=== PATIENT | male | born 1945 | race Caucasian/White ===

== ENCOUNTER 2019-11-06 00:32 | Day surgery (SDC) | payer MEDICARE, OTHER, SELFPAY ==
[2019-10-31 11:26] VITALS: BMI 27.8
[2019-11-06 06:39] VITALS: BP 146/71; PULSE 70; RESP 20; TEMP 36.4; O2SAT 100; BMI 27.5
[2019-11-06 07:09] LABS: Glucose Point of Care 134 (65-105)
[2019-11-06] MEDS: LACTATED RINGERS 1,000 ML 150 ML IV CONT (07:11)
--- NOTE | 2019-11-06 07:19 | WPDANESEPPF ---
Anes - Initial Pre Proc Eval Procedure: Operation Date: 11/06/19 08:00 Proposed Procedures p Colonoscopy - Garret Mathias MD Date/Time: 11/06/19 07:19 Surgeon: Garret Mathias MD Pre Op Diagnosis: rectal bleeding, hx colon polyp Patient Data Age: 74 Gender: M Height: 6 ft Weight: 92 kg Last Vital Signs Temp 36.4 C L 11/06/19 06:39 Pulse 70 11/06/19 06:39 Resp 20 11/06/19 06:39 BP 146/71 H 11/06/19 06:39 Pulse Ox 100 11/06/19 06:39 Allergies Allergy/AdvReac Type Severity Reaction Status Date / Time tetanus toxoid, adsorbed Allergy Mild Rash Verified 11/06/19 06:32 Tetanus Vaccines and Toxoid Allergy Unknown Hives Verified 11/06/19 06:32 Home Medications Medication Instructions Recorded Confirmed Type methimazole 5 mg tablet 2.5 mg PO BID #180 tablet 08/10/19 10/31/19 Rx febuxostat 40 mg tablet 40 mg PO DAILY #90 tablet 08/29/19 10/31/19 Rx finasteride 5 mg tablet 5 mg PO DAILY #90 tablet 08/29/19 10/31/19 Rx triamterene 75 1 tablet PO DAILY #90 tablet 08/29/19 10/31/19 Rx mg-hydrochlorothiazide 50 mg tablet amlodipine 10 mg tablet 10 mg PO DAILY #90 tablet 10/24/19 11/06/19 Rx atorvastatin 20 mg tablet 20 mg PO DAILY #90 tablet 10/24/19 10/31/19 Rx ascorbic acid (vitamin C) 500 mg PO DAILY 10/31/19 10/31/19 History cholecalciferol (vitamin D3) 50 mcg PO DAILY 10/31/19 10/31/19 History [Vitamin D3] evening primrose oil 1,000 mg PO TID 10/31/19 10/31/19 History hydrocortisone acetate [Anucort-HC] 25 mg [place] TID PRN 10/31/19 10/31/19 History icosapent ethyl [Vascepa] 2 g PO BID 10/31/19 10/31/19 History magnesium oxide 500 mg PO BID 10/31/19 10/31/19 History sonrjvkp-bhm-VR-lycopen-lutein 1 tablet PO DAILY 10/31/19 10/31/19 History [Centrum Silver Men] pentoxifylline 400 mg PO TID 10/31/19 10/31/19 History sitagliptin [Januvia] 50 mg PO DAILY 10/31/19 10/31/19 History vitamin E 400 unit PO BID 10/31/19 10/31/19 History Laboratory Tests 11/06/19 07:05 POC Capillary Glucose 134 mg/dl H mg/dl (65-105) Patient hx anesthesia problems: none Family hx anesthesia problems: none PMFSH Past Medical History Medical History (Updated 11/06/19 @ 07:19 by Wale Gates MD) Colon cancer Diabetes HTN (hypertension) Hyperlipidemia Prostate cancer Social History Social History Second hand tobacco smoke exposure: No Alcohol intake: never Gender identity (if verbalized by the patient): Male Anes - Eval Final PreProcedure Day of Procedure 11/06/19 07:19 Patient weight: overweight Heart: regular rate and rhythm Lungs: clear to auscultation Airway: Mallampati scale class II Neurological: alert and oriented Last oral intake: >/= 8 hours ASA classification: III Emergent: no Anesthetic plan: proceed Anesthesia type and monitoring: general GIVS and standard monitoring Informed Consent: The patient's anesthetic plan and its attendant risks and benefits were discussed with the patient/family/POA. Questions were solicited and answers provided to the satisfaction of the patient/family/POA.
--- NOTE | 2019-11-06 07:32 | WPDGICN ---
Assessment and Plan Assessment and plan (1) Rectal bleeding: Code(s): K62.5 - Hemorrhage of anus and rectum Status: Acute Assessment and Plan: Plan is to for colonoscopy to assess more thoroughly bleeding may be secondary to recent radiation therapy. Does have a history of colon polyps. He has a history of large colon polyp requiring resection in the past. (2) History of colon polyps: Code(s): Z86.010 - Personal history of colonic polyps Status: Acute Additional Plan Plan is for colonoscopy to evaluate bleeding to assess for recurrent colon polyps and status of radiation damage to the colon. GI Consult Note Consult date/time: 11/06/19 07:32 HPI: Syd Underwood is a 74 year old male Seen in evaluation at the request of Dr.Oscar Bustamante. Patient is referred for rectal bleeding. He has a history of prostate cancer status post radiation therapy in 2019. Patient is notice bright red blood per rectum since May of 2019. This occurs intermittently. Often with wiping. Often outside the stool. He denies any associated pain. He states his bowel movements are regular and formed. Patient does have a past history of a surgically resected colon polyp by 10 years ago apparently was very large. Follow-up colonoscopy 2016 also revealed adenomatous colon polyps. Patient has tried hydrocortisone suppositories with no significant results. He takes Metamucil on occasion. Review of Systems Review of Systems: All systems reviewed & are unremarkable except as noted in HPI and below PMFSH Past Medical History Medical History Colon cancer Diabetes HTN (hypertension) Hyperlipidemia Prostate cancer Social History Social History Second hand tobacco smoke exposure: No Alcohol intake: never Gender identity (if verbalized by the patient): Male Meds Home Medications and Allergies Home Medications Medication Instructions Recorded Confirmed Type methimazole 5 mg tablet 2.5 mg PO BID #180 tablet 08/10/19 10/31/19 Rx febuxostat 40 mg tablet 40 mg PO DAILY #90 tablet 08/29/19 10/31/19 Rx finasteride 5 mg tablet 5 mg PO DAILY #90 tablet 08/29/19 10/31/19 Rx triamterene 75 1 tablet PO DAILY #90 tablet 08/29/19 10/31/19 Rx mg-hydrochlorothiazide 50 mg tablet amlodipine 10 mg tablet 10 mg PO DAILY #90 tablet 10/24/19 11/06/19 Rx atorvastatin 20 mg tablet 20 mg PO DAILY #90 tablet 10/24/19 10/31/19 Rx ascorbic acid (vitamin C) 500 mg PO DAILY 10/31/19 10/31/19 History cholecalciferol (vitamin D3) 50 mcg PO DAILY 10/31/19 10/31/19 History [Vitamin D3] evening primrose oil 1,000 mg PO TID 10/31/19 10/31/19 History hydrocortisone acetate [Anucort-HC] 25 mg [place] TID PRN 10/31/19 10/31/19 History icosapent ethyl [Vascepa] 2 g PO BID 10/31/19 10/31/19 History magnesium oxide 500 mg PO BID 10/31/19 10/31/19 History pucyunzf-plx-JA-lycopen-lutein 1 tablet PO DAILY 10/31/19 10/31/19 History [Centrum Silver Men] pentoxifylline 400 mg PO TID 10/31/19 10/31/19 History sitagliptin [Januvia] 50 mg PO DAILY 10/31/19 10/31/19 History vitamin E 400 unit PO BID 10/31/19 10/31/19 History Allergies Allergy/AdvReac Type Severity Reaction Status Date / Time tetanus toxoid, adsorbed Allergy Mild Rash Verified 11/06/19 06:32 Tetanus Vaccines and Toxoid Allergy Unknown Hives Verified 11/06/19 06:32 Vital Signs Vital Signs - 24 hr 11/06/19 06:39 Temperature 36.4 C L Pulse Rate 70 Respiratory Rate 20 Blood Pressure 146/71 H Pulse Oximetry 100 Exam Narrative: Exam Narrative: Physical exam reveals Vital Signs to be stable. HEENT exam unremarkable. Lungs are clear to auscultation and percussion. Heart is without murmur or extra sounds. Abdominal exam bowel sounds are present soft nontender with no organomegaly. Digital external rectal exam normal.
[2019-11-06 08:33] VITALS: BP 115/66; PULSE 63; RESP 19; O2SAT 97
[2019-11-06 08:40] VITALS: BP 108/66; PULSE 66; RESP 18; O2SAT 98
[2019-11-06 08:45] LABS: Glucose Point of Care 114 (65-105)
[2019-11-06 08:50] VITALS: BP 127/73; PULSE 65; RESP 27; O2SAT 98
== END 2019-11-06 09:02 | disposition home or self-care (01) ==
PROVIDERS: PCP Internal Medicine; Visit Provider Internal Medicine Gastroenterology
PROC: 0DJD8ZZ Inspection of Lower Intestinal Tract, Via Natural or Artificial Opening Endoscopic (ICD-10-PCS; CPT 45378; principal; 2019-11-06 08:00)
DX: K63.5 Polyp of colon (principal); K57.30 Diverticulosis of large intestine without perforation or abscess without bleeding; K62.89 Other specified diseases of anus and rectum; K64.8 Other hemorrhoids; Z85.038 Personal history of other malignant neoplasm of large intestine; Z85.46 Personal history of malignant neoplasm of prostate; I10 Essential (primary) hypertension; E78.5 Hyperlipidemia, unspecified; E11.9 Type 2 diabetes mellitus without complications; Z79.84 Long term (current) use of oral hypoglycemic drugs
CPT/HCPCS: 45385; 88305; J2704; J7120

== ENCOUNTER 2021-11-02 01:07 | Day surgery (SDC) | payer MEDICARE, OTHER, SELFPAY ==
[2021-10-16 15:13] VITALS: BMI 25.0
[2021-11-02 08:50] VITALS: BP 117/57; PULSE 61; RESP 20; TEMP 36.3; O2SAT 100; BMI 25.9
[2021-11-02] MEDS: LACTATED RINGERS 1,000 ML 150 ML IV CONT (08:56)
--- NOTE | 2021-11-02 09:02 | WPDANESEPPF ---
Anes - Initial Pre Proc Eval Procedure: Operation Date: 11/02/21 09:30 Proposed Procedures p Esophagogastroduodenoscopy - Garret Mathias MD Date/Time: 11/02/21 09:02 Surgeon: Garret Mathias MD Pre Op Diagnosis: celiac disease Patient Data Age: 76 Gender: M Height: 1.83 m Weight: 86.6 kg Last Vital Signs Temp 36.3 C L 11/02/21 08:50 Pulse 61 11/02/21 08:50 Resp 20 11/02/21 08:50 BP 117/57 L 11/02/21 08:50 Pulse Ox 100 11/02/21 08:50 Allergies Allergy/AdvReac Type Severity Reaction Status Date / Time tetanus toxoid, adsorbed Allergy Mild Rash Verified 11/02/21 08:49 Tetanus Vaccines and Toxoid Allergy Unknown Hives Verified 11/02/21 08:49 Home Medications Medication Instructions Recorded Confirmed Type uuupbtgi-wsd-EB-lycopen-lutein 1 tablet PO DAILY 10/31/19 10/16/21 History [Centrum Silver Men] vitamin B complex 1 cap PO DAILY 90 Days #90 cap 02/21/20 10/13/21 Rx amlodipine 10 mg tablet 10 mg PO DAILY #90 tablet 07/21/21 10/16/21 Rx finasteride 5 mg tablet 5 mg PO DAILY 90 Days #90 tablet 07/29/21 10/16/21 Rx methimazole 5 mg tablet 2.5 mg PO BID #180 tablet 07/29/21 10/16/21 Rx omega 5-qio-xhp-fish oil 60 mg-90 2 cap PO BID cap 07/29/21 10/16/21 History mg-500 mg capsule triamterene 75 See Rx Instructions .ROUTE 08/18/21 10/13/21 Rx mg-hydrochlorothiazide 50 mg tablet .COMPLEX #90 tablet allopurinol 100 mg tablet 100 mg PO DAILY #90 tablet 08/25/21 10/16/21 Rx cholecalciferol (vitamin D3) 125 100 mcg PO BID 09/01/21 10/16/21 History mcg (5,000 unit) capsule rosuvastatin 10 mg tablet See Rx Instructions .ROUTE 10/20/21 Rx .COMPLEX #90 tablet sitagliptin 100 mg tablet See Rx Instructions .ROUTE 10/27/21 Rx .COMPLEX #45 tablet Patient hx anesthesia problems: none Family hx anesthesia problems: none Results Review: All pre-operative results and documents have been reviewed as part of the pre-operative evaluation. 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 Prostate cancer Surgical History Surgical History History of colon surgery 2004 Resection for polyps Family History Family History Father Heart disease Mother Diabetes mellitus Hypertension Son Hypertension Social History Social History Smoking status: Former smoker Second hand tobacco smoke exposure: No Smoking end date: 07/18/89 Additional smoking assessment comments: quit 15-20 years ago Alcohol intake: current Drinks per week: 2 Alcohol use details: vodka and cranberry Substance use: never Substance use type: does not use Living arrangements: with family Gender identity (if verbalized by the patient): Male Spiritual care concerns: No Agree to blood products: Yes Anes - Eval Final PreProcedure Day of Procedure 11/02/21 09:02 Patient weight: overweight Heart: regular rate and rhythm Lungs: clear to auscultation Airway: Mallampati scale class II Neurological: alert and oriented Last oral intake: >/= 8 hours ASA classification: III Emergent: no Anesthetic plan: proceed Anesthesia type and monitoring: general GIVS and standard monitoring Results Review: All pre-operative results and documents have been reviewed as part of the pre-operative evaluation. Informed Consent: The patient's anesthetic plan and its attendant risks and benefits were discussed with the patient/family/POA. Questions were solicited and answers provided to the satisfaction of the patient/family/POA.
[2021-11-02 09:16] LABS: Glucose Point of Care 106 mg/dl (65-105)
--- NOTE | 2021-11-02 09:30 | WPDHPUPDATE1 ---
History and Physical Update Update Date/Time: 11/02/21 09:30 History and Physical has been reviewed, including an updated exam of the patient. There are NO changes in the patient's condition. Risks, benefits, and alternatives have been discussed and questions answered. Patient agrees to proceed with procedure.
[2021-11-02 09:52] VITALS: BP 112/52; PULSE 56; RESP 24; O2SAT 96
[2021-11-02 10:02] VITALS: BP 117/85; PULSE 55; RESP 17; O2SAT 100
== END 2021-11-02 10:17 | disposition home or self-care (01) ==
PROVIDERS: PCP Family Medicine; Visit Provider Internal Medicine Gastroenterology
PROC: 0DJ08ZZ Inspection of Upper Intestinal Tract, Via Natural or Artificial Opening Endoscopic (ICD-10-PCS; CPT 43235; principal; 2021-11-02 09:30)
DX: K29.80 Duodenitis without bleeding (principal); K90.0 Celiac disease; R19.7 Diarrhea, unspecified; E78.5 Hyperlipidemia, unspecified; I12.9 Hypertensive chronic kidney disease with stage 1 through stage 4 chronic kidney disease, or unspecified chronic kidney disease; E11.22 Type 2 diabetes mellitus with diabetic chronic kidney disease; N18.30 Chronic kidney disease, stage 3 unspecified; Z85.46 Personal history of malignant neoplasm of prostate; Z79.84 Long term (current) use of oral hypoglycemic drugs; Z90.49 Acquired absence of other specified parts of digestive tract; Z87.891 Personal history of nicotine dependence
CPT/HCPCS: 43239; 82948; 88305; J2704; J7120

== ENCOUNTER 2023-04-13 09:54 | Outpatient (CLI) | payer MEDICARE, SELFPAY ==
[2023-04-13 10:42] LABS: Hematocrit 44.4 % (42.0-52.0); Hemoglobin 15.4 g/dL (14.0-18.0); Mean Corpuscular HGB Conc 34.7 g/dl (32-36); Mean Corpuscular Hemoglobin 31.6 pg (26-34); Mean Platelet Volume 10.9 fl (7.4-10.4); Platelet Count Result 230 k/mm3 (150-375); Red Blood Count 4.88 M/mm3 (4.6-6.20); Red Cell Distribution Width 12.6 % (11.5-14.5); White Blood Count 5.3 K/mm3 (4.5-10.0)
[2023-04-13 10:55] LABS: Alanine Aminotransferase 69 U/L (6-50); Albumin Level 4.5 g/dL (3.5-5.1); Alkaline Phosphatase 62 U/L (38-126); Anion Gap 8 mmol/L (8-16); Aspartate Amino Transferase 60 U/L (17-59); Bilirubin,Total 0.7 mg/dL (0.2-1.3); Blood Urea Nitrogen 24 mg/dL (9-20); Calcium 9.1 mg/dL (8.4-10.2); Carbon Dioxide 27 mmol/L (22-30); Chloride 103 mmol/L (98-107); Estimated Glomerular Filt Rate > 60; Glucose 225 mg/dL (65-110); Potassium 3.7 mmol/L (3.4-5.0); Sodium 138 mmol/L (137-145)
[2023-04-13 11:19] LABS: Iron 109 ug/dL (49-181)
[2023-04-13 11:28] LABS: Percent Iron Saturation 30 % (20-50)
[2023-04-13 12:27] LABS: Folic Acid > 20.0 ng/mL (2.76->20)
[2023-04-13 13:33] LABS: Vitamin D 25 Hydroxy 62.2 ng/mL
[2023-04-16 10:31] LABS: Vitamin D 1,25 (OH)2 Total 27 pg/mL (18-72); Vitamin D2 1,25 (OH)2 <8 pg/mL; Vitamin D3 1,25 (OH)2 27 pg/mL
[2023-04-16 15:44] LABS: Alpha-Tocopherol 12.1 mg/L (5.7-19.9); Beta-Gamma Tocopherol <1.0 mg/L (<=4.3); Vitamin A 86 mcg/dL (38-98)
[2023-04-18 13:02] LABS: Vitamin B6 34.5 ng/mL (2.1-21.7)
[2023-04-19 09:44] LABS: Tissue Transglutaminase IgA Ab 19.3 U/mL (<15.0)
== END 2023-04-13 09:55 | disposition home or self-care (01) ==
LOC: ANHLAB 09:59
PROVIDERS: PCP Family Medicine; Visit Provider Nurse Practitioner Family
DX: E55.9 Vitamin D deficiency, unspecified (principal); K90.0 Celiac disease
CPT/HCPCS: 36415; 80053; 82306; 82607; 82652; 82728; 82746; 83540; 83550; 84207; 84446; 84590; 85027; 86364

== ENCOUNTER 2023-08-16 10:19 | Outpatient (CLI) | payer MEDICARE, SELFPAY | END 2023-08-16 10:20 | disposition home or self-care (01) | PROVIDERS: PCP Family Medicine; Visit Provider Nurse Practitioner Family | DX: R74.01 Elevation of levels of liver transaminase levels (principal) | CPT/HCPCS: 36415 ==

== ENCOUNTER 2023-08-17 13:34 | Outpatient (CLI) | payer MEDICARE, SELFPAY ==
[2023-08-17 14:34] LABS: Alanine Aminotransferase 56 U/L (6-50); Albumin Level 4.6 g/dL (3.5-5.1); Alkaline Phosphatase 55 U/L (38-126); Aspartate Amino Transferase 46 U/L (17-59); Bilirubin,Total 0.7 mg/dL (0.2-1.3)
== END 2023-08-17 13:35 | disposition home or self-care (01) ==
PROVIDERS: PCP Family Medicine; Visit Provider Nurse Practitioner Family
DX: R74.01 Elevation of levels of liver transaminase levels (principal)
CPT/HCPCS: 36415; 80076

== ENCOUNTER 2023-10-13 13:38 | Outpatient (CLI) | payer MEDICARE, SELFPAY ==
--- NOTE | 2023-10-13 13:55 | ECHO_ITS ---
Patient Info Name: Syd Underwood Age: 78 years : 1945 Gender: Male Ht: 72 in Wt: 206 lbs BSA: 2.20 m2 HR: 87 bpm BP: 162 / 81 mmHg Technical Quality: Fair Exam Date: 10/13/2023 2:05 PM Exam Location: Echo Lab Patient Status: Outpatient Admit Date: 10/13/2023 Staff Ordering Physician: Shawna Hernandez Outbound Sales Specialist: Salome Springer RDCS Attending Provider: Shanwa Hernandez Referring Physician: David BERGERON; Exam Type: CA echo doppler color flow Study Info Indications R01.1 - Cardiac murmur, unspecified Complete two-dimensional, color flow and Doppler transthoracic echocardiogram is performed. Summary 1. Complete two-dimensional, color flow and Doppler transthoracic echocardiogram is performed. 2. Left ventricular chamber dimension is normal. 3. Left ventricular systolic function is normal, estimated at 65-70%. 4. There is mild concentric increased left ventricular wall thickness. 5. The left ventricular diastolic function is grade I diastolic dysfunction. 6. E/e' 17 is elevated. 7. There is moderate aortic valve sclerosis. 8. There is mild aortic valve stenosis with a peak velocity of 266 cm/s, mean gradient of 12 mmHg, and aortic valve area of 1.6 cm2. 9. The mitral valve has moderately calcified annulus. 10. There is trace tricuspid valve regurgitation. 11. No pulmonary hypertension, estimated pulmonary arterial systolic pressure is 20 mmHg. Left Ventricle E/e' 17 is elevated. Left ventricular chamber dimension is normal. Left ventricular systolic function is normal, estimated at 65-70%. There is mild concentric increased left ventricular wall thickness. The left ventricular diastolic function is grade I diastolic dysfunction. Right Ventricle Right ventricular systolic function is normal and with normal TAPSE 2.3 cm. Right ventricular chamber dimension is normal. Left Atria Left atrial chamber dimension is normal. Right Atria Right atrial chamber dimension is normal. Aortic Valve The aortic valve is trileaflet. There is moderate aortic valve sclerosis. There is mild aortic valve stenosis with a peak velocity of 266 cm/s, mean gradient of 12 mmHg, and aortic valve area of 1.6 cm2. There is no aortic valve regurgitation. Pulmonic Valve There is no pulmonic regurgitation. Mitral Valve The mitral valve has moderately calcified annulus. There is no mitral valve stenosis. There is no mitral valve regurgitation. Tricuspid Valve There is trace tricuspid valve regurgitation. No pulmonary hypertension, estimated pulmonary arterial systolic pressure is 20 mmHg. Pericardium/Pleural There is no pericardial effusion. Inferior Vena Cava Normal inferior vena cava with >50% collapse upon inspiration consistent with normal right atrial pressure, 5 mmHg. Aorta The aortic root size at the sinus of Valsalva is normal. Left Ventricular Outflow Tract Name Value Normal LVOT 2D LVOT Diameter 2.1 cm LVOT Doppler LVOT Peak Gradient 7 mmHg LVOT Mean Gradient 4 mmHg LVOT VTI 27 cm LVOT VTI/AV VTI Ratio 0.5 LVOT Stroke Volume 93 ml
== END 2023-10-13 13:39 | disposition home or self-care (01) ==
LOC: ANHCARD 13:39
PROVIDERS: PCP Family Medicine; Visit Provider Nurse Practitioner Family
DX: R01.1 Cardiac murmur, unspecified (principal); I08.0 Rheumatic disorders of both mitral and aortic valves
CPT/HCPCS: 93306

== ENCOUNTER 2024-01-07 08:05 | Emergency (ER) | payer MEDICARE, SELFPAY ==
--- NOTE | 2024-01-07 08:09 | ED.GENADULT ---
HPI - General Adult General Chief complaint: Nausea/Vomiting/Diarrhea Stated complaint: nausea and vomiting Time Seen by Provider: 01/07/24 08:09 78-year-old male patient presents to the [facility] with complaints of nausea and vomiting. Patient states it has been going on off and on for the past several weeks but thought it was due to his bronchitis and drainage to the back of the throat. Patient states that he has been noticing that he has been getting nauseated and vomiting after he eats. Patient states he had does have a little bit of pain across the upper abdomen during those times and then it goes away. Patient does have history of type 2 diabetes but states that sugars have been running normally. Patient denies any fevers, body aches or chills. Denies any diarrhea. Patient states he did a eat some fried fish yesterday at at a restaurant and after eating it he had to go outside to throw up. Patient states he had trouble sleeping last night as well. Patient states he does take omeprazole once daily. 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 Patient denies any chest pain or shortness of breath at this time. Source: patient Mode of arrival: ambulatory Limitations: no limitations Related Data Home Medications Medication Instructions Recorded Confirmed ynuqkoyf-qr-pctoj 300 mcg-K 60 1 tablet PO DAILY 10/31/19 01/07/24 mcg-lycop 600 mcg-lutein 300 mcg tablet (Centrum Silver Men) omega 1-bin-rih-fish oil 60 mg-90 2 cap PO BID 07/29/21 01/07/24 mg-500 mg capsule (Fish Oil) cholecalciferol (vitamin D3) 125 100 mcg PO BID 09/01/21 01/07/24 mcg (5,000 unit) capsule multivit with minerals-iron 18 tablet PO 01/07/24 mg-folic ac 400 mcg-vit K 25 mcg tablet (Adults Multivitamin) Allergies Allergy/AdvReac Type Severity Reaction Status Date / Time tetanus toxoid, adsorbed Allergy Mild Rash Verified 01/07/24 08:14 Tetanus Vaccines and Toxoid Allergy Unknown Hives Verified 01/07/24 08:14 Review of Systems Review of Systems: CONSTITUTIONAL: Denies fever, chills, or sweats. EYES: Denies visual changes, redness, or discharge. ENT: Denies rhinorrhea, congestion, sore throat, or otalgia. CARDIOVASCULAR: Denies chest pain, palpitations, or edema. RESPIRATORY: Denies cough or dyspnea. GASTROINTESTINAL: Positive intermittent abdominal pain, nausea, vomiting, denies diarrhea. GENITOURINARY: Denies dysuria or hematuria. SKIN: Denies rash or itching. MUSCULOSKELETAL: Denies back pain, joint pain, or myalgia. NEUROLOGIC: Denies headache, numbness, or weakness. PSYCHIATRIC: Denies anxiety or depression. [facility] Past Medical History Medical History Arthritis Diabetes History of colon polyps HTN (hypertension) Hyperlipidemia Neuropathy Surgical History Surgical History History of colon surgery 2004 Resection for polyps Family History Family History Father Heart disease Mother Diabetes mellitus Hypertension Son Hypertension Social History Social History Smoking status: Former smoker Second hand tobacco smoke exposure: No Smoking end date: 07/18/89 Additional smoking assessment comments: quit 15-20 years ago Alcohol intake: current Drinks per week: 2 Alcohol use details: vodka and cranberry Substance use: never Substance use type: does not use Living arrangements: with family Occupation/Education: retired Gender identity (if verbalized by the patient): Male Spiritual care concerns: No Agree to blood products: Yes Comments vital signs reviewed. Exam Narrative: GENERAL: Well-appearing, well-nourished, and in no acute distress. HEAD: Normocephalic, atraumatic. EYES: P
[2024-01-07 08:16] VITALS: BP 151/70; PULSE 99; RESP 18; TEMP 36.6; O2SAT 99
[2024-01-07 08:33] LABS: Glucose Point of Care 168 mg/dl (65-105)
== END 2024-01-07 08:40 | disposition home or self-care (01) ==
PROVIDERS: Emergency Provider Nurse Practitioner Family; PCP Nurse Practitioner Family
DX: K21.9 Gastro-esophageal reflux disease without esophagitis (principal); Z87.891 Personal history of nicotine dependence; M19.90 Unspecified osteoarthritis, unspecified site; I10 Essential (primary) hypertension; E78.5 Hyperlipidemia, unspecified; E11.40 Type 2 diabetes mellitus with diabetic neuropathy, unspecified
CPT/HCPCS: 82948; 99213; G0463

== ENCOUNTER 2024-01-11 08:35 | Outpatient (CLI) | payer MEDICARE, SELFPAY ==
--- NOTE | ~2024-01-11 | US_ITS ---
EXAMINATION: US abdomen limited DATE: 01/11/2024 08:59 INDICATION: Right upper quadrant abdominal pain. Nausea and vomiting. TECHNIQUE: Multiple grayscale and Doppler ultrasound images of the abdomen were obtained. COMPARISON: CT abdomen and pelvis 11/17/2017 FINDINGS: The visualized portions of the head and body of the pancreas are normal. The liver is maribel l without focal lesion. No liver surface nodularity. The gallbladder is contracted. No gallstones. Th e common duct is normal and measures 3 mm. IMPRESSION: 1. Normal right upper quadrant ultrasound. Reviewed, dictated and finalized at location A.
== END 2024-01-11 08:36 ==
LOC: MICIMG 08:36
PROVIDERS: PCP Nurse Practitioner Family; Visit Provider Nurse Practitioner Family
DX: R10.11 Right upper quadrant pain (principal)
CPT/HCPCS: 76705

== ENCOUNTER 2024-01-25 00:27 | Day surgery (SDC) | payer MEDICARE, SELFPAY ==
[2024-01-25 10:28] VITALS: BP 105/64; PULSE 74; RESP 17; TEMP 36.2; O2SAT 100; BMI 26.4
--- NOTE | 2024-01-25 10:32 | WPDANESEPPF ---
Anes - Initial Pre Proc Eval Procedure: Operation Date: 01/25/24 11:30 Proposed Procedures p Esophagogastroduodenoscopy - Saturnino Hernandez MD Date/Time: 01/25/24 10:32 Surgeon: Saturnino Hernandez MD Pre Op Diagnosis: GERD Patient Data Age: 78 Gender: M Height: 1.83 m Weight: 88.5 kg Last Vital Signs Temp 97.1 F L 01/25/24 10:28 Pulse 74 01/25/24 10:28 Resp 17 01/25/24 10:28 BP 105/64 01/25/24 10:28 Pulse Ox 100 01/25/24 10:28 O2 Del Method Room Air 01/25/24 10:28 Allergies Allergy/AdvReac Type Severity Reaction Status Date / Time tetanus toxoid, adsorbed Allergy Mild Rash Verified 01/25/24 10:26 Tetanus Vaccines and Toxoid Allergy Unknown Hives Verified 01/25/24 10:26 Home Medications Medication Instructions Recorded Confirmed Type vitamin B complex 1 cap PO DAILY 90 days #90 caps 02/21/20 01/25/24 Rx omega 7-ptt-ibo-fish oil 60 mg-90 1 cap PO BID 07/29/21 01/25/24 History mg-500 mg capsule (Fish Oil) cholecalciferol (vitamin D3) 125 100 mcg PO BID 09/01/21 01/25/24 History mcg (5,000 unit) capsule allopurinol 100 mg tablet See Rx Instructions .Route 11/15/23 01/25/24 Rx .COMPLEX #90 tabs amlodipine 10 mg tablet See Rx Instructions .Route 11/15/23 01/25/24 Rx .COMPLEX #90 tabs metformin 500 mg tablet,extended 500 mg PO BID #180 tabs 11/15/23 01/25/24 Rx release 24 hr triamterene 75 See Rx Instructions .Route 11/15/23 01/25/24 Rx mg-hydrochlorothiazide 50 mg tablet .COMPLEX #90 tabs blood sugar diagnostic (Accu-Chek #100 ea 12/19/23 01/25/24 Rx Guide test strips) blood-glucose meter #1 ea 12/19/23 01/25/24 Rx lancets (Accu-Chek Softclix #100 ea 06/03/24 07/10/24 Rx Lancets) losartan 25 mg tablet 25 mg PO DAILY #90 tabs 12/21/23 01/25/24 Rx multivit with minerals-iron 18 1 tablet PO DAILY 01/07/24 01/25/24 History mg-folic ac 400 mcg-vit K 25 mcg tablet (Adults Multivitamin) famotidine 20 mg tablet (Pepcid) 20 mg PO DAILY #90 tabs 01/09/24 01/25/24 Rx omeprazole 20 mg capsule,delayed 20 mg PO BID #180 caps 01/09/24 01/25/24 Rx release ondansetron 4 mg disintegrating 4 mg PO Q6H PRN nausea and 01/09/24 01/25/24 Rx tablet vomiting #30 tabs gabapentin 100 mg capsule See Rx Instructions .Route 01/20/24 01/25/24 Rx .COMPLEX #90 caps rosuvastatin 10 mg tablet See Rx Instructions .Route 01/23/24 01/25/24 Rx .COMPLEX #90 tabs Patient hx anesthesia problems: none Family hx anesthesia problems: none Results Review: All pre-operative results and documents have been reviewed as part of the pre-operative evaluation. [facility] Past Medical History Medical History Arthritis Diabetes History of colon polyps HTN (hypertension) Hyperlipidemia Neuropathy Surgical History Surgical History History of colon surgery 2004 Resection for polyps Family History Family History Father Heart disease Mother Diabetes mellitus Hypertension Son Hypertension Social History Social History Years smoked: 15 Smoking status: Former smoker Tobacco type: cigarettes Second hand tobacco smoke exposure: No Smoking end date: 07/18/89 Additional smoking assessment comments: quit 15-20 years ago Alcohol intake: current Drinks per week: 2 Alcohol use details: vodka and cranberry Substance use: never Substance use type: does not use Living arrangements: other Additional living arrangements comments: With sp Occupation/Education: retired Gender identity (if verbalized by the patient): Male Spiritual care concerns: No Agree to blood products: Yes Anes - Eval Final PreProcedure Day of Procedure 01/25/24 10:32 Patient weight: normal Heart: regular rate and rhythm
[2024-01-25 10:36] LABS: Glucose Point of Care 125 mg/dl (65-105)
[2024-01-25] MEDS: LACTATED RINGERS 1,000 ML 150 ML IV CONT (10:40)
--- NOTE | 2024-01-25 11:27 | PM.HPGS ---
History of Present Illness History of Present Illness Consent: Risks, benefits, and alternatives have been discussed and questions answered. Patient agrees to proceed with procedure. Chief complaint: GERD Narrative: Syd Underwood is a 78 year old male with 2 months of epigastric pain and nausea, ultrasound no major findings, never had egd, on ppi but still sytmptomatic Review of Systems Review of Systems: All systems reviewed & are unremarkable except as noted in HPI and below PMFSH Past Medical History Medical History (Updated 01/25/24 @ 11:28 by Saturnino Hernandez MD) Arthritis Diabetes Epigastric pain History of colon polyps HTN (hypertension) Hyperlipidemia Nausea Neuropathy Surgical History Surgical History History of colon surgery 2004 Resection for polyps Family History Family History Father Heart disease Mother Diabetes mellitus Hypertension Son Hypertension Social History Social History Years smoked: 15 Smoking status: Former smoker Tobacco type: cigarettes Second hand tobacco smoke exposure: No Smoking end date: 07/18/89 Additional smoking assessment comments: quit 15-20 years ago Alcohol intake: current Drinks per week: 2 Alcohol use details: vodka and cranberry Substance use: never Substance use type: does not use Living arrangements: other Additional living arrangements comments: With sp Occupation/Education: retired Gender identity (if verbalized by the patient): Male Spiritual care concerns: No Agree to blood products: Yes Meds Home Medications and Allergies Home Medications Medication Instructions Recorded Confirmed Type vitamin B complex 1 cap PO DAILY 90 days #90 caps 02/21/20 01/25/24 Rx omega 9-pce-qzr-fish oil 60 mg-90 1 cap PO BID 07/29/21 01/25/24 History mg-500 mg capsule (Fish Oil) cholecalciferol (vitamin D3) 125 100 mcg PO BID 09/01/21 01/25/24 History mcg (5,000 unit) capsule allopurinol 100 mg tablet See Rx Instructions .Route 11/15/23 01/25/24 Rx .COMPLEX #90 tabs amlodipine 10 mg tablet See Rx Instructions .Route 11/15/23 01/25/24 Rx .COMPLEX #90 tabs metformin 500 mg tablet,extended 500 mg PO BID #180 tabs 11/15/23 01/25/24 Rx release 24 hr triamterene 75 See Rx Instructions .Route 11/15/23 01/25/24 Rx mg-hydrochlorothiazide 50 mg tablet .COMPLEX #90 tabs blood sugar diagnostic (Accu-Chek #100 ea 12/19/23 01/25/24 Rx Guide test strips) blood-glucose meter #1 ea 12/19/23 01/25/24 Rx lancets (Accu-Chek Softclix #100 ea 12/19/23 01/25/24 Rx Lancets) losartan 25 mg tablet 25 mg PO DAILY #90 tabs 12/21/23 01/25/24 Rx multivit with minerals-iron 18 1 tablet PO DAILY 01/07/24 01/25/24 History mg-folic ac 400 mcg-vit K 25 mcg tablet (Adults Multivitamin) famotidine 20 mg tablet (Pepcid) 20 mg PO DAILY #90 tabs 01/09/24 01/25/24 Rx omeprazole 20 mg capsule,delayed 20 mg PO BID #180 caps 01/09/24 01/25/24 Rx release ondansetron 4 mg disintegrating 4 mg PO Q6H PRN nausea and 01/09/24 01/25/24 Rx tablet vomiting #30 tabs gabapentin 100 mg capsule See Rx Instructions .Route 01/20/24 01/25/24 Rx .COMPLEX #90 caps rosuvastatin 10 mg tablet See Rx Instructions .Route 01/23/24 01/25/24 Rx .COMPLEX #90 tabs Allergies Allergy/AdvReac Type Severity Reaction Status Date / Time tetanus toxoid, adsorbed Allergy Mild Rash Verified 01/25/24 10:26 Tetanus Vaccines and Toxoid Allergy Unknown Hives Verified 01/25/24 10:26 Vital Signs Vital Signs - 24 hr 01/25/24 10:28 Temperature 97.1 F L Pulse Rate 74 Respiratory Rate 17 Blood Pressure 105/64 Pulse Oximetry 100 Oxygen Delivery Room Air Exam Const: General: comfortable and no acute distress HENMT: Face/Nose/Sinus: Normal nares present Eyes
[2024-01-25 11:41] VITALS: BP 136/61; PULSE 81; RESP 19; O2SAT 94
[2024-01-25 11:51] VITALS: BP 126/63; PULSE 87; RESP 18; O2SAT 92
[2024-01-25 12:01] VITALS: BP 121/60; PULSE 84; RESP 18; O2SAT 92
[2024-01-25 12:33] VITALS: BP 116/57; PULSE 89; RESP 23; O2SAT 98
== END 2024-01-25 12:50 | disposition home or self-care (01) ==
PROVIDERS: PCP Nurse Practitioner Family; Visit Provider Internal Medicine Gastroenterology
PROC: 0DJ08ZZ Inspection of Upper Intestinal Tract, Via Natural or Artificial Opening Endoscopic (ICD-10-PCS; CPT 43235; principal; 2024-01-25 11:30)
DX: K21.00 Gastro-esophageal reflux disease with esophagitis, without bleeding (principal); K29.80 Duodenitis without bleeding; K29.50 Unspecified chronic gastritis without bleeding; E11.43 Type 2 diabetes mellitus with diabetic autonomic (poly)neuropathy; K31.84 Gastroparesis; I10 Essential (primary) hypertension; E78.5 Hyperlipidemia, unspecified; E11.40 Type 2 diabetes mellitus with diabetic neuropathy, unspecified; Z87.891 Personal history of nicotine dependence; Z79.84 Long term (current) use of oral hypoglycemic drugs
CPT/HCPCS: 43239; 82948; 88305; J2704; J7120

== ENCOUNTER 2024-02-07 07:19 | Outpatient (CLI) | payer MEDICARE, SELFPAY ==
--- NOTE | ~2024-02-07 | NM_ITS ---
EXAM: NM gastric emptying study DATE: 02/07/2024 12:44 CDT INDICATION: Nausea TECHNIQUE: A gastric emptying study was performed using the methodology of Delmis HIDALGO, et al. J Nucl Med 2007; 48:568-572. The patient was given a meal consisting of 2 scrambled eggs labeled with 1 mCi Tc-99m sulfur colloid, 2 slices of toast, two packages of jam, and approximately 120 mL of water. Si multaneous anterior and posterior 1-min images of the abdomen were obtained with the patient supine a t multiple time points over a total period of 4 hours. The geometric mean of anterior and posterior v iews was determined, and the percentage retention was calculated for each time point. COMPARISON: None. FINDINGS: Gastric retention of the radiotracer-labeled meal was 97%, 91%, and 78% at the 1-hour, 2-h our, and 4-hour time points, respectively. With this technique, apparent rapid gastric emptying is wise ggested by <30% gastric retention at 1 hour. Delayed gastric emptying is defined by gastric retention of >90% at 1 hour, >60% retention at 2 hours, or >10% retention at 4 hours. IMPRESSION: 1. Delayed gastric emptying. Reviewed, dictated and finalized at location B.
== END 2024-02-07 07:20 | disposition home or self-care (01) ==
PROVIDERS: PCP Nurse Practitioner Family; Visit Provider Internal Medicine Gastroenterology
DX: K30 Functional dyspepsia (principal)
CPT/HCPCS: 78264; A9541

== ENCOUNTER 2024-02-28 09:21 | Outpatient (RCR) | payer MEDICARE, SELFPAY ==
[2024-02-28 09:30] VITALS: BMI 25.7
[2024-02-28 09:32] VITALS: BMI 25.7
== END 2024-05-16 14:15 | disposition home or self-care (01) ==
LOC: ANHDMC 09:21
PROVIDERS: PCP Nurse Practitioner Family; Visit Provider Nurse Practitioner Family
DX: K31.84 Gastroparesis (principal); K90.0 Celiac disease; E11.9 Type 2 diabetes mellitus without complications; I10 Essential (primary) hypertension; E79.0 Hyperuricemia without signs of inflammatory arthritis and tophaceous disease; E78.2 Mixed hyperlipidemia; Z71.3 Dietary counseling and surveillance
CPT/HCPCS: 97802

== ENCOUNTER 2024-02-29 09:30 | Emergency (ER) | payer MEDICARE, SELFPAY ==
[2024-02-29] VITALS (7 sets, daily range): BP systolic 126–157; BP diastolic 69–82; PULSE 89–98; RESP 12–21; TEMP 36.1–36.6; O2SAT 95–100
--- NOTE | ~2024-02-29 | CT_ITS ---
EXAMINATION: CT abdomen pelvis w con DATE: 02/29/2024 12:21 INDICATION: Epigastric abdominal pain. Vomiting. TECHNIQUE: Computed tomography (CT) of the abdomen and pelvis was performed with 100 mL Omnipaque 350 intravenous contrast. Automated exposure control and iterative reconstruction technique were employe d. The dose-length product was 766.62 mGy-cm. COMPARISON: CT abdomen and pelvis 11/17/2017 FINDINGS: The visualized portions of the lung bases demonstrate mild atelectasis. A calcified right l amanda nodule is consistent with old granulomatous disease. There is a 5 mm nodule in right lower lobe, stable from 11/17/2017, likely benign. No pleural effusion. The heart size is normal. There are coronar y artery calcifications. There are calcifications of the aortic valve. No pericardial effusion. There is wall thickening of the esophagus. The liver, gallbladder, and spleen are normal. There is distent ion of the stomach and proximal duodenum. There is a 4.0 x 2.4 cm mass involving the pancreas and sec ond portion of the duodenum. There is a 2.9 x 2.5 cm peripancreatic node. There are numerous cysts in the pancreas measuring up to 2.2 cm, likely benign. The adrenal glands are normal. There is cortical thinning of the kidneys. There are cysts in the kidneys measuring up to 8 mm on the right. The prost ate is mildly enlarged. There are brachytherapy seeds in the prostate. There are bilateral inguinal h ernias containing fat. There is diffuse bladder wall thickening, likely secondary to chronic outlet o bstruction. There is diverticulosis of the colon without evidence of diverticulitis. There are change s of right hemicolectomy. There are no pathologically enlarged lymph nodes. There is no free intraper itoneal fluid. There is mild thoracolumbar spondylosis. There is a chronic compression fracture of T1 2. There is mild chronic anterior wedging of L1. IMPRESSION: 1. Mass involving the pancreas and second portion the duodenum with duodenal stricture and obstructio n, consistent with primary malignancy. 2. Enlarged peripancreatic lymph node, consistent with metastatic disease. 3. Wall thickening of the esophagus, likely esophagitis. Reviewed, dictated and finalized at location A. IMPRESSION: 1. Mass involving the pancreas and second portion the duodenum with duodenal st ricture and obstruction, consistent with primary malignancy. 2. Enlarged peripancreatic lymph node, consistent with metastatic disease. 3. Wall thickening of the esophagus, likely esophagitis.
--- NOTE | ~2024-02-29 | XR_ITS ---
EXAMINATION: XR abdomen gastric tube insert DATE: 02/29/2024 15:27 INDICATION: Assess nasogastric tube placement. TECHNIQUE: A supine view of the abdomen and lower chest was obtained for evaluation of feeding tube placement. COMPARISON: None. FINDINGS: Nasogastric tube tip in proximal side port in the body the stomach. There is gastric distention with elevation of left hemidiaphragm. Calcified right basilar nodule consistent with old granulomatous dis ease. Visualized mid to lower lungs are otherwise clear with no focal airspace opacities, pulmonary e tony, pleural effusion or pneumothorax. Heart size is normal. IMPRESSION: 1. Nasogastric tube in the stomach. Reviewed, dictated and finalized at location A.
--- NOTE | 2024-02-29 11:30 | ED.NAVMDI ---
HPI - Nausea/Vomiting/Diarrhea General Chief complaint: Nausea/Vomiting/Diarrhea Stated complaint: n/v Time Seen by Provider: 02/29/24 11:29 Source: patient and family Limitations: no limitations History of Present Illness HPI Narrative: 78 years old white male came with chief complain of nausea and frequent vomiting at least 8 times yesterday, today only dry heaving. With some epigastric discomfort. History of diabetes, gastroparesis, hypertension, hyperlipidemia, partial colon resection secondary to diverticulitis, appendectomy. Patient does not smoke or drink or use drugs. Related Data Home Medications Medication Instructions Recorded Confirmed omega 1-azr-afp-fish oil 60 mg-90 1 cap PO BID 07/29/21 02/14/24 mg-500 mg capsule (Fish Oil) cholecalciferol (vitamin D3) 50 50 mcg PO DAILY 02/16/24 mcg (2,000 unit) capsule Allergies Allergy/AdvReac Type Severity Reaction Status Date / Time tetanus toxoid, adsorbed Allergy Mild Rash Verified 02/14/24 14:34 Tetanus Vaccines and Toxoid Allergy Unknown Hives Verified 02/14/24 14:34 Review of Systems Review of Systems: All systems reviewed & are unremarkable except as noted in HPI and below PMFSH Past Medical History Medical History Arthritis Diabetes Epigastric pain History of colon polyps HTN (hypertension) Hyperlipidemia Nausea Neuropathy Surgical History Surgical History History of colon surgery 2004 Resection for polyps Family History Family History Father Heart disease Mother Diabetes mellitus Hypertension Son Hypertension Social History Social History Social History: Declined to complete social history questionnaire Years smoked: 15 Smoking status: Former smoker Tobacco type: cigarettes Second hand tobacco smoke exposure: No Smoking end date: 07/18/89 Additional smoking assessment comments: quit 15-20 years ago Alcohol intake: current Drinks per week: 2 Alcohol use details: vodka and cranberry Substance use: never Substance use type: does not use Living arrangements: other Additional living arrangements comments: With sp Occupation/Education: retired Gender identity (if verbalized by the patient): Male Spiritual care concerns: No Agree to blood products: Yes Exam Narrative: General appearance: Well-developed, well-nourished Skin: Normal color Head: Normocephalic, nontraumatic Eyes: Clear conjunctiva ENT: Oropharynx normal, ears normal, nose normal Neck: Supple, nontender Chest and respiratory: Airway patent, no respiratory distress, no accessory muscle use Heart: Regular rate/rhythm Abdomen: Soft, slight epigastric tenderness,, no organomegaly, quiet bowel sounds Vascular: Normal peripheral pulses, normal capillary refill. Musculoskeletal: Normal range of motion, nontender back Neurologic: Alert and oriented ?3, FLOWER CUTTER is normal as tested, no gross motor deficit Course Consultations Consultation #1: Dr GRAFF, HOSPITALIST AT [facility] WHO ACCEPTED PATIENT TRANSFER Date: 02/29/24 Time: 15:15 Vital Signs Vital signs: Vital Signs Temperature 36.1 C L 02/29/24 09:30 Pulse Rate 98 02/29/24 09:30 Respiratory Rate 20 02/29/24 09:30 Blood Pressure 126/69 02/29/24 09:30 Pulse Oximetry 100 02/29/24 09:30 Oxygen Delivery Room Air 02/29/24 09:30 Temperature 36.1 C L 02/29/24 09:30 Pulse Rate 89 02/29/24 15:02 Respiratory Rate 12 02/29/24 15:02 Blood Pressure 131/81
[2024-02-29 11:34] LABS: Basophils Percent Auto 0.3 % (0.2-1.2); Eosinophils Percent Auto 0.2 % (0-4.4); Hematocrit 44.7 % (42.0-52.0); Hemoglobin 15.4 g/dL (14.0-18.0); Immature Granulocyte Absolute 0.02 K/mm3 (0.00-0.031); Immature Granulocyte Percent A 0.2 % (0-0.5); Lymphocytes Absolute Auto 1.85 K/mm3 (0.9-3.2); Lymphocytes Percent Auto 20.9 % (18.3-44.2); Mean Corpuscular HGB Conc 34.5 g/dl (32-36); Mean Corpuscular Hemoglobin 31.8 pg (26-34); Mean Corpuscular Volume 92.2 fl (80-100); Mean Platelet Volume 10.3 fl (7.4-10.4); Monocytes Absolute Auto 0.6 K/mm3 (0.1-0.6); Monocytes Percent Auto 7.1 % (2.6-8.5); Neutrophils Absolute Auto 6.3 K/mm3 (1.3-6.7); Neutrophils Percent Auto 71.3 % (45.5-73.1); Platelet Count Result 347 k/mm3 (150-375); Red Blood Count 4.85 M/mm3 (4.6-6.20); Red Cell Distribution Width 12.9 % (11.5-14.5); White Blood Count 8.9 K/mm3 (4.5-10.0)
[2024-02-29 11:44] LABS: Add Urine Microscopic? YES; Appearance Urine Clear (Clear); Bacteria Urine None Seen /hpf; Bilirubin Urine 1+ (Negative); Blood Urine Negative (Negative); Color Urine Dark Yellow (Yellow); Glucose Urine UA Negative (Negative); Ketones Urine Trace mg/dL (Negative); Leukocyte Esterase Ur Negative LEU/UL (Negative); Nitrate Urine Negative (Negative); Non Pathogenic Casts 0-2; Protein Urine 1+ mg/dL (Negative); RBC Urine 0-2 /hpf (0-2); Specific Grav Ur 1.021 (1.001-1.035); Squamous Epithelial Cell Urine None Seen /hpf (Few); WBC Urine 0-5 /hpf (0-3); pH Urine 6.5 (5.0-9.0)
[2024-02-29 11:45] LABS: Alanine Aminotransferase 22 U/L (6-50); Albumin Level 4.9 g/dL (3.5-5.1); Alkaline Phosphatase 75 U/L (38-126); Anion Gap 12 mmol/L (4-12); Aspartate Amino Transferase 32 U/L (17-59); Bilirubin,Total 0.8 mg/dL (0.2-1.3); Blood Urea Nitrogen 32 mg/dL (9-20); Carbon Dioxide 33 mmol/L (22-30); Chloride 91 mmol/L (98-107); Estimated CRCL calculation 42 ml/min; Estimated Glomerular Filt Rate 49; Glucose 126 mg/dL (65-110); Lipase 446 U/L (23-300); Potassium 3.4 mmol/L (3.4-5.0); Sodium 136 mmol/L (137-145)
[2024-02-29] MEDS: ONDANSETRON INJ 4 MG/2 ML VIAL 8 MG IV PUSH (11:58)
[2024-02-29] MEDS: SODIUM CHLORIDE 0.9% IV 1,000 ML 999 ML IV CONT (12:01)
[2024-02-29] MEDS: LORazepam INJ (*CRX) 2 MG/ML VIAL 1 MG IV PUSH (13:31)
== END 2024-02-29 20:21 | disposition short-term general hospital (02) ==
PROVIDERS: Emergency Provider Emergency Medicine; PCP Nurse Practitioner Family
DX: K86.9 Disease of pancreas, unspecified (principal); K31.5 Obstruction of duodenum; M19.90 Unspecified osteoarthritis, unspecified site; E11.9 Type 2 diabetes mellitus without complications; I10 Essential (primary) hypertension; E78.5 Hyperlipidemia, unspecified
CPT/HCPCS: 36415; 74177; 80053; 81001; 83690; 85025; 96361; 96374; 96375; 99285; J2060; J2405; J7030; Q9967

== ENCOUNTER 2024-03-12 09:53 | Outpatient (CLI) | payer OTHER, SELFPAY ==
[2024-03-12 10:11] LABS: Hematocrit 39.3 % (42.0-52.0); Mean Corpuscular HGB Conc 33.1 g/dl (32-36); Mean Corpuscular Hemoglobin 30.4 pg (26-34); Mean Platelet Volume 9.4 fl (7.4-10.4); Platelet Count Result 488 k/mm3 (150-375); Red Blood Count 4.27 M/mm3 (4.6-6.20); Red Cell Distribution Width 13.3 % (11.5-14.5); White Blood Count 6.5 K/mm3 (4.5-10.0)
[2024-03-12 11:34] LABS: Iron 97 ug/dL (49-181)
[2024-03-12 11:43] LABS: Percent Iron Saturation 30 % (20-50)
[2024-03-12 12:07] LABS: Carcinoembryonic Antigen 3.3 ng/mL (0.0-3.0)
[2024-03-12 12:51] LABS: Folic Acid 18.7 ng/mL (2.76->20); Vitamin B12 > 1000.0 pg/mL (239-931)
[2024-03-14 06:59] LABS: CA 19-9 30 U/mL (<34)
== END 2024-03-12 09:54 | disposition home or self-care (01) ==
LOC: ANHLAB 09:54
PROVIDERS: PCP Nurse Practitioner Family; Visit Provider Internal Medicine Hematology & Oncology
DX: C25.7 Malignant neoplasm of other parts of pancreas (principal); C17.0 Malignant neoplasm of duodenum; D64.9 Anemia, unspecified
CPT/HCPCS: 36415; 82378; 82607; 82728; 82746; 83540; 83550; 85027; 86301

== ENCOUNTER 2024-03-20 10:31 | Outpatient (CLI) | payer MEDICARE, SELFPAY ==
--- NOTE | ~2024-03-20 | PE_ITS ---
EXAMINATION: PET skull to mid thigh DATE: 03/20/2024 12:25 INDICATION: Malignant neoplasm of pancreas. TECHNIQUE: Blood glucose level was 100 mg/dL. 10.885 mCi of 18-fluorodeoxyglucose (18-FDG) was admini stered i.v. Low dose computed tomography (CT) images were acquired from the base of the brain to the proximal thighs for attenuation correction and anatomic localization. Automated exposure control was employed. Dose-length product (DLP) was 1047 mGy-cm. Positron emission tomography (PET) images were a cquired in the same distribution. COMPARISON: CT abdomen and pelvis 02/29/2024 FINDINGS: Head/neck: There are no pathologically enlarged lymph nodes. There are nodules in the thyroid measuri ng up to 13 mm, likely not clinically significant. Chest: The lungs demonstrate mild atelectasis. There are centrilobular nodules in the upper lobes and superior segment left lower lobe, consistent with mild pneumonia. The largest nodule measures 6 mm. A calcified right lung nodule and calcified right hilar and mediastinal lymph nodes are consistent wi th old granulomatous disease. No pleural effusion. The heart size is normal. There are coronary arter y calcifications. No pericardial effusion. There is mild bilateral gynecomastia. Abdomen/pelvis/proximal thighs: There is mild intrahepatic biliary duct dilatation. The gallbladder i s distended. The spleen is normal. There are cystic lesions of the pancreas measuring up to 16 mm. Th ere is a mass involving the pancreas and the second portion of the duodenum with maximum SUV of 21.4. There is a contiguous enlarged peripancreatic node with increased activity. There is a stent in the proximal duodenum. The adrenal glands and kidneys are normal. There are bilateral inguinal hernias co ntaining fat. There are brachytherapy seeds in the prostate. The prostate is mildly enlarged. There i s diverticulosis of the colon without evidence of diverticulitis. The appendix is nonvisualized. Ther e is no ascites. There is calcified atherosclerosis of the aorta and many of the other arteries. Ther e is no osseous malignancy. IMPRESSION: 1. Mass involving the pancreas and second portion of the duodenum with increased activity, consistent with primary malignancy. 2. Contiguous peripancreatic lymph node with increased activity, consistent with metastatic disease. Reviewed, dictated and finalized at location A. IMPRESSION: 1. Mass involving the pancreas and second portion of the duodenum with increase d activity, consistent with primary malignancy. 2. Contiguous peripancreatic lymph node with increased activity, consistent wit h metastatic disease.
[2024-03-20 10:52] LABS: Glucose Point of Care 100 mg/dl (65-105)
== END 2024-03-20 10:32 | disposition home or self-care (01) ==
PROVIDERS: Visit Provider Internal Medicine Hematology & Oncology
DX: C25.7 Malignant neoplasm of other parts of pancreas (principal)
CPT/HCPCS: 78815; A9552

== ENCOUNTER 2024-03-22 14:12 | Outpatient (CLI) | payer MEDICARE, SELFPAY ==
[2024-03-22 15:22] LABS: INR 1.1; Prothrombin Time 14.6 Seconds (11.1-14.7)
[2024-03-22 15:23] LABS: Partial Thromboplastin Time 27.3 Seconds (22.3-36.8)
== END 2024-03-22 14:13 | disposition home or self-care (01) ==
PROVIDERS: PCP Nurse Practitioner Family; Visit Provider Surgery
DX: Z01.818 Encounter for other preprocedural examination (principal); N18.30 Chronic kidney disease, stage 3 unspecified
CPT/HCPCS: 36415; 85610; 85730

== ENCOUNTER 2024-03-26 00:24 | Day surgery (SDC) | payer MEDICARE, SELFPAY ==
[2024-03-21 13:20] VITALS: BMI 24.2
--- NOTE | 2024-03-21 13:21 | PC.NURSE ---
Addendum entered by Kelli Gutierrez RN 03/23/24 08:11: Pt states he takes amlodipine and gabapentin at night. Original Note: Report to the Outpatient Waiting Room, entrance under the green pavilion located off [facility], at time __06:00am___ on date _03/26/24 . Planned Procedure Time: 07:30am___.? Time changes happen often and if your time is changed the preop area will call you the afternoon before. - You and your visitor will be asked to self-screen and do not enter if you have any COVID symptoms. Please call surgeon if you need to reschedule. - A mask is optional within the hospital at this time. Patients may have clear liquids (water, carbonated beverages, clear teas, apple juice) until 3 hours prior to surgery with a maximum of 20 ounces. - No food from midnight until time of surgery and no smoking Take only the following medications with a SIP of water on the morning of surgery: __None DO NOT STOP ANY OF YOUR OTHER PRESCRIPTION MEDICATIONS PRIOR TO SURGERY EXCEPT THE FOLLOWING Medications to discontinue per physician ___Hold all vitamins, supplements, probiotics and herbs 3 days prior to surgery per Anesthesia. Date to take last dose____03/22/24 Please no make-up, nail slovenian, hairspray, perfume, deodorant, or body powder the day of surgery.? No jewelry (including any body piercings) or valuables the day of surgery, leave them at home.? Please take a shower or bath the night before, or the morning of, surgery with an antibacterial soap.? Wear comfortable, loose fitting clothing. - Jewelry must be removed prior to entering the operating room.? Rings and piercings that are not removed may be cut off. - The hospital will not accept responsibility for valuables.? - Please leave all valuables, including medications, at home the day of surgery. If you are going home after surgery, a licensed road train driver must drive you home.? - NO public transportation without another adult if you receive anesthesia. - We recommend that an adult stay with you for 24 hours following discharge. - We also recommend that you do not drive, make important decision, drink alcoholic beverages, or take any drugs that were not prescribed by your health care provider for at least 24 hours after your discharge time. Follow any additional instructions given to you from your surgeon. Telephone instructions given to __patient and asked if any additional questions and then verbalized understanding. Patient advised to call surgeon office or pre surgery nurse liaison [phone] if any additional questions.
--- NOTE | ~2024-03-26 | XR_ITS ---
EXAMINATION: XR chest port-a-cath/central DATE: 03/26/2024 08:53 INDICATION: Port placement. TECHNIQUE: A single frontal view of the chest was obtained. COMPARISON: Chest 2 views 01/27/2024, PET/CT 03/20/2024 FINDINGS: There is no pneumonia, pleural effusion, or pneumothorax. The heart size is normal. There i s a right subclavian port with tip in superior vena cava. IMPRESSION: 1. Right subclavian port with tip in superior vena cava. Reviewed, dictated and finalized at location A.
--- NOTE | ~2024-03-26 | XR_ITS ---
EXAMINATION: XR fl guide central line place DATE: 03/26/2024 08:53 INDICATION: Port placement. TECHNIQUE: A single intraoperative fluoroscopic view of the chest was obtained. I was not present. Fl uoroscopy exposure time was 1 minute 3 seconds. COMPARISON: Chest single view 03/26/2024 FINDINGS: There is a right subclavian port with tip in superior vena cava. IMPRESSION: 1. Port tip in superior vena cava. Reviewed, dictated and finalized at location A.
[2024-03-26] MEDS: LACTATED RINGERS 1,000 ML 30 ML IV CONT (06:20)
[2024-03-26 06:30] LABS: Glucose Point of Care 128 mg/dl (65-105)
[2024-03-26 06:35] VITALS: BP 105/76; PULSE 72; RESP 16; TEMP 36.2; O2SAT 100
--- NOTE | 2024-03-26 07:14 | WPDANESEPPF ---
Anes - Initial Pre Proc Eval Procedure: Operation Date: 03/26/24 07:30 Proposed Procedures p Insertion Leeann Cath - Duane Dang MD Date/Time: 03/26/24 07:14 Surgeon: Duane Dang MD Pre Op Diagnosis: metastasis adenocarcinoma Patient Data Age: 78 Gender: M Height: 1.83 m Weight: 79.8 kg Last Vital Signs Temp 36.2 C L 03/26/24 06:35 Pulse 72 03/26/24 06:35 Resp 16 03/26/24 06:35 BP 105/76 03/26/24 06:35 Pulse Ox 100 03/26/24 06:35 O2 Del Method Room Air 03/26/24 06:35 Allergies Allergy/AdvReac Type Severity Reaction Status Date / Time tetanus toxoid, adsorbed Allergy Mild Rash Verified 03/26/24 06:32 Tetanus Vaccines and Toxoid Allergy Unknown Hives Verified 03/26/24 06:32 Home Medications Medication Instructions Recorded Confirmed Type omega 7-aqv-rqa-fish oil 60 mg-90 1 cap PO BID 07/29/21 03/26/24 History mg-500 mg capsule (Fish Oil) allopurinol 100 mg tablet See Rx Instructions .Route 11/15/23 03/26/24 Rx .COMPLEX #90 tabs amlodipine 10 mg tablet See Rx Instructions .Route 11/15/23 03/26/24 Rx .COMPLEX #90 tabs triamterene 75 See Rx Instructions .Route 11/15/23 03/26/24 Rx mg-hydrochlorothiazide 50 mg tablet .COMPLEX #90 tabs blood sugar diagnostic (Accu-Chek #100 ea 12/19/23 03/26/24 Rx Guide test strips) blood-glucose meter #1 ea 12/19/23 03/26/24 Rx lancets (Accu-Chek Softclix #100 ea 12/19/23 03/26/24 Rx Lancets) losartan 25 mg tablet 25 mg PO DAILY #90 tabs 12/21/23 03/26/24 Rx rosuvastatin 10 mg tablet See Rx Instructions .Route 01/23/24 03/26/24 Rx .COMPLEX #90 tabs omeprazole 20 mg capsule,delayed 20 mg PO BID #180 caps 01/25/24 03/26/24 Rx release cholecalciferol (vitamin D3) 50 50 mcg PO DAILY 02/16/24 03/26/24 History mcg (2,000 unit) capsule gabapentin 100 mg capsule 100 mg PO DAILY 03/07/24 03/26/24 History metformin 500 mg tablet,extended 500 mg PO BID #180 tabs 03/15/24 03/26/24 Rx release 24 hr doxycycline hyclate 100 mg capsule 100 mg PO BID #20 caps 03/21/24 03/26/24 Rx Laboratory Tests 03/26/24 06:27 POC Capillary Glucose 128 H mg/dl (65-105) Patient hx anesthesia problems: none Family hx anesthesia problems: none Results Review: All pre-operative results and documents have been reviewed as part of the pre-operative evaluation. REPLACED BY [facility] Past Medical History Medical History Arthritis Diabetes Duodenal stricture Epigastric pain History of colon polyps HTN (hypertension) Hyperlipidemia Nausea Neuropathy Surgical History Surgical History History of colon surgery 2004 Resection for polyps Family History Family History Father Heart disease Mother Diabetes mellitus Hypertension Son Hypertension Social History Social History Social History: Declined to complete social history questionnaire 03/13/24 Smoking packs per day: 1 Smoking cigarettes per day: 20.0 Years smoked: 15 Smoking pack-years: 15.00 Smoking status: Former smoker Tobacco type: cigarettes Second hand tobacco smoke exposure: No Smoking end date: 07/18/89 Additional smoking assessment comments: quit 15-20 years ago Alcohol intake: current Drinks per week: 2 Alcohol use details: vodka and cranberry Substance use: never Substance use type: does not use Living arrangements: with family Additional living arrangements comments: Occupation/Education: retired Gender identity (if verbalized by the patient): Male Spiritual care concerns: No Agree to blood products: Yes Anes - Eval Final PreProcedure Day of Procedure 03/26/24 07:14 Patient weight: normal Heart: regular rate and rhythm Lungs: clear to auscultation Airway: Mallampati scale cla
--- NOTE | 2024-03-26 07:34 | PM.IMHP ---
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 He is start chemotherapy next week. He presents for port placement. Review of Systems Review of Systems: The remainder of the review of systems to include constitutional, HEENT, cardiovascular, respiratory, GI, , integumentary, musculoskeletal, endocrine, immunologic, hematologic, psychiatric, and neurologic are all negative except for which is mentioned above in the HPI. [facility] Past Medical History Medical History Arthritis Diabetes Duodenal stricture Epigastric pain History of colon polyps HTN (hypertension) Hyperlipidemia Nausea Neuropathy Surgical History Surgical History History of colon surgery 2004 Resection for polyps Family History Family History Father Heart disease Mother Diabetes mellitus Hypertension Son Hypertension Social History Social History Social History: Declined to complete social history questionnaire 03/13/24 Smoking packs per day: 1 Smoking cigarettes per day: 20.0 Years smoked: 15 Smoking pack-years: 15.00 Smoking status: Former smoker Tobacco type: cigarettes Second hand tobacco smoke exposure: No Smoking end date: 07/18/89 Additional smoking assessment comments: quit 15-20 years ago Alcohol intake: current Drinks per week: 2 Alcohol use details: vodka and cranberry Substance use: never Substance use type: does not use Living arrangements: with family Additional living arrangements comments: Occupation/Education: retired Gender identity (if verbalized by the patient): Male Spiritual care concerns: No Agree to blood products: Yes Meds Home Medications and Allergies Home Medications Medication Instructions Recorded Confirmed Type omega 3-udm-bsz-fish oil 60 mg-90 1 cap PO BID 07/29/21 03/26/24 History mg-500 mg capsule (Fish Oil) allopurinol 100 mg tablet See Rx Instructions .Route 11/15/23 03/26/24 Rx .COMPLEX #90 tabs amlodipine 10 mg tablet See Rx Instructions .Route 11/15/23 03/26/24 Rx .COMPLEX #90 tabs triamterene 75 See Rx Instructions .Route 11/15/23 03/26/24 Rx mg-hydrochlorothiazide 50 mg tablet .COMPLEX #90 tabs blood sugar diagnostic (Accu-Chek #100 ea 12/19/23 03/26/24 Rx Guide test strips) blood-glucose meter #1 ea 12/19/23 03/26/24 Rx lancets (Accu-Chek Softclix #100 ea 12/19/23 03/26/24 Rx Lancets) losartan 25 mg tablet 25 mg PO DAILY #90 tabs 12/21/23 03/26/24 Rx rosuvastatin 10 mg tablet See Rx Instructions .Route 01/23/24 03/26/24 Rx .COMPLEX #90 tabs omeprazole 20 mg capsule,delayed 20 mg PO BID #180 caps 01/25/24 03/26/24 Rx release cholecalciferol (vitamin D3) 50 50 mcg PO DAILY 02/16/24 03/26/24 History mcg (2,000 unit) capsule gabapentin 100 mg capsule 100 mg PO DAILY 03/07/24 03/26/24 History metformin 500 mg tablet,extended 500 mg PO BID #180 tabs 03/15/24 03/26/24 Rx release 24 hr doxycycline hyclate 100 mg capsule 100 mg PO BID #20 caps 03/21/24 03/26/24 Rx Allergies Allergy/AdvReac Type Severity Reaction Status Date / Time tetanus toxoid, adsorbed Allergy Mild Rash Verified 03/26/24 06:32 Tetanus Vaccines and Toxoid Allergy Unknown Hives Verified 03/26/24 06:32 Vital Signs Vital Signs - 24 hr 03/26/24 06:35 Temperature 36.2 C L Pulse Rate 72 Respiratory Rate 16 Blood Pressure 105/76 Pulse Oximetry 100 Oxygen Delivery Room Air Exam Const: General: comfortable and no acute distress HENMT: Ears: TM's normal bilaterally Face/Nose/Sinus: Normal nares present Mouth: Yes moist mucous membranes Eyes: General: appearance normal, both eyes a
--- NOTE | 2024-03-26 07:39 | WPDHPUPDATE1 ---
History and Physical Update Update Date/Time: 03/26/24 07:39 History and Physical has been reviewed, including an updated exam of the patient. There are NO changes in the patient's condition. Risks, benefits, and alternatives have been discussed and questions answered. Patient agrees to proceed with procedure.
[2024-03-26] MEDS: ceFAZolin 2 GM/D5W 50 ML 2 GM/50 ML BAG IVPB (07:42)
[2024-03-26] MEDS: LIDO 1%/EPINEPHRINE 1:100,000 50 ML VIAL 30 ML INFILTRATE (08:09)
[2024-03-26] MEDS: BUPivacaine HCL 0.5% 10 ML AMP 30 ML INFILTRATE (08:09)
[2024-03-26] MEDS: HEPARIN SODIUM 5,000 UNITS/ML VIAL 5000 UNITS IRRIGATION (08:10)
[2024-03-26] MEDS: HEPARIN SODIUM 1,000 UNITS/ML VIAL 1000 UNITS IV PUSH (08:12)
[2024-03-26 08:40] VITALS: BP 107/60; PULSE 83; RESP 16; O2SAT 94
--- NOTE | 2024-03-26 08:52 | W.PM.PROC2 ---
Procedure Note - Detailed Date of Procedure 03/26/24 Pre-op Diagnosis Pancreatic/duodenal adenocarcinoma Post-op Diagnosis Same Procedure Performed Placement of right subclavian vein single-lumen port a catheter with intraoperative fluoroscopy. Surgeon Duane Dang MD Anesthesia MAC Indications Patient is an 78-year-old gentleman who recently diagnosed with pancreatic/duodenal adenocarcinoma. He had a duodenal stent placed to prevent obstruction. He is to undergo chemotherapy treatments and presents now for placement of a alejandro catheter to start chemotherapy treatments. Findings None significant Description of Procedure After informed consent was obtained patient brought to the operating room was placed supine position and then IV sedation was administered by anesthesia. The bilateral upper anterior neck and chest was then prepped and draped usual sterile fashion. A time-out was then performed correctly identifying the patient as well as procedure to be performed. I verified the perioperative IV antibiotics were given. I started by trying to place the catheter in the right internal jugular vein. 1% lidocaine mixed with 0.5% Marcaine was in between the 2 heads of the right sternocleidomastoid muscle. I then used a long 18gauge needle I was able to percutaneously cannulate the right internal jugular vein. I attempted to pass a guidewire through the needle which would not pass properly and so after a couple attempts under fluoroscopic guidance to try to guide the guidewire in the proper position I abandoned this approach in went to the right subclavian vein. I then injected 1% lidocaine mixed with 0.5% Marcaine just medial to the medial 1/3 of the right clavicle. A transverse incision was then made this area with a scalpel the dissection was carried down through the subcu tissue with electrocautery. I then created a subcutaneous port pocket below the incision with electrocautery and blunt finger dissection. Then with the patient head-down Trendelenburg position I then used a long 18gauge spinal needle to cannulate the right subclavian vein on 1st pass I difficulty. I was able and passed a guidewire through the needle into the right subclavian vein and subsequently down into the superior vena cava. Intraoperative fluoroscopy was used to verify the proper placement of the tip of the guidewire. I then advanced a which sheath over the guidewire. The guidewire and dilator were removed leaving the sheath in place. 9.6 Norwegian catheter was then advanced through the sheath into the right subclavian vein subsequent down into the right atrium of the heart. The sheath was then torn away leaving the catheter in place. Utilizing intraoperative fluoroscopy I then pulled back on the catheter external to the chest wall until I could see the tip of the guidewire was in the distal superior vena cava. The catheter was then cut to the appropriate length at the skin level and then attached to the plastic low profile injectable port. The port was then secured in subcu port pocket on 3 sides utilizing 3-0 Prolene sutures. I then accessed the port through the incision and it aspirated blood easily and was then flushed with heparinized saline solution. I then irrigated out the port pocket sterile saline solution hemostasis was good. I then close incision utilizing interrupted 3-0 Vicryl sutures in the subcutaneous tissues. The skin edges were then approximated lies in a running subcuticular 4 Monocryl suture. The incision was then cleaned and then skin glue was applied. I then accessed the port percutaneously and again aspirated blood easily and was flushed with 5000units of IV heparin. The patient tolerated the procedure well no complications. All sponges, needles, and instrument counts were correct at the end procedure. EBL was _20__cc. The patient was awakened and taken to recovery in stable and satisfactory condition. Postprocedure chest x-ray was done the tip of th
[2024-03-26 08:56] LABS: Glucose Point of Care 132 mg/dl (65-105)
[2024-03-26 09:10] VITALS: BP 122/64; PULSE 80; RESP 16; O2SAT 99
[2024-03-26 09:40] VITALS: BP 120/60; PULSE 71; RESP 16
== END 2024-03-26 09:49 | disposition home or self-care (01) ==
PROVIDERS: PCP Nurse Practitioner Family; Visit Provider Surgery
PROC: (CPT 36561; principal; 2024-03-26 07:30)
DX: C17.0 Malignant neoplasm of duodenum (principal); C25.9 Malignant neoplasm of pancreas, unspecified; I10 Essential (primary) hypertension; E78.5 Hyperlipidemia, unspecified; E11.9 Type 2 diabetes mellitus without complications; G62.9 Polyneuropathy, unspecified; Z79.84 Long term (current) use of oral hypoglycemic drugs; Z98.890 Other specified postprocedural states; Z87.891 Personal history of nicotine dependence; Z86.010 Personal history of colon polyps; Z82.49 Family history of ischemic heart disease and other diseases of the circulatory system
CPT/HCPCS: 36561; 36415; 77001; 82948; 85610; 85730; J0690; J1644; J2704; J7030; J7120

== ENCOUNTER 2024-06-01 09:13 | Outpatient (CLI) | payer MEDICARE, SELFPAY ==
--- NOTE | ~2024-06-01 | CT_ITS ---
CLINICAL INDICATION: Malignant neoplasm of pancreas COMPARISON: CT of the abdomen and pelvis dated 02/29/2024 and dating back to 11/17/2017 Reference is mad e to a PET/CT dated 03/20/2024. TECHNIQUE: Multiple contiguous axial images of the abdomen and pelvis were performed following the ad ministration of with 100 mL Omnipaque-350 intravenous contrast The dose-length product (DLP) was 634.68 mGy-cm. Automated exposure control and iterative reconstruction technique were employed. FINDINGS/OBSERVATIONS: Visualized lower thorax: 7 mm nodule within the right lung base, unchanged dating back to 2018 for which no further follow-up is needed. Additional 7 mm nodule within the right middle lobe, also unchanged from 2018 for which no further fo llow-up is needed. Scattered calcified pulmonary nodules, consistent with prior granulomatous disease, for which no furt her follow-up is needed. The left hemithorax is clear. The heart is of normal size, without pericardial effusion. Small hiatal hernia is present. Liver: Interval development of significant intrahepatic biliary ductal dilatation. No discrete lesions are detected within the liver which otherwise enhances homogeneously. Redemonstration of a bare metal stent within the duodenum when compared with PET CT dated 03/20/2024. T he stent appears to be unchanged in position (by cross-sectional imaging standards). The stent is patent as the stomach is decompressed Interval growth of the peripancreatic nodule (presumed to be an enlarged lymph node) both anterior to the duodenal stent. The anteriormost mass measures 39 x 29 mm (axial image #55) compared to 32 x 29 mm on recent PET CT (axial image #158). Stability of the peripancreatic nodule posterior and medial to the duodenal stent measuring 23 x 30 m m (axial series image 48), largely unchanged. Redemonstration of multiple cystic foci within the pancreas, the largest measuring 24 mm in the pancr eatic head (axial series, image 37), increased from 17 mm on the PET/CT of 03/20/2024 (axial series, im age 139). The common bile duct is considerably dilated measuring 18.4 mm in caliber. The gallbladder is distended, with surrounding inflammatory change. No lytic or blastic lesions are identified within the lower thoracic and sacral spines. No acute frac tures are present IMPRESSION: Findings consistent with progression of disease. Decompression of the intrahepatic biliary ductal dilatation may be performed from a percutaneous appr oac, with dilatation and traversing of the interstices of the duodenal stent for internal drainage ( performed by interventional radiology), if the patient is clinically able. Reviewed, dictated and finalized at location A. GER PERSONAL IMPRESSION: Findings consistent with progression of disease. Decompression of the intrahepatic biliary ductal dilatation may be performed fr om a percutaneous approach, with dilatation and traversing of the interstices o f the duodenal stent for internal drainage (performed by interventional radiolo gy), if the patient is clinically able.
[2024-06-01 09:48] LABS: Estimated Glomerular Filt Rate 58
== END 2024-06-01 09:14 | disposition home or self-care (01) ==
DX: K86.89 Other specified diseases of pancreas (principal)
CPT/HCPCS: 74177; Q9967

== ENCOUNTER 2024-08-31 09:03 | Outpatient (CLI) | payer MEDICARE, SELFPAY ==
--- NOTE | ~2024-08-31 | CT_ITS ---
EXAMINATION: CT chest abdomen pelvis w con DATE: 08/31/2024 09:23 INDICATION: Metastatic adenocarcinoma. TECHNIQUE: Computed tomography (CT) of the chest, abdomen, and pelvis was performed with 100 mL Omnip aque 350 intravenous contrast. Automated exposure control and iterative reconstruction technique were employed. The dose-length product was 551.78 mGy-cm. COMPARISON: CT abdomen and pelvis 06/01/2024, 11/17/17, PET/CT 03/20/24 FINDINGS: CHEST CT: Calcified right lung nodules and calcified right hilar and mediastinal lymph nodes are consistent wit h old granulomatous disease. There are a few scattered nodules in the lungs measuring up to 5 mm, sta ble from 11/17/17, likely benign. There is a 6 mm nodule in left lower lobe, stable from 03/20/2024, prob ably benign. There is an 8 mm nodule at minor fissure, likely a lymph node, stable from 03/20/24, proba sadiq benign. No pleural effusion. There are nodules in the thyroid measuring up to 13 mm, likely not c linically significant. There is a right subclavian port with tip in superior vena cava. The heart siz e is normal. There are coronary artery calcifications. There are calcifications of the aortic valve. No pericardial effusion. There is bilateral gynecomastia. There is a chronic compression fracture of T12. There is mild thoracic spondylosis. ABDOMEN/PELVIS CT: There is a 13 mm mass in right hepatic lobe. There is a 9 mm mass in right hepatic lobe. There is mod erate intrahepatic biliary duct dilatation. There is an internal/external biliary stent in expected p osition. There is wall thickening of the second portion of the duodenum contiguous with enlarged bharathi pancreatic lymph nodes. There is a patent stent in the duodenum. The gallbladder is distended. The sp catarina is normal. The pancreatic duct is dilated. There are multiple cysts in the pancreas measuring up to 2.3 cm. The adrenal glands are normal. There is cortical thinning of the kidneys. There are cysts in the kidneys measuring up to 7 mm on the right. The prostate is mildly enlarged. There are brachyt herapy seeds in the prostate. There are bilateral inguinal hernias containing fat. There is diverticu losis of the colon without evidence of diverticulitis. There is a large volume of stool in the colon. There are changes of right hemicolectomy. There are no pathologically enlarged lymph nodes. There is no free intraperitoneal fluid. There is mild thoracic spondylosis. There is a compression fracture o f L4 with less than 1/5 loss of height, new from 06/01/24. IMPRESSION: 1. Wall thickening of the second portion of duodenum contiguous with enlarged peripancreatic lymph no sherita, improved from 06/01/2024, consistent with primary malignancy and charlie metastatic disease. 2. 13 mm and 9 mm liver masses, new from 06/01/2024, consistent with metastatic disease versus infect ion. 3. Acute versus subacute compression fracture of L4. Reviewed, dictated and finalized at location A. 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 Wall thickening of the second portion of duodenum contiguous with enlarged p eripancreatic lymph nodes, improved from 06/01/2024, consistent with primary ma lignancy and charlie metastatic disease. 2. 13 mm and 9 mm liver masses, new from 06/01/2024, consistent with metastatic disease versus infection. 3. Acute versus subacute compression fracture of L4.
--- OUTSIDE RECORDS SUMMARY | 2024-08-31 09:09 | XMS_ITS | Clinical Summary ---
Author Organization [facility] Address [address] [place] [address] Phone Care Team Providers Care Medical Record Consultant Name Role Phone Unavailable Primary Care Provider Unavailabl e Allergies No known active allergies Medications gabapentin (NEURONTIN) 100 mg capsule Take 1 Capsule (100 mg) by mouth daily at bedtime. 30 Capsule 4 Active magnesium oxide (MAG-OX) 400 mg (241.3 mg magnesium) tablet Take 1 Tablet (400 mg) by mouth daily. 20 Tablet 4 Active allopurinoL (ZYLOPRIM) 100 mg tablet Take 1 Tablet by mouth daily. 4 Active cholecalciferol, vitamin D3, 1,000 unit Take 1,000 Units by mouth daily. Active OneTouch Verio test strips Strip use 1 strip to check glucose once daily 4 Active finasteride (PROSCAR) 5 mg tablet Take 1 Tablet by mouth daily. 4 Active metFORMIN (GLUCOPHAGE XR) 500 mg Extended Release 24 hour tablet Take 500 mg by mouth 2 times daily. Active VITAMIN B COMPLEX ORAL Take 1 Tablet by mouth daily. Active lidocaine-prilocain e (EMLA) 2.5-2.5 % Cream Apply a quarter size amount to port site 30 minutes before access. 30 Gram 1 4 Active polyethylene glycol (MIRALAX) 17 gram Powder in Packet Take 1 Packet (17 Grams) by mouth daily. 30 Packet 4 Active oxyCODONE (ROXICODONE) 5 mg tabletIndications:M etastatic adenocarcinoma (CMS/HCC) Take 0.5 Tablets (2.5 mg) by mouth every 8 hours as needed for Pain. Max Daily Amount: 7.5 mg 10 Tablet 4 Active ondansetron (ZOFRAN ODT) 8 mg Tablet, Rapid Dissolve Take 1 Tablet (8 mg) by mouth every 8 hours as needed for Nausea/Emesi s. Dissolve tablet on top of tongue, then swallow with saliva. 20 Tablet 4 Active sodium chloride (BD PosiFlush Normal Saline 0.9) Syringe Flush twice daily with 10 mLs. 600 mL 3 08/10/2024 8:13 AM CLUB MANAGER 4 Active cjlxjv-gqnorvpq-adn lase DR (CRE) 12,000-38,000-60,00 0 unit capsuleIndications: Pancreatic mass Take 1 Capsule by mouth 3 times daily with meals. 100 Capsule 2 4 Active diphenoxylate-atrop ine 2.5 mg-0.025 mg tablet Take 1 Tablet by mouth 4 times daily as needed for Diarrhea/Loo se Stools. 120 Tablet 5 Active enzymes,digestive (ENZYME DIGEST ORAL) Take by mouth 3 times daily. Active potassium chloride (KLOR-CON M20) 20 mEq Extended Release tablet Take 1 tablet by mouth BID. 60 Tablet 1 5 Active Active Problems Problem Noted Date Diagnosed Date Protein-calorie malnutrition, severe 06/13/2024 Dilation of biliary tract 06/11/2024 Elevated liver enzymes 06/11/2024 Constipation 06/11/2024 Malignant obstructive jaundice 06/09/2024 Generalized muscle weakness 06/08/2024 Low back pain 06/08/2024 Hypotension 06/08/2024 Hyponatremia 06/08/2024 Metastatic adenocarcinoma 03/09/2024 Leukocytosis (leucocytosis) 03/03/2024 Gastroparesis 03/01/2024 Elevated serum creatinine 03/01/2024 Electrolyte abnormality 03/01/2024 Metabolic acidosis 03/01/2024 Benign hypertension 03/01/2024 Abdominal pain, acute, epigastric 03/01/2024 Duodenal obstruction 03/01/2024 Hypokalemia 03/01/2024 Hypomagnesemia 03/01/2024 Debility 03/01/2024 Hypertensive kidney disease with stage 3a chronic kidney disease 03/01/2024 Type 2 diabetes mellitus wit h hyperglycemia, without long-term current use of insulin 03/01/2024 Gastroesophageal reflux disease 03/01/2024 Diabetic polyneuropathy asso ciated with type 2 diabetes mellitus 03/01/2024 Gout 03/01/2024 Gastric outlet obstruction 03/01/2024 Pancreatic mass 02/29/2024 Weight loss, unintentional 02/29/2024 Nausea & vomiting 02/29/2024 Encounters Date Type Department Care Team Description 08/27/2024 Orders Only [facility] Oncology and Hematology [facility] [address] [place] [id number] Adeel Dick MD Metastatic adenocarcinoma (CMS/HCC) 08/22/2024 8:30 AM CLUB MANAGER Office Visit [facility] Oncology and Hematology [facility] [address] [place] [address] Adeel Dick MD Metastatic adenocarcinoma (CMS/HCC) (Primary Dx) 08/21/2024 External Device Data STL ABSTRACTION Provider, Abstract 08/14/2024 Orders Only [facility] Oncology and Hematology Derek [address] [place] [address] Adeel Dick MD 08/13/2024 Orders Only [facility] Oncology and Hematology - Derek [address] [place] [address] Aedel Dick MD Metastatic adenocarcinoma (CMS/HCC) 08/10/2024 Orders Only [facility] Oncology and Hematology - Derek [address] [place] [address] Adeel Dick MD 08/09/2024 External Device Data STL ABSTRACTION Provider, Abstract 08/08/2024 Telephone [facility] Oncology [facility] Hematology [facility] [address] [place] [address] Adeel Dick MD Lab Review 08/01/2024 9:00 AM CLUB MANAGER Office Visit [facility] Oncology and Hematology - Derek [address] [place] [address] Adeel Dick MD Metastatic adenocarcinoma (CMS/HCC) (Primary Dx) 07/31/2024 External Device Data STL ABSTRACTION Provider, Abstract 07/30/2024 Orders Only [facility] Oncology and Hematology - Derek [address] [place] [id number] Adeel Dick MD Metastatic adenocarcinoma (CMS/HCC) 07/25/2024 Orders Only [facility] Oncology and Hematology - [address] [place] [id number] Adeel Dick MD 07/25/2024 Refill [facility] Oncology and Hematology - [address] [place] [address] Adeel Dick MD 07/16/2024 Orders Only [facility] Oncology and Hematology - [address] [place] [id number] Adeel Dick MD Metastatic adenocarcinoma ([facility]/HCC) 07/13/2024 Orders Only [facility] Oncology and Hematology - [address] [place] [address] Adeel Dick MD 07/04/2024 Telephone [facility] [address] [place] [phone] Phoenix Elliott MD Has questions 07/02/2024 10:00 AM CLUB MANAGER Telephone Check Up [facility] [address] [place] [phone] Phoenix Elliott MD 07/02/2024 Orders Only [facility] [address] [place] [phone] Mariana Richardson RN Pancreatic mass (Primary Dx) 07/02/2024 Orders Only [facility] Oncology and Hematology [facility] [address] [place] [address] Adeel Dick MD Metastatic adenocarcinoma (CMS/HCC) 06/19/2024 9:30 AM CLUB MANAGER Office Visit [facility] Oncology and Hematology [facility] [address] [place] [address] Adeel Dick MD Metastatic adenocarcinoma ([facility]/HCC) (Primary Dx); Generalized muscle weakness 06/19/2024 Orders Only [facility] Oncology and Hematology [facility] [address] [place] [address] Adeel Dick MD 06/18/2024 Orders Only [facility] Oncology and Hematology [facility] [address] [place] [address] Adeel Dick MD Metastatic adenocarcinoma (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 Elliott's exchange/Dr. Carlton wilson); Known metistatic adenocarcinoma (Spoke w/Coco at Dr. Angel's exchange); Hyperbilirubinemia (Spoke w/Gay at Dr. Knight's exchange) 06/08/2024 12:15 PM CLUB MANAGER - 06/13/2024 1:35 PM CLUB MANAGER Hospital Encounter [facility] [address] [phone] Frank Colbert MD Amin, DO Promise Mayer Venkat, MD Mutungi, [place], MD Generalized muscle weakness Discharge Disposition: Home or Self Care 06/08/2024 Travel 06/08/2024 Telephone [facility] [address] [facility] [address] [place] [address] Phoenix Elliott MD Returning VM 06/05/2024 Telephone [facility] Oncology and Hematology [facility] [address] [place] [address] Adeel Dick MD Symptoms 06/04/2024 Telephone [facility] Oncology and Hematology [facility] [address] [place] [address] Adeel Dick MD Depression 06/04/2024 Orders Only [facility] Oncology and Hematology [facility] [address] [place] [address] Adeel Dick MD Metastatic adenocarcinoma (CMS/HCC) from Last 3 Months Family History Medical History Relation Name Comments Heart Disease Father Anemia Mother Dementia Mother Kidney Disease Sister Colon Cancer Neg Hx Esophageal Cancer Neg Hx Gastric Cancer Neg Hx Liver Cancer Neg Hx Pancreatic Cancer Neg Hx Relation Name Status Comments Brother Alive Father Mother Sister Alive Social History Tobacco Use Types Packs/Day Years Used Date Smoking Tobacco: Never Tobacco Cessation:Counseling Given: Not Answered Alcohol Use Standard Drinks/Week Comments Not Currently 0 (1 standard drink = 0.6 oz pur e alcohol) Feeling Safe Answer Date Recorded Are you in a relationship wi th someone who hurts you emotionally and/or physically? No 06/08/2024 Food Insecurity Answer Date Recorded Social/Environmental Concerns No concerns Transportation Needs Answer Date Record ed Social/Environmental Concerns No concerns Housing Stability Answer Date Recorded Social/Environmental Concerns No concerns Utility Needs Answer Date Recorded Social/Environmental Concerns No concerns Sex and Gender Information Value Date Recorded Sex Assigned at Not on file Legal Sex Male 1:28 PM CDT Gender Identity Not on file Sexual Orientation Not on file Last Filed Vital Signs Vital Sign Reading Time Taken Comments Blood Pressure 150/76 08/22/2024 8:35 AM CLUB MANAGER Pulse 68 08/22/2024 8:35 AM CLUB MANAGER Temperature 36.2 C (97.1 F) 08/22/2024 8:35 AM CLUB MANAGER Respiratory Rate 16 08/22/2024 8:35 AM CLUB MANAGER Oxygen Saturation 97% 08/22/2024 8:35 AM CLUB MANAGER Inhaled Oxygen Concentration - - Weight 74.4 kg (164 lb) 08/22/2024 8:35 AM CLUB MANAGER Height 182.9 cm (6') 06/08/2024 4:06 PM CLUB MANAGER Body Mass Index 22.24 06/08/2024 4:06 PM CLUB MANAGER Plan of Treatment Upcoming Encounters Date Type Department Care Team (Late st Contact Info) Description 09/04/2024 10:45 AM CLUB MANAGER Office Visit [facility] [address] [facility] [address] [place] [address] [place] [address] [facility] [address] [place] [address] 09/06/2024 8:45 AM CLUB MANAGER Office Visit [facility] Oncology and Hematology - Derek [address] [place] [address] [address] Adeel Dick MD [address] [facility] [address] [place] [address] Health Maintenance Due Date Last Done Comments DIABETES ANNUAL FOOT EXAM 1961 DIABETES ANNUAL RETINAL EXAM 1961 DIABETES MICROALBUMIN ANNUAL SCREEN 1961 LDL CHOLESTEROL ANNUAL 1961 DTAP/TDAP/TD VACCINES (1 - Tdap) 1962 PNEUMOCOCCAL VACCINE 65+ YEARS (1 of 2 - PCV) 05/18/19 62 ZOSTER VACCINE (1 of 2) 1962 RSV VACCINE (60+ or ) (1 - 1-dose 75+ series) 2018 INFLUENZA VACCINE (#1) 2024 [place]) Prev entative Visit/Annual Wellness Visit 07/18/2024 DIABETES HBA1C Q 6 MONTHS 08/31/2024 02/29/2024 Medical Devices Implanted Type Area Home Health Rn Device Identifier Shelf Expiration Date Model / Serial / Lot Stent Duodenal Wallflex [id number] - [id number] Implanted:Qty : 1 on 03/02/2024 by Elias Garces MD at [facility] Stent N/A: Duodenum [employer] [id number] 11/23/2024 [id number] / / [id number] Procedures Procedure Name Priority Date/Time Associated Diagnosis Comments CBC WITH AUTODIFFERENTIAL Routine 08/13/2024 12:50 PM CLUB MANAGER CBC WITH AUTODIFFERENTIAL Routine 08/08/2024 1:22 PM CLUB MANAGER COMPREHENSIVE METABOLIC PANEL Routine 08/08/2024 12:58 PM CLUB MANAGER BASIC METABOLIC PANEL Routine 08/08/2024 11:07 AM CLUB MANAGER COMPREHENSIVE METABOLIC PANEL Routine 07/25/2024 11:43 AM CLUB MANAGER CBC WITH DIFFERENTIAL Routine 07/16/2024 1:31 PM CLUB MANAGER COMPREHENSIVE METABOLIC PANEL Routine 07/10/2024 12:46 PM CLUB MANAGER BASIC METABOLIC PANEL Routine 07/10/2024 12:09 PM CLUB MANAGER CBC WITH DIFFERENTIAL Routine 07/10/2024 11:54 AM CLUB MANAGER TELEMETRY REPORT 06/21/2024 3:44 PM CLUB MANAGER TELEMETRY REPORT 06/21/2024 3:38 PM CLUB MANAGER TELEMETRY REPORT 06/21/2024 3:33 PM CLUB MANAGER TELEMETRY REPORT 06/21/2024 3:31 PM CLUB MANAGER TELEMETRY REPORT 06/21/2024 3:09 PM CLUB MANAGER COMPREHENSIVE METABOLIC PANEL Routine 06/19/2024 3:49 PM CLUB MANAGER BASIC METABOLIC PANEL Routine 06/19/2024 2:21 PM CLUB MANAGER CBC WITH DIFFERENTIAL Routine 06/19/2024 2:19 PM CLUB MANAGER DIFFERENTIAL, MANUAL Routine 06/13/2024 2:05 AM CLUB MANAGER CBC WITH DIFFERENTIAL Routine 06/13/2024 2:05 AM CLUB MANAGER COMPREHENSIVE METABOLIC PANEL Routine 06/13/2024 2:05 AM CLUB MANAGER OT EVAL AND TREAT Routine 06/12/2024 9:4 5 AM CLUB MANAGER DIFFERENTIAL, MANUAL Routine 06/12/2024 6:20 AM CLUB MANAGER CBC WITH DIFFERENTIAL Routine 06/12/2024 6:20 AM CLUB MANAGER COMPREHENSIVE METABOLIC PANEL Routine 06/12/2024 6:20 AM CLUB MANAGER IR TUBE PLACEMENT Routine 06/11/2024 2:3 8 PM CLUB MANAGER DIFFERENTIAL, MANUAL Routine 06/10/2024 3:09 AM CLUB MANAGER COMPREHENSIVE METABOLIC PANEL Routine 06/10/2024 3:09 AM CLUB MANAGER CBC WITH DIFFERENTIAL Routine 06/10/2024 3:09 AM CLUB MANAGER COMPREHENSIVE METABOLIC PANEL Routine 06/09/2024 11:45 AM CLUB MANAGER CBC WITH DIFFERENTIAL Routine 06/09/2024 6:56 AM CLUB MANAGER EXTRA TUBE (URINE CONTAINER) Routine 06/08/2024 10:30 PM CLUB MANAGER EXTRA TUBE Routine 06/08/2024 10:30 PM CLUB MANAGER ELECTROLYTES, RANDOM URINE Routine 06/08/2024 10:15 PM CLUB MANAGER OSMOLALITY, URINE Routine 06/08/2024 10: 15 PM CLUB MANAGER EXTRA TUBE (URINE ORTEGA) Stat 06/08/20 10:15 PM CLUB MANAGER URINALYSIS W/REFLEX MICROSCOPIC Stat 06/08/2024 10:[address] THORACIC LUMBAR WO CONTRAST Stat 06/08/2024 8:54 PM CLUB MANAGER RESPIRATORY PATHOGEN PCR PANEL Routine 06/08/2024 5:49 PM CLUB MANAGER BLOOD CULTURE Stat 06/08/2024 4:08 PM CLUB MANAGER BLOOD CULTURE Stat 06/08/2024 4:08 PM CLUB MANAGER XR CHEST PA OR AP 1 VW Stat 1:01 PM CLUB MANAGER OSMOLALITY Stat 06/08/2024 1:00 PM CLUB MANAGER MAGNESIUM LEVEL Stat 06/08/2024 1:00 PM CLUB MANAGER LACTIC ACID Stat 06/08/2024 1:00 PM CLUB MANAGER COMPREHENSIVE METABOLIC PANEL Stat 06/08/2024 1:00 PM CLUB MANAGER CBC WITH DIFFERENTIAL Stat 06/08/2024 1:[address] PRIOR STUDY Routine 06/08/2024 12:33 PM CLUB MANAGER EKG 12-LEAD Stat 06/08/2024 12:[address] PRIOR STUDY Routine 06/01/2024 9:40 AM CLUB MANAGER HEMOGLOBIN A1C Routine 02/29/2024 10:06 PM CDT from Last 3 Months or Most Recently Relevant to Health Maintenance Results * CBC WITH AUTODIFFERENTIAL (08/13/2024 12:50 PM CLUB MANAGER) Only the most recent of2 resultswithin the time period is included. Blood us Adeel Dick MD HEMATOLOGY ORDERABLES Final Res ult * COMPREHENSIVE METABOLIC PANEL (08/08/2024 12:58 PM CLUB MANAGER) Only the most recent of9 resultswithin the time period is included. Blood us Adeel Dick MD CHEMISTRY ORDERABLES Final Resu lt * BASIC METABOLIC PANEL (08/08/2024 11:07 AM CLUB MANAGER) Only the most recent of3 resultswithin the time period is included. Blood Adeel Dick MD CHEMISTRY ORDERABLES Final Resu lt * CBC WITH DIFFERENTIAL (07/16/2024 1:31 PM CLUB MANAGER) Only the most recent of8 resultswithin the time period is included. Blood Adeel Dick MD HEMATOLOGY ORDERABLES Final Res ult * TELEMETRY REPORT (06/21/2024 3:44 PM CLUB MANAGER) Only the most recent of5 resultswithin the time period is included. Provider Scanning ECG ORDERABLES Final Result * (ABNORMAL) MANUAL DIFFERENTIAL (06/13/2024 2:05 AM CLUB MANAGER) Only the most recent of3 resultswithin the time period is included. SEGMENTED NEUTROPHILS 82 % 06/13/2024 3:50 AM CLUB MANAGER [facility] SERVICES [facility] LYMPHOCYTES RELATIVE 8(L) 43 - 53 % 06/13/2024 3:50 AM CLUB MANAGER [facility] MONOCYTES RELATIVE 7 % 06/13/2024 3:50 AM CLUB MANAGER [facility]OR[facility] SERVICES [facility] EOSINOPHILS RELATIVE 1 % 06/13/2024 3:50 AM CLUB MANAGER [facility]ORAT[facility] SERVICES [facility] BASOPHILS RELATIVE 1 % 06/13/2024 3:50 AM CLUB MANAGER [facility] LABORATORY [facility] METAMYELOCYTES RELATIVE 1(H) <=0 % 06/13/2024 3:50 AM CLUB MANAGER [facility] NEUTROPHILS ABSOLUTE COUNT 9.18 >=0.50 K/uL 06/13/2024 3:50 AM CLUB MANAGER [facility]ORAT[facility] SERVICES [facility] LYMPHOCYTES ABSOLUTE 0.90 0.70 - 4.50 K/uL 06/13/2024 3:50 AM CLUB MANAGER [facility]ORAT[facility] SERVICES [facility] MONOCYTES ABSOLUTE 0.78 0.10 - 1.30 K/uL 06/13/2024 3:50 AM CLUB MANAGER [facility] LABORATORY SERVICES - [facility] EOSINOPHILS ABSOLUTE 0.11 K/uL 06/13/2024 3:50 AM CLUB MANAGER [facility]OR[facility] SERVICES - [facility] BASOPHILS ABSOLUTE 0.11 0.00 - 2.00 K/uL 06/13/2024 3:50 AM CLUB MANAGER [facility] TOTAL CELLS COUNTED IN DIFF 100 06/13/2024 3:50 AM [facility] PLATELET EST. Consistent w Count 06/13/2024 3:50 AM CLUB MANAGER [facility] ANISOCYTOSIS 1+ /hpf 06/13/2024 3:50 AM [facility] Blood Venipuncture / Unknown 06/13/2024 2:05 AM CLUB MANAGER 06/13/2024 2:30 AM CLUB MANAGER us Angelito Virgen MD HEMATOLOGY ORDERABLES COM Gita l Result [facility] CLIA# [id number] [place] [address] * IR TUBE PLACEMENT (06/11/2024 2:38 PM CLUB MANAGER) Anatomical Region Laterality Modality X-Ray Angiograph y 06/11/2024 1:44 PM CLUB MANAGER Impressions 06/12/2024 10:43 AM CLUB MANAGER IMPRESSION: Successful percutaneous cholangiogram and internal/external biliary drain placement. PLAN: The drain should be flushed with saline every 8 hours. The drain may be capped after 24 hours. DICTATION LOCATION: Location [address] [place] [address] Narrative 06/12/2024 10:43 AM CLUB MANAGER 1. PERCUTANEOUS CHOLANGIOGRAM 2. INTERNAL/EXTERNAL BILIARY DRAIN CLINICAL HISTORY: 79-year-old with malignant biliary obstruction and unable to obtain ERCP. Patient presents for percutaneous cholangiogram and interventional biliary drain. DATE: 06/11/2024 TECHNIQUE: After written and informed consent was obtained, the patient was placed supine on the fluoroscopic table. The patient's right flank was prepped and draped in the usual sterile fashion. Ultrasound was used to evaluate the liver. There is mild biliary ductal dilatation. Subcutaneous tissues were infiltrated with lidocaine. Then, a 21-gauge needle was advanced into a peripheral right hepatic duct. Percutaneous cholangiogram was then obtained. An 0.08 wire was advanced through the needle. The needle was exchanged for a 6 [facility]ian transitional catheter. Then, a 4 [facility]ian glide catheter and glidewire were used to cross the biliary obstruction. Eventually, the catheter and wire were used to select the duodenum. Contrast was injected confirming duodenal position. An Amplatz wire was advanced through the catheter. The 6 [facility]ian transitional catheter and 4 [facility] Lucian catheter were then removed. Then, over an Amplatz wire an 8 [facility]ian internal/external biliary drain was successfully deployed across the biliary obstruction. Final contrast injection demonstrates catheter in good position. The drain was then sutured to the skin in standard fashion and connected to a gravity bag. Sedation: 2 mg Versed and 100 mcg Fentanyl for 26 minutes of conscious sedation administered by Dr. Brooke with continuous vital sign monitoring done by registered nurse. REFERENCE AIR KERMA: 27 mGy CONTRAST: 10 mL Isovue-300 Procedure Note Saul Brooke MD - 06/12/2024 1. PERCUTANEOUS CHOLANGIOGRAM 2. INTERNAL/EXTERNAL BILIARY DRAIN CLINICAL HISTORY: 79-year-old with malignant biliary obstruction and unable to obtain ERCP. Patient presents for percutaneous cholangiogram and interventional biliary drain. DATE: 06/11/2024 TECHNIQUE: After written and informed consent was obtained, the patient was placed supine on the fluoroscopic table. The patient's right flank was prepped and draped in the usual sterile fashion. Ultrasound was used to evaluate the liver. There is mild biliary ductal dilatation. Subcutaneous tissues were infiltrated with lidocaine. Then, a 21-gauge needle was advanced into a peripheral right hepatic duct. Percutaneous cholangiogram was then obtained. An 0.08 wire was advanced through the needle. The needle was exchanged for a 6 [facility] Lucian transitional catheter. Then, a 4 [facility] Lucian glide catheter and glidewire were used to cross the biliary obstruction. Eventually, the catheter and wire were used to select the duodenum. Contrast was injected confirming duodenal position. An Amplatz wire was advanced through the catheter. The 6 [facility]ian transitional catheter and 4 [facility]ian catheter were then removed. Then, over an Amplatz wire an 8 [facility]ian internal/external biliary drain was successfully deployed across the biliary obstruction. Final contrast injection demonstrates catheter in good position. The drain was then sutured to the skin in standard fashion and connected to a gravity bag. Sedation: 2 mg Versed and 100 mcg Fentanyl for 26 minutes of conscious sedation administered by Dr. Brooke with continuous vital sign monitoring done by registered nurse. REFERENCE AIR KERMA: 27 mGy CONTRAST: 10 mL Isovue-300 IMPRESSION: Successful percutaneous cholangiogram and internal/external biliary drain placement. PLAN: The drain should be flushed with saline every 8 hours. The drain may be capped after 24 hours. DICTATION LOCATION: Location [address] [place] [address] Saul Brooke MD IR ORDERABLES Final R esult * EXTRA TUBE (URINE CONTAINER) (06/08/2024 10:30 PM CLUB MANAGER) Urine URINE SPECIMEN OBTAINED BY CLEAN CATCH PROCEDURE / Unknown Collection / Unknown 06/08/2024 10:30 PM CLUB MANAGER 06/08/2024 10:30 PM CLUB MANAGER Zoe Dunham DO URINE ORDERABLES Final Result Performing Organization Address [facility]/ZIP Co de Phone Number [facility] CLIA# [id number] [place] [address] * EXTRA TUBE (URINE ORTEGA) (06/08/2024 10:15 PM CLUB MANAGER) Urine URINE SPECIMEN OBTAINED BY CLEAN CATCH PROCEDURE / Unknown Collection / Unknown 06/08/2024 10:15 PM CLUB MANAGER 06/08/2024 10:29 PM CLUB MANAGER Protocol [facility] ALVAREZ URINE ORDERABLES Gita l Result Performing Organization Address [facility]/ZIP Co de Phone Number [facility] CLIA# [id number] [place] [address] * ELECTROLYTES, RANDOM URINE (06/08/2024 10:15 PM CLUB MANAGER) Pathologist [facility] SODIUM, URINE 59 mmol/L 06/09/2024 8:42 AM CLUB MANAGER [facility] LABORATORY [facility] POTASSIUM, URINE 21.8 mmol/L 06/09/2024 8:42 AM CLUB MANAGER [facility] CHLORIDE, URINE 35 mmol/L 06/09/2024 8:42 AM CLUB MANAGER [facility]OR[facility] Urine URINE SPECIMEN OBTAINED BY CLEAN CATCH PROCEDURE / Unknown Collection / Unknown 06/08/2024 10:15 PM CLUB MANAGER 06/08/2024 10:29 PM CLUB MANAGER Narrative [facility] [employer] [facility] - 06/09/2024 8:42 AM CLUB MANAGER Reference Range Not Established Angelito Virgen MD URINE ORDERABLES Final Result [facility]# [id number] [place] [address] * OSMOLALITY, URINE (06/08/2024 10:15 PM CLUB MANAGER) OSMOLALITY, URINE 540 50 - 1,200 mOsm/kg 06/09/2024 8:51 AM CLUB MANAGER [facility] Urine URINE SPECIMEN OBTAINED BY CLEAN CATCH PROCEDURE / Unknown Collection / Unknown 06/08/2024 10:15 PM CLUB MANAGER 06/08/2024 10:29 PM CLUB MANAGER [facility] - 06/09/2024 8:51 AM CLUB MANAGER Reference range: 50-1200 mOsm/kg H2O, depending on fluid intake. Angelito Virgen MD URINE ORDERABLES Final Result [facility]# [id number] [place] [address] * (ABNORMAL) URINALYSIS WITH REFLEX MICROSCOPIC (06/08/2024 10:15 PM CLUB MANAGER) COLOR UA Bee(A) Pale to Dark Yellow 06/08/2024 10:49 PM CLUB MANAGER [facility] [employer] [facility] CLARITY UA Clear Clear 06/08/2024 10:49 PM CLUB MANAGER [facility] [employer] [facility] SPECIFIC GRAVITY UA 1.016 1.003 - 1.035 06/08/2024 10:49 PM [facility] PH UA 5.0 5.0 - 8.0 06/08/2024 10:49 PM CLUB MANAGER [facility] LEUKOCYTE ESTERASE UA Negative Negative 06/08/2024 10:49 PM CLUB MANAGER [facility] NITRITE UA Negative Negative 06/08/2024 10:49 PM CLUB MANAGER [facility] PROTEIN UA Negative Negative 06/08/2024 10:49 PM [facility] GLUCOSE UA Negative Negative 06/08/2024 10:49 PM [facility] KETONES UA Negative Negative 06/08/2024 10:49 PM [facility] UROBILINOGEN UA 2.0(A) <2.0 mg/dL 10:49 PM CLUB MANAGER [facility] BILIRUBIN UA 2+(A) Negative 06/08/2024 10:49 PM [facility] BLOOD UA Negative Negative 06/08/2024 10:49 PM [facility] Comment:Ascorbic acid may ca use false negative results for blood. A microscopic review was reflexed to rule out this interference. WBC UA 3-5(A) 0 - 2 /hpf 06/08/2024 10:49 PM [facility] RBC UA 3-5(A) 0 - 2 /hpf 06/08/2024 10:49 PM CLUB MANAGER [facility] BACTERIA UA 1+(A) Negative /hpf 06/08/2024 10:49 PM [facility] EPITHELIAL CELLS, URINE 0-5 0 - 5 /hpf 06/08/2024 10:49 PM [facility] HYALINE CAST 0-2 None Seen, 0-2 /lpf 06/08/2024 10:49 PM [facility] Ascorbic Acid UA Positive(A) Negative 024 10:49 PM [facility] Urine URINE SPECIMEN OBTAINED BY CLEAN CATCH PROCEDURE / Unknown Collection / Unknown 06/08/2024 10:15 PM CLUB MANAGER 06/08/2024 10:29 PM CLUB MANAGER us Protocol [facility] MD URINE ORDERABLES Gita l Result [facility] CLIA# [id number] [place] [address] * CT THORACIC LUMBAR WO CONTRAST (06/08/2024 8:54 PM CLUB MANAGER) Anatomical Region Laterality Modality Spine Computed Tomogra phy 06/08/2024 8:54 PM CLUB MANAGER Impressions 06/08/2024 9:04 PM CLUB MANAGER IMPRESSION: 1. No acute abnormality of the thoracic or lumbar spine. 2. Incomplete evaluation of duodenal stent and low-density masses of the pancreatic head, previously evaluated on CT 06/01/2024. DICTATION LOCATION: Location 7 - [facility] 06/08/2024 9:04 PM CLUB MANAGER EXAMINATION: CT thoracic and lumbar spine without contrast. HISTORY: Metastatic disease. TECHNIQUE: CT of the thoracic and lumbar spine was performed without intravenous contrast according to standard protocol. The examination was performed with the adjustment of mA according to the patient size and/or the use of Iterative Reconstruction Technique. COMPARISON: 06/01/2024, 03/02/2024 FINDINGS: Thoracic spine: There is moderate degenerative disc disease of the lower cervical spine. There is mild anterolisthesis of C7 on T1. There are mild degenerative changes throughout the thoracic spine. Schmorl's node is present in the superior endplate of T12. There is no acute fracture. There is no suspicious osseous lesion. Intrafissural lymph node is present in the right lung. Nodule in the superior segment of the left lower lobe (series 2, image 83) measures approximately 7 mm, previously 6 mm. Slight differences in size are likely due to volume averaging. Lumbar spine: Alignment is normal. Chronic appearing wedging of L1 is noted. No acute fracture is identified. No suspicious osseous lesion is identified. Aortic atherosclerosis is present. Stent is present in the duodenum. Low-density masses of the head of pancreas are redemonstrated. us Zoe Dunham DO CT ORDERABLES Edited Result - Final * RESPIRATORY PATHOGEN PCR PANEL (06/08/2024 5:49 PM CLUB MANAGER) Respiratory Pathogen PCR Panel NOT DETECTED No respiratory pathogen nucleic acids detected. 06/08/2024 6:47 PM CLUB MANAGER [facility] LABORATORY SERVICES - [facility] COVID-19 PCR NOT DETECTED Not Detected 06/08/2024 6:47 PM CLUB MANAGER [facility] Upper Respiratory ENTIRE NASOPHARYNX / Unknown Collection / Unknown 06/08/2024 5:49 PM CLUB MANAGER 06/08/2024 5:55 PM CLUB MANAGER Narrative [facility] - 06/08/2024 6:47 PM CLUB MANAGER The Film Array Respiratory Panel (RP2.1) is a multiplex nucleic acid detection test for 22 targets. Viruses: Adenovirus Coronavirus HKU1, NL63, 229E, and OC43 COVID-19/Severe Acute Respiratory Syndrome Coronavirus 2 Influenza A with the following subtypes: H1, H1-2009, and H3 Influenza B Human Metapneumovirus Parainfluenza virus 1, 2, 3, and 4 Respiratory Syncytial virus (RSV) Rhinovirus/Enterovirus (cannot differentiate due to genetic similarities) Bacteria: Bordetella pertussis Bordetella parapertussis Chlamydophila pneumoniae Mycoplasma pneumoniae Zoe Dunham DO MICROBIOLOGY - GENERAL ORDERABL ES Final Result [facility] CLIA# [id number] [place] [address] * BLOOD CULTURE (06/08/2024 4:08 PM CLUB MANAGER) BLOOD CULTURE No growth 06/13/2024 9:46 PM CLUB MANAGER [facility] Blood (Peripheral) Venipuncture / Unknown 06/08/2024 4:08 PM CLUB MANAGER 06/08/2024 4:11 PM CLUB MANAGER Zoe Dunham DO MICROBIOLOGY - GENERAL ORDERABL ES Final Result [facility] CLIA# [id number] [address] [place] [address] * XR CHEST PA OR AP 1 VW (06/08/2024 1:01 PM CLUB MANAGER) Anatomical Region Laterality Modality Chest Computed Radiogr aphy 06/08/2024 1:02 PM CLUB MANAGER Impressions 06/08/2024 1:05 PM CLUB MANAGER FINDINGS/IMPRESSION: Right subclavian central venous catheter tip overlies the superior vena cava. There is no focal consolidation, pleural effusion, or pneumothorax. The cardiac silhouette is normal for portable technique. DICTATION LOCATION: Location [address] [place] [address] Narrative 06/08/2024 1:05 PM CLUB MANAGER EXAMINATION: XR CHEST PA OR AP 1 VW DATE: 06/08/2024 1:01 PM HISTORY: Cough; See Reason for Exam COMPARISON: 03/02/2024 Procedure Note Puma Magaña MD - 06/08/2024 EXAMINATION: XR CHEST PA OR AP 1 VW DATE: 06/08/2024 1:01 PM HISTORY: Cough; See Reason for Exam COMPARISON: 03/02/2024 FINDINGS/IMPRESSION: Right subclavian central venous catheter tip overlies the superior vena cava. There is no focal consolidation, pleural effusion, or pneumothorax. The cardiac silhouette is normal for portable technique. DICTATION LOCATION: Location [address] [place] [address] Frank Colbert MD DIAGNOSTIC IMAGING ORDE RABLES Final Result * LACTIC ACID (06/08/2024 1:00 PM CLUB MANAGER) LACTIC ACID 1.7 <=2.0 mmol/L 06/08/2024 1:57 PM CLUB MANAGER [facility] Blood BLOOD SPECIMEN / Unknown Venipuncture / Unknown 06/08/2024 1:00 PM CLUB MANAGER 06/08/2024 1:28 PM CLUB MANAGER Frank Colbert MD CHEMISTRY ORDERABLES Fi nal Result [facility] CLIA# [id number] [address] [place] [address] * OSMOLALITY (06/08/2024 1:00 PM CLUB MANAGER) OSMOLALITY 295 289 - 305 mOsm/kg 06/09/2024 9:03 AM CLUB MANAGER [facility] Blood Venipuncture / Unknown 06/08/2024 1:00 PM CLUB MANAGER 06/08/2024 1:08 PM CLUB MANAGER Result [facility] Angelito Virgen MD CHEMISTRY ORDERABLES Final Res ult Performing Organization Address City/[facility]/ZIP Co de Phone Number [facility] CLIA# [id number] [place] [address] * MAGNESIUM LEVEL (06/08/2024 1:00 PM CLUB MANAGER) MAGNESIUM 1.8 1.6 - 2.6 mg/dL 06/08/2024 1:57 PM CLUB MANAGER [facility] Blood Venipuncture / Unknown 06/08/2024 1:00 PM CLUB MANAGER 06/08/2024 1:08 PM CLUB MANAGER Frank Colbert MD CHEMISTRY ORDERABLES Fi nal Result Performing Organization Address City/[facility] Co de Phone Number [facility] CLIA# [id number] [place] [address] * CT PRIOR STUDY (06/08/2024 12:33 PM CLUB MANAGER) Only the most recent of2 resultswithin the time period is included. Narrative 06/08/2024 12:33 PM CLUB MANAGER This exam was auto finalized to allow images to be scanned to PACS. Frank Colbert MD CT ORDERABLES Final R esult * EKG 12-LEAD (06/08/2024 12:01 PM CLUB MANAGER) 06/08/2024 12:0 1 PM CLUB MANAGER Narrative INTERFACE SYSTEM - 06/08/2024 3:37 PM CLUB MANAGER [facility] [address] [place] [address] Test Date: 2024-06-08 Pat Name: SYD UNDERWOOD Department: 94 Room: Gender: Male Split Leather Department Supervisor: VILLA : 1945 Requested By: Order Number: [id number] Reading MD: Cristobal Jeffrey Measurements Intervals Alva Rate: 106 P: 68 MD: 122 QRS: 12 QRSD: 80 T: 53 QT: 332 QTc: 441 Interpretive Statements Sinus tachycardia Otherwise normal ECG Compared to ECG 02/29/2024 22:49:41 No significant changes Electronically Signed On 06-08-2024 15:37:16 CLUB MANAGER by Cristobal Jeffrey Procedure Note Cristobal Jeffrey MD - 06/08/2024 [facility] [place] [address] [place] [address] Test Date: 2024-06-08 Pat Name: SYD UNDERWOOD Department: Room: Gender: Male Split [employer]ather Department Supervisor: VILLA : 1945 Requested By: Order Number: [id number] Reading MD: Cristobal Jeffrey Measurements Intervals Alva Rate: 106 P: 68 MD: 122 QRS: 12 QRSD: 80 T: 53 QT: 332 QTc: 441 Interpretive Statements Sinus tachycardia Otherwise normal ECG Compared to ECG 02/29/2024 22:49:41 No significant changes Electronically Signed On 06-08-2024 15:37:16 CLUB MANAGER by Cristobal Jeffrey Frank Colbert MD ECG ORDERABLES Final R esult INTERFACE SYSTEM Refer to clinic/hospital department * (ABNORMAL) HEMOGLOBIN A1C (02/29/2024 10:06 PM CDT) HEMOGLOBIN A1C 6.5(H) <=5.6 % 02/29/2024 10:37 PM CDT [facility] [employer] [facility] EST. AVG GLUCOSE, A1C 140 mg/dL 02/29/2024 10:37 PM CDT [facility] Blood Venipuncture / Unknown 02/29/2024 10:06 PM CDT 02/29/2024 10:13 PM CDT Narrative [facility] - 02/29/2024 10:37 PM CDT HGB A1C INTERPRETATION NORMAL: <5.7% PRE-DIABETES: 5.7 - 6.4% DIABETES: 6.5% OR GREATER Jem Rodriguez DO CHEMISTRY ORDERABLE S Final Result [facility]# [id number] [place] [address] from Last 3 Months or Most Recently Relevant to Health Maintenance [place] [address] [place] [id number] [place] [id number] RX [employer] Member Subscriber Plan / Payer (Ef fective 2023-Present) Name:Syd Underwood Relation to Subscriber:Self Name:Syd Underwood Payer ID:Not on file Group ID:[id number] Type:RX Medicare Part D Address: [employer] (INTERNAL) [facility] [employer] Commercial Advance Directives For more information, please contact: [phone] Documents on File Type Date Recorded Patient Substation Engineer Expl anation Advance Directive POA 06/21/2024 1:32 PM A dvance Directive POA * NO CPR (In Event of Cardiopulmonary Arrest) (Latest Code Status on File) Date Activated Date Inactivated Comments 06/08/2024 4:04 PM 06/13/2024 3:40 PM Question Answer Comments Mechanical Ventilation (for respiratory distress) - Invasive (i.e. intubation): No Mechanical Ventilation (for respiratory distress) - Non-Invasive (i.e. BiPAP, CPAP): Yes * Full Code Date Activated Date Inactivated Comments 02/29/2024 11:54 PM 03/05/2024 6:05 PM * Default Full Code - Needs Discussion Date Activated Date Inactivated Comments 02/29/2024 9:44 PM 02/29/2024 11:54 PM
--- OUTSIDE RECORDS SUMMARY | 2024-08-31 09:09 | XMS_ITS ---
Author Organization [facility] Address [address] [place] [address] Phone Care Team Providers Care Dental Laboratory Technician Apprentice Name Role Phone Unavailable Primary Care Provider Unavailabl e Active Problems Problem Noted Date Diagnosed Date [...] loss, unintentional 02/29/2024 Nausea & vomiting 02/29/2024 Current Treatment and Therapy Plans No current plan information found. Past Treatment and Therapy Plans No past plan information found. Lifetime Dose Tracking * Chemical Lifetime Dose Automatic Entry Manual Entr y Effective Dose 33.13 mSv 33.13 mSv 0 mSv Total DLP 1,655.36 DLP 1,655.36 DLP 0 DLP CTDIvol Max 28.3 mGy 28.3 mGy 0 mGy
--- OUTSIDE RECORDS SUMMARY | 2024-08-31 09:09 | XMS_ITS | Referral Summary ---
Author Organization [facility] Address [address] [place] [address] Care Team Providers Care Branch Or Department Chief Librarian Name Role Phone Nataly Fisher DO Primary Care Provider + Lamberto Cha MD Unavailable [phone] Allergies No known active allergies Medications amLODIPine (NORVASC) 10 mg tablet Take 10 mg by mouth daily 10/16/2020 Active amoxicillin-cla vulanate (AUGMENTIN) 875-125 mg per tablet Take 1 tablet by mouth 2 (two) times a day 12/25/2020 Active febuxostat (ULORIC) 40 mg tablet Take 40 mg by mouth daily 12/24/2020 Active finasteride (PROSCAR) 5 mg tablet Take 5 mg by mouth daily 11/26/2020 Active methIMAzole (TAPAZOLE) 5 mg tablet 11/05/2020 Active oxybutynin (DITROPAN) 5 mg tablet Take 5 mg by mouth nightly 11/26/2020 Active rosuvastatin (CRESTOR) 10 mg tablet Take 10 mg by mouth daily 10/16/2020 Active Januvia 100 mg tablet 10/22/2020 Active cholecalciferol (VITAMIN D-3) 25 mcg (1,000 unit) tablet Take 1,000 Units by mouth daily Active vitamin b complex tablet Take 1 tablet by mouth daily Active magnesium gluconate (MAGONATE) 500 mg (27 mg elemental) tabletIndicatio ns:hypomagnesem ia Take 500 mg by mouth daily Active multivit-min/FA /lycopen/lutein (CENTRUM SILVER MEN ORAL) Take 1 tablet by mouth Active icosapent ethyL (VASCEPA) 1 gram capsule Take 1 g by mouth 4 (four) times a day Active triamterene-hyd roCHLOROthiazid e (triamterene-hy droCHLOROthiazi de) 37.5-25 mg per tablet/capsule Take 2 tablet/capsu le by mouth daily Active Active Problems No known active problems Social History Tobacco Use Types Packs/Day Years Used Date Smoking Tobacco: Former Cigarettes Q uit: 1999 AUDIT-C Answer Date Recorded Q1: How often do you have a drink containing alc ohol? Monthly or less 01/02/2021 Q2: How many drinks containi ng alcohol do you have on a typical day when you are drinking? 1 or 2 01/02/2021 Q3: How often do you have si x or more drinks on one occasion? Never 01/02/2021 Sex and Gender Information Value Date Recorded Sex Assigned at Not on file Legal Sex Male [address] Gender Identity Not on file Sexual Orientation Not on file Last Filed Vital Signs Vital Sign Reading Time Taken Comments Blood Pressure 130/69 01/02/2021 10:40 AM CDT Pulse 57 01/02/2021 10:40 AM CDT Temperature 36.3 C (97.3 F) 01/15/2021 1:17 PM CDT Respiratory Rate 18 01/02/2021 10:40 AM CDT Oxygen Saturation 98% 01/02/2021 10:40 AM CDT Inhaled Oxygen Concentration - - Weight 90.7 kg (200 lb) 01/02/2021 9:14 AM CDT Height 182.9 cm (6') 01/02/2021 9:14 AM CDT Body Mass Index 27.12 01/02/2021 9:14 AM CDT Plan of Treatment Not on file Insurance MEDICARE [facility] MEDICARE [facility] Care Teams Branch Or Department Chief Librarian Relationship Specialty Start Date End Date Nataly Fisher DO [address] [place] [address] PCP - General Family Medicine 12/31/20 Lamberto Cha MD [address] [place] [phone] Consulting Physician Plastic Surgery 01/02/21
--- OUTSIDE RECORDS SUMMARY | 2024-08-31 09:09 | XMS_ITS | Continuity of Care Document ---
Author Organization [facility] Address [address] [place] [address] [address] [place] [address] Phone Care Team Providers Care Wharf Operator Name Role Phone Jaqueline Mccray Unavailable Unavailable Procedures Procedure Date Eye Exam, New Patient Advance Directives Directive Yes / No Effective Date File Name No Information Encounters Encounter Description Practice Location Reason(s) For Visit Diagnoses Date Provider Providers Copied on Encounter [facility], [address] [place] [address] [address], [place], [place], [id number], [place] tel:[phone] [facility] No Information [address] , [address], [place], [address], [place]. tel:[phone] Family History Family Member Type Diagnosis Age At Onset No Information Payers Payer name Insurance type Covered democrat ID Authoriza tion(s) No Information Social History Type Description Quantity Date Captured Comments Sex Male Smoking Status No Information Chief Complaint And Reason For Visit No Information Reason For Referral Reason For Referral No Information History Of Present Illness Encounter Date Complaint History Of Prese nt Illness No Information Functional Status Date Functional Assessmen t No Information Instructions Date Instruction Additional Infor mation No Information Assessments Type Assessment Date No Information Patient Care Teams Name Effective Dates (start - stop) Status Members No Information
--- OUTSIDE RECORDS SUMMARY | 2024-08-31 09:09 | XMS_ITS | Encounter Summary ---
Author Organization [facility] Address 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 Sterling [place]/Dr. 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 Opal [place] Hyperbilirubinemia 06/09/2024 Spoke w/Dai knowles at Dr. Vivi [place] Encounter Details Date Type Department Care Team (Late st Contact Info) Description 06/09/2024 Telephone [facility] Admitting [address] [place] [address] [place] [address] [place] [address] Duodenal tumor (Spoke w/Jojo at Dr. Sterling [place]/Dr. Carlton wilson); Known metistatic adenocarcinoma (Spoke w/Coco at Dr. Opal [place]); Hyperbilirubinemia (Spoke w/Gay at Dr. Vivi [place]) Social History Tobacco Use Types Packs/Day Years Used Date Smoking Tobacco: Never Alcohol Use Standard Drinks/Week Comments Not Currently [...] on file Sexual Orientation Not on file documented as of this encounter Plan of Treatment Upcoming Encounters Date Type Department Care Team (Late st Contact Info) Description 09/04/2024 10:45 AM METER ATTENDANT Office Visit [facility] [address] [facility] [address] [place] [address] [place] [address] [facility] [address] [place] [address] 09/06/2024 8:45 AM METER ATTENDANT Office Visit [facility] Oncology and Hematology - Derek [address] [facility] [address] [address] Adeel Dick MD [address] [facility] [address] [place] [address] documented as of this encounter Visit Diagnoses Not on filedocumented in this encounter
--- OUTSIDE RECORDS SUMMARY | 2024-08-31 09:09 | XMS_ITS | Clinical Summary ---
Author Organization [facility] Address [address] [place] [address] Care Team Providers Care Design Maker Name Role Phone NataliaNataly Primary Care Provider Shawna Hernandez SUPERVISOR NUTRITIONAL YEAST Unavailable [phone] Allergies No known active allergies Medications allopurinol (ZYLOPRIM) 100 MG tablet Take 1 tablet (100 mg total) by mouth daily. 11/15/2023 Active amLODIPine (NORVASC) 10 MG tablet Take 1 tablet (10 mg total) by mouth daily. 11/15/2023 Active B Complex Vitamins (VITAMIN B-COMPLEX) Tab Take 1 tablet by mouth daily. Active cholecalciferol (VITAMIN D-[address]) 25 mcg Tab tablet Take 1 tablet (1,000 Units total) by mouth daily. Active gabapentin (NEURONTIN) 100 MG capsule Take 1 capsule (100 mg total) by mouth nightly at bedtime. 11/28/2023 Active losartan (COZAAR) 25 MG tablet Take 1 tablet (25 mg total) by mouth daily. 12/27/2023 Active metFORMIN ER (GLUCOPHAGE-XR) 500 MG 24 hr tablet Take 1 tablet (500 mg total) by mouth. 10/23/2023 Active omeprazole (PRILOSEC) 20 MG capsule Take 1 capsule (20 mg total) by mouth daily. 12/21/2023 Active triamterene-hyd roCHLOROthiazid e (MAXZIDE) 75-50 MG tablet Take 1 tablet by mouth daily. 11/15/2023 Active Active Problems No known active problems Family History Medical History Relation Comments cad Father Relation Status Comments Brother 1 Brother 2 Alive Father Maternal Grandfather Maternal Grandmother Mother Paternal Grandfather Paternal Grandmother Sister Alive Social History Tobacco Use Types Packs/Day Years Used Date Smoking Tobacco: Former Cigarettes Q uit: 1987 Smokeless Tobacco: Current Chew Tobacco Cessation:Ready to Q uit: Not Asked; Counseling Given: Not Answered Alcohol Use Standard Drinks/Week Comments Yes 0 (1 standard drink = 0.6 oz pur e alcohol) 1 beer daily Sex and Gender Information Value Date Recorded Sex Assigned at Not on file Legal Sex Male 5:29 PM CDT Gender Identity Not on file Sexual Orientation Not on file Last Filed Vital Signs Vital Sign Reading Time Taken Comments Blood Pressure 126/72 01/02/2024 2:02 PM CDT Pulse 71 01/02/2024 2:02 PM CDT Temperature 36.4 C (97.6 F) 03/13/2022 10:37 AM CDT Respiratory Rate 20 03/13/2022 10:37 AM CDT Oxygen Saturation 97% 03/13/2022 10:37 AM CDT Inhaled Oxygen Concentration - - Weight 91.6 kg (202 lb) 01/02/2024 2:02 PM CDT Height 180.3 cm (5' 11 ) 01/02/2024 2:02 PM CDT Body Mass Index 28.17 01/02/2024 2:02 PM CDT Plan of Treatment Upcoming Encounters Date Type Department Care Team (Late st Contact Info) Description 09/19/2024 12:45 PM [place] [place] [facility] [address] [place] [id number] James Villasenor MD [facility]. [address] [address] Health Maintenance Due Date Last Done Comments DTaP, Tdap and Td Vaccines (1 - Tdap) 1964 Annual Medicare Wellness Visit 2008 RSV Immunization or 60+ Years (1 - 1-dose 75+ series) 2018 Pneumococcal Vaccine: 65+ Years (2 of 2 - PPSV23 or PCV20) 02/26/2019 01/01/2019 COVID-19 Vaccine ( - 2023- season) 2024 Influenza Adult (#1) 2024 05/04/2019, 04/11/2018, 04/26/2017, Additional history exists Zoster Vaccines Completed 01/01/2019, 09/16, 06/24/2012 Meningococcal B Vaccine Aged Out No l onger eligible based on patient's age to complete this topic Meningococcal Vaccine Aged Out No deborah celso eligible based on patient's age to complete this topic RSV Immunizations Under 20 Months Aged Out No longer eligible based on patient's age to complete this topic Insurance [facility] Care Teams Design Maker Relationship Specialty Start Date End Date Nataly Fisher DO PCP - General FAMILY PRACTICE 12/25/20 Shawna Hernandez FNP [address] [place] [id number] Nurse Practitioner Family 10/20/23
--- OUTSIDE RECORDS SUMMARY | 2024-08-31 09:09 | XMS_ITS | Clinical Summary ---
Author Organization [facility] Address [address] [place] [address] Care Team Providers Care Risk Professional Name Role Phone Nataly Fisher DO Primary Care Provider + Lamberto Cha MD Unavailable [phone] Allergies No known active allergies Medications amLODIPine [...] Active Active Problems No known active problems Surgical History Surgery Date Site/Laterality Comments COLON SURGERY 07/18/2004 - 07/17/2005 removed two non cancerous polyps APPENDECTOMY EYE SURGERY lasik TONSILLECTOMY MASS EXCISION 01/02/2021 Right excision mass right ring finger Medical History Medical History Date Comments Diabetes mellitus (HCC) Hypertension on medications Type 2 diabetes mellitus (HCC) o n januvia Cancer (CMS/HCC) (HCC) prostate had radiation Social History Tobacco Use Types Packs/Day Years [...] on file Legal Sex Male 8:45 AM SHIRT MAKER Gender Identity Not on file Sexual Orientation Not on file Obstetrics History Last Filed Vital Signs Vital Sign Reading [...] of Treatment Not on file Insurance MEDICARE [facility] MEDICARE [facility] MEDICARE [facility] Address: [facility] [address] [place] [address] [facility] [employer] Care Teams Risk Professional Relationship Specialty Start Date End Date Nataly Fisher DO [address] [place] [id number] PCP - General Family Medicine 12/31/20 Lamberto Cha MD [address] [place] [id number] Consulting Physician Plastic Surgery 01/02/21
== END 2024-08-31 09:04 | disposition home or self-care (01) ==
PROVIDERS: PCP Nurse Practitioner Family; Visit Provider Internal Medicine Hematology & Oncology
DX: C79.9 Secondary malignant neoplasm of unspecified site (principal); R16.0 Hepatomegaly, not elsewhere classified; S32.040A Wedge compression fracture of fourth lumbar vertebra, initial encounter for closed fracture; X58.XXXA Exposure to other specified factors, initial encounter
CPT/HCPCS: 71260; 74177; Q9967

== ENCOUNTER 2024-09-14 08:06 | Outpatient (CLI) | payer MEDICARE, SELFPAY ==
--- NOTE | 2024-09-10 14:37 | PC.NURSE ---
Pre Radiology instructions Report to the outpatient geno bhatti on date 09/14/24 at time _8:30 AM for procedure Time: _10:30 AM___ YOU MAY BE MONITORED AT HOSPITAL FOR UP TO 4 HOURS AFTER YOUR PROCEDURE. A visitor will be allowed to accompany the patient into the hospital. You and your visitor will be asked to self-screen and do not enter if you have any COVID symptoms. A mask is OPTIONAL within the hospital. Patients are to have no food or drink 6 hours prior to procedure time Driving will be restricted after the procedure, you must have a person to drive you home. Labs will be drawn in preop area and once reviewed, you will be taken to radiology area for procedure. When the procedure is completed, you will be taken to outpatient where you will be monitored for several hours. You may have one visitor in this area. Other than holding anti-coagulants, patient may take other medication(s) as scheduled. Prior to your appointment date patients are instructed to hold anti-coagulants after discussing with ordering provider to stop. If unable to discontinue anti-coagulants please notify radiologist. ? No aspirin or warfarin (Coumadin) for 7 days prior to the procedure. ? No clopidogrel (Plavix), ticagrelor (Brilinta), prasugrel (Effient) or dabigatran (Pradaxa) for 5 days prior to the procedure. ? No rivaroxaban (Xarelto), apixaban (Eliquis), dipyridamole (Aggrenox or Persantine) or cilostazol (Pletal) for 2 days prior to the procedure. Medications to discontinue per physician: ___NONE Date to take last dose: Please leave all valuables, including medications, at home the day of procedure. The hospital will not accept responsibility for valuables. Wear comfortable, loose fitting clothing.? Follow any additional instructions given to you from ordering provider. Telephone instructions given to __PT AND WIFE and asked if any additional questions and then verbalized understanding. Patient advised to call scheduling provider office or registration scheduling [phone] if any additional questions.
[2024-09-10 14:39] VITALS: BMI 22.3
[2024-09-14] VITALS (12 sets, daily range): BP systolic 142–177; BP diastolic 60–77; PULSE 57–94; RESP 20; TEMP 36.3; O2SAT 100
[2024-09-14 09:06] LABS: Prothrombin Time 13.3 Seconds (11.1-14.7)
[2024-09-14 11:07] LABS: Glucose Point of Care 118 mg/dl (65-105)
== END 2024-09-14 15:01 | disposition home or self-care (01) ==
PROVIDERS: PCP Nurse Practitioner Family; Referring Provider Internal Medicine Hematology & Oncology; Visit Provider Radiology Diagnostic Radiology
PROC: BF45ZZZ Ultrasonography of Liver (ICD-10-PCS; CPT 47000; principal; 2024-09-14 10:30)
DX: C78.7 Secondary malignant neoplasm of liver and intrahepatic bile duct (principal)
CPT/HCPCS: 36415; 47000; 76942; 82948; 85610; 88307; 88342

== ENCOUNTER 2024-09-18 10:27 | Emergency (ER) | payer MEDICARE, SELFPAY ==
[2024-09-18 10:37] VITALS: BP 145/69; PULSE 94; RESP 18; TEMP 36.9; O2SAT 100
--- NOTE | 2024-09-18 10:42 | ED.URI ---
HPI - URI/Sore Throat General Chief Complaint: Fever Stated Complaint: FLU Like Source: patient Mode of arrival: ambulatory Limitations: no limitations History of Present Illness HPI Narrative: 79-year-old male with significant medical history including pancreatic cancer (currently receiving chemo), aortic valve sclerosis, CHF and CKD presented for fever and chills at night for 2 days. Endorses temp 102 last night. States he is Planned for chemo tomorrow, however his oncologist is requesting viral testing. Pt denies cough, sob, wheezing, vomiting or any other concerns at this time. Related Data Home Medications ?Medication ?Instructions ?Recorded ?Confirmed ?Last Taken ?Type omega 3-nur-qoy-fish oil 60 mg-90 1 cap PO BID 07/29/21 09/14/24 07/14/24 History mg-500 mg capsule (Fish Oil) cholecalciferol (vitamin D3) 50 50 mcg PO DAILY 02/16/24 09/14/24 09/13/24 History mcg (2,000 unit) capsule diphenoxylate-atropine 2.5 1 tablet PO QID PRN diarrhea 07/25/24 09/10/24 Unknown History mg-0.025 mg tablet (Lomotil) allopurinol 100 mg tablet 100 mg PO DAILY 09/10/24 09/14/24 09/13/24 History famotidine 20 mg tablet 20 mg PO DAILY 09/10/24 09/14/24 09/13/24 History gabapentin 100 mg capsule 100 mg PO HS 09/10/24 09/14/24 09/13/24 History potassium chloride 20 mEq 20 meq PO DAILY 09/10/24 09/14/24 09/13/24 History tablet,extended release Allergies Allergy/AdvReac Type Severity Reaction Status Date / Time tetanus toxoid, adsorbed Allergy Mild Rash Verified 09/18/24 10:46 Tetanus Vaccines and Toxoid Allergy Unknown Rash Verified 09/14/24 08:28 Review of Systems Review of Systems: CONSTITUTIONAL: Denies body aches, reports fever, chills EYES: Denies visual changes, redness, or discharge. ENT: Denies rhinorrhea, congestion, sore throat, or otalgia. CARDIOVASCULAR: Denies chest pain, palpitations, or edema. RESPIRATORY: Denies cough or dyspnea. GASTROINTESTINAL: Denies abdominal pain, nausea, vomiting, or diarrhea. GENITOURINARY: Denies dysuria or hematuria. SKIN: Denies rash NEUROLOGIC: Denies headache All systems reviewed & are unremarkable except as noted in HPI and below PMFSH Past Medical History Medical History Duodenal stricture Nausea Epigastric pain Neuropathy Arthritis History of colon polyps Hyperlipidemia HTN (hypertension) Diabetes Surgical History Surgical History History of colon surgery 2004 Resection for polyps Family History Family History Father Heart disease Mother Diabetes mellitus Hypertension Son Hypertension Social History Social History Social History: Declined to complete social history questionnaire 03/13/24 Smoking packs per day: 1 Smoking cigarettes per day: 20.0 Years smoked: 15 Smoking pack-years: 15.00 Smoking status: Former smoker Tobacco type: cigarettes Second hand tobacco smoke exposure: No Smoking end date: 07/18/89 Additional smoking assessment comments: quit 15-20 years ago Alcohol intake: current Drinks per week: 2 Alcohol use details: vodka and cranberry Substance use: never Substance use type: does not use Living arrangements: with family Additional living arrangements comments: Occupation/Education: retired Gender identity (if verbalized by the patient): Male Spiritual care concerns: No Agree to blood products: Yes Comments At time of signature, I have reviewed and agree with nursing past medical, surgical, social and family history unless otherwise noted. Please see nursing chart for further information. There is no relevant family history pertinent to the presenting complaint Exam Narrative: GENERAL: mildly ill-appearing, and in no acute distress. HEAD: Normocephalic, atraumatic. EYES: EOMI. No redness or drainage. Conjunctivae normal. ENT: Mucous membranes pink and moist. No rhinorrhea. NECK: Normal AROM. Supple. No lymphadenopathy. CHEST: No respiratory distress. Clear to auscultation. HEART: Regular rate and rhythm. No murmur appreciated. Normal peripheral pulses. ABDOMEN: Soft, nontender, nondistended, normal active bowel sounds. SKIN: Warm, dry, Capillary refill normal. NEURO: Alert and oriented x3. Gait steady. PSYCH: Normal affect. Course Course Emergency Course: Patient is aware of diagnosis, understands and agrees to treatment plan. Anticipatory guidance given. Patient agrees to follow-up as directed and is aware of reasons to seek care at the emergency department. Portions of this record may have been created with voice recognition software Level of Care: Express Care Visit Vital Signs Vital signs: Vital Signs Temperature 98.5 F 09/18/24 10:37 Pulse Rate 94 09/18/24 10:37 Respiratory Rate 18 09/18/24 10:37 Blood Pressure 145/69 H 09/18/24 10:37 Pulse Oximetry 100 09/18/24 10:37 Oxygen Delivery Room Air 09/18/24 10:37 Temperature 98.5 F 09/18/24 10:37 Pulse Rate 94 09/18/24 10:37 Respiratory Rate 18 09/18/24 10:37 Blood Pressure 145/69 H 09/18/24 10:37 Pulse Oximetry 100 09/18/24 10:37 Oxygen Delivery Room Air 09/18/24 10:37 MDM - URI/Sore Throat MDM Narrative Medical decision making narrative: Discussed physical exam findings, neg flu and covid, neg cxr. Advised supportive measures and signs/symptoms to go to the ER. Pt is appropriate for outpt treatment and f/u. Differential Diagnosis Differential diagnosis: Likely upper respiratory infection, sinusitis, viral infection, bronchitis and influenza Imaging Data Radiologist's impression: Patient: Syd Underwood : 1945 MR#: [id number] Age: 79 Acct:[id number] Loc: [facility] ADM Date: 09/18/24Attending Dr: Ordering Physician: Kelli Sparks APRN Date of Service: 09/18/24 Procedure(s): XR chest 2V Accession Number(s): [id number] cc: Kelli Sparks APRN; Shawna Hernandez APRN~ EXAMINATION: XR chest 2V DATE: 09/18/2024 11:36 INDICATION: Cough and fever TECHNIQUE: PA and lateral views of the chest were obtained. COMPARISON: Chest CT dated 08/31/2024 FINDINGS: Right subclavian central venous port catheter with distal tip at the midsuperior vena cava. Calcified left lower lobe nodule projecting over the right hemidiaphragm on the frontal projection along with calcified right hilar lymph nodes consistent with old granulomatous disease. The cardiomediastinal silhouette is normal. Percutaneous biliary stent projecting over the right upper quadrant. IMPRESSION: 1. No acute cardiopulmonary disease. Discharge Plan Discharge Clinical Impression: Fever of unknown origin Patient Disposition: Home, Self-Care Condition: Stable Instructions: Antibiotic Form, Fever in Adults (ED) Additional Instructions: Viral testing and chest xray negative today Tylenol every 8 hours as needed for pain/fever Follow up with your primary care provider and oncologist Go to the ER for worsening symptoms or concerns Patient Language: Kyrgyz Prescriptions: No Action diphenoxylate-atropine [Lomotil] 2.5-0.025 mg tablet 1 tablet PO QID PRN (Reason: diarrhea) Patient Comments: . omega 3-mvh-hub-fish oil [Fish Oil] 60-90-500 mg capsule 1 cap PO BID Patient Comments: . allopurinol 100 mg tablet 100 mg PO DAILY famotidine 20 mg tablet 20 mg PO DAILY potassium chloride 20 mEq tablet extended release 20 meq PO DAILY gabapentin 100 mg capsule 100 mg PO HS Patient Comments: evening (DME) blood-glucose meter Kit See Rx Instructions .Route Qty: 1 0RF Patient Comments: . Rx Instructions: As directed (DME) Accu-Chek Guide test strips Strip See Rx Instructions .Route Qty: 100 2RF Patient Comments: . Rx Instructions: use once daily to check blood sugars (DME) lancets [Accu-Chek Softclix Lancets] Misc See Rx Instructions .Route Qty: 100 2RF Rx Instructions: use once daily to check blood sugars cholecalciferol (vitamin D3) 50 mcg (2,000 unit) capsule 50 mcg PO DAILY Patient Comments: ..... metformin 500 mg tablet extended release 24 hr 500 mg PO BID Qty: 180 1RF Patient Comments: states lost weight and blood sugars controlled and told him not to take it at this time and will f/u at next appt. Follow-up/Referrals: Shawna Hernandez, KELTON [Primary Care Provider] - Time of Disposition: 11:53
[2024-09-18 11:30] LABS: EDCOVIDSCREEN Negative (Negative); EDINFLUASCREEN Negative (Negative); EDINFLUBSCREEN Negative (Negative)
== END 2024-09-18 12:14 | disposition home or self-care (01) ==
PROVIDERS: Emergency Provider Nurse Practitioner Family; PCP Nurse Practitioner Family
DX: R50.9 Fever, unspecified (principal); Z85.07 Personal history of malignant neoplasm of pancreas; I50.9 Heart failure, unspecified; N18.9 Chronic kidney disease, unspecified; E11.22 Type 2 diabetes mellitus with diabetic chronic kidney disease; E78.5 Hyperlipidemia, unspecified; I13.0 Hypertensive heart and chronic kidney disease with heart failure and stage 1 through stage 4 chronic kidney disease, or unspecified chronic kidney disease; Z87.891 Personal history of nicotine dependence; Z20.822 Contact with and (suspected) exposure to COVID-19
CPT/HCPCS: 71046; 87426; 87804; 99213; G0463

== ENCOUNTER 2024-10-22 13:12 | Outpatient (CLI) | payer MEDICARE, SELFPAY ==
[2024-10-22 14:31] LABS: Thyroid Stimulating Hormone 0.156 uIU/mL (0.465-4.680)
[2024-10-22 14:54] LABS: Creatinine Urine 69.6 mg/dL
[2024-10-22 14:59] LABS: MALB Creatinine Ratio 115.9 mg/g (0-30); Microalbumin Urine Random 80.7 mg/L (0-16.7)
--- OUTSIDE RECORDS SUMMARY | 2024-10-22 15:02 | XMS_ITS | Encounter Summary ---
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 Name Role Phone Unavailable Primary Care Provider Unavailabl e Encounter Details Date Type Department Care Team (Late Contact Info) Description 10/17/2024 Orders Only [facility] Oncology and Hematology - Derek [address] [place] [address] [facility] [address] [place] [address] Adeel Dick MD [address] [place] [address] Social History Tobacco Use Types Packs/Day Years [...] Care Team (Late st Contact Info) Description 11/14/2024 11:30 AM CDT Office Visit [facility] Oncology and Hematology - Derek [address] [place] [address] Adeel Dick MD [address] [place] [address] documented as of this encounter Procedures Procedure Name Priority Date/Time Associated Diagnosis Comments CANCER ANTIGEN 15-3 Routine 10/16/2024 10:19 AM CDT documented in this encounter Results * CANCER ANTIGEN 15-3 (10/16/2024 10:19 AM CDT) Blood Adeel Dick MD CHEMISTRY ORDERABLES Final Resu lt documented in this encounter Visit Diagnoses Not on filedocumented in this encounter
--- OUTSIDE RECORDS SUMMARY | 2024-10-22 15:02 | XMS_ITS ---
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
--- OUTSIDE RECORDS SUMMARY | 2024-10-22 15:02 | XMS_ITS | Clinical Summary ---
Author Organization [facility] Address [address] [place] [address] Phone Care Team Providers Care Automatic Beam Warper Tender Name Role Phone Unavailable Primary Care Provider [...] Take 1 Tablet by mouth daily. Active lidocaine-prilocai ne (EMLA) 2.5-2.5 % Cream Apply a quarter size amount to port site 30 minutes before access. 30 Gram 1 4 Active polyethylene glycol (MIRALAX) 17 gram Powder in Packet Take 1 Packet (17 Grams) by mouth daily. 30 Packet 4 Active oxyCODONE (ROXICODONE) 5 mg tabletIndications: Metastatic adenocarcinoma (CMS/HCC) Take 0.5 Tablets (2.5 mg) by mouth every 8 hours as needed for Pain. Max Daily Amount: 7.5 mg 10 Tablet 4 Active njmxgt-kzaiygsw-hd ylase DR LYMAN) 12,000-38,000-60,0 00 unit capsuleIndications :Pancreatic mass Take 1 Capsule by mouth 3 times daily with meals. 100 Capsule 2 4 Active diphenoxylate-atro pine 2.5 mg-0.025 mg tablet Take 1 Tablet by mouth 4 times daily as needed for Diarrhea/Loo se Stools. 120 Tablet 5 Active enzymes,digestive (ENZYME DIGEST ORAL) Take by mouth 3 times daily. Active vitamin B complex (Vitamins B Complex) Capsule Take 1 Tablet by mouth daily. Active mv-min/folic/K1/ly copen/lutein (CENTRUM SILVER MEN ORAL) Take 1 Tablet by mouth daily. Active sodium chloride (BD PosiFlush Normal Saline 0.9) Syringe Flush twice daily with 10ml (1 syringe). 600 mL 12 5 Active ondansetron (ZOFRAN ODT) 8 mg Tablet, Rapid Dissolve Take 1 Tablet (8 mg) by mouth every 8 hours as needed for Nausea/Emesi s. Dissolve tablet on top of tongue, then swallow with saliva. 20 Tablet 3 5 Active potassium CHLORIDE (K-DUR,KLOR-CON M20) 20 mEq Extended Release tablet Take 1 tablet by mouth BID. 60 Tablet 3 5 Active ondansetron (ZOFRAN ODT) 8 mg Tablet, Rapid Dissolve Take 1 Tablet (8 mg) by mouth every 8 hours as needed for Nausea/Emesi s. Dissolve tablet on top of tongue, then swallow with saliva. 20 Tablet 4 025 Discontin ued(Reord er) potassium chloride (KLOR-CON M20) 20 mEq Extended Release tablet Take 1 tablet by mouth BID. 60 Tablet 1 5 025 Discontin ued(Reord er) Active Problems Problem Noted Date Diagnosed Date [...] Encounters Date Type Department Care Team Description 10/22/2024 Orders Only [facility] Oncology and Hematology [facility] [address] [place] [address] Adeel Dick MD Metastatic adenocarcinoma (CMS/HCC) 10/17/2024 Orders Only [facility] Oncology and Hematology - Derek [address] [place] [address] Adeel Dick MD 10/16/2024 9:15 AM CDT Office Visit [facility] Oncology and Hematology - Derek [address] [place] [address] Adeel Dick MD Metastatic adenocarcinoma (CMS/HCC) (Primary Dx); Malignant neoplasm of pancreas, unspecified location of malignancy (CMS/HCC) 10/16/2024 Orders Only [facility] Oncology and Hematology [facility] [address] [place] [address] Adeel Dick MD 10/09/2024 External Device Data STL ABSTRACTION Provider, Abstract 10/08/2024 Orders Only [facility] Oncology [facility] [address] [place] [address] Adeel Dick MD Metastatic adenocarcinoma (CMS/HCC) 09/28/2024 10:41 AM CDT - 09/28/2024 2:29 PM CDT Hospital Encounter [facility] Pre Post Recovery [address] [place] [address] Phoenix Elliott MD Pancreatic mass Discharge Disposition: Home or Self Care 09/26/2024 Abstract [facility] Oncology [facility] [address] [place] [address] Adeel Dick MD 09/25/2024 9:15 AM CDT Office Visit [facility] Oncology [facility] [address] [place] [address] Adeel Dick MD Metastatic adenocarcinoma (CMS/HCC) (Primary Dx); Duodenal cancer (CMS/HCC); Malignant neoplasm of pancreas, unspecified location of malignancy (CMS/HCC) 09/25/2024 Orders Only [facility] Oncology [facility] [address] [place] [address] Adeel Dick MD 09/25/2024 Chart Note [facility] Radiation Therapy [address] [place] [address] Joseph Brown MD 09/24/2024 Orders Only [facility] Oncology and Hematology [facility] [address] [place] [address] Adeel Dick MD Metastatic adenocarcinoma (CMS/HCC) 09/20/2024 12:30 PM AUTO ROLLER Telephone Check Up [facility] Surgical Specialists Zackery Dunn [facility] [address] [facility] [address] [place] [address] Phoenix Elliott MD 09/19/2024 Telephone [facility] Oncology and Hematology - Derek [address] [place] [address] Adeel Dick MD Fever/Chemo questions 09/18/2024 Telephone [facility] Oncology and Hematology - Derek [address] [place] [address] Adeel Dick MD Fever 09/12/2024 Orders Only [facility] Oncology and Hematology - Derek [address] [place] [address] Adeel Dick MD 09/10/2024 Orders Only [facility] Oncology and Hematology - [address] [place] [address] Adeel Dick MD Metastatic adenocarcinoma (CMS/HCC) 09/07/2024 Orders Only [facility] Oncology and Hematology - Derek [address] [place] [address] Adeel Dick MD Liver mass (Primary Dx) 09/07/2024 Orders Only [facility]ists Zackery Dunn [facility] [address] [facility] [address] [place] [address] Phoenix Elliott MD Liver lesion (Primary Dx) 09/06/2024 8:45 AM AUTO ROLLER Office Visit [facility] Oncology and Hematology - Derek [address] [place] [address] Adeel Dick MD Metastatic adenocarcinoma (CMS/HCC) (Primary Dx); Duodenal cancer (CMS/HCC); Malignant neoplasm of other parts of pancreas (CMS/HCC) 09/06/2024 Orders Only [facility] Oncology and Hematology - Derek [address] [place] [address] Adeel Dick MD Liver mass (Primary Dx) 09/05/2024 Telephone [facility] Surgical Specialists [facility] [address] [facility] [address] [place] [address] Gabriella Al fax office notes 09/04/2024 9:55 AM AUTO ROLLER - 09/04/2024 11:59 PM AUTO ROLLER Hospital Encounter [facility] Oncology Services [facility] [address] [place] [address] Phoenix Elliott MD Discharge Disposition: Home or Self Care 09/04/2024 8:30 AM AUTO ROLLER Office Visit [facility] [address] [facility] [address] [place] [address] Phoenix Elliott MD Pancreatic mass (Primary Dx) 09/04/2024 Orders Only [facility] [address] [facility] [address] [place] [address] Phoenix Elliott MD Malignant neoplasm of other parts of pancreas (CMS/HCC) (Primary Dx) 09/03/2024 Orders Only [facility] Surgical [facility]ists [facility] [address] [facility] [address] [place] [address] Phoenix Elliott MD Pancreatic mass (Primary Dx); Malignant neoplasm of other parts of pancreas (CMS/HCC) 08/31/2024 2:50 PM AUTO ROLLER - 08/31/2024 11:59 PM AUTO ROLLER Hospital Encounter [facility] [place] Scan [address] [place] [address] [facility], External Provider Discharge Disposition: Home or Self Care 08/27/2024 Orders Only [facility] Oncology and Hematology [address] [place] [address] Adeel Dick MD Metastatic adenocarcinoma (CMS/HCC) 08/22/2024 8:30 AM AUTO ROLLER Office Visit [facility] Oncology and Hematology Derek [address] [place] [address] Adeel Dick MD Metastatic adenocarcinoma (CMS/HCC) (Primary Dx) 08/21/2024 External Device Data STL ABSTRACTION Provider, Abstract 08/14/2024 Orders Only [facility] Oncology and Hematology - Derek [address] [place] [phone] Adeel Dick MD 08/13/2024 Orders Only [facility] Oncology and Hematology - Derek [address] [place] [address] Adeel Dick MD Metastatic adenocarcinoma (CMS/HCC) 08/10/2024 Orders Only [facility] Oncology and Hematology - Derek [address] [place] [address] Adeel Dick MD 08/09/2024 External Device Data STL ABSTRACTION Provider, Abstract 08/08/2024 Telephone [facility] Oncology and Hematology - Derek [address] [place] [address] Adeel Dick MD Lab Review 08/01/2024 9:00 AM AUTO ROLLER Office Visit [facility] Oncology and Hematology - Derek [address] [place] [address] Adeel Dick MD Metastatic adenocarcinoma (CMS/HCC) (Primary Dx) 07/31/2024 External Device Data STL ABSTRACTION Provider, Abstract 07/30/2024 Orders Only [facility] Oncology and Hematology - Derek [address] [place] [address] Adeel Dick MD Metastatic adenocarcinoma (CMS/HCC) 07/25/2024 Orders Only [facility] Oncology and Hematology - [address] [facility] [place] [address] Adeel Dick MD 07/25/2024 Refill [facility] Oncology and Hematology - Derek [address] [place] [address] Adeel Dick MD from Last 3 Months Family History Medical [...] Sign Reading Time Taken Comments Blood Pressure 135/75 10/16/2024 9:22 AM CDT Pulse 83 10/16/2024 9:20 AM CDT Temperature 35.7 C (96.2 F) 10/16/2024 9:20 AM CDT Respiratory Rate 16 10/16/2024 9:20 AM CDT Oxygen Saturation 98% 10/16/2024 9:20 AM CDT Inhaled Oxygen Concentration - - Weight 73 kg (161 lb) 10/16/2024 9:20 AM CDT Height 182.9 cm (6') 09/28/2024 11:04 AM CDT Body Mass Index 21.84 09/28/2024 11:04 AM CDT Plan of Treatment Upcoming Encounters Date Type Department Care Team (Late st Contact Info) Description 11/14/2024 11:30 AM CDT Office Visit [facility] Oncology and Hematology - Derek [address] [facility] [address] [place] [address] Adeel Dick MD [address] [facility] [employer] [address] [place] [address] Health Maintenance Due Date Last Done Comments DIABETES ANNUAL FOOT EXAM 1961 DIABETES ANNUAL RETINAL EXAM 1961 DIABETES MICROALBUMIN ANNUAL SCREEN 1961 LDL CHOLESTEROL ANNUAL 1961 DTAP/TDAP/TD VACCINES (1 - Tdap) 1962 PNEUMOCOCCAL VACCINE 50+ YEARS (1 of 2 - PCV) 05/18/19 62 ZOSTER VACCINE (1 of 2) 1962 RSV VACCINE (60+ or ) (1 - 1-dose 75+ series) 2018 INFLUENZA VACCINE (#1) 2024 [place]) Prev entative Visit/Annual Wellness Visit 07/18/2024 DIABETES HBA1C Q 6 MONTHS 08/31/2024 02/29/2024 Medical Devices Implanted Type Area Sales And Marketing Administrator Device Identifier Shelf Expiration Date Model / Serial / Lot Stent Duodenal Wallflex 6502 - [id number] Implanted:Qty : 1 on 03/02/2024 by Elias Garces MD at [facility] Stent N/A: Duodenum Mammotome ANTONY [id number] 11/23/2024 [id number] / / [id number] Stent Viabil Nr [id number] - [id number] Implanted:Qty : 1 on 09/28/2024 by Saul Brooke MD at [facility] Stent N/A: Abdomen [employer] [id number] 10/03/2026 [id number] / [id number] / Stent Viabil Nr [id number] - [id number] Implanted:Qty : 1 on 09/28/2024 by Saul Brooke MD at [facility] Stent N/A: Abdomen [employer] [id number] 02/28/2026 [id number] / [id number] / Procedures Procedure Name Priority Date/Time Associated Diagnosis Comments COMPREHENSIVE METABOLIC PANEL Routine 10/16/2024 1:06 PM CDT BASIC METABOLIC PANEL Routine 10/16/2024 12:58 PM CDT CANCER ANTIGEN 15-3 Routine 10/16/2024 1 0:19 AM CDT IR BILIARY Routine 09/28/2024 1:06 PM CDT Pancreatic mass BASIC METABOLIC PANEL Routine 09/25/2024 2:46 PM CDT CANCER ANTIGEN 19-9 Routine 09/17/2024 1 0:17 AM AUTO ROLLER Malignant neoplasm of other parts of pancreas (CMS/HCC) BASIC METABOLIC PANEL Routine 09/06/2024 1:29 PM AUTO ROLLER CBC WITH AUTODIFFERENTIAL Routine 09/06/2024 12:59 PM AUTO ROLLER COMPREHENSIVE METABOLIC PANEL Routine 09/06/2024 10:16 AM AUTO ROLLER COMPREHENSIVE METABOLIC PANEL Stat 09/04/2024 9:58 AM AUTO ROLLER Pancreatic mass CBC WITH DIFFERENTIAL Stat 09/04/2024 9:58 AM AUTO ROLLER Pancreatic mass CANCER ANTIGEN 19-9 Stat 09/03/2024 1 0:37 AM AUTO ROLLER Pancreatic mass Malignant neoplasm of other parts of pancreas (CMS/HCC) CT PRIOR STUDY Routine 08/31/2024 2:50 PM AUTO ROLLER Encounter for administrative examinations, unspecified CBC WITH AUTODIFFERENTIAL Routine 08/13/2024 12:50 PM AUTO ROLLER CBC WITH AUTODIFFERENTIAL Routine 08/08/2024 1:22 PM AUTO ROLLER COMPREHENSIVE METABOLIC PANEL Routine 08/08/2024 12:58 PM AUTO ROLLER BASIC METABOLIC PANEL Routine 08/08/2024 11:07 AM AUTO ROLLER COMPREHENSIVE METABOLIC PANEL Routine 07/25/2024 11:43 AM AUTO ROLLER HEMOGLOBIN A1C Routine 02/29/2024 10:06 PM CDT from Last 3 Months or Most Recently Relevant to Health Maintenance Results * COMPREHENSIVE METABOLIC PANEL (10/16/2024 1:06 PM CDT) Only the most recent of5 resultswithin the time period is included. Blood Adeel iDck MD CHEMISTRY ORDERABLES Final Resu lt * BASIC METABOLIC PANEL (10/16/2024 12:58 PM CDT) Only the most recent of4 resultswithin the time period is included. Blood Adeel Dick MD CHEMISTRY ORDERABLES Final Resu lt * CANCER ANTIGEN 15-3 (10/16/2024 10:19 AM CDT) Blood Adeel Dick MD CHEMISTRY ORDERABLES Final Resu lt * IR BILIARY (09/28/2024 1:06 PM CDT) Anatomical Region Laterality Modality Abdomen X-Ray Angiograph y 09/28/2024 11:4 1 AM CDT Impressions 09/28/2024 5:06 PM CDT IMPRESSION: Successful internal metallic biliary stent placement as described above. DICTATION LOCATION: Location [facility] Narrative 09/28/2024 5:06 PM CDT 1. CHOLANGIOGRAM 2. INTERNAL METALLIC BILIARY STENT PLACEMENT DATE: 09/28/2024 Clinical history: Pancreatic cancer, nonoperable, patient now presents for internalization of biliary stent. Date: 09/28/2024 Contrast: 20 mL Isovue-300 Reference air Kerma: 948 mGy Sedation: 2.5 mg Versed and 128mcg Fentanyl for 28 minutes of conscious sedation administered by Dr. Brooke with continuous vital sign monitoring done by registered nurse. Technique: After written and informed consent was obtained, the patient was placed supine on angiographic table. The patient's right abdomen was prepped and draped in the usual sterile fashion. A cholangiogram was obtained of the existing biliary drain. The biliary drain was then cut and removed over a wire. A 10 Syrian sheath was then placed over the wire. A pigtail catheter was then placed over the wire. Detailed cholangiograms were then obtained illuminating the malignant obstruction. This was used for sizing. Then, a 10 mm x 10 cm and 10 x 6 Viabil stent was deployed across the obstruction. The stent was postdilated with an 10 mm balloon. Final cholangiogram demonstrates good angiographic result with brisk flow to the biliary tree. The wire and sheath were then removed. Patient tolerated the procedure and left the department in good condition. Procedure Note Saul Brooke MD - 09/28/2024 1. CHOLANGIOGRAM 2. INTERNAL METALLIC BILIARY STENT PLACEMENT DATE: 09/28/2024 Clinical history: Pancreatic cancer, nonoperable, patient now presents for internalization of biliary stent. Date: 09/28/2024 Contrast: 20 mL Isovue-300 Reference air Kerma: 948 mGy Sedation: 2.5 mg Versed and 128mcg Fentanyl for 28 minutes of conscious sedation administered by Dr. Brooke with continuous vital sign monitoring done by registered nurse. Technique: After written and informed consent was obtained, the patient was placed supine on angiographic table. The patient's right abdomen was prepped and draped in the usual sterile fashion. A cholangiogram was obtained of the existing biliary drain. The biliary drain was then cut and removed over a wire. A 10 Syrian sheath was then placed over the wire. A pigtail catheter was then placed over the wire. Detailed cholangiograms were then obtained illuminating the malignant obstruction. This was used for sizing. Then, a 10 mm x 10 cm and 10 x 6 Viabil stent was deployed across the obstruction. The stent was postdilated with an 10 mm balloon. Final cholangiogram demonstrates good angiographic result with brisk flow to the biliary tree. The wire and sheath were then removed. Patient tolerated the procedure and left the department in good condition. IMPRESSION: Successful internal metallic biliary stent placement as described above. DICTATION LOCATION: [address] Phoenix Elliott MD IR ORDERABLES Final Result * (ABNORMAL) CANCER ANTIGEN 19-9 (09/17/2024 10:17 AM AUTO ROLLER) Only the most recent of2 resultswithin the time period is included. CA 19-9 215(H) <34 U/mL [facility] Comment: This test was performed using the Siemens chemiluminescent method. Values obtained from different assay methods cannot be used interchangeably. CA 19-9 levels, regardless of value, should not be interpreted as absolute evidence of the presence or absence of disease. FASTING:NO FASTING: NO Test Performed at: [facility] [address] [place] [address] Kiana Cordero MD Blood 09/17/2024 10:1 7 AM AUTO ROLLER 09/17/2024 10:17 AM AUTO ROLLER us Phoenix Elliott MD CHEMISTRY ORDERABLES Final Result [facility] [phone] [facility] [address] [address] [phone] * CBC WITH AUTODIFFERENTIAL (09/06/2024 12:59 PM AUTO ROLLER) Only the most recent of3 resultswithin the time period is included. Blood us Adeel Dick MD HEMATOLOGY ORDERABLES Final Res ult * (ABNORMAL) CBC WITH DIFFERENTIAL (09/04/2024 9:58 AM AUTO ROLLER) WBC 2.6(L) 4.5 - 10.5 K/uL 09/04/2024 10:07 AM [facility] RBC 3.96(L) 4.50 - 5.40 M/uL 09/04/2024 10:07 AM [facility] ONCOL[facility]Y [facility] HEMOGLOBIN 12.0(L) 13.6 - 16.5 g/dL 09/04/2024 10:07 AM [facility] HEMATOCRIT 35.5(L) 40.0 - 48.0 % 09/04/2024 10:07 AM [facility] MCV 89.6 82.0 - 99.0 fL 09/04/2024 10:07 AM [facility] ONCOL[facility]Y [facility] MCH 30.2 27.8 - 34.5 pg 09/04/2024 10:07 AM [facility] ONCOL[facility] MCHC 33.7 32.5 - 35.5 g/dL 09/04/2024 10:07 AM [facility] RDW 15.0(H) 11.5 - 14.5 % 09/04/2024 10:07 AM [facility] ONCOLOGY SERVICES - [facility] PLATELETS 285 160 - 420 K/uL 09/04/2024 10:07 AM [facility] ONCOLOGY [facility] B[facility] MPV 8.2(L) 8.7 - 12.7 fL 09/04/2024 10:07 AM [facility] NEUTROPHILS 56 % 09/04/2024 10:07 AM [facility] ONCOL[facility] LYMPHOCYTES 24 % 09/04/2024 10:07 AM [facility] ONCOL[facility] SINJOVONKS MONOCYTES 19 % 09/04/2024 10:07 AM [facility] S[place] EOSINOPHILS 1 % 09/04/2024 10:07 AM [facility] ONCOLOGY [facility] BASOPHILS 0 % 09/04/2024 10:07 AM [facility] ONCOL[facility] NEUTROPHIL ABSOLUTE 1.50(L) 1.90 - 7.00 K/uL 09/04/2024 10:07 AM [facility] ONCOL[facility] LYMPHOCYTE ABSOLUTE 0.60(L) 0.70 - 4.50 K/uL 09/04/2024 10:07 AM [facility] ONCOL[facility] MONOCYTE ABSOLUTE 0.50 0.10 - 1.30 K/uL 09/04/2024 10:07 AM [facility] ONCOLOGY [facility] EOSINOPHIL ABSOLUTE 0.00 0.00 - 0.70 K/uL 09/04/2024 10:07 AM [facility] ONCOL[facility]Y [facility] BASOPHILS ABSOLUTE 0.00 0.00 - 0.20 K/uL 09/04/2024 10:07 AM [facility] ONCOL[facility]Y [facility] Blood Venipuncture / Unknown 09/04/2024 9:58 AM AUTO ROLLER 09/04/2024 10:04 AM [facility] us Phoenix Elliott MD HEMATOLOGY ORDERABLES Final Result [facility] ON[facility] CLIA#[id number] [place] [address] * CT PRIOR STUDY (08/31/2024 2:50 PM AUTO ROLLER) Narrative 09/03/2024 2:49 PM AUTO ROLLER This exam was auto finalized to allow images to be scanned to PACS. External Provider [facility] CT ORDERABLES Final Res ult * (ABNORMAL) HEMOGLOBIN A1C (02/29/2024 10:06 PM CDT) HEMOGLOBIN A1C 6.5(H) <=5.6 % 02/29/2024 10:37 PM CDT [facility] EST. AVG GLUCOSE, A1C 140 mg/dL 02/29/2024 10:37 PM CDT [facility] Blood Venipuncture / Unknown 02/29/2024 10:06 PM CDT 02/29/2024 10:13 PM CDT Narrative [facility] - 02/29/2024 10:37 PM CDT HGB A1C INTERPRETATION NORMAL: <5.7% PRE-DIABETES: 5.7 - 6.4% DIABETES: 6.5% OR GREATER Jem Rodriguez DO CHEMISTRY ORDERABLE S Final Result [facility] CLIA# [id number] [place] [address] from Last 3 Months or Most Recently Relevant to Health Maintenance [place] [address] [address] [place] [id number] [facility] [id number] RX [employer] RX Member Subscriber Plan / Payer (Ef fective 2023-Present) Name:Syd Underwood Relation to Subscriber:Self Name:Syd Underwood Payer ID:Not on file Group ID:[id number] Type:RX Medicare Part D Address: [employer] RX [employer] (INTERNAL) [facility] [employer] RX [employer] Commercial Advance Directives For more information, please contact: [phone] Documents on File Type Date Recorded Patient Medical And Health Services Manager Expl 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
--- OUTSIDE RECORDS SUMMARY | 2024-10-22 15:02 | XMS_ITS | Encounter Summary ---
Author Organization [facility] Address [address] [place] [address] Care Team Providers Care Salvage Worker Name Role Phone Unavailable Primary Care Provider Unavailabl e Reason for Visit * Reason Onset Date Comments Duodenal tumor 06/09/2024 Spoke joe/Jojo at Dr. Elliott'[place]/Dr. 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 Opal [place] Hyperbilirubinemia 06/09/2024 Spoke w/Dai knowles at Dr. Knight'[place] Encounter Details Date Type Department Care Team (Late st Contact Info) Description 06/09/2024 Telephone [facility] Admitting [address] [place] [address] [place] [address] [place] [address] Duodenal tumor (Spoke w/Jojo at [...] Description 11/14/2024 11:30 AM CDT Office Visit [facility] Oncology and Hematology - [place] [address] [place] [address] [facility] [address] [place] [address] Adeel Dick MD [address] [facility] [address] [place] [address] documented as of this encounter Visit Diagnoses Not on filedocumented in this encounter
--- OUTSIDE RECORDS SUMMARY | 2024-10-22 15:02 | XMS_ITS | Encounter Summary ---
Author Organization [facility] Address [address] [facility] [place] [address] Care Team Providers Care Sustainability Project Coordinator Name Role Phone Camron Bustamante MD Primary Care Provider [phone] Encounter Details Date Type Department Care Team (Late st Contact Info) Description 09/18/2024 Lab Requisition [facility] - Pathology Lab [address] [place] [address] Amor Calvillo MD [address] [place] [address] Illness, unspecified Social History Tobacco Use Types Packs/Day Years Used Date Smoking Tobacco: Never Assessed Sex and Gender Information Value Date Recorded Sex Assigned at Not on file Gender Identity Not on file Sexual Orientation Not on file documented as of this encounter Plan of Treatment Pending Results Name Type Priority Associated Diagnoses Date /Time SLIDE PREP HISTOLOGY Pathology Cytology Routine Illness, unspecified 09/14/2024 11:00 AM UNDERWRITING TECHNICIAN documented as of this encounter Visit Diagnoses Diagnosis Illness, unspecified documented in this encounter Care Teams Sustainability Project Coordinator Relationship Specialty Start Date End Date Camron Bustamante MD [address] [facility] [address] [place] [address] PCP - General 11/07/19 documented as of this encounter
--- OUTSIDE RECORDS SUMMARY | 2024-10-22 15:02 | XMS_ITS | Continuity of Care Document ---
Author Organization [facility] Address [address] [place] [address] [address] [place] [address] Phone Care Team Providers Care Senior Product Development Engineer Name Role Phone Jaqueline Mccray Unavailable Unavailable Procedures Procedure Date Eye Exam, New Patient Advance Directives Directive Yes / No Effective Date File Name No Information Encounters Encounter Description Practice Location Reason(s) For Visit Diagnoses Date Provider Providers Copied on Encounter [facility], [address] [place] [address] [address], [place], [place], [id number], [place] tel:[phone] [facility] [place] No Information [address] , [address], [place], [address], [place]. tel:[phone] Family History Family Member Type Diagnosis Age At Onset No Information Payers Payer name Insurance type Covered constitution party ID Authoriza tion(s) No Information Social History [...]
--- OUTSIDE RECORDS SUMMARY | 2024-10-22 15:02 | XMS_ITS | Referral Summary ---
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 Gender Identity Not on file Sexual Orientation [...] of Treatment Not on file Insurance MEDICARE [facility] MEDICARE [facility] MEDICARE [facility] Address[facility] [address] [place] [address] [facility] Care Teams Guest Relations Coordinator Relationship Specialty Start Date End Date Nataly Fisher DO [address] [place] [address] PCP - General Family Medicine 12/31/20 Lamberto Cha MD [address] [place] [address] Consulting Physician Plastic Surgery 01/02/21
--- OUTSIDE RECORDS SUMMARY | 2024-10-22 15:02 | XMS_ITS | Encounter Summary ---
Author Organization [facility] Estrada [facility] Address [address] [place] [address] Care Team Providers Care Manager Corporate Responsibility Name Role Phone Unavailable Primary Care Provider Unavailabl e Encounter Details Date Type Department Care Team (Late st Contact Info) Description 10/22/2024 Orders Only [facility] Oncology and Hematology - [place] [address] [place] [address] [facility] [address] [place] [address] Adeel Dick MD [address] [facility] [address] [place] [address] Metastatic adenocarcinoma (CMS/HCC) Social History Tobacco Use Types Packs/Day Years [...] Description 11/14/2024 11:30 AM CDT Office Visit [facility] Oncology and Hematology - [place] [address] [facility] [address] [place] [address] Adeel Dick MD [address] [facility] [address] [place] [address] documented as of this encounter Visit Diagnoses Diagnosis Metastatic adenocarcinoma (CMS/HCC) Other malignant neoplasm without specification of site documented in this encounter
--- OUTSIDE RECORDS SUMMARY | 2024-10-22 15:02 | XMS_ITS | Clinical Summary ---
Author Organization 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 Gender Identity Not on file Sexual Orientation [...] of Treatment Not on file Insurance MEDICARE [facility] MEDICARE [facility] MEDICARE [facility] Address: [facility] [address] [place] [address] [facility] Care Teams Contract Negotiation Specialist Relationship Specialty Start Date End Date Nataly Fisher DO [address] [place] [address] PCP - General Family Medicine 12/31/20 Lamberto Cha MD [address] [place] [address] Consulting Physician Plastic Surgery 01/02/21
--- OUTSIDE RECORDS SUMMARY | 2024-10-22 15:02 | XMS_ITS | Clinical Summary ---
Author Organization [facility] Address [address] [facility] [place] [address] Care Team Providers Care Oiler Helper Name Role Phone Camron Bustamante MD Primary Care Provider [phone] Source Comments [facility],non-owned Affiliates and Associated Physician Practices is amultiple site organization consisting of ambulatory clinics and hospital sitesin [place], [place], [place] and [place]. This disclosure is being madepursuant to the Care Everywhere program and may not contain all information available regarding this patient. Last updated 18.[facility] Encounters Date Type Department Care Team Description 09/18/2024 Lab Requisition [facility] - Pathology Lab [address] [place] [address] Amor Calvillo MD Illness, unspecified from Last 3 Months Social History Tobacco Use Types Packs/Day Years Used Date Smoking Tobacco: Never Assessed Sex and Gender Information Value Date Recorded Sex Assigned at Not on file Gender Identity Not on file Sexual Orientation Not on file Plan of Treatment Health Maintenance Due Date Last Done Comments MEDICARE AWV 12 MONTHS 1945 DTAP/TDAP/TD VACCINES (1 - Tdap) 1962 PNEUMOCOCCAL VACCINE 50+ (1 of 1 - PCV) 1993 ZOSTER VACCINE (1 of 2) 1993 Respiratory Syncytial Virus (RSV) Vaccine Pt: or over 60 yrs (1 - 1-dose 75+ series) 2018 COVID-19 VACCINE ( - 2023-2 5 season) 2024 INFLUENZA VACCINE (#1) 2024 DEPRESSION SCREENING 07/18/2024 HEPATITIS B VACCINE Aged Out No longe r eligible based on patient's age to complete this topic HIB VACCINE Aged Out No longer eligi ble based on patient's age to complete this topic HPV VACCINE Aged Out No longer eligi ble based on patient's age to complete this topic MENINGOCOCCAL (Group B) VACC INE SHARED DECISION-MAKING Aged Out No longer eligibl e based on patient's age to complete this topic MENINGOCOCCAL GROUPS A/C/Y/W VACCINE Aged Out No longer eligible b ased on patient's age to complete this topic Care Teams Oiler Helper Relationship Specialty Start Date End Date Camron Bustamante MD [address] [facility] [address] [place] [address] PCP - General 11/07/19
--- OUTSIDE RECORDS SUMMARY | 2024-10-22 15:02 | XMS_ITS | Clinical Summary ---
Author Organization [facility] Address [address] [place] [address] Care Team Providers Care Box Attacher Name Role Phone NataliaNataly Primary Care Provider [phone] Shawna Hernandez CRITICAL POWER INSTALL TECHNICIAN Unavailable [phone] Allergies No known active allergies Medications allopurinol [...] Care Team (Late st Contact Info) Description 10/29/2024 11:00 AM CDT Office Visit [facility] [address] [place] [address] James Villasenor MD [facility]. [address] [address] Health Maintenance Due Date Last Done Comments DTaP, Tdap and Td Vaccines ( 1 - Tdap) 1964 Annual Medicare Wellness Visit 2008 RSV Immunization or 60+ Years (1 - 1-dose 75+ series) 2018 Pneumococcal Vaccine: 65+ Years (2 of 2 - PPSV23 or PCV20) 02/26/2019 01/01/2019 COVID-19 Vaccine (1 - 2023-2 5 season) 2024 Zoster Vaccines Completed 01/01/2019, 10/05/2018, 06/24/2012 Meningococcal B Vaccine Aged Out No l onger eligible based on patient's age to complete this topic Meningococcal Vaccine Aged Out No deborah celso eligible based on patient's age to complete this topic RSV Immunizations Under 20 Months Aged Out No longer eligible b ased on patient's age to complete this topic Insurance [facility] Care Teams Box Attacher Relationship Specialty Start Date End Date Nataly Fisher DO PCP - General FAMILY PRACTICE 12/25/20 Shawna Hernandez FNP [facility] [place] [address] Nurse Practitioner Family 10/20/23
[2024-10-22 15:10] LABS: Hemoglobin A1C 6.2 % (<5.7)
== END 2024-10-22 13:13 | disposition home or self-care (01) ==
LOC: ANHLAB 13:12
PROVIDERS: PCP Nurse Practitioner Family; Visit Provider Nurse Practitioner Family
DX: E11.69 Type 2 diabetes mellitus with other specified complication (principal); I10 Essential (primary) hypertension
CPT/HCPCS: 36415; 82043; 83036; 84443

== ENCOUNTER 2024-11-28 09:29 | Outpatient (CLI) | payer MEDICARE, SELFPAY ==
--- NOTE | ~2024-11-28 | CT_ITS ---
Clinical Indication: Carcinoma CT Scan of the Chest, Abdomen, and Pelvis with Contrast: Technique: Contiguous sections were acquired throughout the chest, abdomen, and pelvis after intraven ous administration of 100 cc of Omnipaque 350. Dose reduction technique was used on this scan by nina mcconnelling automated exposure control and iterative reconstruction technique. The dose-length product (DL P) was 418.67 mGy-cm. Comparison: 08/31/2024 Findings: Multiple small chondral cystic thyroid nodules are present. There is no evidence of any significant mediastinal, hilar or axillary lymphadenopathy. Coronary yoanna ry calcifications are present. No aortic aneurysm or dissection. No central pulmonary embolus. There is no evidence of pleural or pericardial effusion. Stable bharathi-fissural nodule in the right lung (axial image 69). Stable 5 mm right lower lobe pulmonar y nodule (axial image 86). Stable 5 mm left lower lobe pulmonary nodule (axial image 45). There are multiple hypodense hepatic masses scattered throughout the liver, increased in size and num salo from prior exam, compatible with worsening metastatic disease. Largest lesion is in the posterior right hepatic lobe, measuring 4.9 cm in diameter. There is pneumobilia with mild diffuse gallbladder wall thickening. There is been interval increase in subtle poorly delineated Cystic mass extends along the pancreatic head and alejandro hepatis region, with additional involvement o f the midportion of the duodenum. This mass overall measures up to approximately 9.4 x 6.9 cm in velasco sverse dimensions. Common bile duct stent and duodenal stent are in place. Multiple small cystic lesi ons of the pancreatic tail and neck are again present. The spleen, adrenals and kidneys are within no rmal limits. There are atherosclerotic calcifications of the aorta. No bowel obstruction or bowel wall thickening. There is no evidence to suggest acute appendicitis. Urinary bladder is unremarkable. No pelvic mass evident. Trace pelvic ascites. Impression: Significant interval progression of disease. Significant interval increase of confluent mixed solid a nd cystic/heterogeneous mass at the alejandro hepatis region, involving the pancreatic head, alejandro hepati s, and proximal duodenum, measuring up to 9.4 x 6.9 cm in extent on the current exam. Significant interval worsening of hepatic metastatic disease, with increased size and number of lesio ns. Common bile duct and duodenal stents are in place. Stable subcentimeter pulmonary nodules. Reviewed, dictated and finalized at location M. Impression: Significant interval progression of disease. Significant interval increase of c onfluent mixed solid and cystic/heterogeneous mass at the alejandro hepatis region, involving the pancreatic head, alejandro hepatis, and proximal duodenum, measuring up to 9.4 x 6.9 cm in extent on the current exam. Significant interval worsening of hepatic metastatic disease, with increased si ze and number of lesions. Common bile duct and duodenal stents are in place. Stable subcentimeter pulmonary nodules.
--- OUTSIDE RECORDS SUMMARY | 2024-11-28 09:38 | XMS_ITS | Clinical Summary ---
Author Organization [facility] Address [address] [place] [address] Phone Care Team Providers Care Technology Development Intern Name Role Phone Unavailable Primary Care Provider [...] Amount: 7.5 mg 10 Tablet 4 Active gnmgsx-ynhvnbmr-qhg lase DR (CREON) 12,000-38,000-60,00 0 unit capsuleIndications: Pancreatic mass Take [...] Take 1 Tablet by mouth daily. Active mv-min/folic/K1/lyc open/lutein (CENTRUM SILVER MEN ORAL) Take 1 Tablet [...] mouth BID. 60 Tablet 3 5 Active megestroL (MEGACE) 400 mg/10 mL (40 mg/mL) suspension Take 5 mL (200 mg) by mouth daily. 150 mL 1 5 Active Active Problems Problem Noted [...] Encounters Date Type Department Care Team Description 11/23/2024 Telephone [facility] and Hematology - [address] [place] [id number] Adeel Dick MD Eating Concerns 11/22/2024 Orders Only [facility]ematology - [address] [place] [address] Adeel Dick MD 11/21/2024 Orders Only [facility] and [facility]ematology - [address] [place] [address] Adeel Dick MD 11/20/2024 External Device Data STL ABSTRACTION Provider, Abstract 11/20/2024 Orders Only [facility] and Hematology - [address] [place] [address] Adeel Dick MD 11/19/2024 Orders Only [facility] and [facility]ematology - [address] [place] [address] Adeel Dick MD Metastatic adenocarcinoma (CMS/HCC) 11/16/2024 Orders Only [facility] and [facility]ematology - [address] [place] [address] Adeel Dick MD 11/15/2024 Orders Only [facility] Oncology and Hematology - [address] [place] [address] Adeel Dick MD 11/14/2024 11:30 AM CDT Office Visit [facility] On[facility] and Hematology - [address] [place] [phone] Adeel Dick MD Metastatic adenocarcinoma (CMS/HCC) (Primary Dx); Malignant neoplasm of pancreas, unspecified location of malignancy (CMS/HCC) 11/14/2024 Orders Only [facility] Oncology and Hematology - [address] [place] [address] Adeel Dick MD 11/12/2024 Orders Only [facility] On[facility] and Hematology - [address] [place] [address] Adeel Dick MD 11/07/2024 Orders Only [facility] On[facility] and Hematology - [address] [place] [address] Adeel Dick MD 11/05/2024 Orders Only [facility] and Hematology - [address] [place] [address] Adeel Dick MD Metastatic adenocarcinoma (CMS/HCC) 10/29/2024 Orders Only [facility] and Hematology - [address] [place] [address] Adeel Dick MD 10/24/2024 Orders Only [facility] On[facility] and Hematology - [address] [place] [address] Adeel Dick MD 10/22/2024 Orders Only [facility] On[facility] and Hematology - [address] [place] [address] Adeel Dick MD Metastatic adenocarcinoma (CMS/HCC) 10/17/2024 Orders Only [facility] On[facility] Hematology [facility] [address] [place] [address] Adeel Dick MD 10/16/2024 9:15 AM CDT Office Visit [facility] [address] [place] [address] Adeel Dick MD Metastatic adenocarcinoma (CMS/HCC) (Primary Dx); Malignant neoplasm of pancreas, unspecified location of malignancy (CMS/HCC) 10/16/2024 Orders Only [facility] [address] [place] [address] Adeel Dick MD 10/09/2024 External Device Data STL ABSTRACTION Provider, Abstract 10/08/2024 Orders Only [facility] [address] [place] [address] Adeel Dick MD Metastatic adenocarcinoma (CMS/HCC) 09/28/2024 10:41 AM CDT - 09/28/2024 2:29 PM CDT Hospital Encounter [facility] Pre Post Recovery [address] [place] [address] Phoenix Elliott MD Pancreatic mass Discharge Disposition: Home or Self Care 09/26/2024 Abstract [facility] [address] [place] [address] Adeel Dick MD 09/25/2024 9:15 AM CDT Office Visit [facility] Hematology [facility] [address] [place] [address] Adeel Dick MD Metastatic adenocarcinoma (CMS/HCC) (Primary Dx); Duodenal cancer (CMS/HCC); Malignant neoplasm of pancreas, unspecified location of malignancy (CMS/HCC) 09/25/2024 Orders Only [facility] Oncology and Hematology - [address] [place] [address] Adeel Dick MD 09/25/2024 Chart Note Zackery Lentz [facility] Radiation Therapy [address] [place] [address] Joseph Brown MD 09/24/2024 Orders Only [facility] and Hematology - [address] [place] [address] Adeel Dick MD Metastatic adenocarcinoma (CMS/HCC) 09/20/2024 12:30 PM PRINCIPLE INDUSTRIAL HYGIENIST Telephone Check Up [facility] [address] [address] Phoenix Elliott MD 09/19/2024 Telephone [facility] On[facility] and Hematology - Derek [address] [place] [address] Adeel Dick MD Fever/Chemo questions 09/18/2024 Telephone [facility] and Hematology - [address] [place] [address] Adeel Dick MD Fever 09/12/2024 Orders Only [facility] and Hematology - [address] [place] [address] Adeel Dick MD 09/10/2024 Orders Only [facility] Oncology and Hematology - Derek [address] [place] [address] Adeel Dick MD Metastatic adenocarcinoma (CMS/HCC) 09/07/2024 Orders Only [facility] On[facility] and Hematology - [address] [place] [address] Adeel Dick MD Liver mass (Primary Dx) 09/07/2024 Orders Only [facility] [id number] [place] [address] Phoenix Elliott MD Liver lesion (Primary Dx) 09/06/2024 8:45 AM PRINCIPLE INDUSTRIAL HYGIENIST Office Visit [facility] and [facility] [address] [place] [address] Adeel Dick MD Metastatic adenocarcinoma (CMS/HCC) (Primary Dx); Duodenal cancer (CMS/HCC); Malignant neoplasm of other parts of pancreas (CMS/HCC) 09/06/2024 Orders Only [facility] On[facility] and [facility] [address] [place] [address] Adeel Dick MD Liver mass (Primary Dx) 09/05/2024 Telephone [facility] [address] [address] Gbariella Al fax office notes 09/04/2024 9:55 AM PRINCIPLE INDUSTRIAL HYGIENIST - 09/04/2024 11:59 PM PRINCIPLE INDUSTRIAL HYGIENIST Hospital Encounter [facility] Oncology Services [address] [address] Phoenix Elliott MD Discharge Disposition: Home or Self Care 09/04/2024 8:30 AM PRINCIPLE INDUSTRIAL HYGIENIST Office Visit [facility] [address] [address] Phoenix Elliott MD Pancreatic mass (Primary Dx) 09/04/2024 Orders Only [facility] [address] [address] Phoenix Elliott MD Malignant neoplasm of other parts of pancreas (CMS/HCC) (Primary Dx) 09/03/2024 Orders Only [facility] [address] [address] Phoenix Elliott MD Pancreatic mass (Primary Dx); Malignant neoplasm of other parts of pancreas (CMS/HCC) 08/31/2024 2:50 PM PRINCIPLE INDUSTRIAL HYGIENIST - 08/31/2024 11:59 PM PRINCIPLE INDUSTRIAL HYGIENIST Hospital Encounter [facility] [place] [address] [place] [address] [facility], External Provider Discharge Disposition: Home or Self Care from Last 3 Months Family History Medical [...] No 06/08/2024 Food Insecurity Answer Date Recorded Patient needs follow up regardin 11/07/2024 Transportation Needs Answer Date Record ed Patient needs follow up regardin 11/07/2024 Housing Stability Answer Date Recorded Social/Environmental Concerns No concerns Utility Needs Answer Date Recorded Patient needs follow up regardin 11/07/2024 Sex and Gender Information Value Date Recorded Sex Assigned at Not on file Legal Sex Male 1:28 PM CDT Gender Identity Not on file Sexual Orientation Not on file Last Filed Vital Signs Vital Sign Reading Time Taken Comments Blood Pressure 142/79 11/14/2024 11:25 AM CDT Pulse 72 11/14/2024 11:22 AM CDT Temperature 35.8 C (96.4 F) 11/14/2024 11:22 AM CDT Respiratory Rate 15 11/14/2024 11:2 2 AM CDT Oxygen Saturation 98% 11/14/2024 11: 22 AM CDT Inhaled Oxygen Concentration - - Weight 70.2 kg (154 lb 12.8 oz) 025 11:22 AM CDT Height 182.9 cm (6') 09/28/2024 11:04 AM CDT Body Mass Index 20.99 09/28/2024 11:04 AM CDT Plan of Treatment Upcoming Encounters Date Type Department Care Team (Late st Contact Info) Description 12/05/2024 9:00 AM CDT Office Visit [facility] On[facility] and Hematology - Derek [address] [facility] [address] [place] [address] Adeel Dick MD [address] [facility] [address] [place] [address] Health Maintenance Due Date Last [...] 75+ series) 2018 INFLUENZA VACCINE (#1) 2024 DIABETES HBA1C Q 6 MONTHS 08/31/2024 02/29/2024 Medical Devices Implanted Type Area Pacs Specialist Device Identifier Shelf Expiration Date Model / Serial / Lot Stent Duodenal Wallflex 6502 - [id number] Implanted:Qty : 1 on 03/02/2024 by Elias Garces MD at [facility] Stent N/A: Duodenum [employer] ANTONY [id number] 11/23/2024 [id number] / / [id number] Stent Viabil Nr [id number] - [id number] Implanted:Qty : 1 on 09/28/2024 by Saul Brooke MD at [facility] Stent N/A: Abdomen [employer] [id number] 10/03/2026 [id number] / [id number] / Stent Viabil Nr [id number] - [id number] Implanted:Qty : 1 on 09/28/2024 by Saul Brooke MD at [facility] Stent N/A: Abdomen [employer] [id number] 02/28/2026 [id number] / [id number] / Procedures Procedure Name Priority Date/Time Associated Diagnosis Comments BASIC METABOLIC PANEL Routine 11/21/2024 3:48 PM CDT COMPREHENSIVE METABOLIC PANEL Routine 11/21/2024 10:22 AM CDT CBC WITH AUTODIFFERENTIAL Routine 11/21/2024 10:16 AM CDT CBC WITH DIFFERENTIAL Routine 11/19/2024 2:06 PM CDT BASIC METABOLIC PANEL Routine 11/14/2024 4:15 PM CDT CANCER ANTIGEN 19-9 Routine 11/14/2024 1 2:51 PM CDT COMPREHENSIVE METABOLIC PANEL Routine 11/14/2024 12:48 PM CDT CBC WITH DIFFERENTIAL Routine 11/14/2024 8:15 AM CDT CBC MIXED CELL DIFFERENTIAL Routine 11/12/2024 3:21 PM CDT BASIC METABOLIC PANEL Routine 11/07/2024 1:47 PM CDT COMPREHENSIVE METABOLIC PANEL Routine 11/07/2024 12:55 PM CDT CBC MIXED CELL DIFFERENTIAL Routine 10/29/2024 3:45 PM CDT CBC MIXED CELL DIFFERENTIAL Routine 10/29/2024 3:38 PM CDT COMPREHENSIVE METABOLIC PANEL Routine 10/24/2024 2:54 PM CDT BASIC METABOLIC PANEL Routine 10/24/2024 2:17 PM CDT CANCER ANTIGEN 19-9 Routine 10/22/2024 1 1:55 AM CDT COMPREHENSIVE METABOLIC PANEL Routine 10/16/2024 1:06 PM CDT BASIC METABOLIC PANEL Routine 10/16/2024 12:58 PM CDT CANCER ANTIGEN 15-3 Routine 10/16/2024 1 0:19 AM CDT IR BILIARY Routine 09/28/2024 1:06 PM CDT Pancreatic mass BASIC METABOLIC PANEL Routine 09/25/2024 2:46 PM CDT CANCER ANTIGEN 19-9 Routine 09/17/2024 1 0:17 AM PRINCIPLE INDUSTRIAL HYGIENIST Malignant neoplasm of other parts of pancreas (CMS/HCC) BASIC METABOLIC PANEL Routine 09/06/2024 1:29 PM PRINCIPLE INDUSTRIAL HYGIENIST CBC WITH AUTODIFFERENTIAL Routine 09/06/2024 12:59 PM PRINCIPLE INDUSTRIAL HYGIENIST COMPREHENSIVE METABOLIC PANEL Routine 09/06/2024 10:16 AM PRINCIPLE INDUSTRIAL HYGIENIST COMPREHENSIVE METABOLIC PANEL Stat 09/04/2024 9:58 AM PRINCIPLE INDUSTRIAL HYGIENIST Pancreatic mass CBC WITH DIFFERENTIAL Stat 09/04/2024 9:58 AM PRINCIPLE INDUSTRIAL HYGIENIST Pancreatic mass CANCER ANTIGEN 19-9 Stat 09/03/2024 1 0:37 AM PRINCIPLE INDUSTRIAL HYGIENIST Pancreatic mass Malignant neoplasm of other parts of pancreas (CMS/HCC) CT PRIOR STUDY Routine 08/31/2024 2:50 PM PRINCIPLE INDUSTRIAL HYGIENIST Encounter for administrative examinations, unspecified HEMOGLOBIN A1C Routine 02/29/2024 10:06 PM CDT from Last 3 Months or Most Recently Relevant to Health Maintenance Results * BASIC METABOLIC PANEL (11/21/2024 3:48 PM CDT) Only the most recent of7 resultswithin the time period is included. Blood us Adeel Dick MD CHEMISTRY ORDERABLES Final Resu lt * COMPREHENSIVE METABOLIC PANEL (11/21/2024 10:22 AM CDT) Only the most recent of7 resultswithin the time period is included. Blood us Adeel Dick MD CHEMISTRY ORDERABLES Final Resu lt * CBC WITH AUTODIFFERENTIAL (11/21/2024 10:16 AM CDT) Only the most recent of2 resultswithin the time period is included. Blood us Adeel Dick MD HEMATOLOGY ORDERABLES Final Res ult * CBC WITH DIFFERENTIAL (11/19/2024 2:06 PM CDT) Only the most recent of3 resultswithin the time period is included. Blood us Adeel Dick MD HEMATOLOGY ORDERABLES Final Res ult * CANCER ANTIGEN 19-9 (11/14/2024 12:51 PM CDT) Only the most recent of4 resultswithin the time period is included. Blood us Adeel Dick MD CHEMISTRY ORDERABLES Final Resu lt * CBC MIXED CELL DIFFERENTIAL (11/12/2024 3:21 PM CDT) Only the most recent of3 resultswithin the time period is included. Blood Result [facility] us Adeel Dick MD HEMATOLOGY ORDERABLES Final Res ult * CANCER ANTIGEN 15-3 (10/16/2024 10:19 AM CDT) Blood Result [facility] us Adeel Dick MD CHEMISTRY ORDERABLES Final Resu lt * IR BILIARY (09/28/2024 1:06 PM CDT) Anatomical Region Laterality Modality Abdomen X-Ray Angiograph y 09/28/2024 11:4 1 AM CDT Impressions 09/28/2024 5:06 PM CDT IMPRESSION: Successful internal metallic biliary stent placement as described above. DICTATION LOCATION: Location [address] [place] [address] 09/28/2024 5:06 PM CDT 1. CHOLANGIOGRAM 2. [...] and removed over a wire. A 10 Kosovan sheath was then placed over the wire. [...] and removed over a wire. A 10 Kosovan sheath was then placed over the wire. [...] placement as described above. DICTATION LOCATION: Location [address] [place] [address] Phoenix Elliott MD IR ORDERABLES Final Result * CT PRIOR STUDY (08/31/2024 2:50 PM PRINCIPLE INDUSTRIAL HYGIENIST) Narrative 09/03/2024 2:49 PM PRINCIPLE INDUSTRIAL HYGIENIST This exam was auto finalized to allow images to be scanned to PACS. External Provider [facility] CT ORDERABLES Final Res ult * (ABNORMAL) HEMOGLOBIN A1C (02/29/2024 10:06 PM CDT) HEMOGLOBIN A1C 6.5(H) <=5.6 % 02/29/2024 10:37 PM CDT [facility] EST. AVG GLUCOSE, A1C 140 mg/dL 02/29/2024 10:37 PM CDT [facility] Blood Venipuncture / Unknown 02/29/2024 10:06 PM CDT 02/29/2024 10:13 PM CDT Narrative [facility] - 02/29/2024 10:37 PM CDT HGB A1C INTERPRETATION NORMAL: <5.7% PRE-DIABETES: 5.7 - 6.4% DIABETES: 6.5% OR GREATER Jem Rodriguez DO CHEMISTRY ORDERABLE S Final Result [facility] CLIA# [id number] [place] [address] from Last 3 Months or Most Recently Relevant to Health Maintenance Insurance Member Subscriber Plan / Payer (Ef fective 2023-Present) Name:Syd Underwood Relation to Subscriber:Self Name:Syd Underwood Payer ID:[id number] (NAIC) Type:PPO Address: [address] [facility] [place] [address] RX [employer] RX Member Subscriber Plan / Payer (Ef fective 2023-Present) Name:Syd Underwood Relation to Subscriber:Self Name:Syd Underwood Payer ID:Not on file Group ID:[id number] Type:RX Medicare Part D Address: [employer] (INTERNAL) [facility] RX [employer] Commercial Advance Directives For more information, please contact: [phone] Documents on File Type Date Recorded Patient Senior Coldfusion Developer Expl 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
--- OUTSIDE RECORDS SUMMARY | 2024-11-28 09:38 | XMS_ITS | Encounter Summary ---
Author Organization [facility] Address 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 Elliott'[place]/Dr. 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 Opal [place] Hyperbilirubinemia 06/09/2024 Spoke w/Dai knowles at Dr. Knight'[place] Encounter Details Date Type Department Care Team (Late st Contact Info) Description 06/09/2024 Telephone [facility] Admitting [address] [place] [address] [place] [address] [place] [address] Duodenal tumor (Spoke w/Jojo at [...] Description 12/05/2024 9:00 AM CDT Office Visit [facility] Oncology and Hematology - Derek [address] [facility] [address] [place] [address] Adeel Dick MD [address] [facility] [address] [place] [address] documented as of this encounter Visit Diagnoses Not on filedocumented in this encounter
--- OUTSIDE RECORDS SUMMARY | 2024-11-28 09:38 | XMS_ITS ---
Author Organization [facility] Address [address] [place] [address] Phone Care Team Providers Care Neuroscience Specialist Name Role Phone Unavailable Primary Care Provider [...]
--- OUTSIDE RECORDS SUMMARY | 2024-11-28 09:38 | XMS_ITS | Encounter Summary ---
Author Organization [facility] Address [address] [place] [address] Care Team Providers Care Industrial Paramedic Name Role Phone Camron Bustamante MD Primary Care Provider [phone] Encounter Details Date Type Department Care Team (Late st Contact Info) Description 09/18/2024 Lab Requisition [facility] - Pathology Lab [address] [place] [address] Amor Calvillo MD [address] [place] [address] Illness, unspecified Social History Tobacco Use Types Packs/Day Years Used Date Smoking Tobacco: Never Assessed Sex and Gender Information Value Date Recorded Sex Assigned at Not on file Legal Sex Male 9:15 AM CDT Gender Identity Not on file Sexual Orientation Not on file documented as of this encounter Plan of Treatment Pending Results Name Type Priority Associated Diagnoses Date /Time [facility] HISTOLOGY Pathology Cytology Routine Illness, unspecified 09/14/2024 11:00 AM BRICKMASON documented as of this encounter Visit Diagnoses Diagnosis Illness, unspecified documented in this encounter Care Teams Industrial Paramedic Relationship Specialty Start Date End Date Camron Bustamante MD [address] [place] [address] PCP - General 11/07/19 documented as of this encounter
--- OUTSIDE RECORDS SUMMARY | 2024-11-28 09:38 | XMS_ITS | Clinical Summary ---
Author Organization [facility] Address [address] [facility] [place] [address] Care Team Providers Care Research Pharmacist Name Role Phone Camron Bustamante MD Primary Care Provider [phone] Source Comments [facility],non-owned Affiliates and Associated Physician Practices is amultiple site organization consisting of ambulatory clinics and hospital sitesin [place], [place], [place] and [place]. This disclosure is being madepursuant to the Care Everywhere program and may not contain all information available regarding this patient. Last updated 18.[facility] Encounters Date Type Department Care Team Description 09/18/2024 Lab Requisition [facility] - Pathology Lab [address] [place] [address] Amor Calvillo MD Illness, unspecified from Last [...] VACCINE ( - 2023-2 5 season) 2024 DEPRESSION SCREENING 07/18/2024 INFLUENZA VACCINE (Season Ended) 2025 HEPATITIS B VACCINE Aged Out No longe [...] patient's age to complete this topic Insurance MEDICARE AET [facility] MANAGED MEDICARE ADV SELF PAY NO INSURANCE Member Subscriber Plan / Payer (Ef fective for All Dates) Name:Kj Syd Member ID:Not on file Relation to Subscriber:Not on file Name:KJSYD Subscriber ID:Not on file (Home) Address: [address] [place] [address] Payer ID:Not on file Group ID:Not on file Type:Self Pay Address: [place], [place] * Guarantor: SYD UNDERWOOD Account Type Relation to Patient Date of Phone Billing Address Personal/Family [address] [place] [address] SELF PAY NO INSURANCE Member Subscriber Plan / Payer (Ef fective for All Dates) Name:Syd Underwood Member ID:Not on file Relation to Subscriber:Not on file Name:SYD UNDERWOOD Subscriber ID:Not on file (Home) Address: [address] [place] [address] Payer ID:Not on file Group ID:Not on file Type:Self Pay Address: [facility] MANAGED MEDICARE ADV * Guarantor: SYD UNDERWOOD Account Type Relation to Patient Date of Phone Billing Address Personal/Family [address] [place] [address] SELF PAY NO INSURANCE Member Subscriber Plan / Payer (Ef fective for All Dates) Name:Syd Underwood Member ID:Not on file Relation to Subscriber:Not on file Name:SYD UNDERWOOD Subscriber ID:Not on file (Home) Address: [address] [place] [address] Payer ID:Not on file Group ID:Not on file Type:Self Pay Address: [facility] MANAGED MEDICARE ADV * Guarantor: SYD UNDERWOOD Account Type Relation to Patient Date of Phone Billing Address Personal/Family [address] [place] [address] SELF PAY NO INSURANCE Member Subscriber Plan / Payer (Ef fective for All Dates) Name:Syd Underwood Member ID:Not on file Relation to Subscriber:Not on file Name:SYD UNDERWOOD Subscriber ID:Not on file (Home) Address: [address] [place] [address] Payer ID:Not on file Group ID:Not on file Type:Self Pay Address: [facility] MEDICARE ADV Care Teams Research Pharmacist Relationship Specialty Start Date End Date Camron Bustamante MD [address] [place] [address] PCP - General 11/07/19
--- OUTSIDE RECORDS SUMMARY | 2024-11-28 09:38 | XMS_ITS | Clinical Summary ---
Author Organization [facility] Address [address] [place] [address] Care Team Providers Care Coastal/Harbor Defense Officer Name Role Phone RhonacatalinaNataly Primary Care Provider Shawna Hernandez PERMIT COORDINATOR Unavailable [phone] Allergies No known active allergies Medications allopurinol (ZYLOPRIM) 100 MG tablet Take 1 tablet (100 mg total) by mouth daily. 4 Active B Complex Vitamins (VITAMIN B-COMPLEX) Tab Take 1 tablet by mouth daily. Active cholecalcifero l (VITAMIN D-[address]) 25 mcg Tab tablet Take 1 tablet (1,000 Units total) by mouth daily. Active gabapentin (NEURONTIN) 100 MG capsule Take 1 capsule (100 mg total) by mouth nightly at bedtime. 4 Active metFORMIN ER (GLUCOPHAGE-XR ) 500 MG 24 hr tablet Take 1 tablet (500 mg total) by mouth. 4 Active omeprazole (PRILOSEC) 20 MG capsule Take 1 capsule (20 mg total) by mouth daily. 4 Active amLODIPine (NORVASC) 10 MG tablet Take 1 tablet (10 mg total) by mouth daily. 4 11/13/19 25 Discontinued losartan (COZAAR) 25 MG tablet Take 1 tablet (25 mg total) by mouth daily. 4 11/13/19 25 Discontinued triamterene-hy droCHLOROthiaz naun (MAXZIDE) 75-50 MG tablet Take 1 tablet by mouth daily. 4 11/13/19 25 Discontinued Active Problems No known active problems Encounters Date Type Department Care Team Description 11/12/2024 3:00 PM CDT Office Visit [facility] [address] [place] [id number] James Villasenor MD Follow Up (Aortic stenosis) 11/12/2024 Telephone [facility], [address] [place] [address] James Villasenor MD Schedule Test 11/12/2024 Travel from Last 3 Months Family History Medical History Relation Comments cad [...] Sign Reading Time Taken Comments Blood Pressure 150/68 11/12/2024 3:14 PM CDT Pulse 72 11/12/2024 3:14 PM CDT Temperature 36.4 C (97.6 F) 03/13/2022 10:37 AM CDT Respiratory Rate 20 03/13/2022 10:37 AM CDT Oxygen Saturation 97% 03/13/2022 10:37 AM CDT Inhaled Oxygen Concentration - - Weight 69.9 kg (154 lb) 11/12/2024 3:14 PM CDT Height 180.3 cm (5' 11 ) 11/12/2024 3:14 PM CDT Body Mass Index 21.48 11/12/2024 3:14 PM CDT Plan of Treatment Upcoming Encounters Date Type Department Care Team (Late st Contact Info) Description 11/29/2024 1:00 PM CDT Appointment [facility] [address] [place], [place] [phone] James Villasenor MD [facility]. 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 [address] [place], [place] [id number] Health Maintenance Due Date Last Done Comments DTaP, Tdap and Td Vaccines ( 1 - Tdap) 1964 Annual Medicare Wellness Visit 2008 RSV Immunization or 60+ Years (1 - 1-dose 75+ series) 2018 Pneumococcal Vaccine: 50+ Years (2 of 2 - PPSV23) 02/26/2019 01/01/2019 COVID-19 Vaccine ( - 2023-2 5 season) 2024 Zoster Vaccines [...] patient's age to complete this topic Insurance Care Teams Coastal/Harbor Defense Officer Relationship Specialty Start Date End Date Nataly Fisher DO PCP - General FAMILY PRACTICE 12/25/20 Shawna Hernandez FNP [address] [place] [phone] Nurse Practitioner Family 10/20/23
--- OUTSIDE RECORDS SUMMARY | 2024-11-28 09:38 | XMS_ITS | Referral Summary ---
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 Gender Identity Not on file Sexual Orientation [...] of Treatment Not on file Insurance MEDICARE [facility] MEDICARE [facility] MEDICARE [facility] Address: [facility] [address] [place] [address] [facility] Care Teams Nurse Practitioner Physician Assistant Relationship Specialty Start Date End Date Nataly Fisher DO [address] [place] [id number] PCP - General Family Medicine 12/31/20 Lamberto Cha MD [address] [place] [phone] Consulting Physician Plastic Surgery 01/02/21
--- OUTSIDE RECORDS SUMMARY | 2024-11-28 09:38 | XMS_ITS | Encounter Summary ---
Author Organization [facility] Address [address] [place] [address] Care Team Providers Care Turkey Egg Gatherer Name Role Phone Unavailable Primary Care Provider Unavailabl e Encounter Details Date Type Department Care Team (Late Contact Info) Description 11/21/2024 Orders Only [facility] Oncology and Hematology - [place] [address] [place] [address] [facility] [address] [place] [address] Adeel Dick MD [address] [facility] [address] [place] [address] Social History Tobacco Use Types [...] Description 12/05/2024 9:00 AM CDT Office Visit [facility] Oncology and Hematology - Derek [address] [facility] [address] [facility] [address] [place] [address] Adeel Dick MD [address] [facility] [address] [place] [address] documented as of this encounter Procedures Procedure Name Priority Date/Time Associated Diagnosis Comments BASIC METABOLIC PANEL Routine 11/21/2024 3:48 PM CDT documented in this encounter Results * BASIC METABOLIC PANEL (11/21/2024 3:48 PM CDT) Blood Adeel Dick MD CHEMISTRY ORDERABLES Final Resu lt documented in this encounter Visit Diagnoses Not on filedocumented in this encounter
--- OUTSIDE RECORDS SUMMARY | 2024-11-28 09:38 | XMS_ITS | Encounter Summary ---
Author Organization [facility] Address [address] [place] [address] Care Team Providers Care Collaborative Physician Name Role Phone Unavailable Primary Care Provider Unavailabl e Encounter Details Date Type Department Care Team (Late Contact Info) Description 11/22/2024 Orders Only [facility] Oncology and Hematology - [place] [address] [place] [address] [facility] [address] [place] [address] Adeel Dick MD [address] [facility] [address] [place] [address] Social History Tobacco Use Types [...] Description 12/05/2024 9:00 AM CDT Office Visit [facility] Oncology and Hematology - Derek [address] [facility] [address] [place] [address] Adeel Dick MD [address] [facility] [address] [place] [address] documented as of this encounter Procedures Procedure Name Priority Date/Time Associated Diagnosis Comments COMPREHENSIVE METABOLIC PANEL Routine 11/21/2024 10:22 AM CDT CBC WITH AUTODIFFERENTIAL Routine 2024 10:16 AM CDT documented in this encounter Results * COMPREHENSIVE METABOLIC PANEL (11/21/2024 10:22 AM CDT) Blood us Adeel Dick MD CHEMISTRY ORDERABLES Final Resu lt * CBC WITH AUTODIFFERENTIAL (11/21/2024 10:16 AM CDT) Blood us Adeel Dick MD HEMATOLOGY ORDERABLES Final Res ult documented in this encounter Visit Diagnoses Not on filedocumented in this encounter
--- OUTSIDE RECORDS SUMMARY | 2024-11-28 09:38 | XMS_ITS | Clinical Summary ---
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
== END 2024-11-28 09:30 | disposition home or self-care (01) ==
PROVIDERS: PCP Nurse Practitioner Family; Visit Provider Internal Medicine Hematology & Oncology
DX: R91.8 Other nonspecific abnormal finding of lung field (principal); C79.9 Secondary malignant neoplasm of unspecified site
CPT/HCPCS: 71260; 74177; Q9967

== ENCOUNTER 2025-01-23 11:03 | Outpatient (CLI) | payer MEDICARE, SELFPAY ==
--- NOTE | ~2025-01-23 | XR_ITS ---
Clinical Indication: Metastatic adenocarcinoma PA and lateral views of the chest: Comparison: 09/18/2024 Findings: Right-sided Mediport in place. The lungs are clear, without evidence of focal consolidation or pleural effusion. Cardiomediastinal silhouette is within normal limits. Bones and soft tissues a re unremarkable. Impression: Clear lungs. Right-sided Mediport. Reviewed, dictated and finalized at location M. Impression: Clear lungs. Right-sided Mediport.
--- OUTSIDE RECORDS SUMMARY | 2025-01-23 11:08 | XMS_ITS | Clinical Summary ---
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 30 Capsule 03/05/20 24 Active magnesium oxide (MAG-OX) 400 mg (241.3 mg magnesium) tablet Take 1 Tablet (400 mg) by mouth daily. 20 Tablet 03/05/20 24 Active allopurinoL (ZYLOPRIM) 100 mg tablet Take 1 Tablet by mouth daily. 02/12/20 24 Active cholecalciferol, vitamin D3, 1,000 unit Take 1,000 Units by mouth daily. Active OneTouch Verio test strips Strip use 1 strip to check glucose once daily 12/19/19 24 Active finasteride (PROSCAR) 5 mg tablet Take 1 Tablet by mouth daily. 12/15/19 24 Active metFORMIN (GLUCOPHAGE XR) 500 mg Extended Release 24 hour tablet Take 500 mg by mouth 2 times daily. Active VITAMIN B COMPLEX ORAL Take 1 Tablet by mouth daily. Active lidocaine-prilocai ne (EMLA) 2.5-2.5 % Cream Apply a quarter size amount to port site 30 minutes before access. 30 Gram 1 03/27/20 24 Active polyethylene glycol (MIRALAX) 17 gram Powder in Packet Take 1 Packet (17 Grams) by mouth daily. 30 Packet 06/14/20 24 Active oxyCODONE (ROXICODONE) 5 mg tabletIndications: Metastatic adenocarcinoma (CMS/HCC) Take 0.5 Tablets (2.5 mg) by mouth every 8 hours as needed for Pain. Max Daily Amount: 7.5 mg 10 Tablet 06/13/20 24 Active mtyhcu-imhcxoxm-ql ylase DR LYMAN) 12,000-38,000-60,0 00 unit capsuleIndications :Pancreatic mass Take 1 Capsule by mouth 3 times daily with meals. 100 Capsule 2 07/02/20 24 Active diphenoxylate-atro pine 2.5 mg-0.025 mg tablet Take 1 Tablet by mouth 4 times daily as needed for Diarrhea/Lo ose Stools. 120 Tablet 07/25/19 25 Active enzymes,digestive (ENZYME DIGEST ORAL) Take by mouth 3 times daily. Active vitamin B complex (Vitamins B Complex) Capsule Take 1 Tablet by mouth daily. Active mv-min/folic/K1/ly copen/lutein (CENTRUM SILVER MEN ORAL) Take 1 Tablet by mouth daily. Active sodium chloride (BD PosiFlush Normal Saline 0.9) Syringe Flush twice daily with 10ml (1 syringe). 600 mL 12 09/22/19 25 Active potassium CHLORIDE (K-DUR,KLOR-CON M20) 20 mEq Extended Release tablet Take 1 tablet by mouth BID. 60 Tablet 3 09/26/19 25 Active megestroL (MEGACE) 400 mg/10 mL (40 mg/mL) suspension Take 5 mL (200 mg) by mouth daily. 150 mL 1 11/24/19 25 Active sertraline (Zoloft) 50 mg tablet Take 1 Tablet (50 mg) by mouth daily. 60 Tablet 2 12/28/19 25 Active HYDROcodone-acetam inophen (NORCO) 5-325 mg tabletIndications: Metastatic adenocarcinoma (CMS/HCC) Take 1 Tablet by mouth every 4 hours as needed for Pain, Moderate. Max Daily Amount: 6 Tablets 60 Tablet 01/01/20 25 Active ondansetron (ZOFRAN ODT) 8 mg Tablet, Rapid Dissolve DISSOLVE 1 TABLET IN MOUTH EVERY 8 HOURS NEEDED FOR NAUSEA AND VOMITING 30 Tablet 01/21/20 25 Active ondansetron (ZOFRAN ODT) 8 mg Tablet, Rapid Dissolve DISSOLVE 1 TABLET IN MOUTH EVERY 8 HOURS NEEDED FOR NAUSEA AND VOMITING 30 Tablet 1 12/25/19 025 Discontinued Active Problems Problem Noted Date Diagnosed Date [...] Encounters Date Type Department Care Team Description 01/23/2025 Orders Only [facility] Oncology and Hematology - [address] [place] [address] Adeel Dick MD Metastatic adenocarcinoma (CMS/HCC) (Primary Dx); TB skin/subcutaneous 01/23/2025 Orders Only [facility] On[facility] and Hematology - [address] [place] [address] Adeel Dick MD 01/22/2025 Orders Only [facility] Oncology and Hematology - [address] [place] [address] Adeel Dick MD 01/19/2025 Refill [facility] Hematology - [address] [place] [id number] Adeel Dick MD 01/16/2025 Orders Only [facility] Oncology and Hematology - [address] [place] [address] Adeel Dick MD 01/14/2025 Orders Only [facility] Oncology and Hematology - Derek [address] [place] [id number] Adeel Dick MD Metastatic adenocarcinoma (CMS/HCC) (Primary Dx); Need for hepatitis B screening test 01/14/2025 Orders Only [facility] Oncology and Hematology [facility] [address] [place] [id number] Adeel Dick MD Metastatic adenocarcinoma (CMS/HCC) 01/10/2025 9:00 AM CDT Office Visit [facility] On[facility] Hematology [facility] [address] [place] [address] Adeel Dick MD Duodenal cancer (CMS/HCC) (Primary Dx); Metastatic adenocarcinoma (CMS/HCC) 01/10/2025 Orders Only [facility] On[facility] Hematology [address] [place] [address] Adeel Dick MD 01/08/2025 External Device Data STL ABSTRACTION Provider, Abstract 01/07/2025 Orders Only [facility]cology [facility] Hematology - [address] [place] [address] Adeel Dick MD 01/01/2025 External Device Data STL ABSTRACTION Provider, Abstract 12/31/2024 Orders Only [facility] Hematology [address] [place] [address] Adeel Dick MD Metastatic adenocarcinoma (CMS/HCC) 12/27/2024 9:30 AM CDT Office Visit [facility] Oncology and Hematology - [address] Adeel Dick MD Metastatic adenocarcinoma (CMS/HCC) (Primary Dx) 12/27/2024 Orders Only [facility] Oncology and Hematology - [address] [place] [address] Adeel Dick MD 12/25/2024 Orders Only [facility] Oncology and Hematology - [address] Adeel Dick MD 12/21/2024 Refill [facility] Oncology and Hematology - [address] [place] [address] Adeel Dick MD 12/17/2024 Orders Only [facility] Oncology and Hematology - [address] Adeel Dick MD Metastatic adenocarcinoma (CMS/HCC) 12/14/2024 Orders Only [facility] Oncology [facility] Hematology - [address] [place] [address] Adeel Dick MD 12/12/2024 Orders Only [facility] Oncology and Hematology - [address] [place] [phone] Adeel Dick MD 12/11/2024 Orders Only [facility] Oncology and Hematology - [address] [place] [address] Adeel Dick MD Chronic anemia (Primary Dx) 12/07/2024 Orders Only [facility] Oncology and Hematology - [address] [place] [phone] Adeel Dick MD 12/07/2024 Telephone [facility] On[facility] Hematology - [address] [place] [phone] Adeel Dick MD Diarrhea 12/06/2024 Orders Only [facility] Oncology and Hematology - [address] Adeel Dick MD 12/05/2024 9:00 AM CDT Office Visit [facility] Oncology and Hematology - [address] Adeel Dick MD Metastatic adenocarcinoma (CMS/HCC) (Primary Dx) 12/05/2024 Orders Only [facility] Oncology and Hematology - [address] Adeel Dick MD Metastatic adenocarcinoma (CMS/HCC) (Primary Dx) 12/03/2024 Orders Only [facility] Oncology and Hematology - [address] Adeel Dick MD Metastatic adenocarcinoma (CMS/HCC) 11/28/2024 Orders Only [facility] Oncology and Hematology - [address] [place], [place] [id number] Adeel Dick MD 11/23/2024 Telephone [facility] Oncology and Hematology - [address] [place] [phone] Adeel Dick MD Eating Concerns 11/22/2024 Orders Only [facility] Oncology and Hematology - [address] [place] [phone] Adeel Dick MD 11/21/2024 Orders Only [facility] Oncology and Hematology - [address] [place] [phone] Adeel Dick MD 11/20/2024 External Device Data STL ABSTRACTION Provider, Abstract 11/20/2024 Orders Only [facility] Oncology and Hematology - [address] [place] [phone] Adeel Dick MD 11/19/2024 Orders Only [facility] On[facility] H[facility] - [address] [place] [phone] Adeel Dick MD Metastatic adenocarcinoma (CMS/HCC) 11/16/2024 Orders Only [facility] - [address] [place] [address] Adeel Dick MD 11/15/2024 Orders Only [facility] - [address] [place] [phone] Adeel Dick MD 11/14/2024 11:30 AM CDT Office Visit [facility] Oncology and Hematology - [address] Adeel Dick MD Metastatic adenocarcinoma (CMS/HCC) (Primary Dx); Malignant neoplasm of pancreas, unspecified location of malignancy (CMS/HCC) 11/14/2024 Orders Only [facility] Oncology and Hematology - [address] [place] [address] Adeel Dick MD 11/12/2024 Orders Only [facility] - [address] [place] [address] Adeel Dick MD 11/07/2024 Orders Only [facility] - [address] [place] [address] Adeel Dick MD 11/05/2024 Orders Only [facility] - [address] [place] [address] Adeel Dick MD Metastatic adenocarcinoma (CMS/HCC) 10/29/2024 Orders Only [facility] On[facility] - [address] [place] [address] Adeel Dick MD 10/24/2024 Orders Only [facility] Oncology and Hematology - [address] [place], [place] [address] Adeel Dick MD from Last 3 Months [...] Sign Reading Time Taken Comments Blood Pressure 137/74 01/10/2025 8:48 AM CDT Pulse 103 01/10/2025 8:48 AM CDT Temperature 36.8 C (98.3 F) 01/10/2025 8:48 AM CDT Respiratory Rate 15 01/10/2025 8:48 AM CDT Oxygen Saturation 94% 01/10/2025 8:48 AM CDT Inhaled Oxygen Concentration - - Weight 67.6 kg (149 lb) 01/10/2025 8:48 AM CDT Height 182.9 cm (6') 09/28/2024 11:04 AM CDT Body Mass Index 20.21 09/28/2024 11:04 AM CDT Plan of Treatment Upcoming Encounters Date Type Department Care Team (Late st Contact Info) Description 02/07/2025 11:00 AM CDT Office Visit [facility] Oncology and Hematology - [address] [place] [address] Adeel Dick MD [address] [facility] [address] [place] [address] 02/14/2025 8:30 AM CDT Office Visit [facility] Oncology and Hematology - [address] [place] [address] Adeel Dick MD [address] [facility] [address] [place] [address] Health Maintenance Due Date Last Done Comments DIABETES ANNUAL FOOT EXAM 1961 DIABETES ANNUAL RETINAL EXAM 1961 DIABETES MICROALBUMIN ANNUAL SCREEN 1961 LDL CHOLESTEROL ANNUAL 1961 DTAP/TDAP/TD VACCINES (1 - Tdap) 1962 PNEUMOCOCCAL VACCINE 50+ YEARS (1 of 2 - PCV) 05/18/19 62 ZOSTER VACCINE (1 of 2) 1962 RSV VACCINE (60+ or ) (1 - 1-dose 75+ series) 2018 [place] Prev entative Visit/Annual Wellness Visit 07/18/2024 DIABETES HBA1C Q 6 MONTHS 08/31/2024 02/29/2024 INFLUENZA VACCINE (#1) 2025 Medical Devices Implanted Type Area Amortization Clerk Device Identifier Shelf Expiration Date Model / Serial / Lot Stent Duodenal Wallflex 6502 - [id number] Implanted:Qty : 1 on 03/02/2024 by Elias Garces MD at [facility] Stent N/A: Duodenum flipClass ANTONY [id number] 11/23/2024 [id number] / / [id number] Stent Viabil Nr [id number] - [id number] Implanted:Qty : 1 on 09/28/2024 by Saul Brooke MD at [facility] Stent N/A: Abdomen [employer] [id number] 10/03/2026 [id number] / [id number] / Stent Viabil Nr [id number] - [id number] Implanted:Qty : 1 on 09/28/2024 by Saul Brooke MD at [facility] Stent N/A: Abdomen [employer] [id number] 02/28/2026 [id number] / [id number] / Procedures Procedure Name Priority Date/Time Associated Diagnosis Comments HEPATITIS B SURFACE ANTIGEN Routine 01/15/2025 10:37 AM CDT CBC WITH DIFFERENTIAL Routine 01/14/2025 7:57 AM CDT BASIC METABOLIC PANEL Routine 01/10/2025 3:25 PM CDT COMPREHENSIVE METABOLIC PANEL Routine 01/10/2025 3:14 PM CDT CBC WITH DIFFERENTIAL Routine 01/07/2025 12:33 PM CDT TEMPUS XF Routine 01/04/2025 9:21 AM CDT Metastatic adenocarcinoma (CMS/HCC) BASIC METABOLIC PANEL Routine 01/03/2025 3:47 PM CDT COMPREHENSIVE METABOLIC PANEL Routine 01/03/2025 3:34 PM CDT CBC WITH DIFFERENTIAL Routine 12/31/2024 4:17 PM CDT COMPREHENSIVE METABOLIC PANEL Routine 12/27/2024 3:19 PM CDT BASIC METABOLIC PANEL Routine 12/27/2024 12:28 PM CDT CBC WITH AUTODIFFERENTIAL Routine 12/27/2024 12:26 PM CDT CBC WITH AUTODIFFERENTIAL Routine 12/24/2024 10:09 AM CDT CBC WITH DIFFERENTIAL Routine 12/17/2024 3:13 PM CDT CBC WITH DIFFERENTIAL Routine 12/11/2024 3:38 PM CDT IRON LEVEL Routine 12/11/2024 1:16 PM CDT TEMPUS XT DNA AND RNA Routine 12/05/2024 10:50 AM CDT Metastatic adenocarcinoma (CMS/HCC) [facility]T NORMAL BLOOD Routine 10:50 AM CDT Metastatic adenocarcinoma (CMS/HCC) [facility] DNA AND RNA SOLID TUMOR Routine 12/05/2024 10:50 AM CDT Metastatic adenocarcinoma (CMS/HCC) CANCER ANTIGEN 19-9 Routine 12/03/2024 1 :43 PM CDT COMPREHENSIVE METABOLIC PANEL Routine 12/03/2024 1:13 PM CDT CBC WITH DIFFERENTIAL Routine 11/26/2024 11:49 AM CDT BASIC METABOLIC PANEL Routine 11/21/2024 3:48 PM [...] METABOLIC PANEL Routine 10/24/2024 2:17 PM CDT HEMOGLOBIN A1C Routine 02/29/2024 10:06 PM CDT from Last 3 Months or Most Recently Relevant to Health Maintenance Results * HEPATITIS B SURFACE ANTIGEN (01/15/2025 10:37 AM CDT) Blood us Adeel Dick MD CHEMISTRY ORDERABLES Final Resu lt * CBC WITH DIFFERENTIAL (01/14/2025 7:57 AM CDT) Only the most recent of8 resultswithin the time period is included. Blood us Adeel Dick MD HEMATOLOGY ORDERABLES Final Res ult * BASIC METABOLIC PANEL (01/10/2025 3:25 PM CDT) Only the most recent of7 resultswithin the time period is included. Blood us Adeel Dick MD CHEMISTRY ORDERABLES Final Resu lt * COMPREHENSIVE METABOLIC PANEL (01/10/2025 3:14 PM CDT) Only the most recent of8 resultswithin the time period is included. Blood us Adeel Dick MD CHEMISTRY ORDERABLES Final Resu lt * TEMPUS XF (01/04/2025 9:21 AM CDT) Reason for Study To identify mutation s relevant to patient's cancer. 01/04/2025 9:21 AM CDT [facility] Genetic Diseases Assessed Cancer 01/04/2025 9:21 AM CDT [facility] Description of Ranges of DNA Sequences Examined 523 gene liquid biopsy 9:21 AM CDT [facility] Overall Interpretation positive 01/04/2025 9:21 AM CDT [facility] MSI MSI-H 01/04/2025 9:21 AM CDT [facility] [email or web address] 01/04/2025 9:21 AM CDT [facility] Comment:[facility] link Low Coverage Regions ABRAXAS1, BAX, CUL4A, QXT51W8, FANCC, IL32, MAPK1, NOTCH1, NOTCH2, PHLPP2, PPP6C, PTPRT, RAD51C, RHOA, RXRA, SDHAF2, TCF7L2, TGFBR1, TP53, TP63, ZNRF3 01/04/2025 9:21 AM CDT [facility] Therapy Count 18 01/04/2025 9:21 AM CDT [facility]us: Potential Therapy 1 Gene: N/A Variant: N/A Match Type: msi Agent: Dostarlimab Drug Class: Anti-PD-1 MAb Tissue: Solid Tumors Association: Response Evidence Status: Consensus Evidence ID: FDA KDB Variant: Microsatellite Instability - High Label: FDA On Label FDA Approved?: Yes On label?: Yes 01/04/2025 9:21 AM CDT [facility]: Potential Therapy 2 Gene: N/A Variant: N/A Match Type: msi Agent: Pembrolizumab Drug Class: Anti-PD-1 MAb Tissue: Solid Tumors Association: Response Evidence Status: Consensus Evidence ID: FDA KDB Variant: Microsatellite Instability - High MSK Associated Evidence: MSK OncoKB, Level 1 Label: FDA On Label FDA Approved?: Yes On label?: Yes 01/04/2025 9:21 AM CDT [facility]: Potential Therapy 3 Gene: 1097^BRAF^HGNC Variant: p.V600E Match Type: snvIndel Match Type Description: 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 Agent: Dabrafenib + Trametinib Drug Class: Combination (BRAF Inhibitor + MEK Inhibitor) Tissue: Solid Tumors Association: Response Evidence Status: Consensus Evidence ID: FDA KDB Variant: V600E - GOF MSK Associated Evidence: MSK OncoKB, Level 1 Label: FDA On Label FDA Approved?: Yes On label?: Yes 01/04/2025 9:21 AM CDT [facility]: Potential Therapy 4 Gene: 1097^BRAF^HGNC Variant: p.V600E Match Type: snvIndel Match Type Description: 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 Agent: Dabrafenib Drug Class: BRAF Inhibitor Tissue: Papillary Thyroid Carcinoma Association: Response Evidence Status: Consensus Evidence ID: NCCN KDB Variant: V600E - GOF Label: FDA Off Label FDA Approved?: Yes On label?: No 01/04/2025 9:21 AM CDT [facility]: Potential Therapy 5 Gene: 1097^BRAF^HGNC Variant: p.V600E Match Type: snvIndel Match Type Description: 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 Agent: Dabrafenib + Trametinib + Pembrolizumab Drug Class: Combination (BRAF Inhibitor + MEK Inhibitor + Anti-PD-1 MAb) Tissue: Melanoma Association: Response Evidence Status: Consensus Evidence ID: CECILIA KDB Variant: V600 - GOF Label: FDA Off Label FDA Approved?: Yes On label?: No 01/04/2025 9:21 AM CDT [facility]: Potential Therapy 6 Gene: 1097^BRAF^HGNC Variant: p.V600E Match Type: snvIndel Match Type Description: 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 Agent: Encorafenib + Binimetinib Drug Class: Combination (BRAF Inhibitor + MEK Inhibitor) Tissue: Non-Small Cell Lung Cancer Association: Response Evidence Status: Consensus Evidence ID: CECILIA KDB Variant: V600E - GOF Label: FDA Off Label FDA Approved?: Yes On label?: No 01/04/2025 9:21 AM CDT [facility]: Potential Therapy 7 Gene: 1101^BRCA2^HGNC Variant: p.I605fs Match Type: snvIndel Match Type Description: BRCA2 p.I605fs Agent: Niraparib Drug Class: PARP Inhibitor Tissue: Ovarian Cancer Association: Response Evidence Status: Consensus Evidence ID: CECILIA KDB Variant: Phud-ad-tpbtvqgb Label: FDA Off Label FDA Approved?: Yes On label?: No 01/04/2025 9:21 AM CDT [facility]: Potential Therapy 8 Gene: 1101^BRCA2^HGNC Variant: p.I605fs Match Type: snvIndel Match Type Description: BRCA2 p.I605fs Agent: Olaparib Drug Class: PARP Inhibitor Tissue: Breast Cancer Association: Response Evidence Status: Consensus Evidence ID: CECILIA KDB Variant: Opjj-pu-yftodwkv Label: FDA Off Label FDA Approved?: Yes On label?: No 01/04/2025 9:21 AM CDT [facility]: Potential Therapy 9 Gene: 1101^BRCA2^HGNC Variant: p.I605fs Match Type: snvIndel Match Type Description: BRCA2 p.I605fs Agent: Rucaparib Drug Class: PARP Inhibitor Tissue: Prostate Cancer Association: Response Evidence Status: Consensus Evidence ID: CECILIA KDB Variant: Thfk-xl-pgvjtbon Label: FDA Off Label FDA Approved?: Yes On label?: No 01/04/2025 9:21 AM CDT [facility]: Potential Therapy 10 Gene: 1101^BRCA2^HGNC Variant: p.I605fs Match Type: snvIndel Match Type Description: BRCA2 p.I605fs Agent: Talazoparib Drug Class: PARP Inhibitor Tissue: Breast Cancer Association: Response Evidence Status: Consensus Evidence ID: CECILIA KDB Variant: Ekfy-de-mvjfuznu Label: FDA Off Label FDA Approved?: Yes On label?: No 01/04/2025 9:21 AM CDT [facility]: Potential Therapy 11 Gene: 1101^BRCA2^HGNC Variant: p.I605fs Match Type: snvIndel Match Type Description: BRCA2 p.I605fs Agent: Niraparib + Bevacizumab Drug Class: Combination (PARP Inhibitor + Anti-VEGF MAb) Tissue: Ovarian Cancer Association: Response Evidence Status: Consensus Evidence ID: CECILIA KDB Variant: Crka-zt-ytnrqtvr Label: FDA Off Label FDA Approved?: Yes On label?: No 01/04/2025 9:21 AM CDT [facility]: Potential Therapy 12 Gene: 1101^BRCA2^HGNC Variant: p.I605fs Match Type: snvIndel Match Type Description: BRCA2 p.I605fs Agent: Olaparib + Bevacizumab Drug Class: Combination (PARP Inhibitor + Anti-VEGF MAb) Tissue: Ovarian Cancer Association: Response Evidence Status: Consensus Evidence ID: CECILIA KDB Variant: Pgaw-ps-rfpdauad Label: FDA Off Label FDA Approved?: Yes On label?: No 01/04/2025 9:21 AM CDT [facility]: Potential Therapy 13 Gene: 1097^BRAF^HGNC Variant: p.V600E Match Type: snvIndel Match Type Description: 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 Agent: Trametinib Drug Class: MEK Inhibitor Tissue: Melanoma Association: Response Evidence Status: Consensus Evidence ID: CECILIA KDB Variant: Koau-pv-lzyrqsev Label: FDA Off Label FDA Approved?: Yes On label?: No 01/04/2025 9:21 AM CDT [facility]: Potential Therapy 14 Gene: 1097^BRAF^HGNC Variant: p.V600E Match Type: snvIndel Match Type Description: 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 Agent: Vemurafenib Drug Class: BRAF V600 Inhibitor Tissue: Non-Small Cell Lung Cancer Association: Response Evidence Status: Consensus Evidence ID: CECILIA KDB Variant: V600E - GOF Label: FDA Off Label FDA Approved?: Yes On label?: No 01/04/2025 9:21 AM CDT [facility]: Potential Therapy 15 Gene: 1097^BRAF^HGNC Variant: p.V600E Match Type: snvIndel Match Type Description: 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 Agent: Vemurafenib + Cobimetinib Drug Class: Combination (BRAF V600 Inhibitor + MAPK1 Inhibitor) Tissue: Melanoma Association: Response Evidence Status: Consensus Evidence ID: NORBERTN KDB Variant: V600E - GOF Label: FDA Off Label FDA Approved?: Yes On label?: No 01/04/2025 9:21 AM CDT [facility]: Potential Therapy 16 Gene: 1097^BRAF^HGNC Variant: p.V600E Match Type: snvIndel Match Type Description: 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 Agent: Vemurafenib + Cobimetinib + Atezolizumab Drug Class: Combination (BRAF V600 Inhibitor + MAPK1 Inhibitor + Anti-PD-L1 MAb) Tissue: Melanoma Association: Response Evidence Status: Consensus Evidence ID: NORBERTN KDB Variant: V600E - GOF Label: FDA Off Label FDA Approved?: Yes On label?: No 01/04/2025 9:21 AM CDT [facility]: Potential Therapy 17 Gene: 8975^PIK3CA^HGNC Variant: p.E545A Match Type: snvIndel Match Type Description: PIK3CA p.E545A Agent: Alpelisib Drug Class: PI3K Inhibitor Tissue: Solid Tumors Association: Response Evidence Status: Clinical research Evidence ID: [id number] Evidence URL: https://www.ncbi.nlm.n ih.gov/pubmed/22074972 Evidence Title: Phosphatidylinositol 3-Kinase -Selective Inhibition With Alpelisib (UYP353) in BQE5KT-Yhdzquv Solid Tumors: Results From the Gkeih-na-Oxejs Study - PubMed KDB Variant: Zurc-op-fpgnkapp Label: FDA Off Label FDA Approved?: Yes On label?: No 01/04/2025 9:21 AM CDT [facility]: Potential Therapy 18 Gene: 8975^PIK3CA^HGNC Variant: p.O4038V Match Type: snvIndel Match Type Description: PIK3CA p.X8407H Agent: Alpelisib Drug Class: PI3K Inhibitor Tissue: Solid Tumors Association: Response Evidence Status: Clinical research Evidence ID: [id number] Evidence URL: https://www.ncbi.nlm.n ih.gov/pubmed/72283746 Evidence Title: Phosphatidylinositol 3-Kinase -Selective Inhibition With Alpelisib (RXW926) in FNV9PD-Lsqgqiz Solid Tumors: Results From the Trgyt-pl-Ynhkc Study - PubMed KDB Variant: Htvt-ev-wrvbjzxf Label: FDA Off Label FDA Approved?: Yes On label?: No 01/04/2025 9:21 AM CDT [facility] Trial Count 4 01/04/2025 9:21 AM CDT [facility]: Clinical Trial Match 1 Clinical Trial NCT ID: [id number] Clinical Trial Title: A Study to Assess the Efficacy and Safety of [id number] in Participants With Cancer Harboring BRAF Alterations Clinical Trial URL: https://clinicaltrials .gov/ct2/show/[email or web address] 797 Clinical Phase: Phase 2 Clinical Trial Matches: 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 Clinical Trial Distance and Location: [address] [place], [place] 01/04/2025 9:21 AM CDT [facility]: Clinical Trial Match 2 Clinical Trial NCT ID: [id number] Clinical Trial Title: Gnzad-vv-Sxtem Study of Mutant-selective PI3K Inhibitor, RLY-2608, As a Single Agent in Advanced Solid Tumor Patients and in Combination with Fulvestrant in Patients with Advanced Breast Cancer Clinical Trial URL: https://clinicaltrials .gov/ct2/show/FYX07824 432 Clinical Phase: Phase 1 Clinical Trial Matches: PIK3CA p.E545A mutation, PIK3CA p.U8491N mutation Clinical Trial Distance and Location: [address] [place], [place] 01/04/2025 9:21 AM CDT [facility] Tempus: Clinical Trial Match 3 Clinical Trial NCT ID: [id number] Clinical Trial Title: Study of DECOY20 With or Without Tislelizumab in Patients With Advanced Solid Tumors Clinical Trial URL: https://clinicaltrials .gov/ct2/show/DLK81029 022 Clinical Phase: Phase 1/Phase 2 Clinical Trial Matches: MSI high Clinical Trial Distance and Location: [address] [place], [place] 01/04/2025 9:21 AM CDT [facility]: Clinical Trial Match 4 Clinical Trial NCT ID: [id number] Clinical Trial Title: A Study of PARG Inhibitor VHP455 in Participants With Advanced Solid Tumors Clinical Trial URL: https://clinicaltrials .gov/ct2/show/HSO92106 587 Clinical Phase: Phase 1 Clinical Trial Matches: BRCA2 p.I605fs mutation Clinical Trial Distance and Location: [address] [place] [address] 01/04/2025 9:21 AM CDT [facility] Tumor Mutational [place] 37.2 m/MB 01/04/2025 9:21 AM CDT [facility] Blood specimen (specimen) 12/06/2024 10:53 PM CDT Narrative This result has genomic variants that were not included in this document. us Adeel Dick MD MOLECULAR ORDERABLES Final Resu lt [facility] [address] [facility], [address] [place] [address], [facility] [address] [facility], [address] [place] [address] * CBC WITH AUTODIFFERENTIAL (12/27/2024 12:26 PM CDT) Only the most recent of3 resultswithin the time period is included. Blood us Adeel Dick MD HEMATOLOGY ORDERABLES Final Res ult * IRON LEVEL (12/11/2024 1:16 PM CDT) Blood us Adeel Dick MD CHEMISTRY ORDERABLES Final Resu lt * [facility] NORMAL BLOOD (12/05/2024 10:50 AM CDT) [facility] Portal 12/05/2024 11:00 PM CDT [facility] Comment:See NGS Report for R esults. Blood specimen (specimen) 12/05/2024 10:50 AM CDT 12/05/2024 10:51 AM CDT us Adeel Dick MD MOLECULAR ORDERABLES Final Resu lt [facility] [address] [facility], [address] [place] [address], [facility] [address] [facility], [address] [place] [address] * [facility] DNA AND RNA SOLID TUMOR (12/05/2024 10:50 AM CDT) Reason for Study To identify somatic and germline mutations relevant to patient's cancer. 12/31/2024 10:39 AM CDT [facility] Genetic Diseases Assessed Cancer 12/31/2024 10:39 AM CDT [facility] Description of Ranges of DNA Sequences Examined 648 gene panel 12/31/2024 10:39 AM CDT [facility] Overall Interpretation positive 12/31/2024 10:39 AM CDT [facility] MSI MSI-H 12/31/2024 10:39 AM CDT [facility] TMB 41.1 m/MB 12/31/2024 10:39 AM CDT [facility] Portal [email or web address] 12/31/2024 10:39 AM CDT [facility] Comment:[facility] link Low Coverage Regions EPHB2, RXRA, TGFBR1 12/31/2024 10:39 AM CDT [facility] Therapy Count 18 12/31/2024 10:39 AM CDT [facility]: Potential Therapy 1 Gene: N/A Variant: N/A Match Type: msi Agent: Dostarlimab Drug Class: Anti-PD-1 MAb Tissue: Solid Tumors Association: Response Evidence Status: Consensus Evidence ID: FDA KDB Variant: Microsatellite Instability - High Label: FDA On Label FDA Approved?: Yes On label?: Yes 12/31/2024 10:39 AM CDT [facility]: Potential Therapy 2 Gene: N/A Variant: N/A Match Type: msi Agent: Pembrolizumab Drug Class: Anti-PD-1 MAb Tissue: Solid Tumors Association: Response Evidence Status: Consensus Evidence ID: FDA KDB Variant: Microsatellite Instability - High MSK Associated Evidence: MSK OncoKB, Level 1 Label: FDA On Label FDA Approved?: Yes On label?: Yes 12/31/2024 10:39 AM CDT [facility]: Potential Therapy 3 Gene: N/A Variant: N/A Match Type: tmb Agent: Pembrolizumab Drug Class: Anti-PD-1 MAb Tissue: Solid Tumors Association: Response Evidence Status: Consensus Evidence ID: FDA KDB Variant: TMB-High MSK Associated Evidence: MSK OncoKB, Level 1 Label: FDA On Label FDA Approved?: Yes On label?: Yes 12/31/2024 10:39 AM CDT [facility]: Potential Therapy 4 Gene: 1097^BRAF^HGNC Variant: p.V600E Match Type: snvIndel Match Type Description: 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 Agent: Dabrafenib + Trametinib Drug Class: Combination (BRAF Inhibitor + MEK Inhibitor) Tissue: Solid Tumors Association: Response Evidence Status: Consensus Evidence ID: FDA KDB Variant: V600E - GOF MSK Associated Evidence: MSK OncoKB, Level 1 Label: FDA On Label FDA Approved?: Yes On label?: Yes 12/31/2024 10:39 AM CDT [facility]: Potential Therapy 5 Gene: 1097^BRAF^HGNC Variant: p.V600E Match Type: snvIndel Match Type Description: 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 Agent: Dabrafenib Drug Class: BRAF Inhibitor Tissue: Papillary Thyroid Carcinoma Association: Response Evidence Status: Consensus Evidence ID: NCCN KDB Variant: V600E - GOF Label: FDA Off Label FDA Approved?: Yes On label?: No 12/31/2024 10:39 AM CDT [facility]: Potential Therapy 6 Gene: 1097^BRAF^HGNC Variant: p.V600E Match Type: snvIndel Match Type Description: 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 Agent: Dabrafenib + Trametinib + Pembrolizumab Drug Class: Combination (BRAF Inhibitor + MEK Inhibitor + Anti-PD-1 MAb) Tissue: Melanoma Association: Response Evidence Status: Consensus Evidence ID: CECILIA MENARD Variant: V600 - GOF Label: FDA Off Label FDA Approved?: Yes On label?: No 12/31/2024 10:39 AM CDT [facility]: Potential Therapy 7 Gene: 1097^BRAF^HGNC Variant: p.V600E Match Type: snvIndel Match Type Description: 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 Agent: Encorafenib + Binimetinib Drug Class: Combination (BRAF Inhibitor + MEK Inhibitor) Tissue: Non-Small Cell Lung Cancer Association: Response Evidence Status: Consensus Evidence ID: CECILIA MENARD Variant: V600E - GOF Label: FDA Off Label FDA Approved?: Yes On label?: No 12/31/2024 10:39 AM CDT [facility]: Potential Therapy 8 Gene: 1101^BRCA2^HGNC Variant: p.I605fs Match Type: snvIndel Match Type Description: BRCA2 p.I605fs Agent: Niraparib Drug Class: PARP Inhibitor Tissue: Ovarian Cancer Association: Response Evidence Status: Consensus Evidence ID: CECILIA KDSarah Variant: Ieyf-zw-rbrwzfid Label: FDA Off Label FDA Approved?: Yes On label?: No 12/31/2024 10:39 AM CDT [facility]: Potential Therapy 9 Gene: 1101^BRCA2^HGNC Variant: p.I605fs Match Type: snvIndel Match Type Description: BRCA2 p.I605fs Agent: Olaparib Drug Class: PARP Inhibitor Tissue: Breast Cancer Association: Response Evidence Status: Consensus Evidence ID: CECILIA KDB Variant: Ezwb-yu-jrgbtike Label: FDA Off Label FDA Approved?: Yes On label?: No 12/31/2024 10:39 AM CDT [facility]: Potential Therapy 10 Gene: 1101^BRCA2^HGNC Variant: p.I605fs Match Type: snvIndel Match Type Description: BRCA2 p.I605fs Agent: Rucaparib Drug Class: PARP Inhibitor Tissue: Prostate Cancer Association: Response Evidence Status: Consensus Evidence ID: CECILIA KDB Variant: Zfxg-hp-mbokbpbm Label: FDA Off Label FDA Approved?: Yes On label?: No 12/31/2024 10:39 AM CDT [facility]: Potential Therapy 11 Gene: 1101^BRCA2^HGNC Variant: p.I605fs Match Type: snvIndel Match Type Description: BRCA2 p.I605fs Agent: Talazoparib Drug Class: PARP Inhibitor Tissue: Breast Cancer Association: Response Evidence Status: Consensus Evidence ID: CECILIA KDB Variant: Qpzi-rs-yrkpguvh Label: FDA Off Label FDA Approved?: Yes On label?: No 12/31/2024 10:39 AM CDT [facility]: Potential Therapy 12 Gene: 1101^BRCA2^HGNC Variant: p.I605fs Match Type: snvIndel Match Type Description: BRCA2 p.I605fs Agent: Niraparib + Bevacizumab Drug Class: Combination (PARP Inhibitor + Anti-VEGF MAb) Tissue: Ovarian Cancer Association: Response Evidence Status: Consensus Evidence ID: CECILIA KDB Variant: Zfvd-tg-cbowxaqb Label: FDA Off Label FDA Approved?: Yes On label?: No 12/31/2024 10:39 AM CDT [facility]: Potential Therapy 13 Gene: 1101^BRCA2^HGNC Variant: p.I605fs Match Type: snvIndel Match Type Description: BRCA2 p.I605fs Agent: Olaparib + Bevacizumab Drug Class: Combination (PARP Inhibitor + Anti-VEGF MAb) Tissue: Ovarian Cancer Association: Response Evidence Status: Consensus Evidence ID: CECILIA KDB Variant: Lfhb-wm-bgemnqki Label: FDA Off Label FDA Approved?: Yes On label?: No 12/31/2024 10:39 AM CDT [facility]: Potential Therapy 14 Gene: 1097^BRAF^HGNC Variant: p.V600E Match Type: snvIndel Match Type Description: 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 Agent: Trametinib Drug Class: MEK Inhibitor Tissue: Melanoma Association: Response Evidence Status: Consensus Evidence ID: CECILIA KDB Variant: Wohp-fl-xkpdpluv Label: FDA Off Label FDA Approved?: Yes On label?: No 12/31/2024 10:39 AM CDT [facility]: Potential Therapy 15 Gene: 1097^BRAF^HGNC Variant: p.V600E Match Type: snvIndel Match Type Description: 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 Agent: Vemurafenib Drug Class: BRAF V600 Inhibitor Tissue: Non-Small Cell Lung Cancer Association: Response Evidence Status: Consensus Evidence ID: NORBERTN KDB Variant: V600E - GOF Label: FDA Off Label FDA Approved?: Yes On label?: No 12/31/2024 10:39 AM CDT [facility]: Potential Therapy 16 Gene: 1097^BRAF^HGNC Variant: p.V600E Match Type: snvIndel Match Type Description: 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 Agent: Vemurafenib + Cobimetinib Drug Class: Combination (BRAF V600 Inhibitor + MAPK1 Inhibitor) Tissue: Melanoma Association: Response Evidence Status: Consensus Evidence ID: NORBERTN KDB Variant: V600E - GOF Label: FDA Off Label FDA Approved?: Yes On label?: No 12/31/2024 10:39 AM CDT [facility]: Potential Therapy 17 Gene: 1097^BRAF^HGNC Variant: p.V600E Match Type: snvIndel Match Type Description: 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 Agent: Vemurafenib + Cobimetinib + Atezolizumab Drug Class: Combination (BRAF V600 Inhibitor + MAPK1 Inhibitor + Anti-PD-L1 MAb) Tissue: Melanoma Association: Response Evidence Status: Consensus Evidence ID: CECILIA KDB Variant: V600E - GOF Label: FDA Off Label FDA Approved?: Yes On label?: No 12/31/2024 10:39 AM CDT [facility]: Potential Therapy 18 Gene: 8975^PIK3CA^HGNC Variant: p.E545A Match Type: snvIndel Match Type Description: PIK3CA p.E545A Agent: Alpelisib Drug Class: PI3K Inhibitor Tissue: Solid Tumors Association: Response Evidence Status: Clinical research Evidence ID: [id number] Evidence URL: https://www.ncbi.nlm.n ih.gov/pubmed/00266953 Evidence Title: Phosphatidylinositol 3-Kinase -Selective Inhibition With Alpelisib (QXA874) in EYR0IN-Rcmldan Solid Tumors: Results From the Qhttr-if-Gqyfj Study - PubMed KDB Variant: Gtvt-vg-lgkfsrcg Label: FDA Off Label FDA Approved?: Yes On label?: No 12/31/2024 10:39 AM CDT [facility] Trial Count 4 12/31/2024 10:39 AM CDT [facility]: Clinical Trial Match 1 Clinical Trial NCT ID: [id number] Clinical Trial Title: A Study to Assess the Efficacy and Safety of LWEI2983 in Participants With Cancer Harboring BRAF Alterations Clinical Trial URL: https://clinicaltrials .gov/ct2/show/HOH64682 797 Clinical Phase: Phase 2 Clinical Trial Matches: 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 Clinical Trial Distance and Location: [address] [place], [place] 12/31/2024 10:39 AM CDT [facility]: Clinical Trial Match 2 Clinical Trial NCT ID: [id number] Clinical Trial Title: Study of DECOY20 With or Without Tislelizumab in Patients With Advanced Solid Tumors Clinical Trial URL: https://clinicaltrials .gov/ct2/show/JVD44153 022 Clinical Phase: Phase 1/Phase 2 Clinical Trial Matches: MSI high Clinical Trial Distance and Location: [address] [place], [place] 12/31/2024 10:39 AM CDT [facility]: Clinical Trial Match 3 Clinical Trial NCT ID: [id number] Clinical Trial Title: A Study of PARG Inhibitor GUR772 in Participants With Advanced Solid Tumors Clinical Trial URL: https://clinicaltrials .gov/ct2/show/RNM63261 587 Clinical Phase: Phase 1 Clinical Trial Matches: BRCA2 p.I605fs mutation Clinical Trial Distance and Location: [address] [place], [place] 12/31/2024 10:39 AM CDT [facility]: Clinical Trial Match 4 Clinical Trial NCT ID: [id number] Clinical Trial Title: Study of INBRX-106 and INBRX-106 in Combination With Pembrolizumab (Keytruda ) in Subjects With Locally Advanced or Metastatic Solid Tumors (Hexavalent OX40 Agonist) Clinical Trial URL: https://clinicaltrials .gov/ct2/show/XFJ38226 766 Clinical Phase: Phase 1/Phase 2 Clinical Trial Matches: MSI high, TMB-High Clinical Trial Distance and Location: [address] [place], [place] 12/31/2024 10:39 AM CDT [facility] xR Result 1 NEGATIVE Negative - This report is being issued to report the results of gene rearrangement and altered splicing analysis from RNA sequencing. No gene rearrangements nor reportable altered splicing events were identified from RNA sequencing. 12/31/2024 10:39 AM CDT [facility] Germline Variant Note No potential germline variants were found in the limited set of genes on which we report. 12/31/2024 10:39 AM CDT [facility] Tissue specimen (specimen) 12/05/2024 10:50 AM CDT 12/12/2024 11:46 AM CDT Narrative This result has genomic variants that were not included in this document. us Adeel Dick MD MOLECULAR ORDERABLES Final Resu lt [facility] [address] [facility], [address] [place] [address], [facility] [address] [facility], [address] [place] [address] * CANCER ANTIGEN 19-9 (12/03/2024 1:43 PM CDT) Only the most recent of2 resultswithin the time period is included. Blood us Adeel Dick MD CHEMISTRY ORDERABLES Final Resu lt * CBC MIXED CELL DIFFERENTIAL (11/12/2024 3:21 PM CDT) Only the most recent of3 resultswithin the time period is included. Blood us Adeel Dick MD HEMATOLOGY ORDERABLES Final Res ult * (ABNORMAL) HEMOGLOBIN A1C (02/29/2024 10:06 PM CDT) HEMOGLOBIN A1C 6.5(H) <=5.6 % 02/29/2024 10:37 PM CDT [facility] EST. AVG GLUCOSE, A1C 140 mg/dL 02/29/2024 10:37 PM CDT [facility] Blood Venipuncture / Unknown 02/29/2024 10:06 PM CDT 02/29/2024 10:13 PM CDT Narrative [facility] - 02/29/2024 10:37 PM CDT HGB A1C INTERPRETATION NORMAL: <5.7% PRE-DIABETES: 5.7 - 6.4% DIABETES: 6.5% OR GREATER us Jem Rodriguez DO CHEMISTRY ORDERABLE S Final Result [facility] CLIA# [id number] [place] [address] from Last 3 Months or Most Recently Relevant to Health Maintenance [place] [id number] RX [employer] RX Member Subscriber Plan / Payer (Ef fective 2023-Present) Name:Syd Underwood Relation to Subscriber:Self Name:Syd Underwood Payer ID:Not on file Group ID:[id number] Type:RX Medicare Part D Address: [employer] (INTERNAL) [facility] [employer] RX [employer] Commercial Advance Directives For more information, please contact: [phone] Documents on File Type Date Recorded 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
--- OUTSIDE RECORDS SUMMARY | 2025-01-23 11:08 | XMS_ITS | Encounter Summary ---
Author Organization [facility] Address [address] [place] [address] Care Team Providers Care Lining Layer Name Role Phone Unavailable Primary Care Provider Unavailabl e Encounter Details Date Type Department Care Team (Late st Contact Info) Description 01/23/2025 Orders Only [facility] Oncology and Hematology - Derek [address] [place] [address] [facility] [address] [place] [address] Adeel Dick MD [address] [facility] [address] [place] [address] Metastatic adenocarcinoma (CMS/HCC) (Primary Dx); TB skin/subcutaneous Social History Tobacco Use Types Packs/Day Years [...] Description 02/07/2025 11:00 AM CDT Office Visit [facility] Oncology and Hematology [facility] [address] [place] [phone] [place] [address] [place] [address] [place] [phone] 02/14/2025 8:30 AM CDT Office Visit [facility] Oncology and Hematology [facility] [address] [place] [phone] [place] [address] [place] [address] [place] [phone] Scheduled Orders Name Type Priority Associated Diagnoses Orde r Schedule XR CHEST PA AND LATERAL 2 VW Imaging Stat Metastatic adenocarcinoma (CMS/HCC) TB skin/subcutaneous Expected: 01/23/2025, Expires: 01/23/2026 documented as of this encounter Visit Diagnoses Diagnosis Metastatic adenocarcinoma (CMS/HCC)- Primary Other malignant neoplasm without specification of site 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
--- OUTSIDE RECORDS SUMMARY | 2025-01-23 11:08 | XMS_ITS | Clinical Summary ---
Author Organization [facility] Address [address] [place] [address] Care Team Providers Care Director Of Research Center Name Role Phone Michael Hernandezyssa Last CHEMICAL PROCESSING TECHNICIAN Primary Care Provider [phone] Allergies No known active allergies Medications allopurinol [...] by mouth nightly at bedtime. 11/28/2023 Active metFORMIN ER (GLUCOPHAGE-XR) 500 MG 24 hr tablet Take 1 tablet (500 mg total) by mouth. 10/23/2023 Active omeprazole (PRILOSEC) 20 MG capsule Take 1 capsule (20 mg total) by mouth daily. 12/21/2023 Active Active Problems No known active problems Encounters Date Type Department Care Team Description 12/04/2024 Results Follow-Up [facility] [address] [place] [address] Jil Echevarria RN USE ECHOCARDIOGRAM 11/29/2024 12:35 PM CDT - 11/29/2024 11:59 PM CDT Hospital Encounter [facility] Ultrasound [address] [place] [address] James Villasenor MD Discharge Disposition: Home or Self Care (Routine Discharge) 11/29/2024 Travel 11/12/2024 3:00 PM CDT Office Visit [facility] [address] [place] [phone] James Villasenor MD Follow Up (Aortic stenosis) 11/12/2024 Telephone [facility], [place] 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 [facility] [address] James Villasenor MD [facility]. [address] [address] Health Maintenance Due Date Last Done Comments [...] on patient's age to complete this topic Procedures Procedure Name Priority Date/Time Associated Diagnosis Comments USE ECHOCARDIOGRAM Routine 11/29/2024 1: 20 PM CDT Nonrheumatic aortic valve stenosis from Last 3 Months Results * USE ECHOCARDIOGRAM (11/29/2024 1:20 PM CDT) Anatomical Region Laterality Modality Cardiac Ultrasound 11/29/2024 12:4 4 PM CDT Narrative 12/02/2024 10:15 AM CDT HEMANTH URBINA Pat.Name: Syd Underwood.ID: [id number] .Date: 11/29/2024 Refer.: [place], [facility] Radiology Exam Time: 12:44:00 PM Study Type:OUTREACH Height: 71 in Weight: 150 lb BSA: 1.87 m2 Age: 11 1945,79Y Sex: M Sonogrphr: Kk Pat. Stat.:Outpatient Reason for Study:Aortic stenosis Procedures: Study performed at [place], [place] and interpreted by [facility]. 2D, M-mode, Doppler, Color Flow ++++++++++++++++++++++++++++++++++++ SUMMARY: ++++++++++++++++++++++++++++++++++++ The left ventricular size is normal. The left ventricular systolic function is normal. The calculated ejection fraction is 58%. Left ventricular diastolic function is abnormal (grade 1 - impaired relaxation). Wall motion appears normal in all segments. The right ventricle size is normal. The right ventricular function is normal. No evidence of pericardial effusion. Unable to reliably quantitate pulmonary systolic pressure. Mild aortic valve stenosis. The peak velocity across the aortic valve measures 2.4m/sec with a peak gradient of 23mmHg and a mean gradient of 13mmHg. The calculated aortic valve area is 1.89cm2. Mild calcification of aortic valve leaflets. Aortic valve calcification with reduced systolic leaflet excursion. There is trace tricuspid regurgitation. ++++++++++++++++++++++++++++++++++++ FINDINGS: ++++++++++++++++++++++++++++++++++++ LV: The left ventricular size is normal. The left ventricular systolic function is normal. The calculated ejection fraction is 58%. Left ventricular diastolic function is abnormal (grade 1 - impaired relaxation). WM: Wall motion appears normal in all segments. RV: The right ventricle size is normal. The right ventricular function is normal. LA: Left atrial size is normal. RA: The right atrial size is normal. HIEN: No evidence of pericardial effusion. AO: Aorta is normal. PA: Unable to reliably quantitate pulmonary systolic pressure. SVn: Inferior vena cava is not assessable. AV: The aortic valve is trileaflet. Mild aortic valve stenosis. The peak velocity across the aortic valve measures 2.4m/sec with a peak gradient of 23mmHg and a mean gradient of 13mmHg. The calculated aortic valve area is 1.89cm2. Trace aortic regurgitation. Mild calcification of aortic valve leaflets. Aortic valve calcification with reduced systolic leaflet excursion. MV: No evidence of significant mitral regurgitation. Calcified posterior mitral annulus. PV: Pulmonic valve not well visualized. TV: The tricuspid valve appears structurally normal. There is trace tricuspid regurgitation. <Electronic Signature> 12/02/2024 10:15 AM James Villasenor M.D. Procedure Note James Villasenor MD - 12/02/2024 HEMANTH OUTREACH Pat.Name: Syd Underwood Pat.ID: [id number] St.Date: 11/29/2024 Refer.MD: [place], [facility] Radiology Exam Time: 12:44:00 PM Study Type:OUTREACH Height: 71 in Weight: 150 lb BSA: 1.87 m2 Age: 11 1945,79Y Sex: M Sonogrphr: Brennen Pat. Stat.:Outpatient Reason for Study:Aortic stenosis Procedures: Study performed at [place], [place] and interpreted by [facility]. 2D, M-mode, Doppler, Color Flow ++++++++++++++++++++++++++++++++++++ SUMMARY: ++++++++++++++++++++++++++++++++++++ The left ventricular size is normal. The left ventricular systolic function is normal. The calculated ejection fraction is 58%. Left ventricular diastolic function is abnormal (grade 1 - impaired relaxation). Wall motion appears normal in all segments. The right ventricle size is normal. The right ventricular function is normal. No evidence of pericardial effusion. Unable to reliably quantitate pulmonary systolic pressure. Mild aortic valve stenosis. The peak velocity across the aortic valve measures 2.4m/sec with a peak gradient of 23mmHg and a mean gradient of 13mmHg. The calculated aortic valve area is 1.89cm2. Mild calcification of aortic valve leaflets. Aortic valve calcification with reduced systolic leaflet excursion. There is trace tricuspid regurgitation. ++++++++++++++++++++++++++++++++++++ FINDINGS: ++++++++++++++++++++++++++++++++++++ LV: The left ventricular size is normal. The left ventricular systolic function is normal. The calculated ejection fraction is 58%. Left ventricular diastolic function is abnormal (grade 1 - impaired relaxation). WM: Wall motion appears normal in all segments. RV: The right ventricle size is normal. The right ventricular function is normal. LA: Left atrial size is normal. RA: The right atrial size is normal. HIEN: No evidence of pericardial effusion. AO: Aorta is normal. PA: Unable to reliably quantitate pulmonary systolic pressure. SVn: Inferior vena cava is not assessable. AV: The aortic valve is trileaflet. Mild aortic valve stenosis. The peak velocity across the aortic valve measures 2.4m/sec with a peak gradient of 23mmHg and a mean gradient of 13mmHg. The calculated aortic valve area is 1.89cm2. Trace aortic regurgitation. Mild calcification of aortic valve leaflets. Aortic valve calcification with reduced systolic leaflet excursion. MV: No evidence of significant mitral regurgitation. Calcified posterior mitral annulus. PV: Pulmonic valve not well visualized. TV: The tricuspid valve appears structurally normal. There is trace tricuspid regurgitation. <Electronic Signature> 12/02/2024 10:15 AM James Villasenor M.D. James Villasenor MD ECHO Final Result from Last 3 Months Insurance Care Teams Director Of Research Center Relationship Specialty Start Date End Date Shawna Hernandez FNP [facility] [place] [address] PCP - General Nurse Practitioner Family 11/29/24
--- OUTSIDE RECORDS SUMMARY | 2025-01-23 11:08 | XMS_ITS | Encounter Summary ---
Author Organization [facility] Address [address] [place] [address] Care Team Providers Care Director Web Name Role Phone Shawna Hernandez STITCHDOWN TOE FORMER Primary Care Provider [phone] Encounter Details Date Type Department Care Team (Latest Contact Info) Description 12/04/2024 Results Follow-Up [facility] [address] [place] [phone] Jil Echevarria, [place] [address] USE ECHOCARDIOGRAM Social History Tobacco Use Types Packs/Day Years Used Date Smoking Tobacco: Former Cigarettes Q uit: 1987 Smokeless Tobacco: Current Chew Alcohol Use Standard Drinks/Week Comments Yes 0 [...] st Contact Info) Description 05/22/2025 11:15 AM 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 [place] [address] [place] [address] documented as of this encounter Visit Diagnoses Not on filedocumented in this encounter Care Teams Director Web Relationship Specialty Start Date End Date Shawna Hernandez FNP [address] [place] [address] PCP - General Nurse Practitioner Family 11/29/24 documented as of this encounter
--- OUTSIDE RECORDS SUMMARY | 2025-01-23 11:08 | XMS_ITS | Encounter Summary ---
Author Organization [facility] HALEY Estrada [facility] Address [address] [place] [address] Care Team Providers Care Slurry Blender Name Role Phone Unavailable Primary Care Provider Unavailabl e Encounter Details Date Type Department Care Team (Late Contact Info) Description 01/22/2025 Orders Only [facility] Oncology and Hematology - Derek [address] [place] [address] [facility] [address] [place] [address] Adeel Dick MD [address] [facility] [address] [place] [address] Social History Tobacco Use Types [...] 02/07/2025 11:00 AM CDT Office Visit [facility] Oncology and Hematology Derek [address] [place] [address] [place] [address] [place] [address] [place] [address] 02/14/2025 8:30 AM CDT Office Visit [facility] Oncology and Hematology Derek [address] [place] [address] Adeel Dick MD [address] [place] [address] [place] [phone] documented as of this encounter Visit Diagnoses Not on filedocumented in this encounter
--- OUTSIDE RECORDS SUMMARY | 2025-01-23 11:08 | XMS_ITS | Encounter Summary ---
Author Organization [facility] Address [address] [place] [place] [address] Care Team Providers Care Records Analyst Name Role Phone Camron Bustamante MD Primary Care Provider [phone] Encounter Details Date Type Department Care Team (Late st Contact Info) Description 09/18/2024 Lab Requisition [facility] - Pathology Lab [address] [place] [address] Amor Calvlilo MD [address] [place] [address] Illness, unspecified Social History Tobacco Use [...] Cytology Routine Illness, unspecified 09/14/2024 11:00 AM WARD HELPER documented as of this encounter Visit Diagnoses Diagnosis Illness, unspecified documented in this encounter Care Teams Records Analyst Relationship Specialty Start Date End Date Camron Bustamante MD [address] [place] [address] PCP - General 11/07/19 documented as of this encounter
--- OUTSIDE RECORDS SUMMARY | 2025-01-23 11:08 | XMS_ITS | Continuity of Care Document ---
Author Organization [facility] Address [address] [place] [address] [address] [place] [address] Phone Care Team Providers Care Director Of Home Care Hospice Name Role Phone Jaqueline Mccray Unavailable Unavailable Procedures Procedure Date Eye Exam, New Patient Advance Directives Directive Yes / No Effective Date File Name No Information Encounters Encounter Description Practice Location Reason(s) For Visit Diagnoses Date Provider Providers Copied on Encounter [facility], [id number] [place] [address] [address], [place], [place], [id number], [place] tel:[phone] [facility] No Information [address]. [address] , [address], [place], [address], [place]. tel:[phone] Family History Family Member Type Diagnosis Age At Onset No Information Payers Payer name Insurance type Covered republican ID Authoriza tion(s) No Information Social History [...]
--- OUTSIDE RECORDS SUMMARY | 2025-01-23 11:08 | XMS_ITS | Referral Summary ---
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
--- OUTSIDE RECORDS SUMMARY | 2025-01-23 11:08 | XMS_ITS | Encounter Summary ---
Author Organization [facility] HALEY Estrada [facility] Address [address] [place] [address] Care Team Providers Care Multiple Cut Off Saw Operator Name Role Phone Unavailable Primary Care Provider Unavailabl e Encounter Details Date Type Department Care Team (Late Contact Info) Description 01/16/2025 Orders Only [facility] Oncology and Hematology - Derek [address] [place] [address] [facility] [address] [place] [address] Adeel Dick MD [address] [facility] [address] [place] [address] Social History Tobacco Use Types [...] Description 02/07/2025 11:00 AM CDT Office Visit [facility] Oncology and Hematology [address] [place] [address] Adeel Dick MD [address] [facility] [address] [place] [address] 02/14/2025 8:30 AM CDT Office Visit [facility] Oncology and Hematology Derek [address] [place] [address] Adeel Dick MD [address] [facility] [address] [place] [address] documented as of this encounter Procedures Procedure Name Priority Date/Time Associated Diagnosis Comments HEPATITIS B SURFACE ANTIGEN Routine 01/15/2025 10:37 AM CDT CBC WITH DIFFERENTIAL Routine 01/14/2025 7:57 AM CDT documented in this encounter Results * HEPATITIS B SURFACE ANTIGEN (01/15/2025 10:37 AM CDT) Blood Adeel Dick MD CHEMISTRY ORDERABLES Final Resu lt * CBC WITH DIFFERENTIAL (01/14/2025 7:57 AM CDT) Blood Adeel Dick MD HEMATOLOGY ORDERABLES Final Res ult documented in this encounter Visit Diagnoses Not on filedocumented in this encounter
--- OUTSIDE RECORDS SUMMARY | 2025-01-23 11:08 | XMS_ITS | Clinical Summary ---
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
--- OUTSIDE RECORDS SUMMARY | 2025-01-23 11:08 | XMS_ITS | Encounter Summary ---
Author Organization [facility] HALEY Estrada [facility] Address [address] [place] [address] Care Team Providers Care Name Plate Stamper Name Role Phone Unavailable Primary Care Provider Unavailabl e Encounter Details Date Type Department Care Team (Late Contact Info) Description 01/23/2025 Orders Only [facility] Oncology and Hematology - Derek [address] [place] [address] [facility] [address] [place] [address] Adeel Dick MD [address] [facility] [address] [place] [address] Social History Tobacco Use Types [...] Description 02/07/2025 11:00 AM CDT Office Visit [facility] Oncology and Hematology Derek [address] [place] [address] [place] [address] [place] [address] [place] [address] 02/14/2025 8:30 AM CDT Office Visit [facility] Oncology and Hematology Derek [address] [place] [address] Adeel Dick MD [address] [place] [address] [place] [address] documented as of this encounter Visit Diagnoses Not on filedocumented in this encounter
--- OUTSIDE RECORDS SUMMARY | 2025-01-23 11:08 | XMS_ITS | Encounter Summary ---
Author Organization [facility] Address 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 Elliott'[place]/Dr. 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 Opal [place] Hyperbilirubinemia 06/09/2024 Spoke w/Dai knowles at Dr. Knight'[place] Encounter Details Date Type Department Care Team (Late st Contact Info) Description 06/09/2024 Telephone [facility] Admitting [address] [place] [address] [place] [address] [place] [address] Duodenal tumor (Spoke w/Jojo at [...] Description 02/07/2025 11:00 AM CDT Office Visit [facility] Oncology and Hematology - Derek [address] [place] [address] [place] [address] [place] [address] [place] [phone] 02/14/2025 8:30 AM CDT Office Visit [facility] Oncology and Hematology - Derek [address] [place] [address] Adeel Dick MD [address] [place] [address] [employer] [address] [place] [phone] documented as of this encounter Visit Diagnoses Not on filedocumented in this encounter
--- OUTSIDE RECORDS SUMMARY | 2025-01-23 11:08 | XMS_ITS ---
Author Organization [facility] Address [address] [place] [address] Phone Care Team Providers Care Reinforcer Name Role Phone Unavailable Primary Care Provider [...]
--- OUTSIDE RECORDS SUMMARY | 2025-01-23 11:08 | XMS_ITS | Clinical Summary ---
Author Organization [facility] Address [address] [place] [address] Care Team Providers Care Medical Surgery Nurse Name Role Phone Camron Bustamante MD Primary Care Provider [phone] Source Comments [facility],non-owned Affiliates and Associated Physician Practices is amultiple site organization consisting of ambulatory clinics and hospital sitesin [place], [place], [place] and [place]. This disclosure is being madepursuant to the Care Everywhere program and may not contain all information available regarding this patient. Last updated 18.[facility] Social History Tobacco Use Types Packs/Day Years Used Date Smoking Tobacco: Never Assessed Sex and Gender Information Value Date Recorded Sex Assigned at Not on file Legal Sex Male 9:15 AM CDT Gender Identity Not on file Sexual Orientation Not on file Plan of Treatment Health Maintenance Due Date Last Done Comments DTAP/TDAP/TD VACCINES (1 - Tdap) 1962 PNEUMOCOCCAL VACCINE 50+ (1 of 1 - PCV) 1993 ZOSTER VACCINE (1 of 2) 1993 Respiratory Syncytial Virus (RSV) Vaccine Pt: or over 60 yrs (1 - 1-dose 75+ series) 2018 COVID-19 VACCINE ( - 2023-2 5 season) 2024 DEPRESSION SCREENING 07/18/2024 MEDICARE AWV CALENDAR YEAR 2024 INFLUENZA VACCINE (#1) 2025 HEPATITIS B VACCINE Aged Out No [...] patient's age to complete this topic Insurance AETNA [facility] MANAGED MEDICARE ADV * Guarantor: SYD UNDERWOOD Account Type Relation to Patient Date of Phone Billing Address Personal/Family [address] [place] [address] [facility] MANAGED MEDICARE ADV * Guarantor: SYD UNDERWOOD Account Type Relation to Patient Date of Phone Billing Address Personal/Family [address] MANAGED MEDICARE ADV * Guarantor: SYD UNDERWOOD Account Type Relation to Patient Date of Phone Billing Address Personal/Family [address] MANAGED MEDICARE ADV Care Teams Medical Surgery Nurse Relationship Specialty Start Date End Date Camron Bustamante MD [address] [place] [address] PCP - General 11/07/19
== END 2025-01-23 11:04 | disposition home or self-care (01) ==
PROVIDERS: PCP Nurse Practitioner Family; Visit Provider Internal Medicine Hematology & Oncology
DX: C79.9 Secondary malignant neoplasm of unspecified site (principal); Z95.828 Presence of other vascular implants and grafts
CPT/HCPCS: 71046

== ENCOUNTER 2025-01-24 11:30 | Outpatient (RCR) | payer MEDICARE, SELFPAY ==
[2024-04-02 08:31] LABS: Hematocrit 35.6 % (42.0-52.0); Hemoglobin 12.1 g/dL (14.0-18.0); Immature Granulocyte Percent A 0.0 % (0-0.5); Lymphocytes Absolute Auto 1.41 K/mm3 (0.9-3.2); Mean Corpuscular HGB Conc 34.0 g/dl (32-36); Mean Corpuscular Hemoglobin 30.7 pg (26-34); Mean Corpuscular Volume 90.4 fl (80-100); Nucleated Red Blood Cells Absolute Auto 0.000 K/mm3 (0.0-0.012); Nucleated Red Blood Cells Perc 0.0 % (0.0-0.2); Platelet Count Result 258 k/mm3 (150-375); Red Blood Count 3.94 M/mm3 (4.6-6.20); White Blood Count 5.7 K/mm3 (4.5-10.0)
[2024-04-02 08:35] LABS: Blood Urea Nitrogen 30 mg/dL (8-26); Carbon Dioxide 22 mmol/L (22-30); Chloride 105 mmol/L (98-109); Estimated Glomerular Filt Rate > 60; Glucose 101 mg/dL (70-105); Ionized Calcium (POC) 1.29 mmol/L (1.11-1.31); Potassium 3.8 mmol/L (3.5-4.9); Sodium 140 mmol/L (138-146)
[2024-04-02 09:15] VITALS: BP 124/52; PULSE 66; TEMP 36.4; O2SAT 100
[2024-04-02 09:32] LABS: Alanine Aminotransferase 238 U/L (6-50); Albumin Level 4.2 g/dL (3.5-5.1); Alkaline Phosphatase 679 U/L (38-126); Anion Gap 12 mmol/L (4-12); Aspartate Amino Transferase 183 U/L (17-59); Bilirubin,Total 1.1 mg/dL (0.2-1.3); Blood Urea Nitrogen 32 mg/dL (9-20); CREATININE 0.80 mg/dL (0.7-1.3); Calcium 9.6 mg/dL (8.4-10.2); Carbon Dioxide 21 mmol/L (22-30); Chloride 103 mmol/L (98-107); Estimated Glomerular Filt Rate > 60; Glucose 100 mg/dL (65-110); Potassium 3.8 mmol/L (3.4-5.0); Sodium 136 mmol/L (137-145); Total Protein 7.0 g/dL (6.3-8.2)
[2024-04-02] MEDS: PALONOSETRON HCL 0.25 MG/5 ML VIAL IV PUSH (09:37)
[2024-04-02] MEDS: FAMOTIDINE 20 MG/2 ML VIAL IV PUSH (09:38)
[2024-04-02] MEDS: dexAMETHasone SOD 4 MG/ML INJ 12 MG in SODIUM CHLORIDE 0.9% IV 100 ML 206 MG IVPB (09:50)
[2024-04-02] MEDS: OXALIPLATIN 170 MG in DEXTROSE 5% IN WATER 216 ML 125 MG IVPB (10:36)
[2024-04-02] MEDS: LEUCOVORIN CALCIUM 800 MG in DEXTROSE 5% IN WATER 210 ML 125 MG IVPB (10:39)
[2024-04-02] MEDS: FLUOROURACIL 4,800 MG in SODIUM CHLORIDE 0.9% IV 88 ML IVPB (13:06)
[2024-04-02] MEDS: FLUOROURACIL 1,000 MG/20 ML VIAL 800 MG IV PUSH (13:06)
[2024-04-02 13:22] VITALS: BP 130/47
[2024-04-04 10:59] VITALS: BP 130/56; PULSE 67; RESP 16; TEMP 36.3; O2SAT 100
[2024-04-04] MEDS: HEPARIN SODIUM LOCK FLUSH 500 UNITS/5 ML SYRINGE IV PUSH (11:19)
[2024-04-16 09:09] LABS: Hematocrit 35.3 % (42.0-52.0); Hemoglobin 11.9 g/dL (14.0-18.0); Immature Granulocyte Percent A 0.0 % (0-0.5); Lymphocytes Absolute Auto 1.26 K/mm3 (0.9-3.2); Mean Corpuscular HGB Conc 33.7 g/dl (32-36); Mean Corpuscular Hemoglobin 30.0 pg (26-34); Mean Corpuscular Volume 88.9 fl (80-100); Nucleated Red Blood Cells Absolute Auto 0.000 K/mm3 (0.0-0.012); Nucleated Red Blood Cells Perc 0.0 % (0.0-0.2); Platelet Count Result 226 k/mm3 (150-375); Red Blood Count 3.97 M/mm3 (4.6-6.20); White Blood Count 3.9 K/mm3 (4.5-10.0)
[2024-04-16 09:20] LABS: Blood Urea Nitrogen 32 mg/dL (8-26); Carbon Dioxide 20 mmol/L (22-30); Chloride 101 mmol/L (98-109); Estimated Glomerular Filt Rate 58; Glucose 97 mg/dL (70-105); Ionized Calcium (POC) 1.20 mmol/L (1.11-1.31); Potassium 3.7 mmol/L (3.5-4.9); Sodium 136 mmol/L (138-146)
[2024-04-16 09:43] VITALS: BP 119/58; PULSE 79; TEMP 36.7; O2SAT 98
[2024-04-16 09:46] LABS: Alanine Aminotransferase 33 U/L (6-50); Albumin Level 4.1 g/dL (3.5-5.1); Alkaline Phosphatase 228 U/L (38-126); Anion Gap 13 mmol/L (4-12); Aspartate Amino Transferase 44 U/L (17-59); Bilirubin,Total 0.6 mg/dL (0.2-1.3); Blood Urea Nitrogen 35 mg/dL (9-20); CREATININE 1.00 mg/dL (0.7-1.3); Calcium 9.3 mg/dL (8.4-10.2); Carbon Dioxide 21 mmol/L (22-30); Chloride 101 mmol/L (98-107); Estimated Glomerular Filt Rate > 60; Glucose 96 mg/dL (65-110); Potassium 3.8 mmol/L (3.4-5.0); Sodium 135 mmol/L (137-145); Total Protein 7.0 g/dL (6.3-8.2)
[2024-04-16] MEDS: FAMOTIDINE 20 MG/2 ML VIAL IV PUSH (10:11)
[2024-04-16] MEDS: PALONOSETRON HCL 0.25 MG/5 ML VIAL IV PUSH (10:11)
[2024-04-16] MEDS: dexAMETHasone SOD 4 MG/ML INJ 12 MG in SODIUM CHLORIDE 0.9% IV 100 ML 206 MG IVPB (10:13)
[2024-04-16] MEDS: OXALIPLATIN 170 MG in DEXTROSE 5% IN WATER 216 ML 125 MG IVPB (10:49)
[2024-04-16] MEDS: LEUCOVORIN CALCIUM 800 MG in DEXTROSE 5% IN WATER 210 ML 125 MG IVPB (10:54)
[2024-04-16] MEDS: FLUOROURACIL 4,800 MG in SODIUM CHLORIDE 0.9% IV 88 ML IVPB (13:06)
[2024-04-16] MEDS: FLUOROURACIL 1,000 MG/20 ML VIAL 800 MG IV PUSH (13:06)
[2024-04-16 13:18] VITALS: BP 126/60
[2024-04-18 10:51] VITALS: BP 123/57; PULSE 84; TEMP 36.1; O2SAT 100
--- NOTE | 2024-04-18 10:56 | PC.NURSE ---
Patient here for pump disconnect
[2024-04-18] MEDS: HEPARIN SODIUM LOCK FLUSH 500 UNITS/5 ML SYRINGE IV PUSH (11:20)
[2024-04-30 08:37] LABS: Hematocrit 35.9 % (42.0-52.0); Hemoglobin 12.2 g/dL (14.0-18.0); Immature Granulocyte Percent A 0.3 % (0-0.5); Lymphocytes Absolute Auto 1.08 K/mm3 (0.9-3.2); Mean Corpuscular HGB Conc 34.0 g/dl (32-36); Mean Corpuscular Hemoglobin 30.3 pg (26-34); Mean Corpuscular Volume 89.3 fl (80-100); Nucleated Red Blood Cells Absolute Auto 0.000 K/mm3 (0.0-0.012); Nucleated Red Blood Cells Perc 0.0 % (0.0-0.2); Platelet Count Result 198 k/mm3 (150-375); Red Blood Count 4.02 M/mm3 (4.6-6.20); White Blood Count 3.8 K/mm3 (4.5-10.0)
[2024-04-30 08:48] LABS: Blood Urea Nitrogen 39 mg/dL (8-26); Carbon Dioxide 19 mmol/L (22-30); Chloride 105 mmol/L (98-109); Estimated Glomerular Filt Rate 53; Glucose 121 mg/dL (70-105); Ionized Calcium (POC) 1.26 mmol/L (1.11-1.31); Potassium 3.7 mmol/L (3.5-4.9); Sodium 138 mmol/L (138-146)
[2024-04-30 09:08] VITALS: BP 116/58; PULSE 80; TEMP 36.3; O2SAT 100
[2024-04-30] MEDS: PALONOSETRON HCL 0.25 MG/5 ML VIAL IV PUSH (09:29)
[2024-04-30] MEDS: dexAMETHasone SOD 4 MG/ML INJ 12 MG in SODIUM CHLORIDE 0.9% IV 100 ML 206 MG IVPB (09:30)
[2024-04-30] MEDS: FAMOTIDINE 20 MG/2 ML VIAL IV PUSH (09:30)
[2024-04-30 10:02] LABS: Alanine Aminotransferase 64 U/L (6-50); Albumin Level 4.1 g/dL (3.5-5.1); Alkaline Phosphatase 387 U/L (38-126); Anion Gap 11 mmol/L (4-12); Aspartate Amino Transferase 85 U/L (17-59); Bilirubin,Total 0.9 mg/dL (0.2-1.3); Blood Urea Nitrogen 46 mg/dL (9-20); CREATININE 1.20 mg/dL (0.7-1.3); Calcium 9.5 mg/dL (8.4-10.2); Carbon Dioxide 20 mmol/L (22-30); Chloride 104 mmol/L (98-107); Estimated Glomerular Filt Rate 58; Glucose 121 mg/dL (65-110); Potassium 3.8 mmol/L (3.4-5.0); Sodium 135 mmol/L (137-145); Total Protein 7.0 g/dL (6.3-8.2)
[2024-04-30] MEDS: LEUCOVORIN CALCIUM 800 MG in DEXTROSE 5% IN WATER 210 ML 125 MG IVPB (10:27)
[2024-04-30] MEDS: OXALIPLATIN 170 MG in DEXTROSE 5% IN WATER 216 ML 125 MG IVPB (10:28)
[2024-04-30] MEDS: FLUOROURACIL 1,000 MG/20 ML VIAL 800 MG IV PUSH (12:43)
[2024-04-30] MEDS: FLUOROURACIL 4,800 MG in SODIUM CHLORIDE 0.9% IV 88 ML IVPB (12:43)
[2024-04-30 12:51] VITALS: BP 123/55
--- NOTE | 2024-05-02 10:48 | PC.NURSE ---
Patient here for pump disconnect.
[2024-05-02 10:50] VITALS: BP 132/50; PULSE 64; TEMP 36.5; O2SAT 100
[2024-05-02] MEDS: HEPARIN SODIUM LOCK FLUSH 500 UNITS/5 ML SYRINGE IV PUSH (10:55)
[2024-05-14 08:27] LABS: Hematocrit 36.0 % (42.0-52.0); Hemoglobin 12.3 g/dL (14.0-18.0); Immature Granulocyte Percent A 0.2 % (0-0.5); Lymphocytes Absolute Auto 0.86 K/mm3 (0.9-3.2); Mean Corpuscular HGB Conc 34.2 g/dl (32-36); Mean Corpuscular Hemoglobin 30.6 pg (26-34); Mean Corpuscular Volume 89.6 fl (80-100); Nucleated Red Blood Cells Absolute Auto 0.000 K/mm3 (0.0-0.012); Nucleated Red Blood Cells Perc 0.0 % (0.0-0.2); Platelet Count Result 189 k/mm3 (150-375); Red Blood Count 4.02 M/mm3 (4.6-6.20); White Blood Count 4.1 K/mm3 (4.5-10.0)
[2024-05-14 08:32] LABS: Blood Urea Nitrogen 36 mg/dL (8-26); Carbon Dioxide 20 mmol/L (22-30); Chloride 105 mmol/L (98-109); Estimated Glomerular Filt Rate 45; Glucose 165 mg/dL (70-105); Ionized Calcium (POC) 1.24 mmol/L (1.11-1.31); Potassium 3.5 mmol/L (3.5-4.9); Sodium 136 mmol/L (138-146)
[2024-05-14 09:02] VITALS: BP 109/54; PULSE 81; TEMP 36.4; O2SAT 99
[2024-05-14] MEDS: PALONOSETRON HCL 0.25 MG/5 ML VIAL IV PUSH (09:36)
[2024-05-14] MEDS: FAMOTIDINE 20 MG/2 ML VIAL IV PUSH (09:36)
[2024-05-14] MEDS: dexAMETHasone SOD 4 MG/ML INJ 12 MG in SODIUM CHLORIDE 0.9% IV 100 ML 206 MG IVPB (09:36)
[2024-05-14] MEDS: LEUCOVORIN CALCIUM 800 MG in DEXTROSE 5% IN WATER 210 ML 125 MG IVPB (10:13)
[2024-05-14] MEDS: OXALIPLATIN 170 MG in DEXTROSE 5% IN WATER 216 ML 125 MG IVPB (10:14)
[2024-05-14] MEDS: FLUOROURACIL 4,800 MG in SODIUM CHLORIDE 0.9% IV 88 ML IVPB (12:33)
[2024-05-14] MEDS: FLUOROURACIL 1,000 MG/20 ML VIAL 800 MG IV PUSH (12:33)
[2024-05-14 12:44] VITALS: BP 120/55
[2024-05-14 14:01] LABS: Alanine Aminotransferase 141 U/L (6-50); Albumin Level 4.0 g/dL (3.5-5.1); Alkaline Phosphatase 741 U/L (38-126); Anion Gap 13 mmol/L (4-12); Aspartate Amino Transferase 134 U/L (17-59); Bilirubin,Total 3.0 mg/dL (0.2-1.3); Blood Urea Nitrogen 38 mg/dL (9-20); CREATININE 1.40 mg/dL (0.7-1.3); Calcium 9.2 mg/dL (8.4-10.2); Carbon Dioxide 19 mmol/L (22-30); Chloride 103 mmol/L (98-107); Estimated Glomerular Filt Rate 49; Glucose 161 mg/dL (65-110); Potassium 3.6 mmol/L (3.4-5.0); Sodium 135 mmol/L (137-145); Total Protein 7.0 g/dL (6.3-8.2)
[2024-05-16 10:34] VITALS: BP 120/56; PULSE 88; TEMP 36.4; O2SAT 100
--- NOTE | 2024-05-16 10:34 | PC.NURSE ---
Patient here for pump disconnect.
[2024-05-16] MEDS: HEPARIN SODIUM LOCK FLUSH 500 UNITS/5 ML SYRINGE IV PUSH (10:46)
[2024-06-19 09:09] LABS: Hematocrit 30.1 % (42.0-52.0); Hemoglobin 9.9 g/dL (14.0-18.0); Immature Granulocyte Percent A 0.2 % (0-0.5); Lymphocytes Absolute Auto 1.26 K/mm3 (0.9-3.2); Mean Corpuscular HGB Conc 32.9 g/dl (32-36); Mean Corpuscular Hemoglobin 30.8 pg (26-34); Mean Corpuscular Volume 93.8 fl (80-100); Nucleated Red Blood Cells Absolute Auto 0.000 K/mm3 (0.0-0.012); Nucleated Red Blood Cells Perc 0.0 % (0.0-0.2); Platelet Count Result 494 k/mm3 (150-375); Red Blood Count 3.21 M/mm3 (4.6-6.20); White Blood Count 6.2 K/mm3 (4.5-10.0)
[2024-06-19 09:14] LABS: Blood Urea Nitrogen 26 mg/dL (8-26); Carbon Dioxide 18 mmol/L (22-30); Chloride 109 mmol/L (98-109); Estimated Glomerular Filt Rate > 60; Glucose 141 mg/dL (70-105); Ionized Calcium (POC) 1.22 mmol/L (1.11-1.31); Potassium 3.8 mmol/L (3.5-4.9); Sodium 140 mmol/L (138-146)
[2024-06-19] MEDS: HEPARIN SODIUM LOCK FLUSH 500 UNITS/5 ML SYRINGE (10:21)
[2024-06-19 13:06] LABS: Alanine Aminotransferase 81 U/L (6-50); Albumin Level 3.5 g/dL (3.5-5.1); Alkaline Phosphatase 972 U/L (38-126); Anion Gap 10 mmol/L (4-12); Aspartate Amino Transferase 42 U/L (17-59); Bilirubin,Total 2.2 mg/dL (0.2-1.3); Blood Urea Nitrogen 28 mg/dL (9-20); CREATININE 0.70 mg/dL (0.7-1.3); Calcium 8.8 mg/dL (8.4-10.2); Carbon Dioxide 17 mmol/L (22-30); Chloride 110 mmol/L (98-107); Estimated Glomerular Filt Rate > 60; Glucose 138 mg/dL (65-110); Potassium 3.9 mmol/L (3.4-5.0); Sodium 137 mmol/L (137-145); Total Protein 7.0 g/dL (6.3-8.2)
--- NOTE | 2024-06-20 15:28 | PHAR ---
LEUCOVORIN DOSE REDUCED FROM 725MG TO 700MG (3%) TO REDUCE WASTE DUE TO VIAL SIZE.
[2024-07-10 08:18] LABS: Hematocrit 32.7 % (42.0-52.0); Hemoglobin 10.8 g/dL (14.0-18.0); Immature Granulocyte Percent A 0.2 % (0-0.5); Lymphocytes Absolute Auto 1.02 K/mm3 (0.9-3.2); Mean Corpuscular HGB Conc 33.0 g/dl (32-36); Mean Corpuscular Hemoglobin 31.5 pg (26-34); Mean Corpuscular Volume 95.3 fl (80-100); Nucleated Red Blood Cells Absolute Auto 0.000 K/mm3 (0.0-0.012); Nucleated Red Blood Cells Perc 0.0 % (0.0-0.2); Platelet Count Result 302 k/mm3 (150-375); Red Blood Count 3.43 M/mm3 (4.6-6.20); White Blood Count 4.4 K/mm3 (4.5-10.0)
[2024-07-10 08:21] VITALS: BP 133/52; PULSE 64; TEMP 36.1; O2SAT 100
[2024-07-10 08:22] LABS: Blood Urea Nitrogen 19 mg/dL (8-26); Carbon Dioxide 19 mmol/L (22-30); Chloride 111 mmol/L (98-109); Estimated Glomerular Filt Rate > 60; Glucose 224 mg/dL (70-105); Ionized Calcium (POC) 1.21 mmol/L (1.11-1.31); Potassium 3.6 mmol/L (3.5-4.9); Sodium 142 mmol/L (138-146)
[2024-07-10] MEDS: PALONOSETRON HCL 0.25 MG/5 ML VIAL IV PUSH (08:42)
[2024-07-10] MEDS: FAMOTIDINE 20 MG/2 ML VIAL IV PUSH (08:42)
[2024-07-10] MEDS: dexAMETHasone SOD 4 MG/ML INJ 12 MG in SODIUM CHLORIDE 0.9% IV 100 ML 206 MG IVPB (08:55)
[2024-07-10] MEDS: ATROPINE SULFATE 1 MG/ML VIAL 0.25 MG SUB-Q (08:59)
[2024-07-10] MEDS: OXALIPLATIN IVPB (09:37)
[2024-07-10] MEDS: DEXTROSE 5% IVPB (09:37)
[2024-07-10] MEDS: WATER IVPB (09:37)
[2024-07-10 11:23] LABS: Alanine Aminotransferase 25 U/L (6-50); Albumin Level 3.6 g/dL (3.5-5.1); Alkaline Phosphatase 273 U/L (38-126); Anion Gap 7 mmol/L (4-12); Aspartate Amino Transferase 29 U/L (17-59); Bilirubin,Total 0.9 mg/dL (0.2-1.3); Blood Urea Nitrogen 20 mg/dL (9-20); CREATININE 0.80 mg/dL (0.7-1.3); Calcium 8.8 mg/dL (8.4-10.2); Carbon Dioxide 17 mmol/L (22-30); Chloride 113 mmol/L (98-107); Estimated Glomerular Filt Rate > 60; Glucose 212 mg/dL (65-110); Potassium 3.7 mmol/L (3.4-5.0); Sodium 137 mmol/L (137-145); Total Protein 7.0 g/dL (6.3-8.2)
[2024-07-10] MEDS: SODIUM CHLORIDE 0.9% IVPB ×3 (11:58→13:53)
[2024-07-10] MEDS: IRINOTECAN HCL IVPB (11:58)
[2024-07-10] MEDS: LEUCOVORIN CALCIUM IVPB (11:58)
[2024-07-10 13:44] VITALS: BP 129/51
[2024-07-10] MEDS: FLUOROURACIL IVPB (13:53)
[2024-07-12 12:00] VITALS: BP 143/62; PULSE 63; TEMP 36.1; O2SAT 100
--- NOTE | 2024-07-12 12:05 | PC.NURSE ---
Patient here for pump disconnect.
[2024-07-12] MEDS: HEPARIN SODIUM LOCK FLUSH 500 UNITS/5 ML SYRINGE IV PUSH (12:08)
[2024-07-16 10:57] LABS: Hematocrit 37.1 % (42.0-52.0); Hemoglobin 12.0 g/dL (14.0-18.0); Immature Granulocyte Percent A 0.2 % (0-0.5); Lymphocytes Absolute Auto 1.20 K/mm3 (0.9-3.2); Mean Corpuscular HGB Conc 32.3 g/dl (32-36); Mean Corpuscular Hemoglobin 30.9 pg (26-34); Mean Corpuscular Volume 95.6 fl (80-100); Nucleated Red Blood Cells Absolute Auto 0.000 K/mm3 (0.0-0.012); Nucleated Red Blood Cells Perc 0.0 % (0.0-0.2); Platelet Count Result 216 k/mm3 (150-375); Red Blood Count 3.88 M/mm3 (4.6-6.20); White Blood Count 4.6 K/mm3 (4.5-10.0)
--- NOTE | 2024-07-25 08:29 | PC.NURSE ---
Addendum entered by Shannon Bertrand RN 07/25/24 08:31: Lawrence will be called in. Original Note: Called and spoke with Oliva at Dr Dick's office about prescription med for diarrhea.
[2024-07-25 08:36] LABS: Hematocrit 33.7 % (42.0-52.0); Hemoglobin 11.3 g/dL (14.0-18.0); Immature Granulocyte Percent A 0.0 % (0-0.5); Lymphocytes Absolute Auto 1.04 K/mm3 (0.9-3.2); Mean Corpuscular HGB Conc 33.5 g/dl (32-36); Mean Corpuscular Hemoglobin 31.4 pg (26-34); Mean Corpuscular Volume 93.6 fl (80-100); Nucleated Red Blood Cells Absolute Auto 0.000 K/mm3 (0.0-0.012); Nucleated Red Blood Cells Perc 0.0 % (0.0-0.2); Platelet Count Result 239 k/mm3 (150-375); Red Blood Count 3.60 M/mm3 (4.6-6.20); White Blood Count 2.5 K/mm3 (4.5-10.0)
[2024-07-25 08:39] LABS: Blood Urea Nitrogen 14 mg/dL (8-26); Carbon Dioxide 19 mmol/L (22-30); Chloride 107 mmol/L (98-109); Estimated Glomerular Filt Rate > 60; Glucose 124 mg/dL (70-105); Ionized Calcium (POC) 1.15 mmol/L (1.11-1.31); Potassium 3.4 mmol/L (3.5-4.9); Sodium 140 mmol/L (138-146)
[2024-07-25 08:59] VITALS: BP 147/63; PULSE 79; TEMP 36.4; O2SAT 100
[2024-07-25] MEDS: PALONOSETRON HCL 0.25 MG/5 ML VIAL IV PUSH (09:17)
[2024-07-25] MEDS: FAMOTIDINE 20 MG/2 ML VIAL IV PUSH (09:18)
[2024-07-25] MEDS: dexAMETHasone SOD 4 MG/ML INJ 12 MG in SODIUM CHLORIDE 0.9% IV 100 ML 206 MG IVPB (09:28)
[2024-07-25] MEDS: ATROPINE SULFATE 1 MG/ML VIAL 0.25 MG SUB-Q (09:30)
[2024-07-25] MEDS: DEXTROSE 5% IVPB (10:18)
[2024-07-25] MEDS: OXALIPLATIN IVPB (10:18)
[2024-07-25] MEDS: WATER IVPB (10:18)
[2024-07-25 11:11] LABS: Alanine Aminotransferase 33 U/L (6-50); Albumin Level 3.7 g/dL (3.5-5.1); Alkaline Phosphatase 227 U/L (38-126); Anion Gap 10 mmol/L (4-12); Aspartate Amino Transferase 33 U/L (17-59); Bilirubin,Total 0.9 mg/dL (0.2-1.3); Blood Urea Nitrogen 14 mg/dL (9-20); Calcium 8.3 mg/dL (8.4-10.2); Carbon Dioxide 18 mmol/L (22-30); Chloride 109 mmol/L (98-107); Estimated Glomerular Filt Rate > 60; Glucose 117 mg/dL (65-110); Potassium 3.4 mmol/L (3.4-5.0); Sodium 137 mmol/L (137-145); Total Protein 7.0 g/dL (6.3-8.2)
[2024-07-25] MEDS: LEUCOVORIN CALCIUM IVPB (12:25)
[2024-07-25] MEDS: SODIUM CHLORIDE 0.9% IVPB ×3 (12:25→14:13)
[2024-07-25] MEDS: IRINOTECAN HCL IVPB (12:26)
[2024-07-25] MEDS: FLUOROURACIL IVPB (14:13)
[2024-07-25 14:15] VITALS: BP 148/67
[2024-07-27 12:22] VITALS: BP 146/64; PULSE 72; TEMP 36.3; O2SAT 100
[2024-07-27] MEDS: HEPARIN SODIUM LOCK FLUSH 500 UNITS/5 ML SYRINGE IV PUSH (12:29)
--- NOTE | 2024-07-27 13:05 | PC.NURSE ---
Patient here for pump disconnect.
[2024-07-30 11:00] LABS: Hematocrit 33.8 % (42.0-52.0); Hemoglobin 11.1 g/dL (14.0-18.0); Immature Granulocyte Percent A 0.4 % (0-0.5); Lymphocytes Absolute Auto 1.15 K/mm3 (0.9-3.2); Mean Corpuscular HGB Conc 32.8 g/dl (32-36); Mean Corpuscular Hemoglobin 31.0 pg (26-34); Mean Corpuscular Volume 94.4 fl (80-100); Nucleated Red Blood Cells Absolute Auto 0.000 K/mm3 (0.0-0.012); Nucleated Red Blood Cells Perc 0.0 % (0.0-0.2); Platelet Count Result 238 k/mm3 (150-375); Red Blood Count 3.58 M/mm3 (4.6-6.20); White Blood Count 2.3 K/mm3 (4.5-10.0)
[2024-07-30 11:34] VITALS: BP 139/66; PULSE 70; TEMP 36.4; O2SAT 100
[2024-07-30] MEDS: FILGRASTIM-SNDZ 300 MCG/0.5 ML SYRINGE SUB-Q (11:40)
[2024-08-01 08:30] LABS: Hematocrit 33.6 % (42.0-52.0); Hemoglobin 11.0 g/dL (14.0-18.0); Immature Granulocyte Percent A 0.7 % (0-0.5); Lymphocytes Absolute Auto 1.15 K/mm3 (0.9-3.2); Mean Corpuscular HGB Conc 32.7 g/dl (32-36); Mean Corpuscular Hemoglobin 31.1 pg (26-34); Mean Corpuscular Volume 94.9 fl (80-100); Nucleated Red Blood Cells Absolute Auto 0.000 K/mm3 (0.0-0.012); Nucleated Red Blood Cells Perc 0.0 % (0.0-0.2); Platelet Count Result 182 k/mm3 (150-375); Red Blood Count 3.54 M/mm3 (4.6-6.20); White Blood Count 5.8 K/mm3 (4.5-10.0)
[2024-08-01 08:33] LABS: Blood Urea Nitrogen 16 mg/dL (8-26); Carbon Dioxide 24 mmol/L (22-30); Chloride 101 mmol/L (98-109); Estimated Glomerular Filt Rate > 60; Glucose 217 mg/dL (70-105); Ionized Calcium (POC) 1.17 mmol/L (1.11-1.31); Potassium 4.2 mmol/L (3.5-4.9); Sodium 139 mmol/L (138-146)
[2024-08-01 09:27] VITALS: BP 142/73; PULSE 70; TEMP 36.5; O2SAT 100
[2024-08-01] MEDS: FILGRASTIM-SNDZ 300 MCG/0.5 ML SYRINGE SUB-Q (09:35)
[2024-08-08 08:34] LABS: Hematocrit 31.7 % (42.0-52.0); Hemoglobin 10.6 g/dL (14.0-18.0); Immature Granulocyte Percent A 0.6 % (0-0.5); Lymphocytes Absolute Auto 0.85 K/mm3 (0.9-3.2); Mean Corpuscular HGB Conc 33.4 g/dl (32-36); Mean Corpuscular Hemoglobin 30.9 pg (26-34); Mean Corpuscular Volume 92.4 fl (80-100); Nucleated Red Blood Cells Absolute Auto 0.000 K/mm3 (0.0-0.012); Nucleated Red Blood Cells Perc 0.0 % (0.0-0.2); Platelet Count Result 230 k/mm3 (150-375); Red Blood Count 3.43 M/mm3 (4.6-6.20); White Blood Count 3.6 K/mm3 (4.5-10.0)
[2024-08-08 08:39] LABS: Blood Urea Nitrogen 11 mg/dL (8-26); Carbon Dioxide 21 mmol/L (22-30); Chloride 104 mmol/L (98-109); Estimated Glomerular Filt Rate > 60; Glucose 118 mg/dL (70-105); Ionized Calcium (POC) 1.16 mmol/L (1.11-1.31); Potassium 3.0 mmol/L (3.5-4.9); Sodium 139 mmol/L (138-146)
[2024-08-08 08:44] VITALS: BP 139/62; PULSE 66; TEMP 36.8; O2SAT 100
[2024-08-08] MEDS: ATROPINE SULFATE 1 MG/ML VIAL 0.25 MG SUB-Q (09:08)
[2024-08-08] MEDS: PALONOSETRON HCL 0.25 MG/5 ML VIAL IV PUSH (09:08)
[2024-08-08] MEDS: FAMOTIDINE 20 MG/2 ML VIAL IV PUSH (09:08)
[2024-08-08] MEDS: dexAMETHasone SOD 4 MG/ML INJ 12 MG in SODIUM CHLORIDE 0.9% IV 100 ML 206 MG IVPB (09:09)
[2024-08-08] MEDS: OXALIPLATIN IVPB (09:53)
[2024-08-08] MEDS: DEXTROSE 5% IVPB (09:53)
[2024-08-08] MEDS: WATER IVPB (09:53)
[2024-08-08 11:08] LABS: Alanine Aminotransferase 61 U/L (6-50); Albumin Level 3.4 g/dL (3.5-5.1); Alkaline Phosphatase 388 U/L (38-126); Anion Gap 11 mmol/L (4-12); Aspartate Amino Transferase 69 U/L (17-59); Bilirubin,Total 0.8 mg/dL (0.2-1.3); Blood Urea Nitrogen 13 mg/dL (9-20); Calcium 8.2 mg/dL (8.4-10.2); Carbon Dioxide 20 mmol/L (22-30); Chloride 105 mmol/L (98-107); Estimated Glomerular Filt Rate > 60; Glucose 111 mg/dL (65-110); Potassium 3.2 mmol/L (3.4-5.0); Sodium 136 mmol/L (137-145); Total Protein 7.0 g/dL (6.3-8.2)
[2024-08-08] MEDS: SODIUM CHLORIDE 0.9% IVPB ×3 (12:05→14:09)
[2024-08-08] MEDS: LEUCOVORIN CALCIUM IVPB (12:05)
[2024-08-08] MEDS: IRINOTECAN HCL IVPB (12:06)
[2024-08-08] MEDS: FLUOROURACIL IVPB (14:09)
[2024-08-08 14:18] VITALS: BP 159/60
[2024-08-10 12:19] VITALS: BP 133/54; PULSE 59; TEMP 36.3; O2SAT 100
[2024-08-10] MEDS: HEPARIN SODIUM LOCK FLUSH 500 UNITS/5 ML SYRINGE IV PUSH (12:25)
--- NOTE | 2024-08-10 12:28 | PC.NURSE ---
Patient here for pump disconnect
--- NOTE | 2024-08-10 14:29 | PC.NURSE ---
Patient here for pump disconnect.
[2024-08-13 11:12] LABS: Hematocrit 33.2 % (42.0-52.0); Hemoglobin 11.0 g/dL (14.0-18.0); Immature Granulocyte Percent A 0.3 % (0-0.5); Lymphocytes Absolute Auto 1.10 K/mm3 (0.9-3.2); Mean Corpuscular HGB Conc 33.1 g/dl (32-36); Mean Corpuscular Hemoglobin 31.1 pg (26-34); Mean Corpuscular Volume 93.8 fl (80-100); Nucleated Red Blood Cells Absolute Auto 0.000 K/mm3 (0.0-0.012); Nucleated Red Blood Cells Perc 0.0 % (0.0-0.2); Platelet Count Result 250 k/mm3 (150-375); Red Blood Count 3.54 M/mm3 (4.6-6.20); White Blood Count 3.1 K/mm3 (4.5-10.0)
[2024-08-13 11:50] VITALS: BP 146/87; PULSE 67; RESP 14; TEMP 36.2; O2SAT 100
[2024-08-13] MEDS: FILGRASTIM-SNDZ 300 MCG/0.5 ML SYRINGE SUB-Q (11:58)
[2024-08-15 11:34] VITALS: BP 137/71; PULSE 69; TEMP 36.4; O2SAT 99
[2024-08-15] MEDS: FILGRASTIM-SNDZ 300 MCG/0.5 ML SYRINGE SUB-Q (11:44)
[2024-08-22 08:32] LABS: Hematocrit 33.7 % (42.0-52.0); Hemoglobin 11.2 g/dL (14.0-18.0); Immature Granulocyte Percent A 0.3 % (0-0.5); Lymphocytes Absolute Auto 0.80 K/mm3 (0.9-3.2); Mean Corpuscular HGB Conc 33.2 g/dl (32-36); Mean Corpuscular Hemoglobin 30.4 pg (26-34); Mean Corpuscular Volume 91.3 fl (80-100); Nucleated Red Blood Cells Absolute Auto 0.000 K/mm3 (0.0-0.012); Nucleated Red Blood Cells Perc 0.0 % (0.0-0.2); Platelet Count Result 260 k/mm3 (150-375); Red Blood Count 3.69 M/mm3 (4.6-6.20); White Blood Count 3.4 K/mm3 (4.5-10.0)
[2024-08-22 08:35] LABS: Blood Urea Nitrogen 12 mg/dL (8-26); Carbon Dioxide 19 mmol/L (22-30); Chloride 108 mmol/L (98-109); Estimated Glomerular Filt Rate > 60; Glucose 131 mg/dL (70-105); Ionized Calcium (POC) 1.18 mmol/L (1.11-1.31); Potassium 3.7 mmol/L (3.5-4.9); Sodium 137 mmol/L (138-146)
[2024-08-22 09:12] VITALS: BP 147/62; PULSE 70; TEMP 36.2; O2SAT 100
[2024-08-22] MEDS: PALONOSETRON HCL 0.25 MG/5 ML VIAL IV PUSH (09:29)
[2024-08-22] MEDS: FAMOTIDINE 20 MG/2 ML VIAL IV PUSH (09:29)
[2024-08-22] MEDS: dexAMETHasone SOD 4 MG/ML INJ 12 MG in SODIUM CHLORIDE 0.9% IV 100 ML 206 MG IVPB (09:41)
[2024-08-22] MEDS: ATROPINE SULFATE 1 MG/ML VIAL 0.25 MG SUB-Q (09:44)
[2024-08-22] MEDS: DEXTROSE 5% IVPB (10:19)
[2024-08-22] MEDS: WATER IVPB (10:19)
[2024-08-22] MEDS: OXALIPLATIN IVPB (10:19)
[2024-08-22 11:08] LABS: Alanine Aminotransferase 70 U/L (6-50); Albumin Level 3.6 g/dL (3.5-5.1); Alkaline Phosphatase 733 U/L (38-126); Anion Gap 11 mmol/L (4-12); Aspartate Amino Transferase 63 U/L (17-59); Bilirubin,Total 0.9 mg/dL (0.2-1.3); Blood Urea Nitrogen 13 mg/dL (9-20); Calcium 9.3 mg/dL (8.4-10.2); Carbon Dioxide 17 mmol/L (22-30); Chloride 106 mmol/L (98-107); Estimated Glomerular Filt Rate > 60; Glucose 125 mg/dL (65-110); Potassium 3.7 mmol/L (3.4-5.0); Sodium 134 mmol/L (137-145); Total Protein 7.0 g/dL (6.3-8.2)
[2024-08-22] MEDS: IRINOTECAN HCL IVPB (12:23)
[2024-08-22] MEDS: LEUCOVORIN CALCIUM IVPB (12:23)
[2024-08-22] MEDS: SODIUM CHLORIDE 0.9% IVPB ×3 (12:23→14:33)
[2024-08-22] MEDS: FLUOROURACIL IVPB (14:33)
[2024-08-22 14:44] VITALS: BP 119/46
[2024-08-24 12:33] VITALS: BP 144/60; PULSE 69; RESP 16; TEMP 36.2; O2SAT 100
[2024-08-24] MEDS: HEPARIN SODIUM LOCK FLUSH 500 UNITS/5 ML SYRINGE IV PUSH (12:36)
--- NOTE | 2024-08-24 14:11 | PC.NURSE ---
Patient here for pump disconnect.
[2024-08-27 12:26] LABS: Hematocrit 34.4 % (42.0-52.0); Hemoglobin 11.4 g/dL (14.0-18.0); Immature Granulocyte Percent A 1.0 % (0-0.5); Lymphocytes Absolute Auto 0.93 K/mm3 (0.9-3.2); Mean Corpuscular HGB Conc 33.1 g/dl (32-36); Mean Corpuscular Hemoglobin 30.5 pg (26-34); Mean Corpuscular Volume 92.0 fl (80-100); Nucleated Red Blood Cells Absolute Auto 0.000 K/mm3 (0.0-0.012); Nucleated Red Blood Cells Perc 0.0 % (0.0-0.2); Platelet Count Result 236 k/mm3 (150-375); Red Blood Count 3.74 M/mm3 (4.6-6.20); White Blood Count 3.1 K/mm3 (4.5-10.0)
[2024-08-27 13:11] VITALS: BP 145/64; PULSE 71; TEMP 36.6; O2SAT 100
[2024-08-27] MEDS: FILGRASTIM-SNDZ 300 MCG/0.5 ML SYRINGE SUB-Q (13:19)
[2024-08-29 11:12] VITALS: BP 141/81; PULSE 97; TEMP 36.4; O2SAT 100
[2024-08-29] MEDS: FILGRASTIM-SNDZ 300 MCG/0.5 ML SYRINGE SUB-Q (11:17)
[2024-09-06 08:32] LABS: Hematocrit 34.7 % (42.0-52.0); Hemoglobin 11.7 g/dL (14.0-18.0); Immature Granulocyte Percent A 0.5 % (0-0.5); Lymphocytes Absolute Auto 0.82 K/mm3 (0.9-3.2); Mean Corpuscular HGB Conc 33.7 g/dl (32-36); Mean Corpuscular Hemoglobin 30.2 pg (26-34); Mean Corpuscular Volume 89.4 fl (80-100); Nucleated Red Blood Cells Absolute Auto 0.000 K/mm3 (0.0-0.012); Nucleated Red Blood Cells Perc 0.0 % (0.0-0.2); Platelet Count Result 353 k/mm3 (150-375); Red Blood Count 3.88 M/mm3 (4.6-6.20); White Blood Count 4.1 K/mm3 (4.5-10.0)
[2024-09-06 08:36] LABS: Blood Urea Nitrogen 13 mg/dL (8-26); Carbon Dioxide 23 mmol/L (22-30); Chloride 100 mmol/L (98-109); Estimated Glomerular Filt Rate > 60; Glucose 217 mg/dL (70-105); Ionized Calcium (POC) 1.23 mmol/L (1.11-1.31); Potassium 3.8 mmol/L (3.5-4.9); Sodium 135 mmol/L (138-146)
[2024-09-06 11:12] LABS: Alanine Aminotransferase 130 U/L (6-50); Albumin Level 3.5 g/dL (3.5-5.1); Alkaline Phosphatase 1439 U/L (38-126); Anion Gap 10 mmol/L (4-12); Aspartate Amino Transferase 121 U/L (17-59); Bilirubin,Total 1.0 mg/dL (0.2-1.3); Blood Urea Nitrogen 14 mg/dL (9-20); Calcium 9.5 mg/dL (8.4-10.2); Carbon Dioxide 23 mmol/L (22-30); Chloride 100 mmol/L (98-107); Estimated Glomerular Filt Rate > 60; Glucose 207 mg/dL (65-110); Potassium 3.9 mmol/L (3.4-5.0); Sodium 133 mmol/L (137-145); Total Protein 7.0 g/dL (6.3-8.2)
[2024-09-25 08:44] LABS: Hematocrit 34.9 % (42.0-52.0); Hemoglobin 11.4 g/dL (14.0-18.0); Immature Granulocyte Percent A 0.3 % (0-0.5); Lymphocytes Absolute Auto 0.99 K/mm3 (0.9-3.2); Mean Corpuscular HGB Conc 32.7 g/dl (32-36); Mean Corpuscular Hemoglobin 29.2 pg (26-34); Mean Corpuscular Volume 89.3 fl (80-100); Nucleated Red Blood Cells Absolute Auto 0.000 K/mm3 (0.0-0.012); Nucleated Red Blood Cells Perc 0.0 % (0.0-0.2); Platelet Count Result 392 k/mm3 (150-375); Red Blood Count 3.91 M/mm3 (4.6-6.20); White Blood Count 6.2 K/mm3 (4.5-10.0)
[2024-09-25 08:51] LABS: Blood Urea Nitrogen 18 mg/dL (8-26); Carbon Dioxide 24 mmol/L (22-30); Chloride 104 mmol/L (98-109); Estimated Glomerular Filt Rate > 60; Glucose 262 mg/dL (70-105); Ionized Calcium (POC) 1.22 mmol/L (1.11-1.31); Potassium 4.1 mmol/L (3.5-4.9); Sodium 138 mmol/L (138-146)
[2024-10-03 08:38] LABS: Hematocrit 29.6 % (42.0-52.0); Hemoglobin 10.3 g/dL (14.0-18.0); Immature Granulocyte Percent A 0.2 % (0-0.5); Lymphocytes Absolute Auto 0.80 K/mm3 (0.9-3.2); Mean Corpuscular HGB Conc 34.8 g/dl (32-36); Mean Corpuscular Hemoglobin 29.3 pg (26-34); Mean Corpuscular Volume 84.3 fl (80-100); Nucleated Red Blood Cells Absolute Auto 0.000 K/mm3 (0.0-0.012); Nucleated Red Blood Cells Perc 0.0 % (0.0-0.2); Platelet Count Result 359 k/mm3 (150-375); Red Blood Count 3.51 M/mm3 (4.6-6.20); White Blood Count 6.0 K/mm3 (4.5-10.0)
[2024-10-03 08:40] LABS: Blood Urea Nitrogen 16 mg/dL (8-26); Carbon Dioxide 23 mmol/L (22-30); Chloride 103 mmol/L (98-109); Estimated Glomerular Filt Rate > 60; Glucose 216 mg/dL (70-105); Ionized Calcium (POC) 1.23 mmol/L (1.11-1.31); Potassium 3.8 mmol/L (3.5-4.9); Sodium 138 mmol/L (138-146)
[2024-10-03 08:46] VITALS: BP 150/62; PULSE 71; TEMP 36.9; O2SAT 100
[2024-10-03] MEDS: FAMOTIDINE 20 MG/2 ML VIAL IV PUSH (09:04)
[2024-10-03] MEDS: PALONOSETRON HCL 0.25 MG/5 ML VIAL IV PUSH (09:04)
[2024-10-03] MEDS: dexAMETHasone SOD 4 MG/ML INJ 12 MG in SODIUM CHLORIDE 0.9% IV 100 ML 206 MG IVPB (09:15)
[2024-10-03] MEDS: ATROPINE SULFATE 1 MG/ML VIAL 0.25 MG SUB-Q (09:18)
[2024-10-03] MEDS: OXALIPLATIN IVPB (09:54)
[2024-10-03] MEDS: WATER IVPB (09:54)
[2024-10-03] MEDS: DEXTROSE 5% IVPB (09:54)
[2024-10-03 10:34] LABS: Alanine Aminotransferase 74 U/L (6-50); Albumin Level 3.4 g/dL (3.5-5.1); Anion Gap 13 mmol/L (4-12); Aspartate Amino Transferase 77 U/L (17-59); Bilirubin,Total 3.1 mg/dL (0.2-1.3); Blood Urea Nitrogen 17 mg/dL (9-20); Calcium 9.1 mg/dL (8.4-10.2); Carbon Dioxide 22 mmol/L (22-30); Chloride 103 mmol/L (98-107); Estimated Glomerular Filt Rate > 60; Glucose 207 mg/dL (65-110); Potassium 3.9 mmol/L (3.4-5.0); Sodium 138 mmol/L (137-145); Total Protein 7.0 g/dL (6.3-8.2)
[2024-10-03 11:52] LABS: Alkaline Phosphatase 1629 U/L (38-126)
[2024-10-03] MEDS: SODIUM CHLORIDE 0.9% IVPB ×3 (12:04→14:01)
[2024-10-03] MEDS: LEUCOVORIN CALCIUM IVPB (12:04)
[2024-10-03] MEDS: IRINOTECAN HCL IVPB (12:06)
[2024-10-03] MEDS: FLUOROURACIL IVPB (14:01)
[2024-10-03 14:13] VITALS: BP 143/59
[2024-10-05 12:16] VITALS: BP 130/51; PULSE 71; TEMP 35.9; O2SAT 100
[2024-10-05] MEDS: HEPARIN SODIUM LOCK FLUSH 500 UNITS/5 ML SYRINGE IV PUSH (12:19)
--- NOTE | 2024-10-05 12:20 | PC.NURSE ---
pt. here for chemo pump disconnect.
[2024-10-16 08:58] LABS: Hematocrit 27.0 % (42.0-52.0); Hemoglobin 8.9 g/dL (14.0-18.0); Immature Granulocyte Percent A 0.0 % (0-0.5); Lymphocytes Absolute Auto 0.72 K/mm3 (0.9-3.2); Mean Corpuscular HGB Conc 33.0 g/dl (32-36); Mean Corpuscular Hemoglobin 29.6 pg (26-34); Mean Corpuscular Volume 89.7 fl (80-100); Nucleated Red Blood Cells Absolute Auto 0.000 K/mm3 (0.0-0.012); Nucleated Red Blood Cells Perc 0.0 % (0.0-0.2); Platelet Count Result 279 k/mm3 (150-375); Red Blood Count 3.01 M/mm3 (4.6-6.20); White Blood Count 2.1 K/mm3 (4.5-10.0)
[2024-10-16 09:00] LABS: Blood Urea Nitrogen 18 mg/dL (8-26); Carbon Dioxide 20 mmol/L (22-30); Chloride 105 mmol/L (98-109); Estimated Glomerular Filt Rate > 60; Glucose 167 mg/dL (70-105); Ionized Calcium (POC) 1.24 mmol/L (1.11-1.31); Potassium 3.7 mmol/L (3.5-4.9); Sodium 138 mmol/L (138-146)
[2024-10-16 09:44] LABS: Alanine Aminotransferase 44 U/L (6-50); Albumin Level 3.5 g/dL (3.5-5.1); Alkaline Phosphatase 1018 U/L (38-126); Anion Gap 11 mmol/L (4-12); Aspartate Amino Transferase 46 U/L (17-59); Bilirubin,Total 1.2 mg/dL (0.2-1.3); Blood Urea Nitrogen 19 mg/dL (9-20); Calcium 9.2 mg/dL (8.4-10.2); Carbon Dioxide 20 mmol/L (22-30); Chloride 105 mmol/L (98-107); Estimated Glomerular Filt Rate > 60; Glucose 165 mg/dL (65-110); Potassium 3.8 mmol/L (3.4-5.0); Sodium 136 mmol/L (137-145); Total Protein 7.0 g/dL (6.3-8.2)
[2024-10-16 10:04] VITALS: PULSE 67; TEMP 35.6; O2SAT 100
[2024-10-16 10:09] VITALS: BP 142/60
[2024-10-16] MEDS: HEPARIN SODIUM LOCK FLUSH 500 UNITS/5 ML SYRINGE (10:10)
[2024-10-16] MEDS: FILGRASTIM-SNDZ 300 MCG/0.5 ML SYRINGE SUB-Q (10:17)
[2024-10-17 07:14] LABS: CA 15-3. 9 U/mL (<32)
[2024-10-18 08:24] VITALS: BP 136/53; PULSE 69; TEMP 36.1; O2SAT 100
[2024-10-18] MEDS: FILGRASTIM-SNDZ 300 MCG/0.5 ML SYRINGE SUB-Q (08:28)
[2024-10-22 13:12] LABS: Hematocrit 31.0 % (42.0-52.0); Hemoglobin 10.0 g/dL (14.0-18.0); Immature Granulocyte Percent A 3.4 % (0-0.5); Lymphocytes Absolute Auto 1.06 K/mm3 (0.9-3.2); Mean Corpuscular HGB Conc 32.3 g/dl (32-36); Mean Corpuscular Hemoglobin 29.7 pg (26-34); Mean Corpuscular Volume 92.0 fl (80-100); Nucleated Red Blood Cells Absolute Auto 0.000 K/mm3 (0.0-0.012); Nucleated Red Blood Cells Perc 0.0 % (0.0-0.2); Platelet Count Result 372 k/mm3 (150-375); Red Blood Count 3.37 M/mm3 (4.6-6.20); White Blood Count 6.7 K/mm3 (4.5-10.0)
--- NOTE | 2024-10-22 13:30 | PC.NURSE ---
No injection needed, hemoglobulin 10.
[2024-10-23 11:13] LABS: CA 19-9. 116 U/mL (<34)
[2024-10-24 08:41] LABS: Hematocrit 28.9 % (42.0-52.0); Hemoglobin 9.6 g/dL (14.0-18.0); Immature Granulocyte Percent A 1.5 % (0-0.5); Lymphocytes Absolute Auto 1.04 K/mm3 (0.9-3.2); Mean Corpuscular HGB Conc 33.2 g/dl (32-36); Mean Corpuscular Hemoglobin 30.3 pg (26-34); Mean Corpuscular Volume 91.2 fl (80-100); Nucleated Red Blood Cells Absolute Auto 0.000 K/mm3 (0.0-0.012); Nucleated Red Blood Cells Perc 0.0 % (0.0-0.2); Platelet Count Result 339 k/mm3 (150-375); Red Blood Count 3.17 M/mm3 (4.6-6.20); White Blood Count 6.1 K/mm3 (4.5-10.0)
[2024-10-24 08:44] LABS: Blood Urea Nitrogen 19 mg/dL (8-26); Carbon Dioxide 21 mmol/L (22-30); Chloride 105 mmol/L (98-109); Estimated Glomerular Filt Rate > 60; Glucose 138 mg/dL (70-105); Ionized Calcium (POC) 1.22 mmol/L (1.11-1.31); Potassium 4.0 mmol/L (3.5-4.9); Sodium 138 mmol/L (138-146)
[2024-10-24 08:48] VITALS: BP 132/61; PULSE 69; TEMP 36.3; O2SAT 100
[2024-10-24] MEDS: ATROPINE SULFATE 1 MG/ML VIAL 0.25 MG SUB-Q (09:05)
[2024-10-24] MEDS: FAMOTIDINE 20 MG/2 ML VIAL IV PUSH (09:07)
[2024-10-24] MEDS: PALONOSETRON HCL 0.25 MG/5 ML VIAL IV PUSH (09:08)
[2024-10-24] MEDS: dexAMETHasone SOD 4 MG/ML INJ 12 MG in SODIUM CHLORIDE 0.9% IV 100 ML 206 MG IVPB (09:17)
[2024-10-24] MEDS: DEXTROSE 5% IVPB (09:56)
[2024-10-24] MEDS: OXALIPLATIN IVPB (09:56)
[2024-10-24] MEDS: WATER IVPB (09:56)
[2024-10-24 10:08] LABS: Alanine Aminotransferase 33 U/L (6-50); Albumin Level 3.7 g/dL (3.5-5.1); Alkaline Phosphatase 946 U/L (38-126); Anion Gap 9 mmol/L (4-12); Aspartate Amino Transferase 52 U/L (17-59); Bilirubin,Total 0.8 mg/dL (0.2-1.3); Blood Urea Nitrogen 20 mg/dL (9-20); Calcium 8.9 mg/dL (8.4-10.2); Carbon Dioxide 22 mmol/L (22-30); Chloride 105 mmol/L (98-107); Estimated Glomerular Filt Rate > 60; Glucose 139 mg/dL (65-110); Potassium 4.1 mmol/L (3.4-5.0); Sodium 136 mmol/L (137-145); Total Protein 7.0 g/dL (6.3-8.2)
[2024-10-24] MEDS: LEUCOVORIN CALCIUM IVPB (12:21)
[2024-10-24] MEDS: SODIUM CHLORIDE 0.9% IVPB ×3 (12:21→14:17)
[2024-10-24] MEDS: IRINOTECAN HCL IVPB (12:22)
[2024-10-24 14:11] VITALS: BP 142/57
[2024-10-24] MEDS: FLUOROURACIL IVPB (14:17)
[2024-10-26 12:18] VITALS: BP 136/58; PULSE 67; TEMP 36.4; O2SAT 100
--- NOTE | 2024-10-26 12:21 | PC.NURSE ---
Patient here for pump disconnect
[2024-10-26] MEDS: HEPARIN SODIUM LOCK FLUSH 500 UNITS/5 ML SYRINGE IV PUSH (12:26)
[2024-10-29 13:23] LABS: Hematocrit 29.4 % (42.0-52.0); Hemoglobin 9.6 g/dL (14.0-18.0); Immature Granulocyte Percent A 0.4 % (0-0.5); Lymphocytes Absolute Auto 0.94 K/mm3 (0.9-3.2); Mean Corpuscular HGB Conc 32.7 g/dl (32-36); Mean Corpuscular Hemoglobin 30.3 pg (26-34); Mean Corpuscular Volume 92.7 fl (80-100); Nucleated Red Blood Cells Absolute Auto 0.000 K/mm3 (0.0-0.012); Nucleated Red Blood Cells Perc 0.0 % (0.0-0.2); Platelet Count Result 279 k/mm3 (150-375); Red Blood Count 3.17 M/mm3 (4.6-6.20); White Blood Count 4.5 K/mm3 (4.5-10.0)
[2024-10-29 14:07] VITALS: BP 151/71
[2024-10-29] MEDS: EPOETIN ALFA-EPBX 20,000 UNITS/ML VIAL 20000 UNITS SUB-Q (14:11)
--- NOTE | 2024-10-31 12:55 | PHAR ---
Dr barraza with patient receiving zarxio with anc of 3.4.
[2024-10-31 13:06] VITALS: BP 134/62; PULSE 105; RESP 16; TEMP 36.6; O2SAT 91
[2024-10-31] MEDS: FILGRASTIM-SNDZ 300 MCG/0.5 ML SYRINGE SUB-Q (13:14)
[2024-11-02 08:48] VITALS: BP 145/64; PULSE 75; RESP 16; TEMP 36.4; O2SAT 100
[2024-11-02] MEDS: FILGRASTIM-SNDZ 300 MCG/0.5 ML SYRINGE SUB-Q (08:58)
[2024-11-05 09:23] LABS: Hematocrit 33.1 % (42.0-52.0); Hemoglobin 10.7 g/dL (14.0-18.0); Immature Granulocyte Percent A 0.5 % (0-0.5); Lymphocytes Absolute Auto 0.75 K/mm3 (0.9-3.2); Mean Corpuscular HGB Conc 32.3 g/dl (32-36); Mean Corpuscular Hemoglobin 30.5 pg (26-34); Mean Corpuscular Volume 94.3 fl (80-100); Nucleated Red Blood Cells Absolute Auto 0.000 K/mm3 (0.0-0.012); Nucleated Red Blood Cells Perc 0.0 % (0.0-0.2); Platelet Count Result 233 k/mm3 (150-375); Red Blood Count 3.51 M/mm3 (4.6-6.20); White Blood Count 3.8 K/mm3 (4.5-10.0)
--- NOTE | 2024-11-05 09:30 | PC.NURSE ---
Hgb 10.7 today, treatment cancelled
[2024-11-07 09:04] LABS: Hematocrit 29.9 % (42.0-52.0); Hemoglobin 9.8 g/dL (14.0-18.0); Immature Granulocyte Percent A 0.9 % (0-0.5); Lymphocytes Absolute Auto 0.72 K/mm3 (0.9-3.2); Mean Corpuscular HGB Conc 32.8 g/dl (32-36); Mean Corpuscular Hemoglobin 30.2 pg (26-34); Mean Corpuscular Volume 92.3 fl (80-100); Nucleated Red Blood Cells Absolute Auto 0.000 K/mm3 (0.0-0.012); Nucleated Red Blood Cells Perc 0.0 % (0.0-0.2); Platelet Count Result 232 k/mm3 (150-375); Red Blood Count 3.24 M/mm3 (4.6-6.20); White Blood Count 3.4 K/mm3 (4.5-10.0)
[2024-11-07 09:08] VITALS: BP 153/59; PULSE 69; TEMP 36.4; O2SAT 100
[2024-11-07 09:10] LABS: Blood Urea Nitrogen 18 mg/dL (8-26); Carbon Dioxide 20 mmol/L (22-30); Chloride 104 mmol/L (98-109); Estimated Glomerular Filt Rate > 60; Glucose 269 mg/dL (70-105); Ionized Calcium (POC) 1.24 mmol/L (1.11-1.31); Potassium 3.6 mmol/L (3.5-4.9); Sodium 137 mmol/L (138-146)
[2024-11-07] MEDS: PALONOSETRON HCL 0.25 MG/5 ML VIAL IV PUSH (09:30)
[2024-11-07] MEDS: ATROPINE SULFATE 1 MG/ML VIAL 0.25 MG SUB-Q (09:30)
[2024-11-07] MEDS: dexAMETHasone SOD 4 MG/ML INJ 12 MG in SODIUM CHLORIDE 0.9% IV 100 ML 206 MG IVPB (09:31)
[2024-11-07] MEDS: FAMOTIDINE 20 MG/2 ML VIAL IV PUSH (09:31)
[2024-11-07 09:44] LABS: Alanine Aminotransferase 40 U/L (6-50); Albumin Level 3.7 g/dL (3.5-5.1); Alkaline Phosphatase 764 U/L (38-126); Anion Gap 12 mmol/L (4-12); Aspartate Amino Transferase 67 U/L (17-59); Bilirubin,Total 0.7 mg/dL (0.2-1.3); Blood Urea Nitrogen 18 mg/dL (9-20); Calcium 9.1 mg/dL (8.4-10.2); Carbon Dioxide 20 mmol/L (22-30); Chloride 104 mmol/L (98-107); Estimated Glomerular Filt Rate > 60; Glucose 262 mg/dL (65-110); Potassium 3.7 mmol/L (3.4-5.0); Sodium 136 mmol/L (137-145); Total Protein 7.0 g/dL (6.3-8.2)
[2024-11-07] MEDS: WATER IVPB (10:17)
[2024-11-07] MEDS: DEXTROSE 5% IVPB (10:17)
[2024-11-07] MEDS: OXALIPLATIN IVPB (10:17)
[2024-11-07] MEDS: LEUCOVORIN CALCIUM IVPB (12:33)
[2024-11-07] MEDS: SODIUM CHLORIDE 0.9% IVPB ×3 (12:33→14:41)
[2024-11-07] MEDS: IRINOTECAN HCL IVPB (12:34)
[2024-11-07 14:33] VITALS: BP 157/58
[2024-11-07] MEDS: FLUOROURACIL IVPB (14:41)
[2024-11-09 12:57] VITALS: BP 145/65; PULSE 80; TEMP 36.5; O2SAT 100
--- NOTE | 2024-11-09 12:59 | PC.NURSE ---
Patient here for pump disconnect
[2024-11-09] MEDS: HEPARIN SODIUM LOCK FLUSH 500 UNITS/5 ML SYRINGE IV PUSH (13:00)
[2024-11-12 09:28] LABS: Hematocrit 33.7 % (42.0-52.0); Hemoglobin 11.0 g/dL (14.0-18.0); Immature Granulocyte Percent A 0.4 % (0-0.5); Lymphocytes Absolute Auto 0.63 K/mm3 (0.9-3.2); Mean Corpuscular HGB Conc 32.6 g/dl (32-36); Mean Corpuscular Hemoglobin 29.9 pg (26-34); Mean Corpuscular Volume 91.6 fl (80-100); Nucleated Red Blood Cells Absolute Auto 0.000 K/mm3 (0.0-0.012); Nucleated Red Blood Cells Perc 0.0 % (0.0-0.2); Platelet Count Result 298 k/mm3 (150-375); Red Blood Count 3.68 M/mm3 (4.6-6.20); White Blood Count 2.4 K/mm3 (4.5-10.0)
--- NOTE | 2024-11-12 09:38 | PC.NURSE ---
Patient's treatment cancelled, hemoglobin above 10
[2024-11-14 11:29] LABS: Hematocrit 33.8 % (42.0-52.0); Hemoglobin 11.0 g/dL (14.0-18.0); Immature Granulocyte Percent A 0.8 % (0-0.5); Lymphocytes Absolute Auto 0.68 K/mm3 (0.9-3.2); Mean Corpuscular HGB Conc 32.5 g/dl (32-36); Mean Corpuscular Hemoglobin 30.1 pg (26-34); Mean Corpuscular Volume 92.3 fl (80-100); Nucleated Red Blood Cells Absolute Auto 0.000 K/mm3 (0.0-0.012); Nucleated Red Blood Cells Perc 0.0 % (0.0-0.2); Platelet Count Result 274 k/mm3 (150-375); Red Blood Count 3.66 M/mm3 (4.6-6.20); White Blood Count 2.6 K/mm3 (4.5-10.0)
[2024-11-14 11:33] LABS: Blood Urea Nitrogen 22 mg/dL (8-26); Carbon Dioxide 27 mmol/L (22-30); Chloride 101 mmol/L (98-109); Estimated Glomerular Filt Rate > 60; Glucose 147 mg/dL (70-105); Ionized Calcium (POC) 1.23 mmol/L (1.11-1.31); Potassium 3.8 mmol/L (3.5-4.9); Sodium 137 mmol/L (138-146)
[2024-11-14 12:20] VITALS: PULSE 91; TEMP 35.9; O2SAT 100
[2024-11-14 12:22] VITALS: BP 160/75
[2024-11-14] MEDS: FILGRASTIM-SNDZ 300 MCG/0.5 ML SYRINGE SUB-Q (12:27)
[2024-11-14 16:44] LABS: Alanine Aminotransferase 72 U/L (6-50); Albumin Level 4.1 g/dL (3.5-5.1); Alkaline Phosphatase 952 U/L (38-126); Anion Gap 10 mmol/L (4-12); Aspartate Amino Transferase 83 U/L (17-59); Bilirubin,Total 0.6 mg/dL (0.2-1.3); Blood Urea Nitrogen 22 mg/dL (9-20); Calcium 9.5 mg/dL (8.4-10.2); Carbon Dioxide 26 mmol/L (22-30); Chloride 100 mmol/L (98-107); Estimated Glomerular Filt Rate > 60; Glucose 139 mg/dL (65-110); Potassium 4.1 mmol/L (3.4-5.0); Sodium 136 mmol/L (137-145); Total Protein 8.0 g/dL (6.3-8.2)
[2024-11-16 01:43] LABS: CA 19-9. 155 U/mL (<34)
[2024-11-16 11:01] VITALS: BP 129/89; PULSE 68; TEMP 36.2; O2SAT 98
[2024-11-16] MEDS: FILGRASTIM-SNDZ 300 MCG/0.5 ML SYRINGE SUB-Q (11:06)
[2024-11-19 09:08] LABS: Hematocrit 32.0 % (42.0-52.0); Hemoglobin 10.4 g/dL (14.0-18.0); Immature Granulocyte Percent A 0.3 % (0-0.5); Lymphocytes Absolute Auto 0.71 K/mm3 (0.9-3.2); Mean Corpuscular HGB Conc 32.5 g/dl (32-36); Mean Corpuscular Hemoglobin 30.1 pg (26-34); Mean Corpuscular Volume 92.8 fl (80-100); Nucleated Red Blood Cells Absolute Auto 0.000 K/mm3 (0.0-0.012); Nucleated Red Blood Cells Perc 0.0 % (0.0-0.2); Platelet Count Result 231 k/mm3 (150-375); Red Blood Count 3.45 M/mm3 (4.6-6.20); White Blood Count 3.9 K/mm3 (4.5-10.0)
--- NOTE | 2024-11-19 09:17 | PC.NURSE ---
No injection needed, hemoglobin 10.4
[2024-11-21 09:14] LABS: Hematocrit 31.5 % (42.0-52.0); Hemoglobin 10.4 g/dL (14.0-18.0); Immature Granulocyte Percent A 0.5 % (0-0.5); Lymphocytes Absolute Auto 0.78 K/mm3 (0.9-3.2); Mean Corpuscular HGB Conc 33.0 g/dl (32-36); Mean Corpuscular Hemoglobin 30.1 pg (26-34); Mean Corpuscular Volume 91.0 fl (80-100); Nucleated Red Blood Cells Absolute Auto 0.000 K/mm3 (0.0-0.012); Nucleated Red Blood Cells Perc 0.0 % (0.0-0.2); Platelet Count Result 288 k/mm3 (150-375); Red Blood Count 3.46 M/mm3 (4.6-6.20); White Blood Count 4.2 K/mm3 (4.5-10.0)
[2024-11-21 09:17] LABS: Blood Urea Nitrogen 18 mg/dL (8-26); Carbon Dioxide 21 mmol/L (22-30); Chloride 103 mmol/L (98-109); Estimated Glomerular Filt Rate > 60; Glucose 154 mg/dL (70-105); Ionized Calcium (POC) 1.24 mmol/L (1.11-1.31); Potassium 3.7 mmol/L (3.5-4.9); Sodium 138 mmol/L (138-146)
[2024-11-21 09:31] VITALS: BP 136/65; PULSE 78; TEMP 36.6; O2SAT 100
[2024-11-21] MEDS: PALONOSETRON HCL 0.25 MG/5 ML VIAL IV PUSH (09:48)
[2024-11-21] MEDS: FAMOTIDINE 20 MG/2 ML VIAL IV PUSH (09:49)
[2024-11-21] MEDS: dexAMETHasone SOD 4 MG/ML INJ 12 MG in SODIUM CHLORIDE 0.9% IV 100 ML 206 MG IVPB (10:00)
[2024-11-21] MEDS: ATROPINE SULFATE 1 MG/ML VIAL 0.25 MG SUB-Q (10:03)
[2024-11-21] MEDS: WATER IVPB (10:42)
[2024-11-21] MEDS: OXALIPLATIN IVPB (10:42)
[2024-11-21] MEDS: DEXTROSE 5% IVPB (10:42)
[2024-11-21 11:58] LABS: Alanine Aminotransferase 47 U/L (6-50); Albumin Level 3.7 g/dL (3.5-5.1); Alkaline Phosphatase 854 U/L (38-126); Anion Gap 10 mmol/L (4-12); Aspartate Amino Transferase 76 U/L (17-59); Bilirubin,Total 0.5 mg/dL (0.2-1.3); Blood Urea Nitrogen 19 mg/dL (9-20); Calcium 9.3 mg/dL (8.4-10.2); Carbon Dioxide 21 mmol/L (22-30); Chloride 105 mmol/L (98-107); Estimated Glomerular Filt Rate > 60; Glucose 146 mg/dL (65-110); Potassium 3.7 mmol/L (3.4-5.0); Sodium 136 mmol/L (137-145); Total Protein 7.0 g/dL (6.3-8.2)
[2024-11-21] MEDS: LEUCOVORIN CALCIUM IVPB (12:51)
[2024-11-21] MEDS: IRINOTECAN HCL IVPB (12:51)
[2024-11-21] MEDS: SODIUM CHLORIDE 0.9% IVPB ×3 (12:51→14:49)
[2024-11-21 14:36] VITALS: BP 156/57
[2024-11-21] MEDS: FLUOROURACIL IVPB (14:49)
[2024-11-23 12:52] VITALS: BP 141/68; PULSE 79; RESP 16; TEMP 36.1; O2SAT 100
--- NOTE | 2024-11-23 12:55 | PC.NURSE ---
pt. here for chemo pump disconnect and port deaccess.
[2024-11-23] MEDS: HEPARIN SODIUM LOCK FLUSH 500 UNITS/5 ML SYRINGE IV PUSH (13:11)
[2024-11-26 13:11] LABS: Hematocrit 32.2 % (42.0-52.0); Hemoglobin 10.5 g/dL (14.0-18.0); Immature Granulocyte Percent A 0.3 % (0-0.5); Lymphocytes Absolute Auto 0.86 K/mm3 (0.9-3.2); Mean Corpuscular HGB Conc 32.6 g/dl (32-36); Mean Corpuscular Hemoglobin 29.8 pg (26-34); Mean Corpuscular Volume 91.5 fl (80-100); Nucleated Red Blood Cells Absolute Auto 0.000 K/mm3 (0.0-0.012); Nucleated Red Blood Cells Perc 0.0 % (0.0-0.2); Platelet Count Result 251 k/mm3 (150-375); Red Blood Count 3.52 M/mm3 (4.6-6.20); White Blood Count 3.5 K/mm3 (4.5-10.0)
[2024-11-26 13:17] LABS: Schistocytes None Seen
[2024-11-26 13:19] LABS: Anisocytosis 1+
[2024-11-26 13:35] VITALS: BP 137/71; PULSE 85; RESP 16; TEMP 36.1; O2SAT 100
[2024-11-26] MEDS: FILGRASTIM-SNDZ 300 MCG/0.5 ML SYRINGE SUB-Q (13:39)
[2024-11-28 12:01] VITALS: BP 145/72; PULSE 85; TEMP 36.5; O2SAT 99
[2024-11-28] MEDS: FILGRASTIM-SNDZ 300 MCG/0.5 ML SYRINGE SUB-Q (12:09)
[2024-12-03 13:22] LABS: Hematocrit 30.9 % (42.0-52.0); Hemoglobin 10.3 g/dL (14.0-18.0); Immature Granulocyte Percent A 0.8 % (0-0.5); Lymphocytes Absolute Auto 0.58 K/mm3 (0.9-3.2); Mean Corpuscular HGB Conc 33.3 g/dl (32-36); Mean Corpuscular Hemoglobin 30.2 pg (26-34); Mean Corpuscular Volume 90.6 fl (80-100); Nucleated Red Blood Cells Absolute Auto 0.000 K/mm3 (0.0-0.012); Nucleated Red Blood Cells Perc 0.0 % (0.0-0.2); Platelet Count Result 204 k/mm3 (150-375); Red Blood Count 3.41 M/mm3 (4.6-6.20); White Blood Count 2.6 K/mm3 (4.5-10.0)
--- NOTE | 2024-12-03 13:33 | PC.NURSE ---
Patient's Hgb 10.3 today, treatment cancelled
[2024-12-03 14:12] LABS: Alanine Aminotransferase 44 U/L (6-50); Albumin Level 3.3 g/dL (3.5-5.1); Alkaline Phosphatase 932 U/L (38-126); Anion Gap 9 mmol/L (4-12); Aspartate Amino Transferase 83 U/L (17-59); Bilirubin,Total 0.5 mg/dL (0.2-1.3); Blood Urea Nitrogen 17 mg/dL (9-20); Calcium 8.7 mg/dL (8.4-10.2); Carbon Dioxide 23 mmol/L (22-30); Chloride 106 mmol/L (98-107); Estimated Glomerular Filt Rate > 60; Glucose 144 mg/dL (65-110); Potassium 3.7 mmol/L (3.4-5.0); Sodium 138 mmol/L (137-145); Total Protein 6.0 g/dL (6.3-8.2)
[2024-12-04 11:23] LABS: CA 19-9. 159 U/mL (<34)
[2024-12-05 09:11] LABS: Hematocrit 32.2 % (42.0-52.0); Hemoglobin 10.7 g/dL (14.0-18.0); Immature Granulocyte Percent A 0.4 % (0-0.5); Lymphocytes Absolute Auto 0.55 K/mm3 (0.9-3.2); Mean Corpuscular HGB Conc 33.2 g/dl (32-36); Mean Corpuscular Hemoglobin 30.1 pg (26-34); Mean Corpuscular Volume 90.4 fl (80-100); Nucleated Red Blood Cells Absolute Auto 0.000 K/mm3 (0.0-0.012); Nucleated Red Blood Cells Perc 0.0 % (0.0-0.2); Platelet Count Result 292 k/mm3 (150-375); Red Blood Count 3.56 M/mm3 (4.6-6.20); White Blood Count 2.3 K/mm3 (4.5-10.0)
[2024-12-11 13:57] LABS: Hematocrit 33.2 % (42.0-52.0); Hemoglobin 11.0 g/dL (14.0-18.0); Immature Granulocyte Percent A 0.3 % (0-0.5); Lymphocytes Absolute Auto 1.09 K/mm3 (0.9-3.2); Mean Corpuscular HGB Conc 33.1 g/dl (32-36); Mean Corpuscular Hemoglobin 29.4 pg (26-34); Mean Corpuscular Volume 88.8 fl (80-100); Nucleated Red Blood Cells Absolute Auto 0.000 K/mm3 (0.0-0.012); Nucleated Red Blood Cells Perc 0.0 % (0.0-0.2); Platelet Count Result 446 k/mm3 (150-375); Red Blood Count 3.74 M/mm3 (4.6-6.20); White Blood Count 6.1 K/mm3 (4.5-10.0)
[2024-12-11 13:59] VITALS: PULSE 76; TEMP 36.4; O2SAT 100
[2024-12-11 14:01] VITALS: BP 151/69
[2024-12-11] MEDS: FILGRASTIM-SNDZ 300 MCG/0.5 ML SYRINGE SUB-Q (14:10)
[2024-12-11 16:44] LABS: Iron 34 ug/dL (49-181)
[2024-12-11 16:58] LABS: Percent Iron Saturation 15 % (20-50)
[2024-12-11 18:13] LABS: Ferritin 1190.00 ng/mL (11.1-264)
[2024-12-17 09:57] LABS: Hematocrit 32.1 % (42.0-52.0); Hemoglobin 10.7 g/dL (14.0-18.0); Immature Granulocyte Percent A 0.6 % (0-0.5); Lymphocytes Absolute Auto 0.74 K/mm3 (0.9-3.2); Mean Corpuscular HGB Conc 33.3 g/dl (32-36); Mean Corpuscular Hemoglobin 29.3 pg (26-34); Mean Corpuscular Volume 87.9 fl (80-100); Nucleated Red Blood Cells Absolute Auto 0.000 K/mm3 (0.0-0.012); Nucleated Red Blood Cells Perc 0.0 % (0.0-0.2); Platelet Count Result 310 k/mm3 (150-375); Red Blood Count 3.65 M/mm3 (4.6-6.20); White Blood Count 9.6 K/mm3 (4.5-10.0)
--- NOTE | 2024-12-17 10:17 | PC.NURSE ---
Patient's treatment cancelled due to hemoglobulin 10.7
[2024-12-24 12:08] LABS: Hematocrit 32.3 % (42.0-52.0); Hemoglobin 10.6 g/dL (14.0-18.0); Immature Granulocyte Percent A 0.3 % (0-0.5); Lymphocytes Absolute Auto 0.69 K/mm3 (0.9-3.2); Mean Corpuscular HGB Conc 32.8 g/dl (32-36); Mean Corpuscular Hemoglobin 28.9 pg (26-34); Mean Corpuscular Volume 88.0 fl (80-100); Nucleated Red Blood Cells Absolute Auto 0.000 K/mm3 (0.0-0.012); Nucleated Red Blood Cells Perc 0.0 % (0.0-0.2); Platelet Count Result 275 k/mm3 (150-375); Red Blood Count 3.67 M/mm3 (4.6-6.20); White Blood Count 9.6 K/mm3 (4.5-10.0)
--- NOTE | 2024-12-24 12:13 | PC.NURSE ---
Treatment cancelled, hemoglobulin 10.6
[2024-12-27 08:58] LABS: Hematocrit 31.1 % (42.0-52.0); Hemoglobin 10.2 g/dL (14.0-18.0); Immature Granulocyte Percent A 0.2 % (0-0.5); Lymphocytes Absolute Auto 0.63 K/mm3 (0.9-3.2); Mean Corpuscular HGB Conc 32.8 g/dl (32-36); Mean Corpuscular Hemoglobin 28.7 pg (26-34); Mean Corpuscular Volume 87.6 fl (80-100); Nucleated Red Blood Cells Absolute Auto 0.000 K/mm3 (0.0-0.012); Nucleated Red Blood Cells Perc 0.0 % (0.0-0.2); Platelet Count Result 286 k/mm3 (150-375); Red Blood Count 3.55 M/mm3 (4.6-6.20); White Blood Count 8.9 K/mm3 (4.5-10.0)
[2024-12-27 09:03] LABS: Blood Urea Nitrogen 14 mg/dL (8-26); Carbon Dioxide 18 mmol/L (22-30); Chloride 102 mmol/L (98-109); Estimated Glomerular Filt Rate > 60; Glucose 181 mg/dL (70-105); Ionized Calcium (POC) 1.16 mmol/L (1.11-1.31); Potassium 3.6 mmol/L (3.5-4.9); Sodium 136 mmol/L (138-146)
[2024-12-27 10:40] VITALS: BP 108/62; PULSE 83; RESP 14; TEMP 36.3; O2SAT 100
[2024-12-27] MEDS: ONDANSETRON INJ 4 MG/2 ML VIAL 8 MG IV PUSH (11:00)
[2024-12-27] MEDS: dexAMETHasone SOD 4 MG/ML INJ 12 MG in SODIUM CHLORIDE 0.9% IV 100 ML 206 MG IVPB (11:01)
[2024-12-27] MEDS: PACLITAXEL PROTEIN BOUND IVPB (11:39)
[2024-12-27] MEDS: PREMIXIV IVPB (11:39)
[2024-12-27] MEDS: SODIUM CHLORIDE 0.9% IVPB (12:29)
[2024-12-27] MEDS: GEMCITABINE HCL IVPB (12:29)
[2024-12-27 12:41] LABS: Alanine Aminotransferase 39 U/L (6-50); Albumin Level 3.1 g/dL (3.5-5.1); Alkaline Phosphatase 1338 U/L (38-126); Anion Gap 10 mmol/L (4-12); Aspartate Amino Transferase 137 U/L (17-59); Bilirubin,Total 0.8 mg/dL (0.2-1.3); Blood Urea Nitrogen 15 mg/dL (9-20); Calcium 8.9 mg/dL (8.4-10.2); Carbon Dioxide 21 mmol/L (22-30); Chloride 103 mmol/L (98-107); Estimated Glomerular Filt Rate > 60; Glucose 173 mg/dL (65-110); Potassium 3.6 mmol/L (3.4-5.0); Sodium 134 mmol/L (137-145); Total Protein 6.4 g/dL (6.3-8.2)
[2024-12-27 13:07] VITALS: BP 147/60
[2024-12-27] MEDS: HEPARIN SODIUM LOCK FLUSH 500 UNITS/5 ML SYRINGE IV PUSH (13:09)
[2024-12-31 10:36] LABS: Hematocrit 29.6 % (42.0-52.0); Hemoglobin 9.6 g/dL (14.0-18.0); Immature Granulocyte Percent A 0.4 % (0-0.5); Lymphocytes Absolute Auto 0.42 K/mm3 (0.9-3.2); Mean Corpuscular HGB Conc 32.4 g/dl (32-36); Mean Corpuscular Hemoglobin 28.7 pg (26-34); Mean Corpuscular Volume 88.4 fl (80-100); Nucleated Red Blood Cells Absolute Auto 0.000 K/mm3 (0.0-0.012); Nucleated Red Blood Cells Perc 0.0 % (0.0-0.2); Platelet Count Result 214 k/mm3 (150-375); Red Blood Count 3.35 M/mm3 (4.6-6.20); White Blood Count 8.3 K/mm3 (4.5-10.0)
[2024-12-31 10:58] VITALS: BP 125/59; PULSE 89; TEMP 36.6; O2SAT 100
[2024-12-31] MEDS: FILGRASTIM-SNDZ 300 MCG/0.5 ML SYRINGE SUB-Q (11:12)
[2025-01-01 08:49] VITALS: BP 118/61; PULSE 97; RESP 16; TEMP 36.4; O2SAT 100
[2025-01-01] MEDS: EPOETIN ALFA-EPBX 20,000 UNITS/ML VIAL 20000 UNITS SUB-Q (08:53)
[2025-01-02 08:49] VITALS: BP 123/57; PULSE 95; RESP 16; TEMP 36.4; O2SAT 100
[2025-01-02] MEDS: FILGRASTIM-SNDZ 300 MCG/0.5 ML SYRINGE SUB-Q (08:56)
[2025-01-03 11:18] VITALS: BP 118/70; PULSE 89; TEMP 36.5; O2SAT 100
[2025-01-03 11:39] LABS: Hematocrit 27.5 % (42.0-52.0); Hemoglobin 9.2 g/dL (14.0-18.0); Immature Granulocyte Percent A 0.9 % (0-0.5); Lymphocytes Absolute Auto 0.87 K/mm3 (0.9-3.2); Mean Corpuscular HGB Conc 33.5 g/dl (32-36); Mean Corpuscular Hemoglobin 28.8 pg (26-34); Mean Corpuscular Volume 86.2 fl (80-100); Nucleated Red Blood Cells Absolute Auto 0.000 K/mm3 (0.0-0.012); Nucleated Red Blood Cells Perc 0.0 % (0.0-0.2); Platelet Count Result 134 k/mm3 (150-375); Red Blood Count 3.19 M/mm3 (4.6-6.20); White Blood Count 12.5 K/mm3 (4.5-10.0)
[2025-01-03 11:44] LABS: Blood Urea Nitrogen 15 mg/dL (8-26); Carbon Dioxide 16 mmol/L (22-30); Chloride 106 mmol/L (98-109); Estimated Glomerular Filt Rate > 60; Glucose 155 mg/dL (70-105); Ionized Calcium (POC) 1.22 mmol/L (1.11-1.31); Potassium 3.8 mmol/L (3.5-4.9); Sodium 139 mmol/L (138-146)
[2025-01-03] MEDS: dexAMETHasone SOD 4 MG/ML INJ 12 MG in SODIUM CHLORIDE 0.9% IV 100 ML 206 MG IVPB (12:09)
[2025-01-03] MEDS: ONDANSETRON INJ 4 MG/2 ML VIAL 8 MG IV PUSH (12:09)
[2025-01-03 12:45] LABS: Alanine Aminotransferase 56 U/L (6-50); Albumin Level 2.8 g/dL (3.5-5.1); Alkaline Phosphatase 1140 U/L (38-126); Anion Gap 10 mmol/L (4-12); Aspartate Amino Transferase 85 U/L (17-59); Bilirubin,Total 0.6 mg/dL (0.2-1.3); Blood Urea Nitrogen 15 mg/dL (9-20); Calcium 8.9 mg/dL (8.4-10.2); Carbon Dioxide 19 mmol/L (22-30); Chloride 108 mmol/L (98-107); Estimated Glomerular Filt Rate > 60; Glucose 148 mg/dL (65-110); Potassium 3.8 mmol/L (3.4-5.0); Sodium 137 mmol/L (137-145); Total Protein 5.9 g/dL (6.3-8.2)
[2025-01-03] MEDS: PREMIXIV IVPB (12:58)
[2025-01-03] MEDS: PACLITAXEL PROTEIN BOUND IVPB (12:58)
[2025-01-03] MEDS: GEMCITABINE HCL IVPB (13:44)
[2025-01-03] MEDS: SODIUM CHLORIDE 0.9% IVPB (13:44)
[2025-01-03 14:17] VITALS: BP 140/70
[2025-01-03] MEDS: HEPARIN SODIUM LOCK FLUSH 500 UNITS/5 ML SYRINGE IV PUSH (14:22)
[2025-01-07 10:19] LABS: Hematocrit 23.6 % (42.0-52.0); Hemoglobin 8.0 g/dL (14.0-18.0); Immature Platelet Fraction Pct 6.1 % (0.9-11.2); Mean Corpuscular HGB Conc 33.9 g/dl (32-36); Mean Corpuscular Hemoglobin 28.9 pg (26-34); Mean Corpuscular Volume 85.2 fl (80-100); Platelet Count Result 69 k/mm3 (150-375); Red Blood Count 2.77 M/mm3 (4.6-6.20)
[2025-01-07 10:21] LABS: White Blood Count 0.5 K/mm3 (4.5-10.0)
[2025-01-07 10:42] LABS: Lymphocytes Absolute Manual 0.09 K/mm3 (1.1-4.5); Lymphocytes Percent Manual 19 % (18-44); Monocytes Absolute Manual 0.01 K/mm3 (0.1-0.90); Monocytes Percent Manual 3 % (3-9); Neutrophils Absolute Manual 0.24 K/mm3 (1.3-6.7); Neutrophils Percent Manual 30 % (46-73); Total Cells Counted 51
[2025-01-07 10:44] LABS: Anisocytosis 1+; Hypochromasia 1+
[2025-01-07 10:45] LABS: Ovalocytes 1+; Schistocytes None Seen; Target Cells 1+
[2025-01-07 10:47] VITALS: BP 118/58; PULSE 88; TEMP 36.4; O2SAT 100
[2025-01-07] MEDS: FILGRASTIM-SNDZ 300 MCG/0.5 ML SYRINGE SUB-Q (11:13)
[2025-01-08 14:54] VITALS: BP 133/56; PULSE 91; TEMP 36.4; O2SAT 100
[2025-01-08] MEDS: EPOETIN ALFA-EPBX 20,000 UNITS/ML VIAL 20000 UNITS SUB-Q (14:59)
[2025-01-09 08:34] VITALS: BP 136/65; PULSE 97; TEMP 36.5; O2SAT 100
[2025-01-09] MEDS: FILGRASTIM-SNDZ 300 MCG/0.5 ML SYRINGE SUB-Q (08:42)
[2025-01-10 08:37] LABS: Blood Urea Nitrogen 14 mg/dL (8-26); Carbon Dioxide 19 mmol/L (22-30); Chloride 106 mmol/L (98-109); Estimated Glomerular Filt Rate > 60; Glucose 120 mg/dL (70-105); Ionized Calcium (POC) 1.10 mmol/L (1.11-1.31); Potassium 3.9 mmol/L (3.5-4.9); Sodium 137 mmol/L (138-146)
[2025-01-10 08:42] LABS: Hematocrit 25.7 % (42.0-52.0); Hemoglobin 8.5 g/dL (14.0-18.0); Immature Granulocyte Percent A 2.2 % (0-0.5); Immature Platelet Fraction Pct 7.8 % (0.9-11.2); Lymphocytes Absolute Auto 0.40 K/mm3 (0.9-3.2); Mean Corpuscular HGB Conc 33.1 g/dl (32-36); Mean Corpuscular Hemoglobin 28.1 pg (26-34); Mean Corpuscular Volume 85.1 fl (80-100); Nucleated Red Blood Cells Absolute Auto 0.050 K/mm3 (0.0-0.012); Nucleated Red Blood Cells Perc 1.8 % (0.0-0.2); Platelet Count Result 39 k/mm3 (150-375); Red Blood Count 3.02 M/mm3 (4.6-6.20); White Blood Count 2.7 K/mm3 (4.5-10.0)
[2025-01-10 10:15] LABS: Alanine Aminotransferase 91 U/L (6-50); Albumin Level 2.7 g/dL (3.5-5.1); Alkaline Phosphatase 1141 U/L (38-126); Anion Gap 8 mmol/L (4-12); Aspartate Amino Transferase 90 U/L (17-59); Bilirubin,Total 1.1 mg/dL (0.2-1.3); Blood Urea Nitrogen 15 mg/dL (9-20); Calcium 8.8 mg/dL (8.4-10.2); Carbon Dioxide 20 mmol/L (22-30); Chloride 107 mmol/L (98-107); Estimated Glomerular Filt Rate > 60; Glucose 118 mg/dL (65-110); Potassium 3.9 mmol/L (3.4-5.0); Sodium 135 mmol/L (137-145); Total Protein 5.9 g/dL (6.3-8.2)
[2025-01-14 08:49] LABS: Hematocrit 28.5 % (42.0-52.0); Hemoglobin 9.2 g/dL (14.0-18.0); Immature Granulocyte Percent A 4.3 % (0-0.5); Lymphocytes Absolute Auto 0.41 K/mm3 (0.9-3.2); Mean Corpuscular HGB Conc 32.3 g/dl (32-36); Mean Corpuscular Hemoglobin 27.8 pg (26-34); Mean Corpuscular Volume 86.1 fl (80-100); Nucleated Red Blood Cells Absolute Auto 0.020 K/mm3 (0.0-0.012); Nucleated Red Blood Cells Perc 0.4 % (0.0-0.2); Platelet Count Result 231 k/mm3 (150-375); Red Blood Count 3.31 M/mm3 (4.6-6.20); White Blood Count 5.6 K/mm3 (4.5-10.0)
[2025-01-14 09:32] VITALS: BP 145/78; PULSE 105; TEMP 36.3; O2SAT 99
[2025-01-14] MEDS: EPOETIN ALFA-EPBX 20,000 UNITS/ML VIAL 20000 UNITS SUB-Q (09:42)
[2025-01-15 18:06] LABS: Hepatitis B Surface Antigen Negative (Negative)
[2025-01-17 09:53] LABS: NIL 0.03 IU/mL; Quantiferon TB Plus, 1T INDETERMINATE (NEGATIVE); TB1-NIL <0.00 IU/mL; TB2-NIL <0.00 IU/mL
[2025-01-21 10:34] LABS: Hematocrit 30.2 % (42.0-52.0); Hemoglobin 9.7 g/dL (14.0-18.0); Immature Granulocyte Percent A 0.4 % (0-0.5); Lymphocytes Absolute Auto 0.61 K/mm3 (0.9-3.2); Mean Corpuscular HGB Conc 32.1 g/dl (32-36); Mean Corpuscular Hemoglobin 27.8 pg (26-34); Mean Corpuscular Volume 86.5 fl (80-100); Nucleated Red Blood Cells Absolute Auto 0.000 K/mm3 (0.0-0.012); Nucleated Red Blood Cells Perc 0.0 % (0.0-0.2); Platelet Count Result 641 k/mm3 (150-375); Red Blood Count 3.49 M/mm3 (4.6-6.20); White Blood Count 15.2 K/mm3 (4.5-10.0)
[2025-01-21 10:56] VITALS: BP 121/68; PULSE 112; TEMP 36.5; O2SAT 100
[2025-01-21] MEDS: EPOETIN ALFA-EPBX 20,000 UNITS/ML VIAL 20000 UNITS SUB-Q (11:04)
[2025-01-24 11:04] LABS: Hematocrit 28.6 % (42.0-52.0); Hemoglobin 9.3 g/dL (14.0-18.0); Immature Granulocyte Percent A 0.6 % (0-0.5); Lymphocytes Absolute Auto 0.65 K/mm3 (0.9-3.2); Mean Corpuscular HGB Conc 32.5 g/dl (32-36); Mean Corpuscular Hemoglobin 27.3 pg (26-34); Mean Corpuscular Volume 83.9 fl (80-100); Nucleated Red Blood Cells Absolute Auto 0.000 K/mm3 (0.0-0.012); Nucleated Red Blood Cells Perc 0.0 % (0.0-0.2); Platelet Count Result 528 k/mm3 (150-375); Red Blood Count 3.41 M/mm3 (4.6-6.20); White Blood Count 17.4 K/mm3 (4.5-10.0)
[2025-01-24 11:09] VITALS: BP 119/62; PULSE 94; TEMP 36.1; O2SAT 100
[2025-01-24 11:09] LABS: Blood Urea Nitrogen 21 mg/dL (8-26); Carbon Dioxide 16 mmol/L (22-30); Chloride 104 mmol/L (98-109); Estimated Glomerular Filt Rate > 60; Glucose 125 mg/dL (70-105); Ionized Calcium (POC) 1.14 mmol/L (1.11-1.31); Potassium 4.2 mmol/L (3.5-4.9); Sodium 133 mmol/L (138-146)
[2025-01-24] MEDS: PEMBROLIZUMAB 200 MG in SODIUM CHLORIDE 0.9% IV 100 ML 216 MG IVPB (11:38)
[2025-01-24 11:55] LABS: Alanine Aminotransferase 30 U/L (6-50); Albumin Level 2.4 g/dL (3.5-5.1); Alkaline Phosphatase 1189 U/L (38-126); Anion Gap 8 mmol/L (4-12); Aspartate Amino Transferase 89 U/L (17-59); Bilirubin,Total 1.1 mg/dL (0.2-1.3); Blood Urea Nitrogen 23 mg/dL (9-20); Calcium 8.0 mg/dL (8.4-10.2); Carbon Dioxide 17 mmol/L (22-30); Chloride 107 mmol/L (98-107); Estimated Glomerular Filt Rate > 60; Glucose 119 mg/dL (65-110); Potassium 4.1 mmol/L (3.4-5.0); Sodium 132 mmol/L (137-145); Total Protein 5.6 g/dL (6.3-8.2)
[2025-01-24] MEDS: HEPARIN SODIUM LOCK FLUSH 500 UNITS/5 ML SYRINGE IV PUSH (12:22)
[2025-01-24 12:23] LABS: Thyroid Stimulating Hormone 0.959 uIU/mL (0.465-4.680)
[2025-01-24 15:24] LABS: Add Urine Microscopic? YES; Appearance Urine Clear (Clear); Glucose Urine UA Negative (Negative); Leukocyte Esterase Ur Negative LEU/UL (Negative); Need Manual Microscopic Reviewed; Nitrate Urine Negative (Negative); Specific Grav Ur 1.024 (1.001-1.035)
== END 2025-01-28 13:36 ==
LOC: AMCINF 11:30
PROVIDERS: Visit Provider Internal Medicine Hematology & Oncology
DX: Z51.11 Encounter for antineoplastic chemotherapy (principal); C25.7 Malignant neoplasm of other parts of pancreas; C17.0 Malignant neoplasm of duodenum; C77.2 Secondary and unspecified malignant neoplasm of intra-abdominal lymph nodes; I73.9 Peripheral vascular disease, unspecified; I12.9 Hypertensive chronic kidney disease with stage 1 through stage 4 chronic kidney disease, or unspecified chronic kidney disease; T45.1X5A Adverse effect of antineoplastic and immunosuppressive drugs, initial encounter; D63.0 Anemia in neoplastic disease; D64.81 Anemia due to antineoplastic chemotherapy; N18.31 Chronic kidney disease, stage 3a; K31.1 Adult hypertrophic pyloric stenosis; K21.9 Gastro-esophageal reflux disease without esophagitis; K31.84 Gastroparesis; E87.8 Other disorders of electrolyte and fluid balance, not elsewhere classified; E87.20 Acidosis, unspecified; E87.6 Hypokalemia; E78.5 Hyperlipidemia, unspecified; E83.42 Hypomagnesemia; E11.65 Type 2 diabetes mellitus with hyperglycemia; E11.22 Type 2 diabetes mellitus with diabetic chronic kidney disease; E11.42 Type 2 diabetes mellitus with diabetic polyneuropathy; M10.9 Gout, unspecified; M19.90 Unspecified osteoarthritis, unspecified site; Z90.49 Acquired absence of other specified parts of digestive tract; Z86.0100 Personal history of colon polyps, unspecified; Z92.3 Personal history of irradiation
CPT/HCPCS: 36415; 36591; 80047; 80053; 81001; 82043; 82728; 83036; 83540; 83550; 84443; 85025; 85055; 86300; 86301; 86480; 87086; 87340; 96367; 96368; 96372; 96375; 96411; 96413; 96415; 96416; 96417; 99211; 99212; G0463; J0461; J0640; J1100; J1200; J2405; J2469; J7040; J7050; J7060; J9190; J9201; J9206; J9263; J9264; J9271; Q5101; Q5106

== ENCOUNTER 2025-01-27 08:13 | Observation (INO) | payer MEDICARE, SELFPAY ==
[2025-01-27] VITALS (55 sets, daily range): BP systolic 128–162; BP diastolic 66–91; PULSE 96–118; RESP 14–22; TEMP 36.1–36.7; O2SAT 95–100; BMI 20.8
--- NOTE | ~2025-01-27 | XR_ITS ---
Portable chest x-ray Comparison: 01/23/2025 Clinical History: Weakness Findings: Right-sided Mediport is unchanged. Lungs are clear, without focal consolidation or pleural effusion. Cardiomediastinal silhouette is stable. Bones and soft tissues are unremarkable. Impression: Clear lungs. Stable Mediport. Reviewed, dictated and finalized at location . Impression: Clear lungs. Stable Mediport.
--- OUTSIDE RECORDS SUMMARY | 2025-01-27 08:15 | XMS_ITS | Continuity of Care Document ---
Author Organization [facility] Address [address] [place] [address] [address] [place] [address] Phone Care Team Providers Care Sweet Goods Machine Operator Name Role Phone Jaqueline Mccray Unavailable Unavailable Procedures Procedure Date Eye Exam, New Patient Advance Directives Directive Yes / No Effective Date File Name No Information Encounters Encounter Description Practice Location Reason(s) For Visit Diagnoses Date Provider Providers Copied on Encounter [facility], [address] [place] [address] [address], [place], [place], [id number], [place] tel:[phone] [facility] No Information [address]. [address] , [address], [place], [address], [place]. tel:[phone] Family History Family Member Type Diagnosis Age [...]
--- OUTSIDE RECORDS SUMMARY | 2025-01-27 08:15 | XMS_ITS | Encounter Summary ---
Author Organization [facility] Address [address] [place] [address] Care Team Providers Care Car Record Clerk Name Role Phone Shawna Hernandez HI LO DRIVER Primary Care Provider [phone] Encounter Details Date Type Department Care Team (Latest Contact Info) Description 12/04/2024 Results Follow-Up [facility] [address] [place] [phone] Jil Echevarria, [place] [address] USE ECHOCARDIOGRAM Social History Tobacco Use Types [...] st Contact Info) Description 05/22/2025 11:15 AM FACILITIES MAINTENANCE WORKER Office Visit [facility] [address] [place] [address] James Villasenor MD [facility]. [address] [address] [place] [address] documented as of this encounter Visit Diagnoses Not on filedocumented in this encounter Care Teams Car Record Clerk Relationship Specialty Start Date End Date Shawna Henrandez FNP [address] [place] [address] PCP - General Nurse Practitioner Family 11/29/24 documented as of this encounter
--- OUTSIDE RECORDS SUMMARY | 2025-01-27 08:15 | XMS_ITS | Referral Summary ---
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
--- OUTSIDE RECORDS SUMMARY | 2025-01-27 08:15 | XMS_ITS | Clinical Summary ---
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
--- OUTSIDE RECORDS SUMMARY | 2025-01-27 08:16 | XMS_ITS | Encounter Summary ---
Author Organization [facility] HALEY Estrada [facility] Address [address] [place] [address] Care Team Providers Care Potato Peeling Machine Operator Name Role Phone Unavailable Primary Care Provider Unavailabl e Encounter Details Date Type Department Care Team (Late Contact Info) Description 01/22/2025 Orders Only [facility] Oncology and Hematology - Derek [address] [place] [address] [facility] [address] [place] [address] Adeel Dick MD [address] [facility] [address] [place] [address] Social History Tobacco Use Types [...] Care Team (Late st Contact Info) Description 01/28/2025 Orders Only [facility] Oncology and Hematology [facility] [address] [place] [address] [place] [address] [place] [address] [address] [place] [address] Metastatic adenocarcinoma (CMS/HCC) 02/07/2025 11:00 AM CDT Office Visit [facility] Oncology and Hematology [facility] [address] [place] [address] Adeel Dick MD [address] [place] [address] [address] [place] [address] 02/14/2025 8:30 AM CDT Office Visit [facility] Oncology and Hematology [facility] [address] [place] [address] Aedel Dick MD [address] [place] [address] [address] [place] [address] documented as of this encounter Visit Diagnoses Not on filedocumented in this encounter
--- OUTSIDE RECORDS SUMMARY | 2025-01-27 08:16 | XMS_ITS ---
Author Organization [facility] Address [address] [place] [address] Phone Care Team Providers Care Glassware Finisher Name Role Phone Unavailable Primary Care Provider [...]
--- OUTSIDE RECORDS SUMMARY | 2025-01-27 08:16 | XMS_ITS | Encounter Summary ---
Author Organization [facility] Address [address] [place] [address] Care Team Providers Care Border Measurer Name Role Phone Camron Bustamante MD Primary Care Provider [phone] Encounter Details Date Type Department Care Team (Late st Contact Info) Description 09/18/2024 Lab Requisition [facility] Lab [address] [place] [address] Amor Calvillo MD [address] [place] [address] Illness, unspecified Social History Tobacco Use [...] Cytology Routine Illness, unspecified 09/14/2024 11:00 AM EXECUTIVE ASST documented as of this encounter Visit Diagnoses Diagnosis Illness, unspecified documented in this encounter Care Teams Border Measurer Relationship Specialty Start Date End Date Camron Bustamante MD [address] [place] [address] PCP - General 11/07/19 documented as of this encounter
--- OUTSIDE RECORDS SUMMARY | 2025-01-27 08:16 | XMS_ITS | Clinical Summary ---
Author Organization [facility] [employer] Address [address] [place] [address] Care Team Providers Care Money Market Clerk Name Role Phone Camron Bustamante MD Primary Care Provider Source Comments [facility] [employer],non-owned Affiliates and Associated Physician Practices is amultiple site organization consisting of ambulatory clinics and hospital sitesin [place], [place], [place] and [place]. This disclosure is being madepursuant to the Care Everywhere program and may not contain all information available regarding this patient. Last updated 18.[facility] [employer] Social History Tobacco Use Types Packs/Day Years [...] age to complete this topic Insurance AETNA [facility] MANAGED MEDICARE ADV * Guarantor: SYD UNDERWOOD Account Type Relation to Patient Date of Phone Billing Address Personal/Family [address] [place] [address] [facility] MANAGED MEDICARE ADV * Guarantor: SYD UNDERWOOD Account Type Relation to Patient Date of Phone Billing Address Personal/Family [address] MANAGED MEDICARE ADV * Guarantor: SYD UNDERWOOD Account Type Relation to Patient Date of Phone Billing Address Personal/Family [address] MANAGED MEDICARE ADV Care Teams Money Market Clerk Relationship Specialty Start Date End Date Camron Bustamante MD [address] [place] [address] PCP - General 11/07/19
--- OUTSIDE RECORDS SUMMARY | 2025-01-27 08:16 | XMS_ITS | Encounter Summary ---
Author Organization [facility] HALEY Estrada [facility] Address [address] [place] [address] Care Team Providers Care Control Systems Drafting Officer Name Role Phone Unavailable Primary Care Provider Unavailabl e Encounter Details Date Type Department Care Team (Late Contact Info) Description 01/23/2025 Orders Only [facility] Oncology and Hematology - Derek [address] [place] [address] [email or web address] [address] [place] [address] Adeel Dick MD [address] [facility] [address] [place] [address] Social History Tobacco Use Types [...] st Contact Info) Description 01/28/2025 Orders Only [facility] Oncology and Hematology [facility] [address] [place] [address] [place] [address] [place] [address] [address] [place] [address] Metastatic adenocarcinoma (CMS/HCC) 02/07/2025 11:00 AM CDT Office Visit [facility] Oncology and Hematology [facility] [address] [place] [address] Adeel Dick MD [address] [place] [address] [address] [place] [address] 02/14/2025 8:30 AM CDT Office Visit [facility] Oncology and Hematology [facility] [address] [place] [address] Adeel Dick MD [address] [place] [address] [address] [place] [address] documented as of this encounter Visit Diagnoses Not on filedocumented in this encounter
--- OUTSIDE RECORDS SUMMARY | 2025-01-27 08:16 | XMS_ITS | Clinical Summary ---
Author Organization [facility] Address [address] [place] [address] Care Team Providers Care Scoring Machine Operator Name Role Phone Michael Hernandezyssa Last CHAMBER MAGISTRATE Primary Care Provider Allergies No known active allergies Medications allopurinol [...] Department Care Team Description 12/04/2024 Results Follow-Up [facility] [address] [place] [address] Jil Echevarria RN USE ECHOCARDIOGRAM 11/29/2024 12:35 PM CDT - 11/29/2024 11:59 PM CDT Hospital Encounter [facility] Ultrasound [address] [place] [address] James Villasenor MD Discharge Disposition: Home or Self Care (Routine Discharge) 11/29/2024 Travel 11/12/2024 3:00 PM CDT Office Visit [facility] [address] [place] [address] James Villasenor MD Follow Up (Aortic stenosis) 11/12/2024 Telephone [facility] [address] [facility] [address] [facility] [place] [place] [address] James Villasenor MD Schedule Test 11/12/2024 Travel [...] st Contact Info) Description 05/22/2025 11:15 AM INFORMIX DEVELOPER Office Visit [facility] [address] [place] [address] James Villasenor MD [facility]. [address] [address] Health Maintenance Due Date Last Done Comments [...] AM CDT HEMANTH URBINA Pat.Name: Syd Underwood.ID: [id number] .Date: 11/29/2024 Refer.: [place], [facility] Radiology Exam Time: 12:44:00 PM Study Type:OUTREACH Height: 71 in Weight: 150 lb BSA: 1.87 m2 Age: 11 1945,79Y Sex: M Sonogrphr: Kk Pat. Stat.:Outpatient Reason for Study:Aortic stenosis Procedures: Study performed at [place], [place] and interpreted by [facility]. 2D, M-mode, Doppler, Color Flow [...] 12/02/2024 HEMANTH OUTREACH Pat.Name: Syd Underwood Pat.ID: [id number] St.Date: 11/29/2024 Refer.MD: [place], [facility] Radiology Exam Time: 12:44:00 PM Study Type:OUTREACH Height: 71 in Weight: 150 lb BSA: 1.87 m2 Age: 11 1945,79Y Sex: M Sonogrphr: Brennen Pat. Stat.:Outpatient Reason for Study:Aortic stenosis Procedures: Study performed at [place], [place] and interpreted by [facility]. 2D, M-mode, Doppler, Color Flow [...] from Last 3 Months Insurance Care Teams Scoring Machine Operator Relationship Specialty Start Date End Date Shawna Hernandez FNP [facility] [place] [address] PCP - General Nurse Practitioner Family 11/29/24
--- OUTSIDE RECORDS SUMMARY | 2025-01-27 08:16 | XMS_ITS | Clinical Summary ---
Author Organization [facility] Address [address] [place] [address] Phone Care Team Providers Care Sponge Fisherman Name Role Phone Unavailable Primary Care Provider [...] 7.5 mg 10 Tablet 06/13/20 24 Active ckqbnu-knwgkxtu-fu ylase DR LYMAN) 12,000-38,000-60,0 00 unit capsuleIndications [...] Encounters Date Type Department Care Team Description 01/24/2025 Telephone [facility] Oncology and Hematology - [address] [place] [address] Adeel Dick MD Urine Results 01/24/2025 Telephone [facility] Oncology and Hematology - [address] [place] [address] Adeel Dick MD Home Health Referral 01/24/2025 Orders Only [facility] Oncology and Hematology - [address] [place] [address] Adeel Dick MD Dark urine (Primary Dx) 01/24/2025 Orders Only [facility] Oncology and Hematology - [address] Adeel Dick MD Benign hypertension (Primary Dx) 01/23/2025 Orders Only [facility] Oncology and Hematology - Derek [address] Adeel Dick MD Metastatic adenocarcinoma (CMS/HCC) (Primary Dx); TB skin/subcutaneous 01/23/2025 Orders Only [facility] Oncology and Hematology - Derek [address] Adeel Dick MD 01/22/2025 Orders Only [facility] Oncology and Hematology [facility] [address] Adeel Dick MD 01/19/2025 Refill [facility] Oncology and Hematology [facility] [address] Adeel Dick MD 01/16/2025 Orders Only [facility] Oncology and Hematology [address] Aedel Dick MD 01/14/2025 Orders Only [facility] Oncology and Hematology - Derek [address] [place] [phone] Adeel Dick MD Metastatic adenocarcinoma (CMS/HCC) (Primary Dx); Need for hepatitis B screening test 01/14/2025 Orders Only [facility] Oncology and Hematology [facility] [address] [place] [phone] Adeel Dick MD Metastatic adenocarcinoma (CMS/HCC) 01/10/2025 9:00 AM CDT Office Visit [facility] Oncology and Hematology [facility] [address] [place] [phone] Adeel Dick MD Duodenal cancer (CMS/HCC) (Primary Dx); Metastatic adenocarcinoma (CMS/HCC) 01/10/2025 Orders Only [facility] Oncology and Hematology - [address] [place] [phone] Adeel Dick MD 01/08/2025 External Device Data STL ABSTRACTION Provider, Abstract 01/07/2025 Orders Only [facility] Oncology and Hematology - [address] Adeel Dick MD 01/01/2025 External Device Data STL ABSTRACTION Provider, Abstract 12/31/2024 Orders Only [facility] Oncology and Hematology - [address] Adeel Dick MD Metastatic adenocarcinoma (CMS/HCC) 12/27/2024 9:30 AM CDT Office Visit [facility] Oncology and Hematology - [address] [place] [phone] Adeel Dick MD Metastatic adenocarcinoma (CMS/HCC) (Primary Dx) 12/27/2024 Orders Only [facility] Oncology and Hematology - Derek [address] [place] [phone] Adeel Dick MD 12/25/2024 Orders Only [facility] Oncology and Hematology - Derek [address] [place] [address] Adeel Dick MD 12/21/2024 Refill [facility] Oncology and Hematology - [address] [place] [address] Aedel Dick MD 12/17/2024 Orders Only [facility] Oncology and Hematology - [address] [place] [address] Adeel Dick MD Metastatic adenocarcinoma (CMS/HCC) 12/14/2024 Orders Only [facility] Oncology and Hematology - Derek [address] [place] [address] Adeel Dick MD 12/12/2024 Orders Only [facility] Oncology and Hematology - [address] [place] [phone] Adeel Dick MD 12/11/2024 Orders Only [facility] Oncology and Hematology - [address] [place] [phone] Adeel Dick MD Chronic anemia (Primary Dx) 12/07/2024 Orders Only [facility] Oncology and Hematology - [address] Adeel Dick MD 12/07/2024 Telephone [facility] Oncology and Hematology - [address] [place] [address] Adeel Dick MD [facility] 12/06/2024 Orders Only [facility] Oncology and Hematology - [address] [place] [address] Adeel Dick MD 12/05/2024 9:00 AM CDT Office Visit [facility] Oncology and Hematology - [address] [place] [address] Adeel Dick MD Metastatic adenocarcinoma (CMS/HCC) (Primary Dx) 12/05/2024 Orders Only [facility] Oncology and Hematology - [address] [place] [address] Adeel Dick MD Metastatic adenocarcinoma (CMS/HCC) (Primary Dx) 12/03/2024 Orders Only [facility] Oncology and Hematology - Derek [address] [place] [address] Adeel Dick MD Metastatic adenocarcinoma (CMS/HCC) 11/28/2024 Orders Only [facility] Oncology and Hematology - Derek [address] [place] [address] Adeel Dick MD 11/23/2024 Telephone [facility] Oncology and Hematology - [address] Adeel Dick MD Eating Concerns 11/22/2024 Orders Only [facility] Oncology and Hematology - [address] [place] [phone] Adeel Dick MD 11/21/2024 Orders Only [facility] Oncology and Hematology - [address] Adeel Dick MD 11/20/2024 External Device Data STL ABSTRACTION Provider, Abstract 11/20/2024 Orders Only [facility] Oncology and Hematology - [address] Adeel Dick MD 11/19/2024 Orders Only [facility] Oncology and Hematology - Derek [address] [place] [phone] Adeel Dick MD Metastatic adenocarcinoma (CMS/HCC) 11/16/2024 Orders Only [facility] Oncology and Hematology - Derek [address] Adeel Dick MD 11/15/2024 Orders Only [facility] Oncology and Hematology - [address] Adeel Dick MD 11/14/2024 11:30 AM CDT Office Visit [facility] Oncology and Hematology - [address] [place] [phone] Adeel Dick MD Metastatic adenocarcinoma (CMS/HCC) (Primary Dx); Malignant neoplasm of pancreas, unspecified location of malignancy (CMS/HCC) 11/14/2024 Orders Only [facility] Oncology and Hematology - [address] [place] [phone] Adeel Dick MD 11/12/2024 Orders Only [facility] Oncology and Hematology - [address] [place] [address] Adeel Dick MD 11/07/2024 Orders Only [facility] Oncology and Hematology - [address] [place] [address] Adeel Dick MD 11/05/2024 Orders Only [facility] Oncology and Hematology - [address] [place] [address] Adeel Dick MD Metastatic adenocarcinoma (CMS/HCC) 10/29/2024 Orders Only [facility] Oncology and Hematology - [address] [place] [address] Adeel Dick MD from Last 3 Months [...] st Contact Info) Description 01/28/2025 Orders Only [facility] Oncology and Hematology [place] [address] [address] [place] [address] Adeel Dick MD [address] [place], [place] [address] [address] [place] [phone] Metastatic adenocarcinoma (CMS/HCC) 02/07/2025 11:00 AM CDT Office Visit [facility] Oncology and Hematology [facility] [address] [place] [phone] [place] [address] [place], [place] [address] [address] [place] [phone] 02/14/2025 8:30 AM CDT Office Visit [facility] Oncology [facility] Hematology [facility] [address] [place] [address] Adeel Dick MD [address] [place], [place] [address] [address] [place] [phone] Health Maintenance Due Date Last Done Comments DIABETES ANNUAL FOOT EXAM 1961 DIABETES ANNUAL RETINAL EXAM 1961 DIABETES MICROALBUMIN ANNUAL SCREEN 1961 LDL CHOLESTEROL ANNUAL 1961 DTAP/TDAP/TD VACCINES (1 - Tdap) 1962 PNEUMOCOCCAL VACCINE 50+ YEARS (1 of 2 - PCV) 05/18/19 62 ZOSTER VACCINE (1 of 2) 1962 RSV VACCINE (60+ or ) (1 - 1-dose 75+ series) 2018 DIABETES HBA1C Q 6 MONTHS 08/31/2024 02/29/2024 INFLUENZA VACCINE (#1) 2025 Medical Devices Implanted Type Area [employer] Device Identifier Shelf Expiration Date Model / Serial / Lot Stent Duodenal Wallflex 6502 - [id number] Implanted:Qty : 1 on 03/02/2024 by Elias Garces MD at [facility] Stent N/A: Duodenum [employer] [id number] 11/23/2024 [id number] / / [id number] Stent Viabil Nr [id number] - [id number] Implanted:Qty : 1 on 09/28/2024 by Saul Brooke MD at [facility] Stent N/A: Abdomen [employer] [id number] 10/03/2026 [id number] / [id number] / Stent Viabil Nr [id number] - [id number] Implanted:Qty : 1 on 09/28/2024 by Saul Brooke MD at [facility] Stent N/A: Abdomen [employer] [id number] 02/28/2026 [id number] / [id number] / Procedures Procedure Name Priority Date/Time Associated [...] CELL DIFFERENTIAL Routine 10/29/2024 3:38 PM CDT HEMOGLOBIN A1C Routine 02/29/2024 10:06 [...] 3:25 PM CDT) Only the most recent of6 resultswithin the time period is included. Blood us Adeel Dick MD CHEMISTRY ORDERABLES Final Resu lt * COMPREHENSIVE METABOLIC PANEL (01/10/2025 3:14 PM CDT) Only the most recent of7 [...] CDT [facility] [email or web address] [email or web address] 01/04/2025 9:21 AM CDT [facility] Comment:[facility] link Low Coverage Regions ABRAXAS1, BAX, CUL4A, BCS51L9, FANCC, IL32, MAPK1, NOTCH1, NOTCH2, PHLPP2, PPP6C, [...] Status: Consensus Evidence ID: CECILIA KDB Variant: Cxxc-em-tnfcrsiw Label: FDA Off Label FDA Approved?: Yes On label?: No 01/04/2025 9:21 AM CDT [facility]: Potential Therapy 8 Gene: 1101^BRCA2^HGNC Variant: p.I605fs Match Type: snvIndel Match Type Description: BRCA2 p.I605fs Agent: Olaparib Drug Class: PARP Inhibitor Tissue: Breast Cancer Association: Response Evidence Status: Consensus Evidence ID: CECILIA KDB Variant: Tqtd-wc-fnamrrdt Label: FDA Off Label FDA Approved?: Yes On label?: No 01/04/2025 9:21 AM CDT [facility]: Potential Therapy 9 Gene: 1101^BRCA2^HGNC Variant: p.I605fs Match Type: snvIndel Match Type Description: BRCA2 p.I605fs Agent: Rucaparib Drug Class: PARP Inhibitor Tissue: Prostate Cancer Association: Response Evidence Status: Consensus Evidence ID: CECILIA KDB Variant: Rcgs-dj-iwpcnfps Label: FDA Off Label FDA Approved?: Yes On label?: No 01/04/2025 9:21 AM CDT [facility]: Potential Therapy 10 Gene: 1101^BRCA2^HGNC Variant: p.I605fs Match Type: snvIndel Match Type Description: BRCA2 p.I605fs Agent: Talazoparib Drug Class: PARP Inhibitor Tissue: Breast Cancer Association: Response Evidence Status: Consensus Evidence ID: CECILIA KDB Variant: Uedr-pf-aluejrph Label: FDA Off Label FDA Approved?: Yes On label?: No 01/04/2025 9:21 AM CDT [facility]: Potential Therapy 11 Gene: 1101^BRCA2^HGNC Variant: p.I605fs Match Type: snvIndel Match Type Description: BRCA2 p.I605fs Agent: Niraparib + Bevacizumab Drug Class: Combination (PARP Inhibitor + Anti-VEGF MAb) Tissue: Ovarian Cancer Association: Response Evidence Status: Consensus Evidence ID: CECILIA KDB Variant: Glqa-lp-azhqfxoo Label: FDA Off Label FDA Approved?: Yes On label?: No 01/04/2025 9:21 AM CDT [facility]: Potential Therapy 12 Gene: 1101^BRCA2^HGNC Variant: p.I605fs Match Type: snvIndel Match Type Description: BRCA2 p.I605fs Agent: Olaparib + Bevacizumab Drug Class: Combination (PARP Inhibitor + Anti-VEGF MAb) Tissue: Ovarian Cancer Association: Response Evidence Status: Consensus Evidence ID: CECILIA KDB Variant: Oyal-bw-nmpmyzsh Label: FDA Off Label FDA Approved?: Yes On label?: No 01/04/2025 9:21 AM CDT [facility]: Potential Therapy 13 Gene: 1097^BRAF^HGNC Variant: p.V600E Match Type: snvIndel Match Type Description: 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 Agent: Trametinib Drug Class: MEK Inhibitor Tissue: Melanoma Association: Response Evidence Status: Consensus Evidence ID: CECILIA KDB Variant: Mrxk-fo-wwnflzzp Label: FDA Off Label FDA Approved?: Yes [...] Response Evidence Status: Clinical research Evidence ID: [id number] Evidence URL: https://www.ncbi.nlm.n .gov/pubmed/72376370 Evidence Title: Phosphatidylinositol 3-Kinase -Selective Inhibition With Alpelisib (BOR738) in ARB5DU-Fimniwk Solid Tumors: Results From the Cscpc-rp-Golyt Study - [facility] KDB Variant: Cldl-op-fsjjbdcc Label: FDA Off Label FDA Approved?: Yes On label?: No 01/04/2025 9:21 AM CDT [facility]: Potential Therapy 18 Gene: 8975^PIK3CA^HGNC Variant: p.F3374L Match Type: snvIndel Match Type Description: PIK3CA p.H9824O Agent: Alpelisib Drug Class: PI3K Inhibitor Tissue: Solid Tumors Association: Response Evidence Status: Clinical research Evidence ID: [id number] Evidence URL: https://www.ncbi.nlm.n .gov/pubmed/56870864 Evidence Title: Phosphatidylinositol 3-Kinase -Selective Inhibition With Alpelisib (YHA711) in CMK2RL-Rkknymv Solid Tumors: Results From the Szill-no-Ysude Study - [facility] KDB Variant: Hpcy-xl-dybnowfj Label: FDA Off Label FDA Approved?: Yes On label?: No 01/04/2025 9:21 AM CDT [facility] Trial Count 4 01/04/2025 9:21 AM CDT [facility]: Clinical Trial Match 1 Clinical Trial NCT ID: [id number] Clinical Trial Title: A Study to Assess the Efficacy and Safety of BFZR7212 in Participants With Cancer Harboring BRAF Alterations Clinical Trial URL: https://clinicaltrials .gov/ct2/show/FQU04897 797 Clinical Phase: Phase 2 Clinical Trial Matches: 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 Clinical Trial Distance and Location: [address] [place] [address] 01/04/2025 9:21 AM CDT [facility]: Clinical Trial Match 2 Clinical Trial NCT ID: [id number] Clinical Trial Title: Edrmc-lg-Jjmww Study of Mutant-selective PI3K Inhibitor, RLY-2608, As a Single Agent in Advanced Solid Tumor Patients and in Combination with Fulvestrant in Patients with Advanced Breast Cancer Clinical Trial URL: https://clinicaltrials .gov/ct2/show/GWW62296 432 Clinical Phase: Phase 1 Clinical Trial Matches: PIK3CA p.E545A mutation, PIK3CA p.O8638R mutation Clinical Trial Distance and Location: [address] [place], [place] 01/04/2025 9:21 AM CDT [facility]: Clinical Trial Match 3 Clinical Trial NCT ID: [id number] Clinical Trial Title: Study of DECOY20 With or Without Tislelizumab in Patients With Advanced Solid Tumors Clinical Trial URL: https://clinicaltrials .gov/ct2/show/EJG66814 022 Clinical Phase: Phase 1/Phase 2 Clinical Trial Matches: MSI high Clinical Trial Distance and Location: [address] [place], [place] 01/04/2025 9:21 AM CDT [facility]: Clinical Trial Match 4 Clinical Trial NCT ID: [id number] Clinical Trial Title: A Study of PARG Inhibitor [address] in Participants With Advanced Solid Tumors Clinical Trial URL: https://clinicaltrials .gov/ct2/show/ZNG13905 587 Clinical Phase: Phase 1 Clinical Trial Matches: BRCA2 p.I605fs mutation Clinical Trial Distance and Location: [address] [place] [address] 01/04/2025 9:21 AM CDT [facility] Tumor Mutational [place] 37.2 m/MB 01/04/2025 9:21 AM CDT [facility] Blood specimen (specimen) 12/06/2024 10:53 PM CDT Narrative This result has genomic variants that were not included in this document. us Adeel Dick MD MOLECULAR ORDERABLES Final Resu lt [facility] [address] [facility], [address] [place] [address], [facility] [address] [facility], [address] [place] [address] * CBC WITH AUTODIFFERENTIAL (12/27/2024 12:26 PM CDT) Only the most recent of3 resultswithin the time period is included. Blood us Adeel Dick MD HEMATOLOGY ORDERABLES Final Res ult * IRON LEVEL (12/11/2024 1:16 PM CDT) Blood us Adeel Dick MD CHEMISTRY ORDERABLES Final Resu lt * [facility] NORMAL BLOOD (12/05/2024 10:50 AM CDT) [facility] 12/05/2024 11:00 PM CDT [facility] Comment:See NGS Report for R esults. Blood specimen (specimen) 12/05/2024 10:50 AM CDT 12/05/2024 10:51 AM CDT us Adeel Dick MD MOLECULAR ORDERABLES Final Resu lt [facility] [address] [facility], [address] [place] [address], [facility] [address] [facility], [address] [place] [address] * [facility] DNA AND RNA SOLID TUMOR (12/05/2024 10:50 AM CDT) [facility] Reason for Study To identify somatic and [...] CDT [facility] [email or web address] [email or web address] 12/31/2024 10:39 AM CDT [facility] Comment:[facility] [...] Association: Response Evidence Status: Consensus Evidence ID: BROCK KDB Variant: V600E - GOF MSK Associated [...] Status: Consensus Evidence ID: CECILIA KDB Variant: Qosi-eb-jucfpmnj Label: FDA Off Label FDA Approved?: Yes On label?: No 12/31/2024 10:39 AM CDT [facility]: Potential Therapy 9 Gene: 1101^BRCA2^HGNC Variant: p.I605fs Match Type: snvIndel Match Type Description: BRCA2 p.I605fs Agent: Olaparib Drug Class: PARP Inhibitor Tissue: Breast Cancer Association: Response Evidence Status: Consensus Evidence ID: CECILIA KDB Variant: Nbqx-zc-jshpkuvv Label: FDA Off Label FDA Approved?: Yes On label?: No 12/31/2024 10:39 AM CDT [facility]: Potential Therapy 10 Gene: 1101^BRCA2^HGNC Variant: p.I605fs Match Type: snvIndel Match Type Description: BRCA2 p.I605fs Agent: Rucaparib Drug Class: PARP Inhibitor Tissue: Prostate Cancer Association: Response Evidence Status: Consensus Evidence ID: CECILIA KDB Variant: Htxk-dz-qnrzsuxz Label: FDA Off Label FDA Approved?: Yes On label?: No 12/31/2024 10:39 AM CDT [facility]: Potential Therapy 11 Gene: 1101^BRCA2^HGNC Variant: p.I605fs Match Type: snvIndel Match Type Description: BRCA2 p.I605fs Agent: Talazoparib Drug Class: PARP Inhibitor Tissue: Breast Cancer Association: Response Evidence Status: Consensus Evidence ID: CECILIA KDB Variant: Ejjs-mo-fwoyobwz Label: FDA Off Label FDA Approved?: Yes On label?: No 12/31/2024 10:39 AM CDT [facility]: Potential Therapy 12 Gene: 1101^BRCA2^HGNC Variant: p.I605fs Match Type: snvIndel Match Type Description: BRCA2 p.I605fs Agent: Niraparib + Bevacizumab Drug Class: Combination (PARP Inhibitor + Anti-VEGF MAb) Tissue: Ovarian Cancer Association: Response Evidence Status: Consensus Evidence ID: CECILIA KDB Variant: Zxoe-aa-sozegzga Label: FDA Off Label FDA Approved?: Yes On label?: No 12/31/2024 10:39 AM CDT [facility]: Potential Therapy 13 Gene: 1101^BRCA2^HGNC Variant: p.I605fs Match Type: snvIndel Match Type Description: BRCA2 p.I605fs Agent: Olaparib + Bevacizumab Drug Class: Combination (PARP Inhibitor + Anti-VEGF MAb) Tissue: Ovarian Cancer Association: Response Evidence Status: Consensus Evidence ID: CECILIA KDB Variant: Oghe-lu-jamibrbt Label: FDA Off Label FDA Approved?: Yes On label?: No 12/31/2024 10:39 AM CDT [facility]: Potential Therapy 14 Gene: 1097^BRAF^HGNC Variant: p.V600E Match Type: snvIndel Match Type Description: 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 Agent: Trametinib Drug Class: MEK Inhibitor Tissue: Melanoma Association: Response Evidence Status: Consensus Evidence ID: NORBERTN KDB Variant: Qwde-qt-kidkynpj Label: FDA Off Label FDA Approved?: Yes [...] Response Evidence Status: Clinical research Evidence ID: [id number] Evidence URL: https://www.ncbi.nlm.n ih.gov/pubmed/74120113 Evidence Title: Phosphatidylinositol 3-Kinase -Selective Inhibition With Alpelisib (KJD802) in AXI2JO-Njwixpq Solid Tumors: Results From the Uuayv-gc-Yomdp Study - PubMed KDB Variant: Nzxy-ai-yrxtukbh Label: FDA Off Label FDA Approved?: Yes On label?: No 12/31/2024 10:39 AM CDT [facility] Trial Count 4 12/31/2024 10:39 AM CDT [facility]: Clinical Trial Match 1 Clinical Trial NCT ID: [id number] Clinical Trial Title: A Study to Assess the Efficacy and Safety of QCBI2846 in Participants With Cancer Harboring BRAF Alterations Clinical Trial URL: https://clinicaltrials .gov/ct2/show/LCH67420 797 Clinical Phase: Phase 2 Clinical Trial Matches: 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 Clinical Trial Distance and Location: [address] [place], [place] 12/31/2024 10:39 AM CDT [facility]: Clinical Trial Match 2 Clinical Trial NCT ID: [id number] Clinical Trial Title: Study of DECOY20 With or Without Tislelizumab in Patients With Advanced Solid Tumors Clinical Trial URL: https://clinicaltrials .gov/ct2/show/POV81867 022 Clinical Phase: Phase 1/Phase 2 Clinical Trial Matches: MSI high Clinical Trial Distance and Location: [address] [place], [place] 12/31/2024 10:39 AM CDT [facility]: Clinical Trial Match 3 Clinical Trial NCT ID: [id number] Clinical Trial Title: A Study of PARG Inhibitor WYP851 in Participants With Advanced Solid Tumors Clinical Trial URL: https://clinicaltrials .gov/ct2/show/UXP87804 587 Clinical Phase: Phase 1 Clinical Trial Matches: BRCA2 p.I605fs mutation Clinical Trial Distance and Location: [address] [place], [place] 12/31/2024 10:39 AM CDT [facility]: Clinical Trial Match 4 Clinical Trial NCT ID: [id number] Clinical Trial Title: Study of INBRX-106 and INBRX-106 in Combination With Pembrolizumab (Keytruda ) in Subjects With Locally Advanced or Metastatic Solid Tumors (Hexavalent OX40 Agonist) Clinical Trial URL: https://clinicaltrials .gov/ct2/show/YWQ39380 766 Clinical Phase: Phase 1/Phase 2 Clinical Trial Matches: MSI high, TMB-High Clinical Trial Distance and Location: [address], [place], [place] 12/31/2024 10:39 AM CDT [facility] [...] ORDERABLES Final Resu lt [facility] [address] [facility], [address] [place] [address], [facility] [address] [facility], [address] [place] [address] * CANCER ANTIGEN 19-9 (12/03/2024 1:43 PM [...] 6.5(H) <=5.6 % 02/29/2024 10:37 PM CDT [facility] [employer] [facility] EST. AVG GLUCOSE, A1C 140 mg/dL 02/29/2024 10:37 PM CDT [facility] [employer] [facility] Blood Venipuncture / Unknown 02/29/2024 10:06 PM CDT 02/29/2024 10:13 PM CDT Narrative [facility] [employer] [facility] - 02/29/2024 10:37 PM CDT HGB A1C INTERPRETATION NORMAL: <5.7% PRE-DIABETES: 5.7 - 6.4% DIABETES: 6.5% OR GREATER Jem Rodrgiuez DO CHEMISTRY ORDERABLE S Final Result [facility] [employer] [facility] CLIA# [id number] [address] [place] [address] from Last 3 Months or Most Recently Relevant to Health Maintenance Insurance [facility] [id number] [place] [id number] RX [employer] RX Member Subscriber Plan / Payer (Ef fective 2023-Present) Name:Syd Underwood Relation to Subscriber:Self Name:Syd Underwood Payer ID:Not on file Group ID:[id number] Type:RX Medicare Part D Address: [employer] (INTERNAL) [facility] [employer] Commercial Advance Directives For more information, please contact: [phone] Documents on File Type Date Recorded Patient Rib Bender Expl 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
--- OUTSIDE RECORDS SUMMARY | 2025-01-27 08:16 | XMS_ITS | Encounter Summary ---
Author Organization [facility] Address 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 Elliott'[place]/Dr. 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 Opal [place] Hyperbilirubinemia 06/09/2024 Spoke w/Dai knowles at Dr. Knight'[place] Encounter Details Date Type Department Care Team (Late st Contact Info) Description 06/09/2024 Telephone [facility] Admitting [address] [place] [address] [place] [address] [place] [address] Duodenal tumor (Spoke w/Jjoo at Dr. Sterling [place]/Dr. Carlton wilson); Known [...] st Contact Info) Description 01/28/2025 Orders Only [facility] Oncology and Hematology [facility] [address] [place] [phone] Adeel Dick MD [address] [place] [address] [place] [phone] Metastatic adenocarcinoma (CMS/HCC) 02/07/2025 11:00 AM CDT Office Visit [facility] Oncology and Hematology [facility] [address] [place] [phone] Adeel Dick MD [address] [place] [address] [place] [phone] 02/14/2025 8:30 AM CDT Office Visit [facility] Oncology and Hematology Derek Tita [address]s [address] [place] [phone] Adeel Dick MD [address] [place] [address] [place] [phone] documented as of this encounter Visit Diagnoses Not on filedocumented in this encounter
--- NOTE | 2025-01-27 08:20 | ECG_ITS ---
Test Date: 2025-01-27 08:22:31 Measurements Intervals [place] Rate: 173 P: 0 [place]: 0 QRS: -8 QRSD: 85 T: 236 QT: 266 QTc: 452 Interpretive Statements SUPRAVENTRICULAR TACHYCARDIA NONSPECIFIC ST & T-WAVE ABNORMALITY CRITICAL TEST RESULT ABNORMAL ECG Electronically Signed On 01-27-2025 11:38:03 CDT by Conner Guardado M.D.
--- NOTE | 2025-01-27 08:27 | ECG_ITS ---
Test Date: 2025-01-27 08:27:55 Measurements Intervals [place] Rate: 115 P: 22 [place]: 121 QRS: -12 QRSD: 85 T: 60 QT: 342 QTc: 474 Interpretive Statements SINUS TACHYCARDIA NONSPECIFIC T-WAVE ABNORMALITY ABNORMAL RHYTHM ECG Compared to ECG 01/27/2025 08:22:31 Supraventricular tachycardia no longer present T-wave abnormality still present Electronically Signed On 01-28-2025 15:46:32 CDT by Dick Saez M.D.
--- OUTSIDE RECORDS SUMMARY | 2025-01-27 08:28 | XMS_ITS | Continuity of Care Document ---
Author Organization [facility] Address [address] [place] [address] [address] [place] [address] Phone Care Team Providers Care Pedicab Driver Name Role Phone Jaqueline Mccray Unavailable Unavailable Procedures Procedure Date Eye Exam, New Patient Advance Directives Directive Yes / No Effective Date File Name No Information Encounters Encounter Description Practice Location Reason(s) For Visit Diagnoses Date Provider Providers Copied on Encounter [facility], [id number] [place] [address] [address], [place], [place], [id number], [place] tel:[phone] [facility] No Information [address] , [address], [place], [address], [place]. tel:[phone] Family History Family Member Type Diagnosis Age [...]
[2025-01-27 08:50] LABS: Hematocrit 35.4 % (42.0-52.0); Hemoglobin 11.2 g/dL (14.0-18.0); Immature Granulocyte Percent A 0.7 % (0-0.5); Lymphocytes Absolute Auto 1.13 K/mm3 (0.9-3.2); Mean Corpuscular HGB Conc 31.6 g/dl (32-36); Mean Corpuscular Hemoglobin 27.1 pg (26-34); Mean Corpuscular Volume 85.7 fl (80-100); Nucleated Red Blood Cells Absolute Auto 0.000 K/mm3 (0.0-0.012); Nucleated Red Blood Cells Perc 0.0 % (0.0-0.2); Platelet Count Result 576 k/mm3 (150-375); Red Blood Count 4.13 M/mm3 (4.6-6.20); White Blood Count 18.1 K/mm3 (4.5-10.0)
[2025-01-27] MEDS: SODIUM CHLORIDE 0.9% IV 1,000 ML 999 ML IV CONT (08:51)
[2025-01-27 09:08] LABS: Alanine Aminotransferase 33 U/L (6-50); Albumin Level 2.4 g/dL (3.5-5.1); Alkaline Phosphatase 1103 U/L (38-126); Anion Gap 12 mmol/L (4-12); Aspartate Amino Transferase 92 U/L (17-59); Bilirubin,Total 1.9 mg/dL (0.2-1.3); Blood Urea Nitrogen 34 mg/dL (9-20); Calcium 8.0 mg/dL (8.4-10.2); Carbon Dioxide 15 mmol/L (22-30); Chloride 105 mmol/L (98-107); Estimated CRCL calculation 50 ml/min; Estimated Glomerular Filt Rate > 60; Glucose 116 mg/dL (65-110); Potassium 4.7 mmol/L (3.4-5.0); Sodium 132 mmol/L (137-145); Total Protein 6.0 g/dL (6.3-8.2)
[2025-01-27 09:09] LABS: Anisocytosis 2+; Burr Cells 1+; Helmet Cells 1+; Ovalocytes 1+; Poikilocytosis 1+; Schistocytes None Seen; Tear Drop Cells 1+
[2025-01-27 09:20] LABS: Lipase 127 U/L (23-300)
[2025-01-27 09:55] LABS: Add Urine Microscopic? YES; Appearance Urine Clear (Clear); Glucose Urine UA Negative (Negative); Leukocyte Esterase Ur Negative LEU/UL (Negative); Nitrate Urine Negative (Negative); Specific Grav Ur 1.020 (1.001-1.035)
--- NOTE | 2025-01-27 10:25 | ED.GENADULT ---
HPI - General Adult General Chief complaint: Weakness Stated complaint: weakness Time Seen by Provider: 01/27/25 08:20 History of Present Illness HPI narrative: Patient is an 79-year-old male with history of metastatic pancreatic cancer who presents ER with weakness and fatigue. Unable to get up out of bed today to perform any ADLs. He has been failing multiple rounds of chemotherapy and has been switched to Keytruda in his last treatment was 1 week ago. They did talk about hospice but he opted for this new treatment. Patient has had no falls. No fevers or chills or sweats. He receives Neupogen injections to increase his white blood cell count and he receives injections to increase his hemoglobin as well. No fevers or chills or sweats. Patient has poor appetite. Related Data Home Medications ?Medication ?Instructions ?Recorded ?Confirmed ?Last Taken ?Type cholecalciferol (vitamin D3) 50 50 mcg PO DAILY 02/16/24 01/27/25 09/13/24 History mcg (2,000 unit) capsule diphenoxylate-atropine 2.5 1 tablet PO QID PRN diarrhea 07/25/24 01/27/25 Unknown History mg-0.025 mg tablet (Lomotil) potassium chloride 20 mEq 20 meq PO DAILY 09/10/24 01/27/25 09/13/24 History tablet,extended release mecobalamin (vitamin B12) 500 mcg 500 mcg PO DAILY 10/22/24 01/27/25 Unknown History chewable tablet finasteride 5 mg tablet 5 mg PO DAILY 01/27/25 01/27/25 Unknown History hydrocodone 5 mg-acetaminophen 325 1 tablet PO Q4H PRN pain 01/27/25 01/27/25 Unknown History mg tablet lidocaine HCl 2 % mucosal solution 1 applic topical DIRECTED 01/27/25 01/27/25 Unknown History magnesium oxide 400 mg (241.3 mg 400 mg PO DAILY 01/27/25 01/27/25 Unknown History magnesium) tablet megestrol 400 mg/10 mL (40 mg/mL) 200 mg PO DAILY 01/27/25 01/27/25 Unknown History oral suspension Allergies Allergy/AdvReac Type Severity Reaction Status Date / Time tetanus toxoid, adsorbed Allergy Mild Rash Verified 01/27/25 17:33 Tetanus Vaccines and Toxoid Allergy Unknown Rash Verified 01/27/25 17:33 Review of Systems Review of Systems: All systems reviewed & are unremarkable except as noted in HPI and below Constitutional: Constitutional: Reports no additional constitutional complaints ENT: Reports system reviewed and no additional complaints, except as documented Cardiovascular: Cardiovascular: Reports no additional cardiovascular complaints Respiratory: Respiratory: Reports no additional respiratory complaints Gastrointestinal: Gastrointestinal: Reports no additional gastrointestinal complaints ON LICENSE OF [facility] Past Medical History Medical History Duodenal stricture Nausea Epigastric pain Neuropathy Arthritis History of colon polyps Hyperlipidemia HTN (hypertension) Diabetes Surgical History Surgical History History of colon surgery 2004 Resection for polyps Family History Family History Father Heart disease Mother Diabetes mellitus Hypertension Son Hypertension Social History Social History Social History: Declined to complete social history questionnaire 03/13/24 Smoking packs per day: 1 Smoking cigarettes per day: 20.0 Years smoked: 15 Smoking pack-years: 15.00 Smoking status: Former smoker Second hand tobacco smoke exposure: No Additional smoking assessment comments: quit 15-20 years ago Alcohol intake: never Drinks per week: 2 Alcohol use details: vodka and cranberry Substance use: never Substance use type: does not use Do You Feel Safe in your Home?: Yes Lack of Transportation: No Lack of Food: Never True Current Housing: I Have Housing Concerned About Future Housing: No Difficulty Paying Gas/Electric Bills: No Difficulty Paying for Meds: No Currently Unemployed: No Education: High School Diploma/GED Difficulty w/ Childcare or Family Care: No Living arrangements: with family Additional living arrangements comments: Occupation/Education: retired Gender identity (if verbalized by the patient): Male Spiritual care concerns: No Agree to blood products: Yes Exam Narrative: GENERAL: Chronically ill-appearing, well-nourished, and in no acute distress. HEAD: Normocephalic, atraumatic.. ENT: Mucous membranes moist. NECK: Supple. CHEST: Clear to auscultation. No respiratory distress. HEART: Regular rate and rhythm. Normal peripheral pulses. ABDOMEN: Soft, nontender, nondistended. EXTREMITIES: Normal range of motion. No edema. SKIN: Warm, dry, no rash. NEURO: Alert and oriented x3. PSYCH: Normal mood and affect. Course Course Emergency Course: Care coordination consulted after discussion with family and patient. Patient would like to go on hospice. He is unable to be placed in a facility at this time so he will be admitted here for comfort care. Discussed elevated white count which is likely related to his new region. No obvious infection to treat and he would only like comfort care any ways. Vital Signs Vital signs: Vital Signs Temperature 97.6 F 01/27/25 08:20 Pulse Rate 117 H 01/27/25 08:20 Respiratory Rate 19 01/27/25 08:20 Blood Pressure 128/91 H 01/27/25 08:20 Pulse Oximetry 98 01/27/25 08:20 Oxygen Delivery Room Air 01/27/25 08:20 Temperature 98.1 F 01/27/25 18:00 Pulse Rate 118 H 01/27/25 18:00 Respiratory Rate 16 01/27/25 18:00 Blood Pressure 144/72 H 01/27/25 18:00 Pulse Oximetry 99 01/27/25 18:00 Oxygen Delivery Room Air 01/27/25 08:26 Medical Decision Making Vital Signs Vital Signs: Vital Signs Temperature 97.6 F 01/27/25 08:20 Pulse Rate 117 H 01/27/25 08:20 Respiratory Rate 19 01/27/25 08:20 Blood Pressure 128/91 H 01/27/25 08:20 Pulse Oximetry 98 01/27/25 08:20 Oxygen Delivery Room Air 01/27/25 08:20 Temperature 98.1 F 01/27/25 18:00 Pulse Rate 118 H 01/27/25 18:00 Respiratory Rate 16 01/27/25 18:00 Blood Pressure 144/72 H 01/27/25 18:00 Pulse Oximetry 99 01/27/25 18:00 Oxygen Delivery Room Air 01/27/25 08:26 Lab Data 01/27/25 08:42 01/27/25 08:42 Labs: Lab Results 01/27/25 01/27/25 01/27/25 Range/Units 08:42 08:57 09:36 WBC 18.1 H (4.5-10.0) K/mm3 RBC 4.13 L (4.6-6.20) M/mm3 Hgb 11.2 L (14.0-18.0) g/dL Hct 35.4 L (42.0-52.0) % MCV 85.7 (80-100) fl MCH 27.1 (26-34) pg MCHC 31.6 L (32-36) g/dl RDW 23.0 H (11.5-14.5) % Plt Count 576 H (150-375) k/mm3 MPV 10.0 (7.4-10.4) fl Immature Gran % (Auto) 0.7 H (0-0.5) % Neut % (Auto) 83.5 H (45.5-73.1) % Lymph % (Auto) 6.2 L (18.3-44.2) % [place] % (Auto) 9.4 H (2.6-8.5) % Eos % (Auto) 0.0 (0-4.4) % Baso % (Auto) 0.2 (0.2-1.2) % Lymph # (Auto) 1.13 (0.9-3.2) K/mm3 [place] # (Auto) 1.7 H (0.1-0.6) K/mm3 Eos # (Auto) 0.0 (0-0.3) K/mm3 Baso # (Auto) 0.0 (0.0-0.1) K/mm3 Abs Immat Gran (auto) 0.13 H (0.00-0.031) K/mm3 Absolute Neuts (auto) 15.2 H (1.3-6.7) K/mm3 Absolute Nucleated RBC 0.000 (0.0-0.012) K/mm3 Band Neutrophils % Not Reportable Nucleated RBC % 0.0 (0.0-0.2) % Platelet Estimate Increased (Adequate) Poikilocytosis 1+ Anisocytosis 2+ Tear Drop Cells 1+ Ovalocytes 1+ Helmet Cells 1+ [place] Cells 1+ Schistocytes None seen Sodium 132 L (137-145) mmol/L Potassium 4.7 (3.4-5.0) mmol/L Chloride 105 (98-107) mmol/L Carbon Dioxide 15 L (22-30) mmol/L Anion Gap 12 (4-12) mmol/L BUN 34 H D (9-20) mg/dL Creatinine 1.00 (0.7-1.3) mg/dL Estim Creat Clear Calc 50 ml/min Estimated GFR > 60 (59 - ) Glucose 116 H (65-110) mg/dL Lactic Acid 2.9 H (0.7-2.0) mmol/L Calcium 8.0 L (8.4-10.2) mg/dL Total Bilirubin 1.9 H (0.2-1.3) mg/dL AST 92 H (17-59) U/L ALT 33 (6-50) U/L Alkaline Phosphatase 1103 H (38-126) U/L Total Protein 6.0 L (6.3-8.2) g/dL Albumin 2.4 L (3.5-5.1) g/dL Lipase 127 (23-300) U/L Urine Color Dark yellow (Yellow) Urine Appearance Clear (Clear) Urine pH 5.5 (5.0-9.0) Ur Specific [place] 1.020 (1.001-1.035) Urine Protein Trace (Negative) mg/dL Urine Glucose (UA) Negative (Negative) mg/dL Urine Ketones Trace H (Negative) mg/dL Ur Blood (Man) Negative (Negative) Urine Nitrate Negative (Negative) Urine Bilirubin Negative (Negative) Urine Urobilinogen 1.0 (<2.0) mg/dL Leukocyte Esterase Rfl Negative (Negative) CAMMY/UL Urine RBC 0-2 (0-2) /hpf Urine WBC 0-5 (0-3) /hpf Ur Squamous Epith Cells None seen (Few) /hpf Urine Bacteria None seen /hpf Urine Casts 3-5 Blood Type A Positive Antibody Screen Negative 01/27/25 Range/Units 11:09 WBC (4.5-10.0) K/mm3 RBC (4.6-6.20) M/mm3 Hgb (14.0-18.0) g/dL Hct (42.0-52.0) % MCV (80-100) fl MCH (26-34) pg MCHC (32-36) g/dl RDW (11.5-14.5) % Plt Count (150-375) k/mm3 MPV (7.4-10.4) fl Immature Gran % (Auto) (0-0.5) % Neut % (Auto) (45.5-73.1) % Lymph % (Auto) (18.3-44.2) % [place] % (Auto) (2.6-8.5) % Eos % (Auto) (0-4.4) % Baso % (Auto) (0.2-1.2) % Lymph # (Auto) (0.9-3.2) K/mm3 [place] # (Auto) (0.1-0.6) K/mm3 Eos # (Auto) (0-0.3) K/mm3 Baso # (Auto) (0.0-0.1) K/mm3 Abs Immat Gran (auto) (0.00-0.031) K/mm3 Absolute Neuts (auto) (1.3-6.7) K/mm3 Absolute Nucleated RBC (0.0-0.012) K/mm3 Band Neutrophils % Nucleated RBC % (0.0-0.2) % Platelet Estimate (Adequate) Poikilocytosis Anisocytosis Tear Drop Cells Ovalocytes Helmet Cells [place] Cells Schistocytes Sodium (137-145) mmol/L Potassium (3.4-5.0) mmol/L Chloride (98-107) mmol/L Carbon Dioxide (22-30) mmol/L Anion Gap (4-12) mmol/L BUN (9-20) mg/dL Creatinine (0.7-1.3) mg/dL Estim Creat Clear Calc ml/min Estimated GFR (59 - ) Glucose (65-110) mg/dL Lactic Acid 2.7 H (0.7-2.0) mmol/L Calcium (8.4-10.2) mg/dL Total Bilirubin (0.2-1.3) mg/dL AST (17-59) U/L ALT (6-50) U/L Alkaline Phosphatase (38-126) U/L Total Protein (6.3-8.2) g/dL Albumin (3.5-5.1) g/dL Lipase (23-300) U/L Urine Color (Yellow) Urine Appearance (Clear) Urine pH (5.0-9.0) Ur Specific [place] (1.001-1.035) Urine Protein (Negative) mg/dL Urine Glucose (UA) (Negative) mg/dL Urine Ketones (Negative) mg/dL Ur Blood (Man) (Negative) Urine Nitrate (Negative) Urine Bilirubin (Negative) Urine Urobilinogen (<2.0) mg/dL Leukocyte Esterase Rfl (Negative) CAMMY/UL Urine RBC (0-2) /hpf Urine WBC (0-3) /hpf Ur Squamous Epith Cells (Few) /hpf Urine Bacteria /hpf Urine Casts Blood Type Antibody Screen Imaging Data Radiologist's impression: Portable chest x-ray Comparison: 01/23/2025 Clinical History: Weakness Findings: Right-sided Mediport is unchanged. Lungs are clear, without focal consolidation or pleural effusion. Cardiomediastinal silhouette is stable. Bones and soft tissues are unremarkable. Impression: Clear lungs. Stable Mediport. Reviewed, dictated and finalized at location . Discharge Plan Discharge Clinical Impression: Pancreatic cancer metastasized to liver, Adult failure to thrive Patient Disposition: Still a Patient Condition: Serious
--- NOTE | 2025-01-27 12:39 | PCCCNOTE ---
1239-Called to the pt's room to discuss SNF and hospice options. Stated they are unable to take care of him at home any longer and would like him placed in facility. Supplied a list of facilities to choose from. Pt's stated they have a LTC policy as well. Stated they have no preference with hospice providers at this time-marco
--- NOTE | 2025-01-27 13:08 | PCCCNOTE ---
Spoke with family, they chose in the following order [facility], [facility] and [facility]. Did call Admissions with [facility] and [facility], called [facility] and M with Nataly regarding placement. Robyn with [facility] stated they could not admit today, would need to do a financial evaluation per referral of their LTC insurance. Will f/u with other facilities before speaking to the family. The pt's daughter also went to the pt's home to retrieve the LTC insurance information to share with the facilities.-marco
--- NOTE | 2025-01-27 14:22 | PCCCNOTE ---
1425-1.Called [facility] and spoke with Robyn regarding possibly admission to facility. Stated they would have to do a financial evaluation and not available until 01/28/25. 2. Called [facility] and [facility] with admission. Called the main line and spoke to Emily, stated they have no one to do an admission today. 3.Called [facility] and [facility] with admission. Called the main line and spoke to Zach, stated no one in the house today. Called [facility] and spoke with admissions. They do not have a contract with [facility] but yes to the others. Called [facility] and verified they are contracted with all of these facilities and referral information sent. [facility] is in house and will come down to meet the family. Faxed referrals to [facility], [facility], [facility] and [facility]. SNF's are in order of which facility the family is choosing. ED provider and family updated on the status.-marco
--- NOTE | 2025-01-27 14:34 | P.HP_ITS ---
H&P: HPI History of Present Illness Date/Time: 01/27/25 14:34 Chief Complaint: weakness Narrative: 79-year-old male with a PMHx: of metastatic pancreatic cancer currently in chemotherapy recently switched to Keytruda, presented to the emergency room with complaints of ongoing weakness, fatigue and unable to ambulate or perform any ADLs. Patient reports since starting the treatment he has experience a lack of appetite and weakness along with an inability to move his legs effectively. He has concerns regarding possible dehydration the family also reported patient has been experiencing episodes of confusion additionally the patient reported no pain initially but later mentioned mild abdominal pain and requested pain medication. The patient exhibited swollen feet with bilateral pitting edema in the lower extremities. ED Work-up reveals: CXR with clear lungs, stable MediPort, vitals BP 131/69, RR: 19, SpO2 95% on RA PMFSH Past Medical History Medical History Duodenal stricture Nausea Epigastric pain Neuropathy Arthritis History of colon polyps Hyperlipidemia HTN (hypertension) Diabetes Surgical History Surgical History History of colon surgery 2004 Resection for polyps Family History Family History Father Heart disease Mother Diabetes mellitus Hypertension Son Hypertension Social History Social History Social History: Declined to complete social history questionnaire 03/13/24 Smoking packs per day: 1 Smoking cigarettes per day: 20.0 Years smoked: 15 Smoking pack-years: 15.00 Smoking status: Former smoker Second hand tobacco smoke exposure: No Additional smoking assessment comments: quit 15-20 years ago Alcohol intake: never Drinks per week: 2 Alcohol use details: vodka and cranberry Substance use: never Substance use type: does not use Do You Feel Safe in your Home?: Yes Lack of Transportation: No Lack of Food: Never True Current Housing: I Have Housing Concerned About Future Housing: No Difficulty Paying Gas/Electric Bills: No Difficulty Paying for Meds: No Currently Unemployed: No Education: High School Diploma/GED Difficulty w/ Childcare or Family Care: No Living arrangements: with family Additional living arrangements comments: Occupation/Education: retired Gender identity (if verbalized by the patient): Male Spiritual care concerns: No Agree to blood products: Yes Meds Home Medications and Allergies Home Medications ?Medication ?Instructions ?Recorded ?Confirmed ?Type blood sugar diagnostic (Accu-Chek #100 ea 12/19/23 10/22/24 Rx Guide test strips) blood-glucose meter #1 ea 12/19/23 10/22/24 Rx lancets (Accu-Chek Softclix #100 ea 12/19/23 10/22/24 Rx Lancets) cholecalciferol (vitamin D3) 50 50 mcg PO DAILY 02/16/24 01/27/25 History mcg (2,000 unit) capsule diphenoxylate-atropine 2.5 1 tablet PO QID PRN diarrhea 07/25/24 01/27/25 History mg-0.025 mg tablet (Lomotil) potassium chloride 20 mEq 20 meq PO DAILY 09/10/24 01/27/25 History tablet,extended release mecobalamin (vitamin B12) 500 mcg 500 mcg PO DAILY 10/22/24 01/27/25 History chewable tablet allopurinol 100 mg tablet 100 mg PO DAILY #90 tabs 11/19/24 01/27/25 Rx gabapentin 100 mg capsule 100 mg PO HS #90 caps 11/19/24 01/27/25 Rx metformin 500 mg tablet,extended 500 mg PO BID #180 tabs 12/03/24 01/27/25 Rx release 24 hr finasteride 5 mg tablet 5 mg PO DAILY 01/27/25 01/27/25 History hydrocodone 5 mg-acetaminophen 325 1 tablet PO Q4H PRN pain 01/27/25 01/27/25 History mg tablet lidocaine HCl 2 % mucosal solution 1 applic topical DIRECTED 01/27/25 01/27/25 History magnesium oxide 400 mg (241.3 mg 400 mg PO DAILY 01/27/25 01/27/25 History magnesium) tablet megestrol 400 mg/10 mL (40 mg/mL) 200 mg PO DAILY 01/27/25 01/27/25 History oral suspension Allergies Allergy/AdvReac Type Severity Reaction Status Date / Time tetanus toxoid, adsorbed Allergy Mild Rash Verified 01/27/25 17:33 Tetanus Vaccines and Toxoid Allergy Unknown Rash Verified 01/27/25 17:33 Vital Signs Vital Signs - 24 hr 01/27/25 08:20 01/27/25 08:22 01/27/25 08:25 Temperature 97.6 F Pulse Rate 117 H 115 H 117 H Respiratory Rate 19 19 19 Blood Pressure 128/91 H 128/91 H Pulse Oximetry 98 99 Oxygen Delivery Room Air 01/27/25 08:26 01/27/25 08:30 01/27/25 08:31 Temperature Pulse Rate 115 H 113 H Respiratory Rate 21 H Blood Pressure Pulse Oximetry 100 Oxygen Delivery Room Air 01/27/25 08:45 01/27/25 08:46 01/27/25 09:00 Temperature Pulse Rate 112 H 112 H 108 H Respiratory Rate 19 19 17 Blood Pressure 155/76 H 145/71 H Pulse Oximetry 97 97 Oxygen Delivery 01/27/25 09:01 01/27/25 09:15 01/27/25 09:16 Temperature Pulse Rate 106 H 106 H 109 H Respiratory Rate 17 18 22 H Blood Pressure 148/83 H Pulse Oximetry Oxygen Delivery 01/27/25 09:30 01/27/25 09:31 01/27/25 09:45 Temperature Pulse Rate 107 H 105 H 102 H Respiratory Rate 19 19 17 Blood Pressure 162/81 H 149/74 H Pulse Oximetry Oxygen Delivery 01/27/25 09:46 01/27/25 10:01 01/27/25 10:20 Temperature Pulse Rate 100 97 96 Respiratory Rate 17 15 17 Blood Pressure Pulse Oximetry Oxygen Delivery 01/27/25 10:30 01/27/25 10:31 01/27/25 10:41 Temperature Pulse Rate 100 98 98 Respiratory Rate 16 14 15 Blood Pressure 133/70 133/70 Pulse Oximetry 97 100 Oxygen Delivery 01/27/25 11:16 01/27/25 11:30 01/27/25 11:31 Temperature Pulse Rate 99 106 H 102 H Respiratory Rate 15 17 17 Blood Pressure 141/74 H Pulse Oximetry 100 100 Oxygen Delivery 01/27/25 11:52 01/27/25 12:07 01/27/25 12:26 Temperature Pulse Rate 102 H 104 H 106 H Respiratory Rate 15 17 18 Blood Pressure Pulse Oximetry Oxygen Delivery 01/27/25 12:30 01/27/25 12:31 01/27/25 13:14 Temperature Pulse Rate 104 H 103 H 102 H Respiratory Rate 16 17 18 Blood Pressure 145/66 H Pulse Oximetry 96 Oxygen Delivery 01/27/25 13:15 01/27/25 13:16 01/27/25 13:34 Temperature Pulse Rate 102 H 102 H 105 H Respiratory Rate 16 16 17 Blood Pressure 143/68 H Pulse Oximetry 97 Oxygen Delivery 01/27/25 13:51 Temperature Pulse Rate 105 H Respiratory Rate 18 Blood Pressure Pulse Oximetry Oxygen Delivery H&P: Results Labs Labs: Short CBC 01/27/25 Range/Units 08:42 WBC 18.1 H (4.5-10.0) K/mm3 Hgb 11.2 L (14.0-18.0) g/dL Hct 35.4 L (42.0-52.0) % Plt Count 576 H (150-375) k/mm3 BMP 01/27/25 08:42 Sodium 132 L Potassium 4.7 Chloride 105 Carbon Dioxide 15 L BUN 34 H D Creatinine 1.00 Glucose 116 H Calcium 8.0 L Liver Function 01/27/25 Range/Units 08:42 Total Bilirubin 1.9 H (0.2-1.3) mg/dL AST 92 H (17-59) U/L ALT 33 (6-50) U/L Alkaline Phosphatase 1103 H (38-126) U/L Albumin 2.4 L (3.5-5.1) g/dL Urine 01/27/25 Range/Units 09:36 Urine Color Dark yellow (Yellow) Urine Appearance Clear (Clear) Urine pH 5.5 (5.0-9.0) Ur Specific [place] 1.020 (1.001-1.035) Urine Protein Trace (Negative) mg/dL Urine Glucose (UA) Negative (Negative) mg/dL Pulse Oximetry SpO2 results: 97% on RA Attestation: I personally reviewed and interpreted this pulse oximetry as follows: ECG Interpretation: Rate 115 WV 121 QRSd 85 QT 342 QTc 474 --[place]-- P 22 QRS -12 T 60 SINUS TACHYCARDIA NONSPECIFIC T-WAVE ABNORMALITY ABNORMAL RHYTHM ECG Compared to ECG 01/27/2025 08:22:31 Supraventricular tachycardia no longer present T-wave abnormality still present Assessment and Plan Assessment and plan (1) Pancreatic cancer metastasized to liver: Code(s): C25.9 - Malignant neoplasm of pancreas, unspecified; C78.7 - Secondary malignant neoplasm of liver and intrahepatic bile duct Status: Acute Assessment and Plan: -family is considering hospice -CTA shows significant interval progression of disease - vital signs q.4 hours -Monitor I&O b.i.d. (2) Chronic diastolic heart failure: Code(s): I50.32 - Chronic diastolic (congestive) heart failure Status: Acute (3) HTN (hypertension): Qualifiers: Hypertension type: primary hypertension Qualified Code(s): I10 - Essential (primary) hypertension Code(s): I10 - Essential (primary) hypertension Status: Acute Assessment and Plan: -chronic, stable -Continue (4) Weakness generalized: Code(s): R53.1 - Weakness Status: Acute Assessment and Plan: -pt/ot eval and treat Plan Continue home medications: continue home medications VTE Prophylaxis: SCDs DIET: regular diet Anticipated hospital stay: > 2 days Code Status: DNR
--- NOTE | 2025-01-27 16:18 | PCCCNOTE ---
1312-Gabrielle Cevallos called and stated the Tiff would be in to meet the family at 1600. Updated the family on the time of arrival. Stated they received the same call.-marco
--- NOTE | 2025-01-27 16:42 | ADMGEN ---
This patient, Syd Underwood, was admitted to [facility] Surg Room 305-01. Patient/family oriented to hospital policies and general routines including ID bracelet, bed and alarms, visiting hours, pain management, procedures, bathroom and other care routines, personal items, smoking policy, room service/diet, and visiting hours. Information on how to activate the Rapid Response Team has been discussed. Patient/Family are encouraged to report perceived risks to care and to ask questions if they do not understand what they are told or what they should do.
[2025-01-27] MEDS: GABAPENTIN 100 MG CAPSULE PO (20:49)
[2025-01-27] MEDS: HYDROcodone/acetaminophen (*CRX) 5-325 MG TABLET 1 TAB PO (20:54)
[2025-01-27] MEDS: LACTATED RINGERS 1,000 ML 75 ML IV CONT (21:00)
[2025-01-28] VITALS (7 sets, daily range): BP systolic 107–134; BP diastolic 59–71; PULSE 82–214; RESP 14–22; TEMP 35.8–36.3; O2SAT 98–100; BMI 20.8
[2025-01-28 08:02] LABS: Hematocrit 32.9 % (42.0-52.0); Hemoglobin 10.5 g/dL (14.0-18.0); Immature Granulocyte Percent A 0.8 % (0-0.5); Lymphocytes Absolute Auto 0.86 K/mm3 (0.9-3.2); Mean Corpuscular HGB Conc 31.9 g/dl (32-36); Mean Corpuscular Hemoglobin 27.3 pg (26-34); Mean Corpuscular Volume 85.5 fl (80-100); Nucleated Red Blood Cells Absolute Auto 0.000 K/mm3 (0.0-0.012); Nucleated Red Blood Cells Perc 0.0 % (0.0-0.2); Platelet Count Result 415 k/mm3 (150-375); Red Blood Count 3.85 M/mm3 (4.6-6.20); White Blood Count 17.0 K/mm3 (4.5-10.0)
[2025-01-28] MEDS: CYANOCOBALAMIN 500 MCG TABLET PO (08:02)
[2025-01-28] MEDS: CHOLECALCIFEROL (VITAMIN D3) 25 MCG (1,000 UNITS) TABLET 50 MCG PO (08:02)
[2025-01-28] MEDS: MAGNESIUM OXIDE 400 MG TABLET PO (08:03)
[2025-01-28] MEDS: MEGESTROL ACETATE (*CHEMO) ORAL SUSP 40 MG/ML SYR 200 MG PO (08:03)
[2025-01-28] MEDS: FINASTERIDE 5 MG TABLET PO (08:03)
[2025-01-28 08:39] LABS: Alanine Aminotransferase 27 U/L (6-50); Albumin Level 2.1 g/dL (3.5-5.1); Alkaline Phosphatase 1075 U/L (38-126); Anion Gap 10 mmol/L (4-12); Aspartate Amino Transferase 75 U/L (17-59); Bilirubin,Total 1.8 mg/dL (0.2-1.3); Blood Urea Nitrogen 33 mg/dL (9-20); Calcium 7.8 mg/dL (8.4-10.2); Carbon Dioxide 14 mmol/L (22-30); Chloride 107 mmol/L (98-107); Estimated CRCL calculation 54 ml/min; Estimated Glomerular Filt Rate > 60; Glucose 105 mg/dL (65-110); Sodium 131 mmol/L (137-145); Total Protein 5.5 g/dL (6.3-8.2)
[2025-01-28 08:43] LABS: Anisocytosis 2+; Helmet Cells 1+; Hypochromasia 1+; Ovalocytes 1+; Polychromasia 1+; Schistocytes Rare; Target Cells 1+; Tear Drop Cells 1+
[2025-01-28 08:50] LABS: Potassium 4.2 mmol/L (3.4-5.0)
--- NOTE | 2025-01-28 15:10 | PM.IMPN ---
Progress Note: A&P Assessment and Plan (1) Pancreatic cancer metastasized to liver: Code(s): C25.9 - Malignant neoplasm of pancreas, unspecified; C78.7 - Secondary malignant neoplasm of liver and intrahepatic bile duct Status: Acute Assessment and Plan: -Plan to discharge to facility on hospice. waiting on placement. -CTA shows significant interval progression of disease -vital signs q.4 hours -Monitor I&O b.i.d. (2) Chronic diastolic heart failure: Code(s): I50.32 - Chronic diastolic (congestive) heart failure Status: Acute Assessment and Plan: Chronic (3) HTN (hypertension): Qualifiers: Hypertension type: primary hypertension Qualified Code(s): I10 - Essential (primary) hypertension Code(s): I10 - Essential (primary) hypertension Status: Acute Assessment and Plan: -chronic, stable -Continue (4) Weakness generalized: Code(s): R53.1 - Weakness Status: Acute Assessment and Plan: -pt/ot eval and treat Plan Continue home medications: continue home medications VTE Prophylaxis: SCDs DIET: regular diet Anticipated hospital stay: > 2 days Code Status: DNR Subjective Date/time seen: 01/28/25 15:10 Interval history: Patient comfortable lying in bed with family at bedside. Waiting on facility placement to be discharged on hospice. Exam Narrative: GENERAL: Comfortable, no acute distress RESPIRATORY: clear to auscultation, no increased respiratory effort CARDIO: Regular rate and rhythm GI: soft, nontender, bowel sounds present SKIN/EXTREMITIES: no rashes, no edema, no redness or tenderness Objective Data Vital Signs Vital Signs: Vital Signs - 24 hr 01/27/25 15:29 01/27/25 15:30 01/27/25 15:31 Temperature Pulse Rate 107 H 105 H 105 H Respiratory Rate 16 17 19 Blood Pressure 139/76 Pulse Oximetry Oxygen Delivery Fraction of Inspired Oxygen 01/27/25 15:45 01/27/25 15:46 01/27/25 16:00 Temperature Pulse Rate 108 H 106 H 115 H Respiratory Rate 16 18 20 Blood Pressure 141/71 H 149/83 H Pulse Oximetry 97 95 Oxygen Delivery Fraction of Inspired Oxygen 01/27/25 16:01 01/27/25 16:15 01/27/25 16:16 Temperature Pulse Rate 113 H 113 H 113 H Respiratory Rate 19 19 21 H Blood Pressure 131/69 Pulse Oximetry 95 Oxygen Delivery Fraction of Inspired Oxygen 01/27/25 18:00 01/27/25 19:51 01/27/25 20:00 Temperature 98.1 F Pulse Rate 118 H 102 H 108 H Respiratory Rate 16 20 16 Blood Pressure 144/72 H Pulse Oximetry 99 97 100 Oxygen Delivery Room Air Room Air Fraction of Inspired Oxygen 21 21 01/27/25 21:17 01/28/25 05:31 01/28/25 08:00 Temperature 97.0 F L 96.7 F L Pulse Rate 108 H 101 H Respiratory Rate 16 16 Blood Pressure 138/74 132/71 Pulse Oximetry 100 100 100 Oxygen Delivery Room Air Fraction of Inspired Oxygen 01/28/25 14:00 Temperature 96.4 F L Pulse Rate 114 H Respiratory Rate 14 Blood Pressure 134/71 Pulse Oximetry 99 Oxygen Delivery Fraction of Inspired Oxygen Intake/Output Intake/Output: Intake & Output 01/25/25 01/26/25 01/27/25 01/28/25 23:59 23:59 23:59 23:59 Intake Total 1640 480 Output Total 200 300 Balance 1440 180 Meds/Results Medications: Active Medications Generic Name Dose Route Start Last Admin Trade Name Freq PRN Reason Stop Dose Admin Acetaminophen 650 mg 01/27/25 14:15 Acetaminophen 325 Mg Tablet PO Q4H PRN Mild Pain (1-3) or Fever Hydrocodone Bitart/Acetaminophen 1 tab 01/27/25 14:15 01/27/25 20:54 Hydrocodone/Acetaminophen (*Crx) 5-325 Mg Tablet PO 1 tab Q4H PRN Administration Pain Rated 4-6 Allopurinol 100 mg 01/28/25 09:00 01/28/25 08:00 Allopurinol 100 Mg Tablet PO 100 mg DAILY ANH Administration Cyanocobalamin 500 mcg 01/28/25 09:00 01/28/25 08:02 Cyanocobalamin 500 Mcg Tablet PO 500 mcg DAILY ANH Administration Diphenoxylate HCl/Atropine 1 tablet 01/27/25 19:57 Diphenoxylate/Atropine (*Crx) 2.5 Mg Tablet PO QID PRN diarrhea Finasteride 5 mg 01/28/25 09:00 01/28/25 08:03 Finasteride 5 Mg Tablet PO 5 mg DAILY ANH Administration Gabapentin 100 mg 01/27/25 21:00 01/27/25 20:49 Gabapentin 100 Mg Capsule PO 100 mg HS ANH Administration Magnesium Oxide 400 mg 01/28/25 09:00 01/28/25 08:03 Magnesium Oxide 400 Mg Tablet PO 400 mg DAILY ANH Administration Megestrol Acetate 200 mg 01/28/25 09:00 01/28/25 08:03 Megestrol Acetate (*Chemo) Oral Susp 40 Mg/Ml Syr PO 200 mg DAILY ANH Administration Morphine Sulfate 4 mg 01/27/25 14:15 Morphine Sulfate (*Crx) 4 Mg/Ml Inj IV PUSH Q2H PRN Pain Rated 7-10 Ondansetron HCl 4 mg 01/27/25 14:15 Ondansetron Inj 4 Mg/2 Ml Vial IV PUSH Q4H PRN Nausea Potassium Chloride 20 meq 01/28/25 09:00 01/28/25 11:12 Potassium Chloride 20 Meq Er Tablet PO Not Given DAILY ANH Vitamin D 50 mcg 01/28/25 09:00 01/28/25 08:02 Cholecalciferol (Vitamin D3) 25 Mcg (1,000 Units) Tablet PO 50 mcg DAILY ANH Administration Radiology Results: ITS Impressions Chest X-Ray 01/27/25 08:48 Impression: Clear lungs. Stable Mediport. Labs Labs: Laboratory Results - last 24 hr 01/28/25 01/28/25 01:02 07:18 WBC 17.0 H RBC 3.85 L Hgb 10.5 L Hct 32.9 L MCV 85.5 MCH 27.3 MCHC 31.9 L RDW 23.0 H Plt Count 415 H MPV 9.8 Immature Gran % (Auto) 0.8 H Neut % (Auto) 84.4 H Lymph % (Auto) 5.0 L [place] % (Auto) 9.6 H Eos % (Auto) 0.0 Baso % (Auto) 0.2 Lymph # (Auto) 0.86 L [place] # (Auto) 1.6 H Eos # (Auto) 0.0 Baso # (Auto) 0.0 Abs Immat Gran (auto) 0.13 H Absolute Neuts (auto) 14.4 H Absolute Nucleated RBC 0.000 Band Neutrophils % Not Reportable Nucleated RBC % 0.0 Platelet Estimate Increased Polychromasia 1+ Hypochromasia 1+ Anisocytosis 2+ Target Cells 1+ Tear Drop Cells 1+ Ovalocytes 1+ Helmet Cells 1+ Schistocytes Rare Sodium 131 L Potassium 4.2 Chloride 107 Carbon Dioxide 14 L Anion Gap 10 BUN 33 H Creatinine 0.93 Estim Creat Clear Calc 54 Estimated GFR > 60 Glucose 105 POC Capillary Glucose 120 H Calcium 7.8 L Total Bilirubin 1.8 H AST 75 H ALT 27 Alkaline Phosphatase 1075 H Total Protein 5.5 L Albumin 2.1 L
[2025-01-28] MEDS: HYDROcodone/acetaminophen (*CRX) 5-325 MG TABLET 1 TAB PO (19:18)
[2025-01-28] MEDS: METOPROLOL TARTRATE INJ 5 MG/5 ML VIAL IV PUSH (20:47)
--- NOTE | 2025-01-28 20:51 | PC.NURSE ---
pt's heart rate 214 , denies pain, alert oriented.sleepy but responds to voice and able to answer questions. was connected to tele monitor, Vtach 214, his Marylu was contacted via phone, stated that we can give medication to try lower the heart rate but No CPR. Marlin the provider was notified, IV Metoprolol 5 mg was given once and to repeat in 10 min if no improvement.
--- NOTE | 2025-01-28 21:00 | PC.NURSE ---
pt is back to NSR 79.
[2025-01-29] MEDS: MORPHINE SULFATE (*CRX) 4 MG/ML INJ IV PUSH ×2 (04:21→23:02)
[2025-01-29] MEDS: ONDANSETRON INJ 4 MG/2 ML VIAL IV PUSH ×2 (04:22→23:02)
[2025-01-29 04:38] VITALS: BP 120/61; PULSE 97; RESP 15; TEMP 35.8; O2SAT 97
[2025-01-29 06:10] LABS: Hematocrit 34.9 % (42.0-52.0); Hemoglobin 11.2 g/dL (14.0-18.0); Immature Granulocyte Percent A 0.9 % (0-0.5); Lymphocytes Absolute Auto 0.99 K/mm3 (0.9-3.2); Mean Corpuscular HGB Conc 32.1 g/dl (32-36); Mean Corpuscular Hemoglobin 26.9 pg (26-34); Mean Corpuscular Volume 83.9 fl (80-100); Nucleated Red Blood Cells Absolute Auto 0.020 K/mm3 (0.0-0.012); Nucleated Red Blood Cells Perc 0.1 % (0.0-0.2); Platelet Count Result 440 k/mm3 (150-375); Red Blood Count 4.16 M/mm3 (4.6-6.20); White Blood Count 21.3 K/mm3 (4.5-10.0)
[2025-01-29 06:43] LABS: Alanine Aminotransferase 39 U/L (6-50); Albumin Level 2.1 g/dL (3.5-5.1); Alkaline Phosphatase 1161 U/L (38-126); Anion Gap 11 mmol/L (4-12); Aspartate Amino Transferase 98 U/L (17-59); Bilirubin,Total 2.0 mg/dL (0.2-1.3); Blood Urea Nitrogen 39 mg/dL (9-20); Calcium 7.9 mg/dL (8.4-10.2); Carbon Dioxide 13 mmol/L (22-30); Chloride 106 mmol/L (98-107); Estimated CRCL calculation 48 ml/min; Estimated Glomerular Filt Rate > 60; Glucose 125 mg/dL (65-110); Potassium 4.7 mmol/L (3.4-5.0); Sodium 130 mmol/L (137-145); Total Protein 5.6 g/dL (6.3-8.2)
[2025-01-29 06:54] LABS: Anisocytosis 2+
[2025-01-29 06:55] LABS: Burr Cells 2+; Schistocytes None Seen
--- NOTE | 2025-01-29 08:38 | P.CDI_ITS ---
CDI Query Clarification Request BMI: 20.9 Nutritional Diagnostic Statement: Please refer to the comprehensive nutrition assessment for further information. If you agree with diagnosis of Moderate protein calorie malnutrition related to inadequate energy intake as evidenced by a significant weight loss of -21% x 1 year, poor po intake for greater than 1 month, and NFPE findings for severe subcutaneous fat loss and severe muscle wasting. Please specify severity if known: * Mild * Moderate * Severe * Other/Unknown <Keerthi Mahan RN - Last Filed: 01/29/25 08:39> Clarified Diagnosis Clarified Diagnosis: Agree with diagnosis of moderate protein calorie malnutrition - appreciate dietary recommendations <Alonso Underwood PA-C - Last Filed: 01/29/25 11:04>
[2025-01-29 13:57] VITALS: BP 122/69; PULSE 108; RESP 14; TEMP 36.2; O2SAT 99
--- NOTE | 2025-01-29 14:06 | P.PNIM_ITS ---
Progress Note: A&P Assessment and Plan (1) Pancreatic cancer metastasized to liver: Code(s): C25.9 - Malignant neoplasm of pancreas, unspecified; C78.7 - Secondary malignant neoplasm of liver and intrahepatic bile duct Status: Acute Assessment and Plan: -Plan to discharge to facility on hospice. waiting on placement. -CTA shows significant interval progression of disease -vital signs q.4 hours -Monitor I&O b.i.d. (2) Chronic diastolic heart failure: Code(s): I50.32 - Chronic diastolic (congestive) heart failure Status: Acute Assessment and Plan: Chronic (3) HTN (hypertension): Qualifiers: Hypertension type: primary hypertension Qualified Code(s): I10 - Essential (primary) hypertension Code(s): I10 - Essential (primary) hypertension Status: Acute Assessment and Plan: -chronic, stable -Continue (4) Weakness generalized: Code(s): R53.1 - Weakness Status: Acute Assessment and Plan: -pt/ot eval and treat Plan Continue home medications: continue home medications VTE Prophylaxis: SCDs DIET: regular diet Anticipated hospital stay: > 2 days Code Status: DNR Subjective Date/time seen: 01/29/25 14:06 Interval history: 79-year-old male with a PMHx: of metastatic pancreatic cancer currently in chemotherapy recently switched to Keytruda, presented to the emergency room with complaints of ongoing weakness, fatigue and unable to ambulate or perform any ADLs. 01/29/2025 Patient comfortable lying in bed with family at bedside. Waiting on facility placement to be discharged on hospice. Accepted at [facility] - unable to be accepted after 2pm so we will look to discharge tomorrow unless he can be accepted for inpt hospice which is preferred, but pt is aware that this is not likely and that he will likely go to [facility] and they are okay with this. Exam Narrative: GENERAL: Comfortable, no acute distress RESPIRATORY: clear to auscultation, no increased respiratory effort CARDIO: Regular rate and rhythm GI: soft, nontender, bowel sounds present SKIN/EXTREMITIES: no rashes, no edema, no redness or tenderness Objective Data Vital Signs Vital Signs: Vital Signs - 24 hr 01/28/25 20:00 01/28/25 20:20 01/28/25 20:47 Temperature 97.3 F L Pulse Rate 82 213 H 214 H Respiratory Rate 22 H 16 Blood Pressure 107/70 Pulse Oximetry 98 99 Oxygen Delivery Room Air Fraction of Inspired Oxygen 21 01/28/25 20:59 01/29/25 04:38 01/29/25 08:00 Temperature 96.5 F L Pulse Rate 82 97 Respiratory Rate 22 H 15 Blood Pressure 107/59 L 120/61 Pulse Oximetry 98 97 Oxygen Delivery Room Air Fraction of Inspired Oxygen 01/29/25 13:57 Temperature 97.1 F L Pulse Rate 108 H Respiratory Rate 14 Blood Pressure 122/69 Pulse Oximetry 99 Oxygen Delivery Fraction of Inspired Oxygen Intake/Output Intake/Output: Intake & Output 01/26/25 01/27/25 01/28/25 01/29/25 23:59 23:59 23:59 23:59 Intake Total 1640 480 120 Output Total 200 600 220 Balance 1440 -120 -100 Meds/Results Medications: Active Medications Generic Name Dose Route Start Last Admin Trade Name Freq PRN Reason Stop Dose Admin Acetaminophen 650 mg 01/27/25 14:15 Acetaminophen 325 Mg Tablet PO Q4H PRN Mild Pain (1-3) or Fever Hydrocodone Bitart/Acetaminophen 1 tab 01/27/25 14:15 01/28/25 19:18 Hydrocodone/Acetaminophen (*Crx) 5-325 Mg Tablet PO 1 tab Q4H PRN Administration Pain Rated 4-6 Allopurinol 100 mg 01/28/25 09:00 01/29/25 09:12 Allopurinol 100 Mg Tablet PO Not Given DAILY [facility] Cyanocobalamin 500 mcg 01/28/25 09:00 01/29/25 09:12 Cyanocobalamin 500 Mcg Tablet PO Not Given DAILY ANH Diphenoxylate HCl/Atropine 1 tablet 01/27/25 19:57 Diphenoxylate/Atropine (*Crx) 2.5 Mg Tablet PO QID PRN diarrhea Finasteride 5 mg 01/28/25 09:00 01/29/25 09:12 Finasteride 5 Mg Tablet PO Not Given DAILY ANH Gabapentin 100 mg 01/27/25 21:00 01/28/25 21:04 Gabapentin 100 Mg Capsule PO Not Given HS ANH Magnesium Oxide 400 mg 01/28/25 09:00 01/29/25 09:12 Magnesium Oxide 400 Mg Tablet PO Not Given DAILY ANH Megestrol Acetate 200 mg 01/28/25 09:00 01/29/25 09:12 Megestrol Acetate (*Chemo) Oral Susp 40 Mg/Ml Syr PO Not Given DAILY [facility] Morphine Sulfate 4 mg 01/27/25 14:15 01/29/25 04:21 Morphine Sulfate (*Crx) 4 Mg/Ml Inj IV PUSH 4 mg Q2H PRN Administration Pain Rated 7-10 Ondansetron HCl 4 mg 01/27/25 14:15 01/29/25 04:22 Ondansetron Inj 4 Mg/2 Ml Vial IV PUSH 4 mg Q4H PRN Administration Nausea Potassium Chloride 20 meq 01/28/25 09:00 01/29/25 09:12 Potassium Chloride 20 Meq Er Tablet PO Not Given DAILY [facility] Vitamin D 50 mcg 01/28/25 09:00 01/29/25 09:12 Cholecalciferol (Vitamin D3) 25 Mcg (1,000 Units) Tablet PO Not Given DAILY [facility] Radiology Results: ITS Impressions Chest X-Ray 01/27/25 08:48 Impression: Clear lungs. Stable Mediport. Labs Labs: Laboratory Results - last 24 hr 01/29/25 05:29 WBC 21.3 H RBC 4.16 L Hgb 11.2 L Hct 34.9 L MCV 83.9 MCH 26.9 MCHC 32.1 RDW 23.4 H Plt Count 440 H MPV 10.3 Immature Gran % (Auto) 0.9 H Neut % (Auto) 87.6 H Lymph % (Auto) 4.7 L [place] % (Auto) 6.6 Eos % (Auto) 0.0 Baso % (Auto) 0.2 Lymph # (Auto) 0.99 [place] # (Auto) 1.4 H Eos # (Auto) 0.0 Baso # (Auto) 0.0 Abs Immat Gran (auto) 0.20 H Absolute Neuts (auto) 18.7 H Absolute Nucleated RBC 0.020 H Band Neutrophils % Not Reportable Nucleated RBC % 0.1 Platelet Estimate Increased Anisocytosis 2+ [place] Cells 2+ Schistocytes None seen Sodium 130 L Potassium 4.7 Chloride 106 Carbon Dioxide 13 L Anion Gap 11 BUN 39 H Creatinine 1.06 Estim Creat Clear Calc 48 Estimated GFR > 60 Glucose 125 H Calcium 7.9 L Total Bilirubin 2.0 H AST 98 H ALT 39 Alkaline Phosphatase 1161 H Total Protein 5.6 L Albumin 2.1 L
[2025-01-29 20:00] VITALS: PULSE 111; RESP 14; O2SAT 97
[2025-01-29 21:34] VITALS: BP 130/71; PULSE 111; RESP 14; TEMP 36.6; O2SAT 97
--- NOTE | 2025-01-30 04:32 | PC.NURSE ---
03:45 pt had no urine output since the morning, BS showed> 600cc, Dr. Rodriguez was notified, a Daniel was inserted by his order, came out 200 cc. Provider was notified and decided to keep Daniel as comfort care by family wish - pt's son at bedside and was educated, pt's abdomen is distended and could be accumulating fluids that might explain the BS reading. note that pt is deteriorating, very weak, unable to speak or swallow. open eyes for a second for touch.
[2025-01-30] MEDS: ONDANSETRON INJ 4 MG/2 ML VIAL IV PUSH (05:07)
[2025-01-30] MEDS: MORPHINE SULFATE (*CRX) 4 MG/ML INJ IV PUSH ×2 (05:07→07:45)
[2025-01-30 05:34] VITALS: BP 141/72; PULSE 112; RESP 16; TEMP 36.2; O2SAT 100
[2025-01-30 05:59] LABS: Hematocrit 35.5 % (42.0-52.0); Hemoglobin 11.4 g/dL (14.0-18.0); Immature Granulocyte Percent A 1.2 % (0-0.5); Lymphocytes Absolute Auto 1.18 K/mm3 (0.9-3.2); Mean Corpuscular HGB Conc 32.1 g/dl (32-36); Mean Corpuscular Hemoglobin 27.7 pg (26-34); Mean Corpuscular Volume 86.4 fl (80-100); Nucleated Red Blood Cells Absolute Auto 0.040 K/mm3 (0.0-0.012); Nucleated Red Blood Cells Perc 0.2 % (0.0-0.2); Platelet Count Result 473 k/mm3 (150-375); Red Blood Count 4.11 M/mm3 (4.6-6.20); White Blood Count 25.0 K/mm3 (4.5-10.0)
--- NOTE | 2025-01-30 06:43 | PC.NURSE ---
06:30 son called me to reassess the patient, pt has shallow breathing, less responsive. son and family are aware of the patient situation, I suggested for him to call the family if they would like to be here. Also, suggested to call the provider to get orders for more comfort medications. Patient's son noted that he prefers to wait for the family and not to give anything at this time. 10 minutes after I went back and asked the son if he would like me to stay with him - son at bedside crying and holding his dad's hand and asked to have time alone.
[2025-01-30 06:56] LABS: Anisocytosis 2+; Burr Cells 2+
[2025-01-30 06:57] LABS: Schistocytes None Seen
[2025-01-30 07:21] LABS: Alanine Aminotransferase 85 U/L (6-50); Albumin Level 2.2 g/dL (3.5-5.1); Alkaline Phosphatase 1256 U/L (38-126); Anion Gap 15 mmol/L (4-12); Aspartate Amino Transferase 290 U/L (17-59); Bilirubin,Total 2.5 mg/dL (0.2-1.3); Blood Urea Nitrogen 55 mg/dL (9-20); Calcium 8.0 mg/dL (8.4-10.2); Carbon Dioxide 10 mmol/L (22-30); Chloride 107 mmol/L (98-107); Estimated CRCL calculation 30 ml/min; Estimated Glomerular Filt Rate 38; Glucose 104 mg/dL (65-110); Potassium 6.0 mmol/L (3.4-5.0); Sodium 132 mmol/L (137-145); Total Protein 5.4 g/dL (6.3-8.2)
[2025-01-30] MEDS: LORazepam INJ (*CRX) 2 MG/ML VIAL 1 MG IV PUSH (09:04)
[2025-01-30] MEDS: SCOPOLAMINE 1 MG PATCH 1 PATCH TRANSDERM (09:05)
--- NOTE | 2025-01-30 09:55 | PC.NURSE ---
Brissa, in Care Coordination, notified per telephone of patient's expiration.
--- NOTE | 2025-01-30 10:22 | PM.DDS ---
Discharge Summary Probable Cause of Probable Cause of : Pancreatic cancer metastasized to liver Summary Hospital Course: 79-year-old male with a PMHx: of metastatic pancreatic cancer currently in chemotherapy recently switched to Keytruda, presented to the emergency room with complaints of ongoing weakness, fatigue and unable to ambulate or perform any ADLs. Patient reports since starting the treatment he has experience a lack of appetite and weakness along with an inability to move his legs effectively. He has concerns regarding possible dehydration the family also reported patient has been experiencing episodes of confusion additionally the patient reported no pain initially but later mentioned mild abdominal pain and requested pain medication. The patient exhibited swollen feet with bilateral pitting edema in the lower extremities. ED Work-up reveals: CXR with clear lungs, stable MediPort, vitals BP 131/69, RR: 19, SpO2 95% on RA CTA showed significant interval progression of disease. Pt was then admitted for placement to hospice. Hospice was consulted. They met with family at bedside and requested re-evaluation for consideration for GIP. Pt was accepted to [facility]. Pt was to be reevaluated on 01/30 by hospice but at approximately 0915 on 01/30.
== END 2025-01-30 12:56 | disposition expired ==
LOC: ANHED 08:26 → ANH3MEDSUR 15:22
PROVIDERS: Nurse Practitioner; Admitting Provider Internal Medicine; Emergency Provider Emergency Medicine; PCP Nurse Practitioner Family; Visit Provider Internal Medicine
DX: R53.1 Weakness (principal); C25.9 Malignant neoplasm of pancreas, unspecified; C78.7 Secondary malignant neoplasm of liver and intrahepatic bile duct; R62.7 Adult failure to thrive; Z68.20 Body mass index [BMI] 20.0-20.9, adult; I11.0 Hypertensive heart disease with heart failure; I50.32 Chronic diastolic (congestive) heart failure; E78.5 Hyperlipidemia, unspecified; E11.9 Type 2 diabetes mellitus without complications; Z87.891 Personal history of nicotine dependence
CPT/HCPCS: 36415; 71045; 80053; 81001; 82948; 83605; 83690; 85025; 86850; 86900; 86901; 93005; 96361; 96375; 96376; 99285; A9270; G0378; J0616; J2060; J2270; J2405; J7030; J7120